=== PATIENT | male | born 1955 | race African-American/Black ===

== ENCOUNTER 2016-06-26 06:57 | Emergency (ER) | payer OTHER ==
[~2016-06-26] VITALS: Ht 182.9 cm; Wt 90.7 kg
[2016-06-26 07:05] VITALS: BP 167/93
== END 2016-06-26 12:21 | disposition home or self-care (01) ==
LOC: ER 06:57
DX: G89.29 Other chronic pain (principal); M54.5 Low back pain; J45.909 Unspecified asthma, uncomplicated; J44.9 Chronic obstructive pulmonary disease, unspecified; I10 Essential (primary) hypertension; Z88.6 Allergy status to analgesic agent

== ENCOUNTER 2018-03-07 07:34 | Emergency (ER) | payer OTHER ==
[~2018-03-07] VITALS: Ht 182.9 cm; Wt 88.9 kg
[2018-03-07 07:51] VITALS: BP 179/91
== END 2018-03-07 08:39 | disposition home or self-care (01) ==
LOC: ER 07:34
DX: I10 Essential (primary) hypertension (principal); J44.9 Chronic obstructive pulmonary disease, unspecified; Z76.0 Encounter for issue of repeat prescription

== ENCOUNTER 2018-07-08 08:08 | Emergency (ER) | payer OTHER ==
[~2018-07-08] VITALS: Ht 182.9 cm; Wt 77.1 kg
[2018-07-08 08:43] VITALS: BP 178/110
== END 2018-07-08 09:17 | disposition home or self-care (01) ==
LOC: ER 08:08
DX: I10 Essential (primary) hypertension (principal); J44.9 Chronic obstructive pulmonary disease, unspecified; Z76.0 Encounter for issue of repeat prescription
CPT/HCPCS: 93005

== ENCOUNTER 2018-07-31 09:54 | Emergency (ER) | payer OTHER ==
[~2018-07-31] VITALS: Ht 182.9 cm; Wt 90.7 kg
[2018-07-31 09:58] VITALS: BP 161/89
== END 2018-07-31 10:26 | disposition home or self-care (01) ==
LOC: ER 09:54
DX: I10 Essential (primary) hypertension (principal); J44.9 Chronic obstructive pulmonary disease, unspecified; Z76.0 Encounter for issue of repeat prescription

== ENCOUNTER 2018-09-27 17:57 | Emergency (ER) | payer MEDICAID ==
[~2018-09-27] VITALS: Ht 182.9 cm; Wt 90.7 kg
[2018-09-27] MEDS ORDERED: IPRATROPIUM BROM 0.5 MG/2.5ML INH SOL NEB ONE (19:45)
[2018-09-27] MEDS ORDERED: ALBUTEROL SULF 2.5 MG/0.5ML(0.5%) NEB SOLN NEB ONE (19:45)
== END 2018-09-27 20:54 | disposition home or self-care (01) ==
LOC: ER 18:02
DX: J20.9 Acute bronchitis, unspecified (principal); K40.90 Unilateral inguinal hernia, without obstruction or gangrene, not specified as recurrent; Z76.0 Encounter for issue of repeat prescription; J44.9 Chronic obstructive pulmonary disease, unspecified; I10 Essential (primary) hypertension
CPT/HCPCS: 94640; 99283; J7611; J7644

== ENCOUNTER 2023-12-14 11:37 | Emergency (ER) | payer MEDICARE, MEDICAID ==
[~2023-12-14] VITALS: Ht 182.9 cm; Wt 72.6 kg
[2023-12-14 13:16] VITALS: BP 126/90; PULSE 109; RESP 17; TEMP 98.9; O2SAT 97
[2023-12-14 13:16] LABS: Basophils # (auto) 0.1 10 ^3/uL (0-0.2); Basophils % (auto) 0.7 % (0.0-2.0); Eosinophils # (auto) 0.2 10 ^3/uL (0-0.8); Eosinophils % (auto) 1.8 % (0.0-7.0); Hematocrit 48.6 % (41.0-53.0); Hemoglobin 16.5 g/dL (13.5-17.5); Lymphocytes # (auto) 1.3 10 ^3/uL (0.4-5.4); Lymphocytes % (auto) 15.8 % (10.0-50.0); Mean Corpuscular Hemoglobin 30.5 pg (28.0-32.0); Mean Corpuscular Hgb Conc. 33.9 g/dL (32.0-36.0); Mean Corpuscular Volume 89.9 fL (80.0-100.0); Monocytes # (auto) 0.5 10 ^3/uL (0-1.3); Monocytes % (auto) 6.3 % (0.0-12.0); Neutrophils # (auto) 6.4 10 ^3/uL (1.6-8.6); Neutrophils % (auto) 75.4 % (37.0-80.0); Nucleated Red Blood Cells % 0.1 %; Red Cell Distribution Width 14.9 % (11.8-14.3); White Blood Cell 8.5 10^3/uL (4.4-10.8)
[2023-12-14 13:32] LABS: Chloride 107 mmol/L (98-107); Potassium 4.9 mmol/L (3.5-5.1); Sodium 141 mmol/L (136-145)
[2023-12-14] MEDS ORDERED: FURO1TAB31 PO (13:34)
[2023-12-14 13:35] LABS: Anion Gap 8 (5-15); Calcium 9.7 mg/dL (8.7-10.4); Carbon Dioxide 26 mmol/L (20-30)
[2023-12-14 13:40] LABS: BUN/Creatinine Ratio 12.3 (10.0-20.0); Blood Urea Nitrogen 26 mg/dL (9-23); Glucose 91 mg/dL (74-106)
== END 2023-12-14 13:44 | disposition home or self-care (01) ==
LOC: ER 11:37
DX: R06.02 Shortness of breath (principal); J44.9 Chronic obstructive pulmonary disease, unspecified; I10 Essential (primary) hypertension; Z76.0 Encounter for issue of repeat prescription
CPT/HCPCS: 36415; 80048; 83880; 85025; 85379

== ENCOUNTER 2024-03-04 03:52 | Inpatient (IN) | payer MEDICARE, OTHER ==
[2024-03-04] VITALS (8 sets, daily range): BP systolic 128–133; BP diastolic 85–88; PULSE 78–101; RESP 16–18; TEMP 97.4–97.8; O2SAT 94–100
[~2024-03-04] VITALS: Ht 182.9 cm; Wt 75.0 kg
[~2024-03-04 03:52] MED LIST: ATOR-507 PO; FLUT100I INH; FURO1TAB31 PO
[2024-03-04] MEDS: ALBUTEROL SULF 2.5 MG/0.5ML(0.5%) NEB SOLN NEB ONE ×2 (04:55→19:32)
[2024-03-04] MEDS: MORPHINE SULFATE INJ 2 MG/ml SYRG IV ONE (05:00)
[2024-03-04] MEDS: ONDANSETRON HCL 4 MG/2 ML VIAL IV ONE (06:01)
[2024-03-04] MEDS: NITROGLYCERIN 2% OINT 1GM PKG TD ONE (06:39)
[2024-03-04] MEDS: FUROSEMIDE 100 MG/10ML VIAL IV ONE (06:39)
[2024-03-04 07:58] LABS: Basophils # (auto) 0 10 ^3/uL (0-0.2); Basophils % (auto) 0.2 % (0.0-2.0); Eosinophils # (auto) 0 10 ^3/uL (0-0.8); Hematocrit 48.1 % (41.0-53.0); Hemoglobin 16.1 g/dL (13.5-17.5); Lymphocytes # (auto) 0.4 10 ^3/uL (0.4-5.4); Lymphocytes % (auto) 4.5 % (10.0-50.0); Mean Corpuscular Hemoglobin 30.7 pg (28.0-32.0); Mean Corpuscular Hgb Conc. 33.5 g/dL (32.0-36.0); Mean Corpuscular Volume 91.6 fL (80.0-100.0); Monocytes # (auto) 0.3 10 ^3/uL (0-1.3); Monocytes % (auto) 2.7 % (0.0-12.0); Neutrophils # (auto) 9.3 10 ^3/uL (1.6-8.6); Neutrophils % (auto) 92.6 % (37.0-80.0); Nucleated Red Blood Cells % 0.1 %; Platelet Count (auto) 221 10^3/uL (140-450); Red Blood Cells 5.26 10^6/uL (4.5-5.90); Red Cell Distribution Width 15.4 % (11.8-14.3)
[2024-03-04 08:15] LABS: Alanine Aminotransferase 28 U/L (7-40); Albumin 2.4 g/dL (3.2-4.8); Alkaline Phosphatase 62 U/L (46-116); Anion Gap 13 (5-15); Aspartate Aminotransferase 31 U/L (13-40); BUN/Creatinine Ratio 23.2 (10.0-20.0); Blood Urea Nitrogen 47 mg/dL (9-23); Calcium 6.7 mg/dL (8.7-10.4); Carbon Dioxide 16 mmol/L (20-31); Chloride 116 mmol/L (98-107); Glucose 97 mg/dL (74-106); Potassium 4.1 mmol/L (3.5-5.1); Sodium 145 mmol/L (136-145)
[2024-03-04 08:16] LABS: Bilirubin, Total 0.6 mg/dL (0.2-1.0); Total Protein 3.9 g/dL (5.7-8.2)
[2024-03-04] MEDS ORDERED: NITROGLYCERIN 0.4 MG SL TAB SL PRN (12:00)
[2024-03-04] MEDS: ASPirin 81 mg TAB PO ONE ×2 (12:00→12:42)
[2024-03-04] MEDS: levoFLOXacin 500MG 100 ML IV ONE (12:43)
[2024-03-04 14:49] LABS: Magnesium 1.6 mg/dL (1.6-2.6)
[2024-03-04] MEDS ORDERED: ALBU2TAB11 PO (17:24)
[2024-03-04] MEDS ORDERED: POTA-36 PO (17:26)
[2024-03-04] MEDS: FUROSEMIDE 40 MG/4 ML VIAL IV SCH (17:26)
[2024-03-04] MEDS ORDERED: IPRATROPIUM BROM 0.5 MG/2.5ML INH SOL NEB PRN (18:30)
[2024-03-04] MEDS ORDERED: ALBUTEROL SULF 2.5 MG/0.5ML(0.5%) NEB SOLN NEB PRN (18:30)
[2024-03-04 18:32] LABS: COVID19 ANTIGEN SOFIA FIA NEGATIVE (NEGATIVE); Rapid Influenza A Negative (Negative); Rapid Influenza B Negative (Negative)
[2024-03-04] MEDS ORDERED: IPRATROPIUM BROM 0.5 MG/2.5ML INH SOL ONE (18:45)
[2024-03-04] MEDS ORDERED: ALBUTEROL SULF 2.5 MG/0.5ML(0.5%) NEB SOLN ONE (18:45)
[2024-03-04] MEDS: IPRATROPIUM BROM 0.5 MG/2.5ML INH SOL NEB ONE (19:32)
[2024-03-04] MEDS: CLOPIDOGREL BISULFATE 75 MG TAB PO ONE (20:33)
[2024-03-04] MEDS: ATORVASTATIN 20 MG TAB PO SCH (21:08)
[2024-03-04] MEDS: ENOXAPARIN SOD 80 MG/0.8ML SYRINGE SC SCH (21:09)
[2024-03-04] MEDS: MORPHINE SULFATE INJ 2 MG/ml SYRG IV PRN (22:24)
[2024-03-04] MEDS: ONDANSETRON HCL 4 MG/2 ML VIAL IV PRN (22:34)
[2024-03-05] VITALS (10 sets, daily range): BP systolic 126–146; BP diastolic 86–93; PULSE 64–99; RESP 16–22; TEMP 97.4–97.6; O2SAT 91–97
[2024-03-05 06:09] LABS: Basophils # (auto) 0 10 ^3/uL (0-0.2); Basophils % (auto) 0.3 % (0.0-2.0); Eosinophils # (auto) 0 10 ^3/uL (0-0.8); Hematocrit 48.4 % (41.0-53.0); Hemoglobin 16.3 g/dL (13.5-17.5); Lymphocytes # (auto) 0.6 10 ^3/uL (0.4-5.4); Lymphocytes % (auto) 4.7 % (10.0-50.0); Mean Corpuscular Hemoglobin 30.7 pg (28.0-32.0); Mean Corpuscular Hgb Conc. 33.7 g/dL (32.0-36.0); Mean Corpuscular Volume 91.1 fL (80.0-100.0); Monocytes # (auto) 0.6 10 ^3/uL (0-1.3); Monocytes % (auto) 4.8 % (0.0-12.0); Neutrophils # (auto) 12.1 10 ^3/uL (1.6-8.6); Neutrophils % (auto) 90.2 % (37.0-80.0); Platelet Count (auto) 237 10^3/uL (140-450); Red Blood Cells 5.31 10^6/uL (4.5-5.90); Red Cell Distribution Width 15.4 % (11.8-14.3); White Blood Cell 13.4 10^3/uL (4.4-10.8)
[2024-03-05 06:31] LABS: Alanine Aminotransferase 37 U/L (7-40); Albumin 3.6 g/dL (3.2-4.8); Alkaline Phosphatase 84 U/L (46-116); Anion Gap 11 (5-15); Aspartate Aminotransferase 30 U/L (13-40); BUN/Creatinine Ratio 15.8 (10.0-20.0); Bilirubin, Total 0.7 mg/dL (0.2-1.0); Blood Urea Nitrogen 55 mg/dL (9-23); Calcium 9.7 mg/dL (8.7-10.4); Carbon Dioxide 25 mmol/L (20-31); Chloride 102 mmol/L (98-107); Glucose 110 mg/dL (74-106); Sodium 138 mmol/L (136-145); Total Protein 6.1 g/dL (5.7-8.2)
[2024-03-05 06:42] LABS: Potassium 5.7 mmol/L (3.5-5.1)
[2024-03-05] MEDS: CLOPIDOGREL BISULFATE 75 MG TAB PO SCH (09:35)
[2024-03-05] MEDS: levoFLOXacin 250MG 50 ML IV SCH (09:36)
[2024-03-05] MEDS: SODIUM ZIRCONIUM CYCL 10 GM PAK PO ONE (17:18)
[2024-03-06] VITALS (10 sets, daily range): BP systolic 100–135; BP diastolic 56–83; PULSE 63–100; RESP 14–21; TEMP 97.4–98.8; O2SAT 91–98
[2024-03-06 05:50] LABS: Alanine Aminotransferase 40 U/L (7-40); Albumin 3.3 g/dL (3.2-4.8); Alkaline Phosphatase 81 U/L (46-116); Anion Gap 8 (5-15); Aspartate Aminotransferase 34 U/L (13-40); Bilirubin, Total 0.6 mg/dL (0.2-1.0); Blood Urea Nitrogen 59 mg/dL (9-23); Calcium 9.5 mg/dL (8.7-10.4); Carbon Dioxide 28 mmol/L (20-31); Chloride 105 mmol/L (98-107); Glucose 73 mg/dL (74-106); Sodium 141 mmol/L (136-145); Total Protein 5.8 g/dL (5.7-8.2)
[2024-03-06 06:09] LABS: Potassium 5.6 mmol/L (3.5-5.1)
[2024-03-06] MEDS: SODIUM ZIRCONIUM CYCL 10 GM PAK PO ONE ×2 (16:21→17:02)
[2024-03-06 17:13] LABS: Sodium Urine 117 mmol/L (40-220)
[2024-03-06 17:20] LABS: Amphetamine Screen, Urine Neg (NEGATIVE); Barbiturate Scree,Urine Neg (NEGATIVE); Benzodiazephine Screen, Urine Neg (NEGATIVE); Cocaine Screen, Urine Neg (NEGATIVE); Opiate Scree,Urine Neg (NEGATIVE)
[2024-03-06 17:21] LABS: Cannabinoid Screen, Urine Neg (NEGATIVE); Creatinine, Urine 19.78 mg/dL (30.0-125.0); Phencyclidine Screen, Urine Neg (NEGATIVE)
[2024-03-06] MEDS: TAMSULOSIN HYDROCHLORIDE 0.4 MG CAP PO SCH (17:41)
[2024-03-07] VITALS (9 sets, daily range): BP systolic 117–128; BP diastolic 73–79; PULSE 65–91; RESP 17–22; TEMP 97.4–98.1; O2SAT 95–100
[2024-03-07 06:47] LABS: Alanine Aminotransferase 39 U/L (7-40); Alkaline Phosphatase 75 U/L (46-116); Anion Gap 7 (5-15); Aspartate Aminotransferase 38 U/L (13-40); BUN/Creatinine Ratio 21.9 (10.0-20.0); Blood Urea Nitrogen 58 mg/dL (9-23); Carbon Dioxide 31 mmol/L (20-31); Chloride 103 mmol/L (98-107); Glucose 97 mg/dL (74-106); Potassium 4.9 mmol/L (3.5-5.1); Sodium 141 mmol/L (136-145)
[2024-03-07 06:48] LABS: Albumin 3.2 g/dL (3.2-4.8); Bilirubin, Total 0.6 mg/dL (0.2-1.0); Phosphorus 3.9 mg/dL (2.4-5.1); Total Protein 5.5 g/dL (5.7-8.2)
[2024-03-07] MEDS: BUMETANIDE 1 MG TAB PO SCH (10:04)
[2024-03-07] MEDS ORDERED: ALBU108A5 INH (17:19)
[2024-03-07] MEDS ORDERED: LOSA-534 PO (17:21)
[2024-03-08] VITALS (11 sets, daily range): BP systolic 103–123; BP diastolic 55–84; PULSE 75–88; RESP 17–22; TEMP 97.6–98.1; O2SAT 96–100
[2024-03-08 08:23] LABS: Anion Gap 4 (5-15); Calcium 8.5 mg/dL (8.7-10.4); Carbon Dioxide 29 mmol/L (20-31); Chloride 105 mmol/L (98-107); Potassium 4.3 mmol/L (3.5-5.1); Sodium 138 mmol/L (136-145)
[2024-03-08 08:27] LABS: BUN/Creatinine Ratio 19.1 (10.0-20.0); Blood Urea Nitrogen 39 mg/dL (9-23); Glucose 99 mg/dL (74-106)
[2024-03-08] MEDS: TAMSULOSIN HYDROCHLORIDE 0.4 MG CAP PO ONE (09:18)
[2024-03-08] MEDS: METOPROLOL SUCCINATE XL 50 MG TAB PO SCH (09:19)
[2024-03-08] MEDS: TAMSULOSIN HYDROCHLORIDE 0.4 MG CAP PO SCH (18:00)
[2024-03-09] VITALS (8 sets, daily range): BP systolic 102–137; BP diastolic 64–86; PULSE 71–101; RESP 18–20; TEMP 97.6–98.3; O2SAT 95–100
[2024-03-09 06:15] LABS: Chloride 107 mmol/L (98-107); Sodium 140 mmol/L (136-145)
[2024-03-09 06:16] LABS: Anion Gap 5 (5-15); Carbon Dioxide 28 mmol/L (20-31)
[2024-03-09 06:21] LABS: BUN/Creatinine Ratio 20.3 (10.0-20.0); Blood Urea Nitrogen 39 mg/dL (9-23); Glucose 95 mg/dL (74-106)
[2024-03-10] MEDS ORDERED: FAMO20TA10 PO (07:32)
[2024-03-10] MEDS ORDERED: METO-6 PO (07:32)
[2024-03-10] MEDS ORDERED: BUM1T PO (07:32)
[2024-03-10] MEDS ORDERED: TAMS-35 PO (07:32)
[2024-03-10] MEDS ORDERED: CLOP75TA70 PO (07:32)
[2024-03-10 08:00] VITALS: PULSE 83; RESP 9; O2SAT 97
[2024-03-10] MEDS: SUCRALFATE 1 GM/10 ML ORAL SUSP GT ONE (09:18)
[2024-03-10 10:00] VITALS: O2SAT 97
[2024-03-10 11:27] VITALS: BP 135/83; PULSE 77; RESP 18; TEMP 98.4; O2SAT 97
[2024-03-10 12:06] LABS: Vitamin D 25-Hydroxy 18 ng/mL (.); Vitamin D-2 25-Hydroxy <1.0 ng/mL (.); Vitamin D-3 25-Hydroxy 18 ng/mL (.)
== END 2024-03-10 12:02 | disposition home health service (06) | DRG 140 ==
LOC: ER 03:52 → TELE 12:11 → TELE-CENTR 15:20
PROVIDERS: ADMIT Nurse Practitioner Family; ATTEND Student in an Organized Health Care Education/Training Program
DX: J44.1 Chronic obstructive pulmonary disease with (acute) exacerbation (principal); J96.01 Acute respiratory failure with hypoxia; I21.A1 Myocardial infarction type 2; I50.23 Acute on chronic systolic (congestive) heart failure; E46 Unspecified protein-calorie malnutrition; N17.9 Acute kidney failure, unspecified; I13.0 Hypertensive heart and chronic kidney disease with heart failure and stage 1 through stage 4 chronic kidney disease, or unspecified chronic kidney disease; I27.20 Pulmonary hypertension, unspecified; I42.0 Dilated cardiomyopathy; I49.3 Ventricular premature depolarization; N18.9 Chronic kidney disease, unspecified; E78.5 Hyperlipidemia, unspecified; E87.5 Hyperkalemia; Z79.02 Long term (current) use of antithrombotics/antiplatelets; Z79.899 Other long term (current) drug therapy; Z90.2 Acquired absence of lung [part of]; Z85.118 Personal history of other malignant neoplasm of bronchus and lung; Z91.199 Patient's noncompliance with other medical treatment and regimen due to unspecified reason; Z87.891 Personal history of nicotine dependence; Z91.119 Patient's noncompliance with dietary regimen due to unspecified reason; Z83.3 Family history of diabetes mellitus; Z68.22 Body mass index [BMI] 22.0-22.9, adult
CPT/HCPCS: 36415; 71045; 76604; 76775; 80048; 80053; 80061; 80307; 82306; 82570; 83036; 83735; 83880; 84100; 84300; 84443; 84484; 85025; 85379; 87426; 87804; 93005; 93306; 93970; 94640; 97110; 97116; 97163; 99291; G0378; J1956; J2405

== ENCOUNTER 2024-04-08 16:15 | Inpatient (IN) | payer MEDICARE, OTHER ==
[~2024-04-08] VITALS: Ht 182.9 cm; Wt 76.3 kg
[~2024-04-08 16:15] MED LIST changes: +ALBU108A5 INH; +BUM1T PO; +CLOP75TA70 PO; +FAMO20TA10 PO; -FURO1TAB31 PO; +METO-6 PO; +TAMS-35 PO
--- NOTE | 2024-04-08 16:23 | ED.PDOC ---
HPI Comments 68 y.o male with PMH of COPD, CHF, HTN, Cancer, presents to the ED via EMS for a chief complaint of chest pain associated with SOB nausea and vomiting that started 2-3 weeks ago. Patient was seen at this facility 2 weeks ago, admitted for pneumonia and received antibiotics throughout his admission but was not discharged with this medication. EMS reports trying to give patient pain medication but he refused and only wanted oxygen. SPO2 read between 80-90%, was placed on 2 liters increasing saturation to 99%. Patient at this time is a poor historian due to pain intensity, rating a 7/10 on the pain scale. Time Seen by : 16:12 Primary Care Provider: Dr. 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, Medications Allergies: Coded Allergies: NO KNOWN ALLERGIES (Unverified , 07/08/18) Home Meds Active Scripts Tamsulosin Hcl (Flomax) 0.4 Mg Cap, 1 CAP PO DAILY, #90 CAP 0 Refills Prov:ARAVIND HARPER MD 03/10/24 Bumetanide (Bumex Tablet) 1 Mg Tab, 2 MG PO DAILY for 60 Days, #120 TAB Prov:ARAVIND HARPER MD 03/10/24 Famotidine (PEPCID TABLET) 20 Mg Tb, 1 TAB PO BID, #60 TAB 3 Refills Prov:ARAVIND HARPER MD 03/10/24 Metoprolol Succinate (Toprol Xl) 50 Mg Tab, 25 MG PO DAILY for 60 Days, #30 TAB Prov:ARAVIND HARPER MD 03/10/24 Clopidogrel Bisulfate (CLOPIDOGREL) 75 Mg Tab, 75 MG PO DAILY for 60 Days, #60 TAB Prov:ARAVIND HARPER MD 03/10/24 Reported Medications Atorvastatin Calcium (Lipitor) 40 Mg Tab, 1 TAB PO DAILY for 90 Days, #90 03/07/24 Fluticasone Furoate-Vilanterol (BREO ELLIPTA) 1 Inh Inh, 1-2 PUFF INH DAILY for 30 Days, #60 03/07/24 Albuterol Sulfate (Albuterol Sulfate Hfa) 108 Mcg/Act Aer, 1 PUFF INH Q6HR PRN for WHEEZING for 50 Days, #18 03/07/24 Information Source: Patient, Emergency Med Personnel Mode of Arrival: EMS Severity: Moderate Timing: Weeks Duration: Since onset Location: Substernal Radiation: No Radiation Quality: Sharp Onset: At Rest Cardiac Risk Factors: HTN History of: None Modifying Factors: Nothing Associated Signs and Symptoms: SOB, N/V Past Medical History PAST MEDICAL HISTORY: Asthma, Cancer, CHF, COPD, HTN Surgical History: Denies all surgeries Family History Family History: Unobtainable Social History Smoker: Non-Smoker Alcohol: Occasionally Drugs: Denies Drug Use Lives In: Home Constitutional: denies: chills, diaphoresis, fatigue, fever, malaise, sweats, weakness, others EENTM: denies: blurred vision, double vision, ear bleeding, ear discharge, ear drainage, ear pain, ear ringing, eye pain, eye redness, hearing loss, mouth edward n, mouth swelling, nasal discharge, nose bleeding, nose congestion, nose pain, photophobia, tearing, throat pain, throat swelling, voice changes, others Respiratory: reports: SOB at rest, shortness of breath; denies: cough, hemoptysis, orthopnea, SOB with excertion, stridor, wheezing, others Cardiovascular: reports: chest pain; denies: dizzy spells, diaphoresis, Dyspnea on exertion, edema, irregular heart beat, left arm pain, lightheadedness, palpitations, PND, syncope, others Gastrointestinal: reports: nausea, vomiting; denies: abdomen distended, abdominal pain, blood streaked bowels, constipated, diarrhea, dysphagia, difficulty swallowing, hematemesis, melena, poor appetite, poor fluid intake, rectal bleeding, rectal pain, others Genitourinary: denies: burning, dysuria, flank pain, frequency, hematuria, incontinence, penile discharge, penile sore, pain, testicle pain, testicle swelling, urgency, others Neurological: denies: dizziness, fainting, headache, left sided numbness, left sided weakness, numbness, paresthesia, pre-existing deficit, right sided numbness, right sided weakness, seizure, speech problems, tingling, tremors, weakness, others Musculoskeletal: denies: back pain, gout, joint pain, joint swelling, muscle pain, muscle stiffness, neck pain, others Integumetry: denies: bruises, change in color, change in hair/nails, dryness, laceration, lesions, lumps, rash, wounds, others Allergic/Immunocompromised: denies: Difficulty Healing, Frequent Infections, Hives, Itching, others Hematologic/Lymphatic: denies: anemia, blood clots, easy bleeding, easy bruising, swollen glands, others Endocrine: denies: excessive hunger, excessive sweating, excessive thirst, excessive urination, flushing, intolerance to cold, intolerance to heat, unexplained weight gain, unexplained weight loss, others Psychiatric: denies: anxiety, bipolar disorder, depression, hopeless, panic disorder, schizophrenia, sleepless, suicidal, others All Other Systems: Reviewed and Negative Physical Exam General Appearance: Moderate Distress HEENT: Normal ENT Inspection, Pharynx Normal, TMs Normal Neck: Full Range of Motion, Non-Tender, Normal, Normal Inspection Respiratory: Chest Non-Tender, Lungs Clear, No Accessory Muscle Use, No Respiratory Distress, Normal Breath Sounds Cardiovascular: No Edema, No JVD, No Murmur, No Gallop, Normal Peripheral Pulses, Regular Rate/Rhythm Breast Exam: Deferred Gastrointestinal: No Organomegaly, Non Tender, No Pulsatile Mass, Normal Bowel Sounds, Soft Genitalia: Deferred Pelvic: Deferred Rectal: Deferred Extremities: No calf tenderness, Normal capillary refill, Normal inspection, Normal range of motion, Non-tender, No pedal edema Musculoskeletal : Apperance: Normal Neurologic: Alert, tube builder airplane II-XII nml as Tested, No Motor Deficits, Normal Affect, Normal Mood, No Sensory Deficits Cerebellar Function: Normal Reflexes: Normal Skin: Dry, Normal Color, Warm Lymphatic: No Adenopathy EKG EKG : Pulse Rate (adult): 98 Cardiac Rhythm: NSR Hypertrophy: LAE Was a procedure done? Was a procedure done?: No CP Differential Dx Differential Diagnosis: N/A Differential Diagnosis: Angina, Costochondritis, Myocardial Infarction, Pericarditis X-Ray, Labs, Meds, VS Vital Signs Date Time Temp Pulse Resp B/P (MAP) Pulse Ox O2 Delivery O2 Flow Rate FiO2 04/08/24 19:00 126/85 04/08/24 17:18 98 04/08/24 16:30 98 29 157/107 (124) 99 04/08/24 16:30 96 16 126/83 04/08/24 16:15 98 Lab Test 04/08/24 18:35 04/08/24 16:52 Range/Units Troponin I High Sensitivity Pending 134 *H </=54 ng/L White Blood Count 12.1 H 4.4-10.8 10^3/uL Red Blood Count 5.10 4.5-5.90 10^6/uL Hemoglobin 15.3 13.5-17.5 g/dL Hematocrit 46.4 41.0-53.0 % Mean Corpuscular Volume 90.9 80.0-100.0 fL Mean Corpuscular Hemoglobin 30.0 28.0-32.0 pg Mean Corpuscular Hemoglobin Concent 33.0 32.0-36.0 g/dL Red Cell Distribution Width 16.4 H 11.8-14.3 % Platelet Count 229 140-450 10^3/uL Mean Platelet Volume 8.0 6.9-10.8 fL Neutrophils (%) (Auto) 90.6 H 37.0-80.0 % Lymphocytes (%) (Auto) 4.9 L 10.0-50.0 % Monocytes (%) (Auto) 4.1 0.0-12.0 % Eosinophils (%) (Auto) 0.0 0.0-7.0 % Basophils (%) (Auto) 0.4 0.0-2.0 % Neutrophils # (Auto) 11.0 H 1.6-8.6 10 ^3/uL Lymphocytes # (Auto) 0.6 0.4-5.4 10 ^3/uL Monocytes # (Auto) 0.5 0-1.3 10 ^3/uL Eosinophils # (Auto) 0 0-0.8 10 ^3/uL Basophils # (Auto) 0 0-0.2 10 ^3/uL Nucleated Red Blood Cells 0.1 % Sodium Level 145 136-145 mmol/L Potassium Level 6.8 *H 3.5-5.1 mmol/L Chloride Level 107 98-107 mmol/L Carbon Dioxide Level 19 L 20-31 mmol/L Anion Gap 19 H 5-15 Blood Urea Nitrogen 75 H 9-23 mg/dL Creatinine 3.36 H 0.700-1.30 mg/dL Glomerular Filtration Rate Calc 19 >90 mL/min BUN/Creatinine Ratio 22.3 H 10.0-20.0 Serum Glucose 107 H 74-106 mg/dL Calcium Level 10.2 8.7-10.4 mg/dL B-Type Natriuretic Peptide > 5000.00 0-100 pg/mL Current Medications Medications (Trade) Dose Ordered Sig/Lisa Route Start Time Stop Time Status Last Admin Aspirin 162 mg ONCE ONCE PO 04/08/24 16:30 04/08/24 16:31 DC 04/08/24 18:56 Sodium Bicarbonate 50 ml ONCE ONCE IV 04/08/24 18:15 04/08/24 18:16 DC 04/08/24 19:08 Insulin Human Regular (InsuLIN R) 5 units ONCE ONCE IV 04/08/24 18:15 04/08/24 18:16 DC 04/08/24 19:07 Dextrose 50 ml ONCE ONCE IV 04/08/24 18:15 04/08/24 18:16 DC 04/08/24 19:08 Furosemide (Lasix Injection) 40 mg ONCE ONCE IV 04/08/24 18:30 04/08/24 18:31 DC 04/08/24 19:00 IV Hep-Lock was established The patient was given aspirin 162 mg by mouth The CBC shows an elevated white blood cell count of 12.1 The patient was troponin level is 134 The patient's potassium came back elevated at 6.8 The patient was given insulin 5 units IV push The patient's CO2 level is 19 and the anion gap is somewhat elevated. There is a concern that the patient was developing potential DKA The BNP is elevated at greater than 5000 The BUN is 75 and a creatinine of 3.36 At this time, the patient is being admitted. For the hyperkalemia, the patient was given sodium bicarbonate as well as insulin, dextrose and calcium chloride The patient was being admitted Images Reviewed?: Images reviewed and evaluated by me Time of 1ST Reevaluation: 16:17 Reevaluation 1ST: Unchanged Patient Education/Counseling: Diagnosis, Treatment, Prognosis Family Education/Counseling: No Family Present Departure 1 Departure Time of Disposition: 19:14 Impression: Primary Impression: Acute chest pain Additional Impressions: Acute renal failure Qualified Codes: N17.1 - Acute kidney failure with acute cortical necrosis Hyperkalemia Disposition: 09 ADMITTED INPATIENT Admit to: [facility] Condition: Fair Critical Care Note Critical Care Time?: Yes (45 min-critical care time only) Stability Stability form required: Yes Unstable for transfer: Telemetry monitoring (Telemetry monitoring required), ED Physician Assesment (Clinical assesment) Heart Score Heart Score: Heart Score Response (Comments) Value History Slightly Suspicious 0 EKG Normal 0 Age >65 2 Risk Factors 1 or 2 risk factors 1 Troponin Normal limit 0 Total 3 I personally scribed for BRIAN ANDRADE MD ([email or web address]) on 04/08/24 at 16:23. Electronically submitted by Tejal Dumont ([facility]). I personally scribed for BRIAN ANDRADE MD ([email or web address]) on 04/08/24 at 17:18. Electronically submitted by Tejal Dumont ([facility]). BRIAN ANDRADE MD Apr 08, 2024 16:23
[2024-04-08] MEDS: ONDANSETRON HCL 4 MG/2 ML VIAL IV ONE (16:30)
[2024-04-08] MEDS: MORPHINE SULFATE 4 MG/ML SYR/VIAL IV ONE (16:30)
--- NOTE | 2024-04-08 17:04 | DVH ---
CHEST RADIOGRAPH Indication:pain Technique: Single frontal view of the chest was obtained COMPARISON: XY CHEST XRAY 1 VIEW on DOS: 03/10/24, XY CHEST XRAY 1 VIEW on DOS: 03/07/24, XY CHEST PO RTABLE on DOS: 03/04/24 FINDINGS: Lines and Tubes: None Lungs: Left upper lobe airspace disease. Pleura: No effusion. No pneumothorax. Cardiomediastinal contours: Cardiomegaly Bones: Unremarkable IMPRESSION: Left upper lobe airspace disease. Cardiomegaly.
[2024-04-08 17:11] LABS: Basophils # (auto) 0 10 ^3/uL (0-0.2); Basophils % (auto) 0.4 % (0.0-2.0); Eosinophils # (auto) 0 10 ^3/uL (0-0.8); Hematocrit 46.4 % (41.0-53.0); Hemoglobin 15.3 g/dL (13.5-17.5); Lymphocytes # (auto) 0.6 10 ^3/uL (0.4-5.4); Lymphocytes % (auto) 4.9 % (10.0-50.0); Mean Corpuscular Volume 90.9 fL (80.0-100.0); Monocytes # (auto) 0.5 10 ^3/uL (0-1.3); Monocytes % (auto) 4.1 % (0.0-12.0); Neutrophils % (auto) 90.6 % (37.0-80.0); Nucleated Red Blood Cells % 0.1 %; Platelet Count (auto) 229 10^3/uL (140-450); Red Cell Distribution Width 16.4 % (11.8-14.3); White Blood Cell 12.1 10^3/uL (4.4-10.8)
[2024-04-08 17:19] LABS: Chloride 107 mmol/L (98-107); Sodium 145 mmol/L (136-145)
[2024-04-08 17:20] LABS: Anion Gap 19 (5-15); Calcium 10.2 mg/dL (8.7-10.4); Carbon Dioxide 19 mmol/L (20-31)
[2024-04-08 17:25] LABS: BUN/Creatinine Ratio 22.3 (10.0-20.0); Blood Urea Nitrogen 75 mg/dL (9-23); Glucose 107 mg/dL (74-106)
[2024-04-08 17:51] LABS: Potassium 6.8 mmol/L (3.5-5.1)
[2024-04-08 18:30] VITALS: PULSE 94; RESP 18; O2SAT 97
[2024-04-08] MEDS: ASPirin 81 mg TAB PO ONE (18:56)
[2024-04-08] MEDS: FUROSEMIDE 40 MG/4 ML VIAL IV ONE (19:00)
--- NOTE | 2024-04-08 19:02 | ECG ---
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
--- NOTE | 2024-04-08 19:02 | ECG ---
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
[2024-04-08] MEDS: InsuLIN REG 1unit/0.01ml Soln (100units/ml) IV ONE ×2 (19:07→23:23)
[2024-04-08] MEDS: SODIUM BICARB 8.4% 50Meq/50ml SYR Vial IV ONE (19:08)
[2024-04-08] MEDS: DEXTROSE (50%) 50ML SYRG IV ONE ×2 (19:08→23:22)
[2024-04-08 19:45] VITALS: PULSE 95; RESP 26; O2SAT 98
[2024-04-08] MEDS ORDERED: NITROGLYCERIN 0.4 MG SL TAB SL PRN (20:30)
[2024-04-08] MEDS: CALCIUM GLUC 1,000mg/50ml-NS 50 ML IV ONE (21:13)
[2024-04-08] MEDS: MORPHINE SULFATE INJ 2 MG/ml SYRG IV PRN (21:13)
[2024-04-08 21:19] LABS: Anion Gap 17 (5-15); Carbon Dioxide 21 mmol/L (20-31); Chloride 107 mmol/L (98-107); Sodium 145 mmol/L (136-145)
[2024-04-08 21:25] LABS: BUN/Creatinine Ratio 19.4 (10.0-20.0); Blood Urea Nitrogen 66 mg/dL (9-23); Glucose 102 mg/dL (74-106)
[2024-04-08 21:32] LABS: Potassium 5.9 mmol/L (3.5-5.1)
--- NOTE | 2024-04-08 21:57 | DVHHPRES ---
History of Present Illness Resident Creating Document: CONSUELO MARTÍNEZ RESIDENT History of Present Illness This is a 68 old male with past medical history of hypertension, hyperlipidemia, COPD, cancer, chronic systolic heart failure, CKD stage IV presented to the ED with a chief complaint of chest pain with shortness of breath, nausea and vomiting intermittently for last 1 week prior to this admission. According to the patient chest pain is localized to the left side of the chest, sharp in nature, 7/10 and associated with shortness of breath and nausea without any aggravating and relieving factors. The patient was admitted in the [facility] 1 month ago with a diagnosis of pneumonia. According to the EMS the patient was refusing pain medication and saturation was initially between 80-90% and later with 2 L oxygen the saturation is 99%. Patient denies dizziness, diaphoresis, abdominal pain or any change in bowel and bladder habit. Past Medical History Hypertension, hyperlipidemia, COPD, cancer, chronic systolic heart failure, CKD stage IV Past Surgical History: None Family History: None Smoke: No ALCOHOL: occassional Drugs: None Lives: with Family Review of Systems Constitutional: No: Fever, Chills, Sweats, Weakness, Malaise, Other Eyes: No: Pain, Vision change, Conjunctivae inflammation, Eyelid inflammation, Other, Redness ENT: No: Ear pain, Ear discharge, Nose pain, Nose discharge, Nose congestion, Mouth pain, Mouth swelling, Throat pain, Throat swelling, Other Respiratory: Shortness of breath, SOB with excertion; No: Cough, Dry, Wheezing, Hemoptysis, Pleuritic Pain, Sputum, Wheezing, Other Cardiovascular: Chest Pain; No: Palpitations, Orthopnea, Paroxysmal Noc. Dyspnea, Edema, Lt Headedness, Other Gastrointestinal: Nausea, Vomiting; No: Abdominal Pain, Diarrhea, Constipation, Melena, Hematochezia, Other Genitourinary: No Dysuria, No Frequency, No Incontinence, No Hematuria, No Retention, No Other Musculoskeletal: No: other, neck pain, shoulder pain, arm pain, back pain, hand pain, leg pain, foot pain Skin: No: Rash, Lesions, Jaundice, Bruising, Other Neurological: No: Weakness, Numbness, Incoordination, Change in speech, Confusion, Seizures, Other Allergies: Coded Allergies: NO KNOWN ALLERGIES (Unverified , 07/08/18) Medications Current Medications Medications Dose Ordered Sig/Lisa Route Start Time Stop Time Status Last Admin Dose Admin Sodium Chloride 10 ml Q8HR IV 04/08/24 22:00 Acetaminophen/ Hydrocodone Bitart 1 tab Q4HP PRN PO 04/08/24 20:30 Nitroglycerin 0.4 mg Q5MINP PRN SL 04/08/24 20:30 Morphine Sulfate 2 mg Q30M PRN IV 04/08/24 20:30 04/08/24 21:13 2 MG Zirconium Oxide 10 gm TID PO 04/08/24 22:00 04/10/24 14:01 UNV Clopidogrel Bisulfate 75 mg DAILY PO 04/09/24 10:00 UNV Famotidine 20 mg BID PO 04/08/24 22:00 UNV Metoprolol Succinate 25 mg DAILY PO 04/09/24 10:00 UNV Tamsulosin HCl 0.4 mg DAILY PO 04/09/24 10:00 UNV Patient Own Medication 1 tab DAILY PO 04/09/24 10:00 UNV Exam Vital Signs Vital Signs Date Time Temp Pulse Resp B/P (MAP) Pulse Ox O2 Delivery O2 Flow Rate FiO2 04/08/24 21:13 96 20 158/78 04/08/24 20:00 98 04/08/24 18:30 98.6 98.6 04/08/24 18:30 Nasal Cannula* 2 28 Exam Physical examination: General Appearance: Alert, Oriented X3, Cooperative, No acute distress HEENT: Atraumatic, PERRLA, EOMI, Mucous membrane moist/pink Respiratory: Mild bilateral crackles in both lung field Cardiovascular: Regular rate, Normal S1, Normal S2, No murmurs, no chest wall tenderness Abdominal: Normal bowel sounds, Soft, No tenderness, No hepatospenomegaly, No masses Extremities: Bilateral pedal edema+, No clubbing, No cyanosis, Normal pulses, No tenderness/swelling Skin: No rashes, No breakdown, No significant lesion Neuro: Normal gait, Normal speech, Strength at 5/5 X4 ext, Normal tone, Sensation intact, mild crackles in bilateral lung field. Psych/Mental Status: Mental status NL, Mood NL Labs/Xrays Labs Test 04/08/24 20:30 04/08/24 19:06 04/08/24 16:52 Range/Units Sodium Level 145 136-145 mmol/L Potassium Level 5.9 *H 3.5-5.1 mmol/L Chloride Level 107 98-107 mmol/L Carbon Dioxide Level 21 20-31 mmol/L Anion Gap 17 H 5-15 Blood Urea Nitrogen 66 H 9-23 mg/dL Creatinine 3.41 H 0.700-1.30 mg/dL Glomerular Filtration Rate Calc 19 >90 mL/min BUN/Creatinine Ratio 19.4 10.0-20.0 Serum Glucose 102 74-106 mg/dL Calcium Level 10.0 8.7-10.4 mg/dL Troponin I High Sensitivity 148 *H </=54 ng/L POC Glucose 103 70-106 mg/dl White Blood Count 12.1 H 4.4-10.8 10^3/uL Red Blood Count 5.10 4.5-5.90 10^6/uL Hemoglobin 15.3 13.5-17.5 g/dL Hematocrit 46.4 41.0-53.0 % Mean Corpuscular Volume 90.9 80.0-100.0 fL Mean Corpuscular Hemoglobin 30.0 28.0-32.0 pg Mean Corpuscular Hemoglobin Concent 33.0 32.0-36.0 g/dL Red Cell Distribution Width 16.4 H 11.8-14.3 % Platelet Count 229 140-450 10^3/uL Mean Platelet Volume 8.0 6.9-10.8 fL Neutrophils (%) (Auto) 90.6 H 37.0-80.0 % Lymphocytes (%) (Auto) 4.9 L 10.0-50.0 % Monocytes (%) (Auto) 4.1 0.0-12.0 % Eosinophils (%) (Auto) 0.0 0.0-7.0 % Basophils (%) (Auto) 0.4 0.0-2.0 % Neutrophils # (Auto) 11.0 H 1.6-8.6 10 ^3/uL Lymphocytes # (Auto) 0.6 0.4-5.4 10 ^3/uL Monocytes # (Auto) 0.5 0-1.3 10 ^3/uL Eosinophils # (Auto) 0 0-0.8 10 ^3/uL Basophils # (Auto) 0 0-0.2 10 ^3/uL Nucleated Red Blood Cells 0.1 % B-Type Natriuretic Peptide > 5000.00 0-100 pg/mL Assessment/Plan Assessment/Plan Assessment and plan: # Acute chest pain likely due to NSTEMI type 2 - Initial EKG revealed sinus rhythm with nonspecific T-wave abnormalities - Troponin trends are 134>143>148 - Echo on 03/17 revealed ejection fraction 10% with CVR pulmonary hypertension, RVSP 60 mm Hg # Acute respiratory failure likely due to acute exacerbation of chronic systolic heart failure - BNP> 5000 - Chest x-ray revealed cardiomegaly with left upper lobe airspace disease. - IV Lasix 40 mg b.i.d. # PORTIA on CKD likely secondary to hemodynamically mediated/VMN - Monitor BMP # Hyperkalemia with metabolic acidosis and respiratory compensation - Hyperkalemia protocol management - Check potassium q.4 hours # Chronic COPD - Duo neb treatment with albuterol and ipratropium q.4 p.r.n. # Type 2 diabetes mellitus - Mild sliding scale of insulin. Goal of care discussed with the patient for more than 20 minutes full code Plan of treatment discussed with Dr. Bailey Plan discussed with: Patient, Other My Orders Orders - CONSUELO MARTÍNEZ RESIDENT Procedure Category Date Status Time Admit ADMIT 04/08/24 Transmitted 20:23 Allergies LEE 04/08/24 In Process 20:23 Code Status CODE 04/08/24 Transmitted 20:23 Sodium Chloride Lock PHA 04/08/24 In Process (Saline Lock Ns) 22:00 Oxygen Per Hour RT 04/08/24 Transmitted 20:23 Hydrocodone-Acet PHA 04/08/24 In Process 5/325mg Tab ([place] 20:30 Complete Blood Count LAB 04/09/24 Verified 04:00 Comprehensive LAB 04/09/24 Verified Metabolic Panel 04:00 Echo 2d Mode Cardiac US 04/08/24 Logged DOP 20:23 Nitroglycerin PHA 04/08/24 In Process Sublingual (Ntrostat 20:30 Morphine Sulfate PHA 04/08/24 In Process Injection 20:30 Oxygen By Nasal RT 04/08/24 Transmitted Cannula 20:23 Stat Ekg For Chest LEE 04/08/24 In Process Pain 20:23 Notify Of Changes [facility] 04/08/24 In Process From Base 20:23 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 [facility] 04/08/24 In Process 24 Hours 20:23 Emergency Dysrhythmia [facility] 04/08/24 In Process Protocol 20:23 Rhythm Strips Once [facility] 04/08/24 In Process Every Shift 20:23 Insulin R (Human) PHA 04/08/24 Logged (Insulin R) 21:45 Dextrose 50% Syringe PHA 04/08/24 Logged 21:45 Albuterol Medneb PHA 04/08/24 Logged (Ventolin Medneb) 21:45 Sodium Bicarb PHA 04/08/24 Logged 50meq/50ml Syr 21:45 Furosemide Injection PHA 04/08/24 Logged (Lasix Injection) 21:45 Sodium Zirconium PHA 04/08/24 Logged Cyclosilicate 22:00 Clopidogrel Bisulfate PHA 04/09/24 Logged (Plavix) 10:00 Famotidine Tablet PHA 04/08/24 Logged (Pepcid Tablet) 22:00 Metoprolol Xl PHA 04/09/24 Logged Succinate (Toprol Xl) 10:00 Tamsulosin PHA 04/09/24 Logged Hydrochloride (Flomax) 10:00 (Nf) Atorvastatin PHA 04/09/24 Logged Calcium (Lipitor) 10:00 Hydralazine Injection PHA 04/08/24 Verified (Apresoline Inject 22:00 Date of Service: Apr 08, 2024 Billing Provider: NINA BAILEY MD Common Visit Codes: 54629-[id number] INP/OBS CARE (HIGH) Secondary Visit Codes: 94143-[id number] CARE PLAN 30 MINUTES CONSUELO MARTÍNEZ RESIDENT Apr 08, 2024 21:57 NINA BAILEY MD Apr 09, 2024 12:54
[2024-04-08] MEDS ORDERED: hydrALAZINE HCL 20 MG/ML VL IV PRN (22:00)
[2024-04-08] MEDS: ALBUTEROL SULF 2.5 MG/0.5ML(0.5%) NEB SOLN NEB ONE (22:02)
[2024-04-08] MEDS: SODIUM BICARB 8.4% 50Meq/50ml SYR INJ IV ONE (23:22)
[2024-04-08] MEDS: FUROSEMIDE 20 MG/2 ML VIAL IV ONE (23:24)
[2024-04-08] MEDS: SODIUM ZIRCONIUM CYCL 10 GM PAK PO SCH (23:25)
[2024-04-08] MEDS: SODIUM CHLOR 0.9% PF (SALINE LOCK) 10ML VIAL/SYR IV SCH (23:25)
[2024-04-08 23:42] LABS: Base Excess -4.1 mmol/L (-2.0-3.0)
[2024-04-09] MEDS ORDERED: ALBUTEROL SULF 2.5 MG/0.5ML(0.5%) NEB SOLN NEB ONE (01:00)
[2024-04-09] MEDS: ALBUTEROL SULF 2.5 MG/0.5ML(0.5%) NEB SOLN NEB ONE (01:18)
[2024-04-09 02:40] LABS: Urine Bacteria FEW /hpf (None Seen); Urine Blood 2+ /uL (Negative); Urine Clarity Turbid (Clear); Urine Color Yellow (Yellow); Urine Hyaline Cast MANY /lpf (0 - 2); Urine Mucus FEW (None Seen); Urine Protein, UAD 2+ (Negative); Urine Specific Gravity 1.013 (1.001-1.035); Urine Sperm PRESENT /hpf (None Seen); Urine Urobilinogen Normal (Negative); Urine WBC 5 /hpf (0 - 3); Urine pH 5.5 (5.0-9.0)
[2024-04-09 06:26] LABS: Basophils # (auto) 0 10 ^3/uL (0-0.2); Basophils % (auto) 0.2 % (0.0-2.0); Eosinophils # (auto) 0 10 ^3/uL (0-0.8); Hematocrit 47.6 % (41.0-53.0); Hemoglobin 15.7 g/dL (13.5-17.5); Lymphocytes # (auto) 0.5 10 ^3/uL (0.4-5.4); Lymphocytes % (auto) 4.1 % (10.0-50.0); Mean Corpuscular Volume 90.9 fL (80.0-100.0); Monocytes # (auto) 1.2 10 ^3/uL (0-1.3); Monocytes % (auto) 9.5 % (0.0-12.0); Neutrophils # (auto) 10.8 10 ^3/uL (1.6-8.6); Neutrophils % (auto) 86.2 % (37.0-80.0); Nucleated Red Blood Cells % 0.2 %; Platelet Count (auto) 180 10^3/uL (140-450); Red Blood Cells 5.24 10^6/uL (4.5-5.90); Red Cell Distribution Width 16.4 % (11.8-14.3); White Blood Cell 12.5 10^3/uL (4.4-10.8)
[2024-04-09 06:46] LABS: Alanine Aminotransferase 291 U/L (7-40); Albumin 3.8 g/dL (3.2-4.8); Alkaline Phosphatase 92 U/L (46-116); Anion Gap 15 (5-15); Aspartate Aminotransferase 254 U/L (13-40); BUN/Creatinine Ratio 18.6 (10.0-20.0); Blood Urea Nitrogen 60 mg/dL (9-23); Calcium 9.8 mg/dL (8.7-10.4); Carbon Dioxide 20 mmol/L (20-31); Chloride 109 mmol/L (98-107); Glucose 124 mg/dL (74-106); Sodium 144 mmol/L (136-145)
[2024-04-09 06:47] LABS: Bilirubin, Total 1.3 mg/dL (0.2-1.0); Total Protein 6.7 g/dL (5.7-8.2)
[2024-04-09 06:51] LABS: Potassium 5.7 mmol/L (3.5-5.1)
--- NOTE | 2024-04-09 07:09 | ECG ---
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
[2024-04-09 07:26] VITALS: PULSE 82; RESP 15; O2SAT 99
[2024-04-09] MEDS: SODIUM BICARB 8.4% 50Meq/50ml SYR INJ IV ONE (08:04)
[2024-04-09] MEDS: DEXTROSE (50%) 50ML SYRG IV ONE (08:05)
[2024-04-09] MEDS: InsuLIN REG 1unit/0.01ml Soln (100units/ml) IV ONE (08:15)
[2024-04-09 09:25] LABS: COVID19 ANTIGEN SOFIA FIA NEGATIVE (NEGATIVE)
[2024-04-09 09:26] LABS: Rapid Influenza A Negative (Negative); Rapid Influenza B Negative (Negative)
[2024-04-09] MEDS: ASPirin 81 mg TAB PO SCH (10:00)
[2024-04-09] MEDS: levoFLOXacin 750MG 150 ML IV SCH (10:09)
[2024-04-09] MEDS: FAMOTIDINE 20 MG TAB PO SCH (10:10)
[2024-04-09] MEDS: TAMSULOSIN HYDROCHLORIDE 0.4 MG CAP PO SCH (10:10)
[2024-04-09] MEDS: CLOPIDOGREL BISULFATE 75 MG TAB PO SCH (10:11)
[2024-04-09] MEDS: METOPROLOL SUCCINATE XL 50 MG TAB PO SCH (10:12)
--- NOTE | 2024-04-09 11:11 | DVH ---
Procedure: CT CHEST WITHOUT CONTRAST Reason for study/Clinical History: left upper lobe airspace disease Comparison Study: None available at time of dictation. Exam Date: 04/09/2024 09:46 AM TECHNIQUE: Multidetector CT of the chest was performed from the lung apices to the upper abdomen with out the use of intravenous contract. Axial, coronal and sagittal multiplanar reformats were performed . Radiation Dose Information: CT Dose: CTDI volume is 12.35 mGy. Dose-length product is 402.82 mGy*cm The dose indicators for CT are the volume Computed Tomography (CT) Dose Index (CTDIvol) and the Dose Length Product (DLP), and are measured in units of mGy and mGy-cm, respectively. These indicators are not patient dose, but values generated from the CT scanner acquisition factors. The report includes radiation exposure data for exposures received during this examination. FINDINGS: Lower neck: Normal thyroid. Lungs: Multifocal pneumonia throughout both lungs including a dense masslike component in the left up per lobe. Severe centrilobular emphysema. Heart/Vascular Structures: Normal heart size. No pericardial effusion. Lymph Nodes: No adenopathy Pleura: Small left pleural effusion which is partially loculated laterally. Musculoskeletal: No acute osseous abnormality. Soft tissues: Trace subcutaneous emphysema is seen in the right lower neck. Upper abdomen: Limited portions of the upper abdomen are unremarkable. IMPRESSION: 1. Multifocal pneumonia throughout both lungs including a dense masslike component in the left upper lobe. Recommend follow-up noncontrast chest CT in 4 weeks after treatment to evaluate for stability. 2. Small left pleural effusion which is partially loculated. 3. Severe centrilobular emphysema. 4. Trace subcutaneous emphysema in the right lower neck, of unclear etiology. Radiation optimization: All CT scans at this facility use at least one of these dose optimization can hniques: automated exposure control mA and/or kV adjustment per patient size (includes targeted exam s where dose is matched to clinical indication) or iterative reconstruction.
--- NOTE | 2024-04-09 12:28 | DVHINCON2 ---
Date of service: Apr 09, 2024 Referring Physician Hospitalist Reason for Consultation Acute kidney injury History of Present Illness 60-year-old male with past medical history of severe systolic congestive heart failure ejection fraction of 10%, hypertension, chronic kidney disease stage IIIB presents to the hospital complaining of shortness of breath and chest pain. Nephrology consulted due to elevated creatinine level. Of note at presentation patient was noted to have elevated potassium level. Past Medical History As above Allergies: Coded Allergies: NO KNOWN ALLERGIES (Unverified , 07/08/18) Home Meds Active Scripts Tamsulosin Hcl (Flomax) 0.4 Mg Cap, 1 CAP PO DAILY, #90 CAP 0 Refills Prov:ARAVIND HARPER MD 03/10/24 Bumetanide (Bumex Tablet) 1 Mg Tab, 2 MG PO DAILY for 60 Days, #120 TAB Prov:ARAVIND HARPER MD 03/10/24 Famotidine (PEPCID TABLET) 20 Mg Tb, 1 TAB PO BID, #60 TAB 3 Refills Prov:ARAVIND HARPER MD 03/10/24 Metoprolol Succinate (Toprol Xl) 50 Mg Tab, 25 MG PO DAILY for 60 Days, #30 TAB Prov:ARAVIND HARPER MD 03/10/24 Clopidogrel Bisulfate (CLOPIDOGREL) 75 Mg Tab, 75 MG PO DAILY for 60 Days, #60 TAB Prov:ARAVIND HARPER MD 03/10/24 Reported Medications Atorvastatin Calcium (Lipitor) 40 Mg Tab, 1 TAB PO DAILY for 90 Days, #90 03/07/24 Fluticasone Furoate-Vilanterol (BREO ELLIPTA) 1 Inh Inh, 1-2 PUFF INH DAILY for 30 Days, #60 03/07/24 Albuterol Sulfate (Albuterol Sulfate Hfa) 108 Mcg/Act Aer, 1 PUFF INH Q6HR PRN for WHEEZING for 50 Days, #18 03/07/24 Current Medications Current Medications Medications (Trade) Dose Ordered Sig/Lisa Route PRN Reason Start Time Stop Time Status Last Admin Sodium Chloride (Saline Lock Ns) 10 ml Q8HR IV 04/08/24 22:00 04/09/24 06:17 Acetaminophen/ Hydrocodone Bitart ([place] 5/325MG Tab) 1 tab Q4HP PRN PO MODERATE PAIN (4-6 PAIN SCALE) 11/15/24 20:30 Nitroglycerin (Ntrostat Sublingual) 0.4 mg Q5MINP PRN SL FOR CHEST PAIN 04/08/24 20:30 Morphine Sulfate 2 mg Q30M PRN IV FOR CHEST PAIN 04/08/24 20:30 04/08/24 21:13 Zirconium Oxide (Lokelma) 10 gm TID PO 04/08/24 22:00 04/10/24 14:01 04/08/24 23:25 Clopidogrel Bisulfate (Plavix) 75 mg DAILY PO 04/09/24 10:00 04/09/24 10:11 Famotidine (Pepcid Tablet) 10 mg DAILY PO 04/09/24 10:00 04/09/24 10:10 Metoprolol Succinate (Toprol Xl) 25 mg DAILY PO 04/09/24 10:00 04/09/24 10:12 Tamsulosin HCl (Flomax) 0.4 mg DAILY PO 04/09/24 10:00 04/09/24 10:10 Atorvastatin Calcium (Lipitor) 40 mg HS PO 04/09/24 22:00 Hydralazine HCl (Apresoline Injection) 10 mg Q6HP PRN IV SBP>150 04/08/24 22:00 Levofloxacin/ Dextrose 150 ml @ 100 mls/hr Q48H IV 04/09/24 10:00 04/09/24 10:09 Aspirin 81 mg DAILY PO 04/09/24 10:00 04/09/24 10:00 Furosemide (Lasix Injection) 40 mg BIDD IV 04/09/24 18:00 Family History: Diabetes mellitus G8 MOTHER Review of Systems Shortness of breath and anxiety H&P Exam Vital Signs/I&O Vital Sign Date Time Temp Pulse Resp B/P (MAP) Pulse Ox O2 Delivery O2 Flow Rate FiO2 04/09/24 11:30 87 18 131/73 (92) 99 04/09/24 07:26 98.4 98.4 04/09/24 07:26 Nasal Cannula* 2 28 Physical Exam Anxious male Breathing with nasal cannula mildly tachypneic Elevated JVD Engorged tympanic and cranial veins noted Abdomen is soft No pitting edema Labs/Diagnostic Data Labs/Diagnostic Data Laboratory Tests Test 04/09/24 08:54 04/09/24 08:45 04/09/24 08:16 04/09/24 05:20 Range/Units D-Dimer, Quantitative 4.91 H 0.0-0.49 mg/L FEU Influenza Type A Antigen Negative Negative Influenza Type B Antigen Negative Negative SARS-CoV-2 Antigen (Rapid) Negative NEGATIVE POC Glucose 153 H 70-106 mg/dl White Blood Count 12.5 H 4.4-10.8 10^3/uL Red Blood Count 5.24 4.5-5.90 10^6/uL Hemoglobin 15.7 13.5-17.5 g/dL Hematocrit 47.6 41.0-53.0 % Mean Corpuscular Volume 90.9 80.0-100.0 fL Mean Corpuscular Hemoglobin 30.0 28.0-32.0 pg Mean Corpuscular Hemoglobin Concent 33.0 32.0-36.0 g/dL Red Cell Distribution Width 16.4 H 11.8-14.3 % Platelet Count 180 140-450 10^3/uL Mean Platelet Volume 8.2 6.9-10.8 fL Neutrophils (%) (Auto) 86.2 H 37.0-80.0 % Lymphocytes (%) (Auto) 4.1 L 10.0-50.0 % Monocytes (%) (Auto) 9.5 0.0-12.0 % Eosinophils (%) (Auto) 0.0 0.0-7.0 % Basophils (%) (Auto) 0.2 0.0-2.0 % Neutrophils # (Auto) 10.8 H 1.6-8.6 10 ^3/uL Lymphocytes # (Auto) 0.5 0.4-5.4 10 ^3/uL Monocytes # (Auto) 1.2 0-1.3 10 ^3/uL Eosinophils # (Auto) 0 0-0.8 10 ^3/uL Basophils # (Auto) 0 0-0.2 10 ^3/uL Nucleated Red Blood Cells 0.2 % Sodium Level 144 136-145 mmol/L Potassium Level 5.7 *H 3.5-5.1 mmol/L Chloride Level 109 H 98-107 mmol/L Carbon Dioxide Level 20 20-31 mmol/L Anion Gap 15 5-15 Blood Urea Nitrogen 60 H 9-23 mg/dL Creatinine 3.22 H 0.700-1.30 mg/dL Glomerular Filtration Rate Calc 20 >90 mL/min BUN/Creatinine Ratio 18.6 10.0-20.0 Serum Glucose 124 H 74-106 mg/dL Calcium Level 9.8 8.7-10.4 mg/dL Total Bilirubin 1.3 H 0.2-1.0 mg/dL Aspartate Amino Transferase (AST) 254 H 13-40 U/L Alanine Aminotransferase (ALT) 291 H 7-40 U/L Alkaline Phosphatase 92 46-116 U/L Total Protein 6.7 5.7-8.2 g/dL Albumin 3.8 3.2-4.8 g/dL Test 04/09/24 01:45 04/09/24 00:14 04/08/24 23:20 04/08/24 22:50 Range/Units Urine Color Yellow Yellow Urine Clarity Turbid H Clear Urine pH 5.5 5.0-9.0 Urine Specific [place] 1.013 1.001-1.035 Urine Protein 2+ H Negative Urine Ketones Trace Negative Urine Blood 2+ H Negative /uL Urine Nitrite Negative Negative Urine Bilirubin Negative Negative Urine Urobilinogen Normal Negative mg/dL Urine Leukocyte Esterase Negative Negative /uL Urine RBC 2 0 - 3 /hpf Urine WBC 5 0 - 3 /hpf Urine Squamous Epithelial Cells Few <5 /hpf Urine Bacteria Few H None Seen /hpf Urine Hyaline Casts Many 0 - 2 /lpf Urine Mucus Few None Seen Urine Sperm Present None Seen /hpf Urine Glucose Normal Normal mg/dL Potassium Level 6.0 *H 3.5-5.1 mmol/L Blood Gas Specimen Type Arterial Blood Gas Sample Site Left radial Blood Gas Patient Temperature 37.0 Arterial Blood Date Drawn [id number] Arterial Blood pH 7.451 H 7.350-7.450 Arterial Blood Partial Pressure CO2 26.3 L 35.0-48.0 mmHg Arterial Blood Partial Pressure O2 85.2 83.0-108.0 mmHg Arterial Blood HCO3 17.9 L 21.0-28.0 mmol/L Arterial Blood Oxygen Saturation 97.8 94.0-98.0 % Arterial Blood Base Excess -4.1 L -2.0-3.0 mmol/L Arterial Blood Oxyhemoglobin 96.3 94.0-98.0 % Arterial Blood Carboxyhemoglobin 0.9 0.5-1.5 % Arterial Blood Methemoglobin 0.6 0.0-1.5 % Dequan Test Modified Blood Gas Total Hemoglobin 16.20 13.5-17.5 g/dL Blood Gas Liter Flow 2.00 Blood Gas Modality Nasal cannula FiO2 % 28.0 POC Glucose 117 H 70-106 mg/dl Test 04/08/24 20:30 04/08/24 19:06 04/08/24 18:35 04/08/24 16:52 Range/Units Sodium Level 145 145 136-145 mmol/L Potassium Level 5.9 *H 6.8 *H 3.5-5.1 mmol/L Chloride Level 107 107 98-107 mmol/L Carbon Dioxide Level 21 19 L 20-31 mmol/L Anion Gap 17 H 19 H 5-15 Blood Urea Nitrogen 66 H 75 H 9-23 mg/dL Creatinine 3.41 H 3.36 H 0.700-1.30 mg/dL Glomerular Filtration Rate Calc 19 19 >90 mL/min BUN/Creatinine Ratio 19.4 22.3 H 10.0-20.0 Serum Glucose 102 107 H 74-106 mg/dL Calcium Level 10.0 10.2 8.7-10.4 mg/dL Troponin I High Sensitivity 148 *H 143 *H 134 *H </=54 ng/L POC Glucose 103 70-106 mg/dl White Blood Count 12.1 H 4.4-10.8 10^3/uL Red Blood Count 5.10 4.5-5.90 10^6/uL Hemoglobin 15.3 13.5-17.5 g/dL Hematocrit 46.4 41.0-53.0 % Mean Corpuscular Volume 90.9 80.0-100.0 fL Mean Corpuscular Hemoglobin 30.0 28.0-32.0 pg Mean Corpuscular Hemoglobin Concent 33.0 32.0-36.0 g/dL Red Cell Distribution Width 16.4 H 11.8-14.3 % Platelet Count 229 140-450 10^3/uL Mean Platelet Volume 8.0 6.9-10.8 fL Neutrophils (%) (Auto) 90.6 H 37.0-80.0 % Lymphocytes (%) (Auto) 4.9 L 10.0-50.0 % Monocytes (%) (Auto) 4.1 0.0-12.0 % Eosinophils (%) (Auto) 0.0 0.0-7.0 % Basophils (%) (Auto) 0.4 0.0-2.0 % Neutrophils # (Auto) 11.0 H 1.6-8.6 10 ^3/uL Lymphocytes # (Auto) 0.6 0.4-5.4 10 ^3/uL Monocytes # (Auto) 0.5 0-1.3 10 ^3/uL Eosinophils # (Auto) 0 0-0.8 10 ^3/uL Basophils # (Auto) 0 0-0.2 10 ^3/uL Nucleated Red Blood Cells 0.1 % B-Type Natriuretic Peptide > 5000.00 0-100 pg/mL Assessment Acute kidney injury likely in the setting of cardiorenal syndrome Chronic kidney disease stage IIIB Decompensated systolic heart failure Bilateral pleural effusions Hyperkalemia Medical management for elevated potassium level given patient's still urinates Diuretic therapy q.12 hours Strict Is&Os Change diet to potassium restriction Lokelma p.o. 3 times a day Echocardiogram one month ago showed ejection fraction of 10% we will need cardiac evaluation Avoid hypotension No emergent indication for dialysis at this time however patient has guarded prognosis Plan discussed with: Patient JUHI LOPEZ MD Apr 09, 2024 12:28
--- NOTE | 2024-04-09 13:20 | DVH ---
Bilateral lower extremity venous duplex Clinical History: r/o dvt Comparison: US BILAT LOWER DVT on DOS: 03/09/24 Technique: Duplex Doppler evaluation of the deep venous systems of both lower extremities from the common femora l veins to the popliteal veins including color Doppler and spectral/pulsed waveform analysis was perf ormed. Findings: RIGHT SIDE: The common femoral vein demonstrates appropriate compressibility and waveform variability. There is compressibility/patency of the great saphenous vein at the proximal thigh. The femoral vein demonstrates appropriate compressibility and waveform variability. The deep femoral vein demonstrates appropriate compressibility and waveform variability. The popliteal vein demonstrates appropriate compressibility and waveform variability. There is normal compressibility at the tibioperoneal trunk. LEFT SIDE: The common femoral vein demonstrates appropriate compressibility and waveform variability. There is compressibility/patency of the great saphenous vein at the proximal thigh. The femoral vein demonstrates appropriate compressibility and waveform variability. The deep femoral vein demonstrates appropriate compressibility and waveform variability. The popliteal vein demonstrates appropriate compressibility and waveform variability. There is normal compressibility at the tibioperoneal trunk. Impression: 1. No right or left femoropopliteal venous thrombosis.
--- NOTE | 2024-04-09 16:06 | DVHPNRES ---
Progress Note Date Seen: Apr 09, 2024 Resident Creating Document: SHIMON WYNNE RESIDENT Has the PT tested + for MRSA If YES, has PT been informed?: No Medical Necessity Reason Pt with a Central, PICC or Fol: No Subjective Review of Systems This is a 68 old male with past medical history of hypertension, hyperlipidemia, COPD, cancer, chronic systolic heart failure, CKD stage IV presented to the ED with a chief complaint of chest pain with shortness of breath, nausea and vomiting intermittently for last 1 week prior to this admission. According to the patient, chest pain is localized to the left side of the chest, sharp in nature, 7/10 and associated with shortness of breath and nausea without any aggravating and relieving factors. The patient was admitted to our facility ([facility]) 1 month ago with a diagnosis of pneumonia. According to the EMS the patient was refusing pain medication and saturation was initially between 80-90% and later with 2 L oxygen the saturation is 99%. Patient denies dizziness, diaphoresis, abdominal pain or any change in bowel and bladder habit. Initial labs showed WBC of 12.5, hyperkalemia which has been slightly refractory to the treatment but is mild at 5.7. PORTIA on CKD stage 4 with a creatinine of 3.22 and BUN of 60. There was also transaminitis AST 254 and ALT 291, troponins were positive at 148 and urinalysis came back positive for UTI. The patient has an echocardiogram of 03/05/2024 showing an LVEF of 10% with normal valves and severe pulmonary hypertension. Initial chest x-ray showed cardiomegaly with likely left upper lobe airspace disease. CT of the chest is showing multifocal pneumonia throughout both lungs including a dense masslike component in the left upper lobe. There is also a small left pleural effusion which is partially loculated. There was also severe centrilobular emphysema and trace subcutaneous emphysema in the right lower neck. Cardiology was consulted for acute on chronic systolic heart failure with the EF of 10%. Patient was admitted for further assessment and management. Patient seen and examined at bedside. Patient is non cooperative not wanting to communicate appropriately with medical staff. The patient still reports shortness of breath and is on 2 L of oxygen through nasal cannula saturating 98%. The patient has bilateral lower extremity 1+ pitting edema. On auscultation there are mild bilateral lung base crackles. Patient was started on metoprolol succinate 25 mg q.d., clopidogrel 75 mg q.d., aspirin 81 mg q.d., furosemide 40 mg IV b.i.d. for pneumonia patient was started on IV levofloxacin. Patient has been receiving hyperkalemia protocol which has been difficult to control. EKG was reviewed and was showing no ST segment elevation or depression at this time. Cardiology was consulted. ROS Constitutional: Denies weight loss, fever and chills. HEENT: Denies changes in vision and hearing. Respiratory: Reports mild shortness of breath. Denies cough Cardiovascular: Denies chest discomfort or palpitations GI: Denies abdominal pain, nausea, vomiting and diarrhea. : Denies dysuria and urinary frequency. Musculoskeletal: Denies myalgias and joint pain Skin: Denies rash and pruritus. Neurological: Denies dizziness, headache, vision or hearing problems Objective vital signs Vital Sign Date Time Temp Pulse Resp B/P (MAP) Pulse Ox O2 Delivery O2 Flow Rate FiO2 04/09/24 12:00 78 04/09/24 11:30 18 131/73 (92) 99 04/09/24 07:26 98.4 98.4 04/09/24 07:26 Nasal Cannula* 2 28 medications Current Medications Medications Dose Ordered Sig/Lisa Route Start Time Stop Time Status Last Admin Dose Admin Sodium Chloride 10 ml Q8HR IV 04/08/24 22:00 04/09/24 14:50 10 ML Acetaminophen/ Hydrocodone Bitart 1 tab Q4HP PRN PO 04/08/24 20:30 Nitroglycerin 0.4 mg Q5MINP PRN SL 04/08/24 20:30 Morphine Sulfate 2 mg Q30M PRN IV 04/08/24 20:30 04/08/24 21:13 2 MG Zirconium Oxide 10 gm TID PO 04/08/24 22:00 04/10/24 14:01 04/09/24 14:50 10 GM Clopidogrel Bisulfate 75 mg DAILY PO 04/09/24 10:00 04/09/24 10:11 75 MG Famotidine 10 mg DAILY PO 04/09/24 10:00 04/09/24 10:10 10 MG Metoprolol Succinate 25 mg DAILY PO 04/09/24 10:00 04/09/24 10:12 25 MG Tamsulosin HCl 0.4 mg DAILY PO 04/09/24 10:00 04/09/24 10:10 0.4 MG Atorvastatin Calcium 40 mg HS PO 04/09/24 22:00 Hydralazine HCl 10 mg Q6HP PRN IV 04/08/24 22:00 Levofloxacin/ Dextrose 150 ml @ 100 mls/hr Q48H IV 04/09/24 10:00 04/09/24 10:09 100 MLS/HR Aspirin 81 mg DAILY PO 04/09/24 10:00 04/09/24 10:00 81 MG Furosemide 40 mg BIDD IV 04/09/24 18:00 Examination Physical Examination General: Patient alert and oriented in person, place and time but not cooperative with medical staff providing history. HEENT: Normocephalic, atraumatic, moist mucous membranes Respiratory/pulmonary: There are minimal crackles on bilateral lung bases. No wheezes at this time. Cardiovascular: Normal heart sounds S1 and S2 with no associated murmurs Abdomen: Abdomen nondistended, there is no pain to palpation in any of the abdominal quadrants, no palpable masses. Extremities: There is 1+ bilateral pitting edema on lower extremities. Peripheral Pulses: 3+ Radial (R). 3+ Radial (L). 3+ Dorsalis pedis (R). 3+ Dorsalis pedis(L) Skin: No rashes or pruritus, there is no sacral edema present at this time. Neurological: Intact cranial nerves with no focal neurologic deficits laboratory and microbiology Laboratory Tests 04/09/24 05:20 Test 04/09/24 05:20 Range/Units Serum Glucose 124 H 74-106 mg/dL Problem List/Assessment/Plan Problem List/Assessment/Plan Assessment/Plan Acute hypoxic respiratory failure likely due to Gram-positive/Gram-negative pneumonia and CHF exacerbation -currently saturating 97% on 2 L of oxygen through nasal cannula -initial chest x-ray showed cardiomegaly with likely left upper lobe airspace disease -CT scan of the chest showed multifocal pneumonia throughout both lungs including a dense masslike component in the left upper lobe. There is also a small left pleural effusion which is partially loculated. There was also severe centrilobular emphysema and trace subcutaneous emphysema in the right lower neck -initial troponins were positive at 148 -patient was started on IV levofloxacin -echocardiogram showed an LVEF of 10% with normal valves and severe pulmonary hypertension on 03/05/2024 -continue metoprolol succinate 25 mg q.d. -continue clopidogrel 75 mg q.d., continue aspirin 81 mg q.d., continue atorvastatin 40 mg q.d. Acute gram+/- Pneumonia -currently saturating 97% on 2 L of oxygen through nasal cannula -initial chest x-ray showed cardiomegaly with likely left upper lobe airspace disease -CT scan of the chest showed multifocal pneumonia throughout both lungs including a dense masslike component in the left upper lobe. There is also a small left pleural effusion which is partially loculated. There was also severe centrilobular emphysema and trace subcutaneous emphysema in the right lower neck -start IV levofloxacin -ordered sputum cultures Acute systolic heart failure (HFrEF 10%) -echocardiogram performed on 03/05/2024 showed an LVEF of 10% with normal cardiac valves and severe pulmonary hypertension -start furosemide 40 mg IV b.i.d. -continue metoprolol succinate 25 mg q.d. -continue clopidogrel 75 mg q.d., continue aspirin 81 mg q.d., continue atorvastatin 40 mg q.d. -monitor blood pressure closely, we will adjust heart failure medications according to blood pressure tolerability. NSTEMI type 2 likely due to above -troponins were positive initially at 148 -trend troponins possible lung mass, R/O lung CA -Chest CT showed a dense masslike component in the left upper lobe. Recommend follow-up noncontrast chest CT in 4 weeks after treatment to evaluate for stability. -F/U with pulmonology, cound be causing obstructing pneumonia? Ruled out PE -D-dimer elevated -Bilat lower ext venous doppler was negative for DVT -patient has PORTIA for which CT angio of the chest is not recommended, we could consider V/Q scan if suspicion remains high. UTI -urinalysis came back positive suggesting UTI -patient is currently on IV antibiotics PORTIA on CKD stage 4 likely due to cardiorenal syndrome (VMN) -creatinine is 3.22, BUN 60 -continue monitoring kidney function Primary hypertension -continue metoprolol succinate 25 mg q.d. -on furosemide 40 mg IV b.i.d. -monitor blood pressure closely Hyperkalemia -patient was placed on hyperkalemia protocol, insulin, dextrose, sodium bicarb, furosemide and Lokelma -monitor potassium levels closely Hyperlipidemia -continue atorvastatin 40 mg q.d. Goals of care discussed with the patient at bedside for >23min, FULL CODE Plan discussed with Dr. Ivy Plan discussed with: Patient My Orders My Orders Orders - SHIMON WYNNE Procedure Category Date Status Time Aspirin Tablet PHA 04/09/24 In Process 10:00 Furosemide Injection PHA 04/09/24 In Process (Lasix Injection) 18:[address] 04/09/24 Resulted 09:37 *Dr. Abdi Davis CONS 04/09/24 Transmitted -[place] 10:18 Bilat Lower Dvt US 04/09/24 Resulted 10:24 SHIMON WYNNE RESIDENT Apr 09, 2024 16:06
[2024-04-09 18:00] VITALS: RESP 18; O2SAT 96
[2024-04-09 18:55] VITALS: BP 120/66; PULSE 78; RESP 18; TEMP 98.6; O2SAT 96
[2024-04-09] MEDS: FUROSEMIDE 40 MG/4 ML VIAL IV SCH (18:58)
[2024-04-09 20:00] VITALS: PULSE 81
[2024-04-09 20:50] LABS: Chloride 105 mmol/L (98-107); Potassium 4.3 mmol/L (3.5-5.1); Sodium 142 mmol/L (136-145)
[2024-04-09 20:51] LABS: Anion Gap 9 (5-15); Calcium 8.8 mg/dL (8.7-10.4); Carbon Dioxide 28 mmol/L (20-31)
[2024-04-09 20:56] LABS: Glucose 98 mg/dL (74-106)
[2024-04-09 21:00] VITALS: BP 98/53; PULSE 76; RESP 18; TEMP 98.3; O2SAT 98
[2024-04-09 21:03] LABS: Blood Urea Nitrogen 72 mg/dL (9-23)
[2024-04-09 21:15] LABS: BUN/Creatinine Ratio 21.2 (10.0-20.0)
[2024-04-09] MEDS: ATORVASTATIN 20 MG TAB PO SCH (21:35)
[2024-04-10] VITALS (7 sets, daily range): BP systolic 97–124; BP diastolic 51–79; PULSE 60–85; RESP 17–18; TEMP 97.4–98.3; O2SAT 97–99
[2024-04-10 05:13] LABS: Basophils # (auto) 0 10 ^3/uL (0-0.2); Eosinophils # (auto) 0 10 ^3/uL (0-0.8); Eosinophils % (auto) 0.3 % (0.0-7.0); Hematocrit 39.9 % (41.0-53.0); Hemoglobin 13.3 g/dL (13.5-17.5); Lymphocytes # (auto) 0.7 10 ^3/uL (0.4-5.4); Mean Corpuscular Hemoglobin 29.6 pg (28.0-32.0); Mean Corpuscular Hgb Conc. 33.3 g/dL (32.0-36.0); Mean Corpuscular Volume 88.8 fL (80.0-100.0); Monocytes # (auto) 0.6 10 ^3/uL (0-1.3); Monocytes % (auto) 6.3 % (0.0-12.0); Neutrophils # (auto) 8.8 10 ^3/uL (1.6-8.6); Neutrophils % (auto) 86.4 % (37.0-80.0); Nucleated Red Blood Cells % 0.2 %; Platelet Count (auto) 170 10^3/uL (140-450); Red Blood Cells 4.49 10^6/uL (4.5-5.90); Red Cell Distribution Width 15.6 % (11.8-14.3); White Blood Cell 10.2 10^3/uL (4.4-10.8)
[2024-04-10 05:40] LABS: Alanine Aminotransferase 208 U/L (7-40); Alkaline Phosphatase 71 U/L (46-116); Anion Gap 10 (5-15); BUN/Creatinine Ratio 23.2 (10.0-20.0); Blood Urea Nitrogen 76 mg/dL (9-23); Calcium 8.6 mg/dL (8.7-10.4); Carbon Dioxide 26 mmol/L (20-31); Chloride 106 mmol/L (98-107); Glucose 100 mg/dL (74-106); Magnesium 1.9 mg/dL (1.6-2.6); Potassium 4.3 mmol/L (3.5-5.1); Sodium 142 mmol/L (136-145)
[2024-04-10 05:41] LABS: Albumin 2.8 g/dL (3.2-4.8); Aspartate Aminotransferase 139 U/L (13-40); Total Protein 5.1 g/dL (5.7-8.2)
[2024-04-10] MEDS: HYDROcodone-ACET 5/325MG TAB PO PRN (05:45)
[2024-04-10] MEDS: BUMETANIDE 2.5mg/10ml (0.25 mg/ml) INJ IV ONE ×2 (11:30→13:15)
--- NOTE | 2024-04-10 11:31 | DVHPNRES ---
Progress Note Date Seen: Apr 10, 2024 Resident Creating Document: MARCO A GROVE RESIDENT Has the PT tested + for MRSA If YES, has PT been informed?: No Medical Necessity Reason Pt with a Central, PICC or Fol: No Subjective Review of Systems This is a 68 old male with past medical history of hypertension, hyperlipidemia, COPD, cancer, chronic systolic heart failure, CKD stage IV presented to the ED with a chief complaint of chest pain with shortness of breath, nausea and vomiting intermittently for last 1 week prior to this admission. According to the patient, chest pain is localized to the left side of the chest, sharp in nature, 7/10 and associated with shortness of breath and nausea without any aggravating and relieving factors. The patient was admitted to our facility ([facility]) 1 month ago with a diagnosis of pneumonia. According to the EMS the patient was refusing pain medication and saturation was initially between 80-90% and later with 2 L oxygen the saturation is 99%. Patient denies dizziness, diaphoresis, abdominal pain or any change in bowel and bladder habit. Initial labs showed WBC of 12.5, hyperkalemia which has been slightly refractory to the treatment but is mild at 5.7. PORTIA on CKD stage 4 with a creatinine of 3.22 and BUN of 60. There was also transaminitis AST 254 and ALT 291, troponins were positive at 148 and urinalysis came back positive for UTI. The patient has an echocardiogram of 03/05/2024 showing an LVEF of 10% with normal valves and severe pulmonary hypertension. Initial chest x-ray showed cardiomegaly with likely left upper lobe airspace disease. CT of the chest is showing multifocal pneumonia throughout both lungs including a dense masslike component in the left upper lobe. There is also a small left pleural effusion which is partially loculated. There was also severe centrilobular emphysema and trace subcutaneous emphysema in the right lower neck. Cardiology was consulted for acute on chronic systolic heart failure with the EF of 10%. Patient was admitted for further assessment and management. Patient seen and examined at bedside. Patient is non cooperative not wanting to communicate appropriately with medical staff. Patient on NC O2 2 liter/minute. Reports shortness of breaths improving. On physical exam a bilateral lung crackles 2+, leg edema 1+. Today WBC 10.2, potassium 4.3, bilirubin 1, AST 139, ALT 208. Potassium 4.3, serum creatinine 3.27. Patient still has some leg edema, 1+., WBC trending down, hyperkalemia resolved, serum creatinine about the same. Serum bilirubin/AST/ALT/alkaline phosphatase trending down. No change of medication today. ROS Constitutional: Denies weight loss, fever and chills. HEENT: Denies changes in vision and hearing. Respiratory: Reports mild shortness of breath. Denies cough Cardiovascular: Denies chest discomfort or palpitations GI: Denies abdominal pain, nausea, vomiting and diarrhea. : Denies dysuria and urinary frequency. Musculoskeletal: Denies myalgias and joint pain Skin: Denies rash and pruritus. Neurological: Denies dizziness, headache, vision or hearing problems Objective vital signs Vital Sign Date Time Temp Pulse Resp B/P (MAP) Pulse Ox O2 Delivery O2 Flow Rate FiO2 04/10/24 10:03 72 97/60 04/10/24 09:20 97.5 18 97 97.5 04/10/24 07:45 Nasal Cannula* 2 28 Total Intake and Output 04/09/24 04/09/24 04/10/24 15:00 23:00 07:00 Intake Total 150 ml 1000 ml Balance 150 ml 1000 ml medications Current Medications Medications Dose Ordered Sig/Lisa Route Start Time Stop Time Status Last Admin Dose Admin Sodium Chloride 10 ml Q8HR IV 04/08/24 22:00 04/09/24 14:50 10 ML Acetaminophen/ Hydrocodone Bitart 1 tab Q4HP PRN PO 04/08/24 20:30 04/10/24 05:45 1 TAB Nitroglycerin 0.4 mg Q5MINP PRN SL 04/08/24 20:30 Morphine Sulfate 2 mg Q30M PRN IV 04/08/24 20:30 04/08/24 21:13 2 MG Zirconium Oxide 10 gm TID PO 04/08/24 22:00 04/10/24 14:01 04/09/24 14:50 10 GM Clopidogrel Bisulfate 75 mg DAILY PO 04/09/24 10:00 04/10/24 10:02 75 MG Famotidine 10 mg DAILY PO 04/09/24 10:00 04/10/24 10:02 10 MG Metoprolol Succinate 25 mg DAILY PO 04/09/24 10:00 04/10/24 10:03 25 MG Tamsulosin HCl 0.4 mg DAILY PO 04/09/24 10:00 04/10/24 10:01 0.4 MG Atorvastatin Calcium 40 mg HS PO 04/09/24 22:00 04/09/24 21:35 40 MG Hydralazine HCl 10 mg Q6HP PRN IV 04/08/24 22:00 Levofloxacin/ Dextrose 150 ml @ 100 mls/hr Q48H IV 04/09/24 10:00 04/09/24 10:09 100 MLS/HR Aspirin 81 mg DAILY PO 04/09/24 10:00 04/10/24 10:02 81 MG Furosemide 40 mg BIDD IV 04/09/24 18:00 04/09/24 18:58 40 MG Examination Physical Examination General: Patient alert and oriented in person, place and time but not cooperative with medical staff providing history. HEENT: Normocephalic, atraumatic, moist mucous membranes Respiratory/pulmonary: There are minimal crackles on bilateral lung bases. No wheezes at this time. Cardiovascular: Normal heart sounds S1 and S2 with no associated murmurs Abdomen: Abdomen nondistended, there is no pain to palpation in any of the abdominal quadrants, no palpable masses. Extremities: There is 1+ bilateral pitting edema on lower extremities. Peripheral Pulses: 3+ Radial (R). 3+ Radial (L). 3+ Dorsalis pedis (R). 3+ Dorsalis pedis(L) Skin: No rashes or pruritus, there is no sacral edema present at this time. Neurological: Intact cranial nerves with no focal neurologic deficits laboratory and microbiology Laboratory Tests 04/10/24 04:40 Test 04/10/24 04:40 Range/Units Serum Glucose 100 74-106 mg/dL Microbiology Date/Time Source Procedure Growth Status 04/09/24 01:45 Voided Urine Urine Culture - Preliminary Resulted Problem List/Assessment/Plan Problem List/Assessment/Plan Assessment/Plan Acute hypoxic respiratory failure likely due to Gram-positive/Gram-negative pneumonia and CHF exacerbation -currently saturating 97% on 2 L of oxygen through nasal cannula -initial chest x-ray showed cardiomegaly with likely left upper lobe airspace disease -CT scan of the chest showed multifocal pneumonia throughout both lungs including a dense masslike component in the left upper lobe. There is also a small left pleural effusion which is partially loculated. There was also severe centrilobular emphysema and trace subcutaneous emphysema in the right lower neck -initial troponins were positive at 148 -continue IV levofloxacin -echocardiogram showed an LVEF of 10% with normal valves and severe pulmonary hypertension on 03/05/2024 -continue metoprolol succinate 25 mg q.d. -continue clopidogrel 75 mg q.d., continue aspirin 81 mg q.d., continue atorvastatin 40 mg q.d. Acute gram+/- Pneumonia -currently saturating 97% on 2 L of oxygen through nasal cannula -initial chest x-ray showed cardiomegaly with likely left upper lobe airspace disease -CT scan of the chest showed multifocal pneumonia throughout both lungs including a dense masslike component in the left upper lobe. There is also a small left pleural effusion which is partially loculated. There was also severe centrilobular emphysema and trace subcutaneous emphysema in the right lower neck -start IV levofloxacin -ordered sputum cultures Acute systolic heart failure (HFrEF 10%) -echocardiogram performed on 03/05/2024 showed an LVEF of 10% with normal cardiac valves and severe pulmonary hypertension -start furosemide 40 mg IV b.i.d. -continue metoprolol succinate 25 mg q.d. -continue clopidogrel 75 mg q.d., continue aspirin 81 mg q.d., continue atorvastatin 40 mg q.d. -monitor blood pressure closely, we will adjust heart failure medications according to blood pressure tolerability. NSTEMI type 2 likely due to above -troponins were positive initially at 148 -trend troponins possible lung mass, R/O lung CA -Chest CT showed a dense masslike component in the left upper lobe. Recommend follow-up noncontrast chest CT in 4 weeks after treatment to evaluate for stability. -F/U with pulmonology, cound be causing obstructing pneumonia? Ruled out PE -D-dimer elevated -Bilat lower ext venous doppler was negative for DVT -patient has PORTIA for which CT angio of the chest is not recommended, we could consider V/Q scan if suspicion remains high. UTI -urinalysis came back positive suggesting UTI -patient is currently on IV antibiotics -pending uterine CS PORTIA on CKD stage 4 likely due to cardiorenal syndrome (VMN) -creatinine is 3.22, BUN 60 -continue monitoring kidney function Primary hypertension -continue metoprolol succinate 25 mg q.d. -on furosemide 40 mg IV b.i.d. -monitor blood pressure closely Hyperkalemia -patient was placed on hyperkalemia protocol, insulin, dextrose, sodium bicarb, furosemide and Lokelma -monitor potassium levels closely Hyperlipidemia -continue atorvastatin 40 mg q.d. Goals of care discussed with the patient at bedside for >23min, FULL CODE Plan discussed with Dr. Ivy Plan discussed with: Patient Plan discussed with: Patient, Other (RN) My Orders My Orders Orders - MARCO A GROVE Procedure Category Date Status Time Pt Request For Service PT 04/10/24 Logged 11:19 MARCO A GROVE Apr 10, 2024 11:31
--- NOTE | 2024-04-10 11:54 | DVHINCON2 ---
Date Seen: Apr 10, 2024 Referring Physician MD Cata Reason for Consultation Cardiomyopathy History of Present Illness 68-year-old male with PMH for HFrEF, dilated cardiomyopathy, pulmonary hypertension, lung cancer s/p lumpectomy, CKD, COPD presents to hospital with chest pain and shortness of breath as well as nausea and vomiting for the last 1 week. Patient's chest pain is left-sided, nonradiating, reproducible, increases with inspiration and deep cough, associated with shortness of breath cough and congestion. Patient states he was recently admitted to the hospital within the last month and was status and pneumonia, patient denies being on any antibiotics at home. Patient has a history of medication noncompliance. Upon evaluation in the ER patient noted to have mild leukocytosis, CXR done showing left upper lobe airspace disease. Hyperkalemia with potassium 6.8. Creatinine 3.36. BNP greater than 5000. Mildly elevated troponins trending 134, 143, 148. EKG reviewed and shows sinus tachycardia at 100 beats per minute, PVC, ILBBB. Inferior lateral ST and T-wave abnormality unchanged from previous EKG. Past Medical History HFrEF Dilated cardiomyopathy HTN Pulmonary hypertension COPD Lung cancer s/p lobectomy CKD Medication noncompliance Past Surgical History Lobe resection Family History: Diabetes mellitus G8 MOTHER Family History Denies pertinent family cardiac history Social History Patient has a 20 pack-year history, states he quit smoking approximately two years ago Patient denies any illicit drug use Patient denies any alcohol use Allergies: Coded Allergies: NO KNOWN ALLERGIES (Unverified , 07/08/18) Home Meds Active Scripts Tamsulosin Hcl (Flomax) 0.4 Mg Cap, 1 CAP PO DAILY, #90 CAP 0 Refills Prov:ARAVIND HARPER MD 03/10/24 Bumetanide (Bumex Tablet) 1 Mg Tab, 2 MG PO DAILY for 60 Days, #120 TAB Prov:ARAVIND HARPER MD 03/10/24 Famotidine (PEPCID TABLET) 20 Mg Tb, 1 TAB PO BID, #60 TAB 3 Refills Prov:ARAVIND HARPER MD 03/10/24 Metoprolol Succinate (Toprol Xl) 50 Mg Tab, 25 MG PO DAILY for 60 Days, #30 TAB Prov:ARAVIND HARPER MD 03/10/24 Clopidogrel Bisulfate (CLOPIDOGREL) 75 Mg Tab, 75 MG PO DAILY for 60 Days, #60 TAB Prov:ARAVIND HARPER MD 03/10/24 Reported Medications Atorvastatin Calcium (Lipitor) 40 Mg Tab, 1 TAB PO DAILY for 90 Days, #90 03/07/24 Fluticasone Furoate-Vilanterol (BREO ELLIPTA) 1 Inh Inh, 1-2 PUFF INH DAILY for 30 Days, #60 03/07/24 Albuterol Sulfate (Albuterol Sulfate Hfa) 108 Mcg/Act Aer, 1 PUFF INH Q6HR PRN for WHEEZING for 50 Days, #18 03/07/24 Current Medications Current Medications Medications (Trade) Dose Ordered Sig/Lisa Route PRN Reason Start Time Stop Time Status Last Admin Atorvastatin Calcium (Lipitor) 40 mg HS PO 04/09/24 22:00 04/09/24 21:35 Furosemide (Lasix Injection) 40 mg BIDD IV 04/09/24 18:00 04/09/24 18:58 Review of Systems Constitutional: No: Fever, Chills, Sweats, , Malaise, Other positive: Weakness Eyes: No: Pain, Vision change, Conjunctivae inflammation, Eyelid inflammation, Other, Redness ENT: No: Ear pain, Ear discharge, Nose pain, Nose discharge, Nose congestion, Mouth pain, Mouth swelling, Throat pain, Throat swelling, Other Respiratory: No: , Wheezing, Hemoptysis, Pleuritic Pain, , Wheezing, Other positive: Cough, Shortness of breath, SOB with exertion Sputum Cardiovascular: ; No: Palpitations, Orthopnea, Paroxysmal Noc. , Lt Headedness, Other positive: Chest Pain Dyspnea, Edema Gastrointestinal: No: Nausea, Vomiting, Abdominal Pain, Diarrhea, Constipation, Melena, Hematochezia, Other Genitourinary: No Dysuria, No Frequency, No Incontinence, No Hematuria, No Retention, No Other Musculoskeletal: neck pain; No: other, shoulder pain, arm pain, back pain, hand pain, leg pain, foot pain Skin: No: Rash, Lesions, Jaundice, Bruising, Other Neurological: Other (Dizziness, headache.); No: Weakness, Numbness, Incoordination, Change in speech, Confusion, Seizures Vital Signs Vital Signs Date Time Temp Pulse Resp B/P (MAP) Pulse Ox O2 Delivery O2 Flow Rate FiO2 04/10/24 10:03 72 97/60 04/10/24 09:20 97.5 18 97 97.5 04/10/24 07:45 Nasal Cannula* 2 28 Physical Exam General appearance: Patient is well-developed, well-nourished, in no acute distress. HEENT: Exam shows: Normocephalic, atraumatic, PERRLA, EOMI Neck: Supple, no bruits Chest: Equal chest excursion bilaterally. Breath sounds rhonchi/diminished. Heart: Rhythm: Regular rate; no murmur or gallop Abdomen: Exam shows: Soft, nontender, nondistended Musculoskeletal: No clubbing, no cyanosis, trace lower extremity edema Dermatology: Skin warm, moist. Neurological: Exam shows: Alert and oriented x4, normal speech Available prior records, labs, EKG, rhythm strips reviewed and interpreted Labs/Diagnostic Data Labs Test 04/10/24 04:40 04/09/24 08:54 04/09/24 08:45 04/09/24 08:16 Range/Units White Blood Count 10.2 4.4-10.8 10^3/uL Red Blood Count 4.49 L 4.5-5.90 10^6/uL Hemoglobin 13.3 #L 13.5-17.5 g/dL Hematocrit 39.9 #L 41.0-53.0 % Mean Corpuscular Volume 88.8 80.0-100.0 fL Mean Corpuscular Hemoglobin 29.6 28.0-32.0 pg Mean Corpuscular Hemoglobin Concent 33.3 32.0-36.0 g/dL Red Cell Distribution Width 15.6 H 11.8-14.3 % Platelet Count 170 140-450 10^3/uL Mean Platelet Volume 7.8 6.9-10.8 fL Neutrophils (%) (Auto) 86.4 H 37.0-80.0 % Lymphocytes (%) (Auto) 7.0 L 10.0-50.0 % Monocytes (%) (Auto) 6.3 0.0-12.0 % Eosinophils (%) (Auto) 0.3 0.0-7.0 % Basophils (%) (Auto) 0.0 0.0-2.0 % Neutrophils # (Auto) 8.8 H 1.6-8.6 10 ^3/uL Lymphocytes # (Auto) 0.7 0.4-5.4 10 ^3/uL Monocytes # (Auto) 0.6 0-1.3 10 ^3/uL Eosinophils # (Auto) 0 0-0.8 10 ^3/uL Basophils # (Auto) 0 0-0.2 10 ^3/uL Nucleated Red Blood Cells 0.2 % Sodium Level 142 136-145 mmol/L Potassium Level 4.3 3.5-5.1 mmol/L Chloride Level 106 98-107 mmol/L Carbon Dioxide Level 26 20-31 mmol/L Anion Gap 10 5-15 Blood Urea Nitrogen 76 H 9-23 mg/dL Creatinine 3.27 H 0.700-1.30 mg/dL Glomerular Filtration Rate Calc 20 >90 mL/min BUN/Creatinine Ratio 23.2 H 10.0-20.0 Serum Glucose 100 74-106 mg/dL Calcium Level 8.6 L 8.7-10.4 mg/dL Magnesium Level 1.9 1.6-2.6 mg/dL Total Bilirubin 1.0 0.2-1.0 mg/dL Aspartate Amino Transferase (AST) 139 H 13-40 U/L Alanine Aminotransferase (ALT) 208 H 7-40 U/L Alkaline Phosphatase 71 46-116 U/L Total Protein 5.1 L 5.7-8.2 g/dL Albumin 2.8 L 3.2-4.8 g/dL D-Dimer, Quantitative 4.91 H 0.0-0.49 mg/L FEU Influenza Type A Antigen Negative Negative Influenza Type B Antigen Negative Negative SARS-CoV-2 Antigen (Rapid) Negative NEGATIVE POC Glucose 153 H 70-106 mg/dl Test 04/09/24 01:45 04/08/24 23:20 04/08/24 20:30 04/08/24 16:52 Range/Units Urine Color Yellow Yellow Urine Clarity Turbid H Clear Urine pH 5.5 5.0-9.0 Urine Specific [place] 1.013 1.001-1.035 Urine Protein 2+ H Negative Urine Ketones Trace Negative Urine Blood 2+ H Negative /uL Urine Nitrite Negative Negative Urine Bilirubin Negative Negative Urine Urobilinogen Normal Negative mg/dL Urine Leukocyte Esterase Negative Negative /uL Urine RBC 2 0 - 3 /hpf Urine WBC 5 0 - 3 /hpf Urine Squamous Epithelial Cells Few <5 /hpf Urine Bacteria Few H None Seen /hpf Urine Hyaline Casts Many 0 - 2 /lpf Urine Mucus Few None Seen Urine Sperm Present None Seen /hpf Urine Glucose Normal Normal mg/dL Blood Gas Specimen Type Arterial Blood Gas Sample Site Left radial Blood Gas Patient Temperature 37.0 Arterial Blood Date Drawn Arterial Blood pH 7.451 H 7.350-7.450 Arterial Blood Partial Pressure CO2 26.3 L 35.0-48.0 mmHg Arterial Blood Partial Pressure O2 85.2 83.0-108.0 mmHg Arterial Blood HCO3 17.9 L 21.0-28.0 mmol/L Arterial Blood Oxygen Saturation 97.8 94.0-98.0 % Arterial Blood Base Excess -4.1 L -2.0-3.0 mmol/L Arterial Blood Oxyhemoglobin 96.3 94.0-98.0 % Arterial Blood Carboxyhemoglobin 0.9 0.5-1.5 % Arterial Blood Methemoglobin 0.6 0.0-1.5 % Dequan Test Modified Blood Gas Total Hemoglobin 16.20 13.5-17.5 g/dL Blood Gas Liter Flow 2.00 Blood Gas Modality Nasal cannula FiO2 % 28.0 Troponin I High Sensitivity 148 *H </=54 ng/L B-Type Natriuretic Peptide > 5000.00 0-100 pg/mL Microbiology Date/Time Source Procedure Growth Status 04/09/24 01:45 Voided Urine Urine Culture - Preliminary Resulted Assessment * Acute hypoxic respiratory failure, severe pulmonary hypertension -continue diuresing. Further management per primary team. * Left upper lobe pneumonia - management per primary team * Mildly elevated troponin - significant coronary calcifications on CT. Continue aspirin and statin and Plavix. Not candidate for continued ischemic workup due to noncompliance and worsening kidney function. Continue aggressive medical management and life factor modification. * Bilateral pleural effusions - continue diuresing * Acute on chronic HFrEF - Lasix changed to Bumex 1 mg IV twice daily. Monitor I&Os. Continue monitoring kidney function with diuresis. * Dilated cardiomyopathy - recent echo shows LVEF 10%, severe pulmonary hypertension with RVSP 60 mmHg on 03/05/2024. Continue GDMT as tolerated due to marginal BP. * Hyperkalemia - Cocktail given. Resolved. K 4.3 today. Continue monitoring * PORTIA and CKD - Monitor response to diuresis. Nephrology on board. Case Discussed with Dr Valentin. Patient continues to be noncompliant with medications, not taking Lasix at home. We will continue with medical management with DAPT and statin. Continue GDMT for cardiomyopathy as tolerted, unable to titrate due to marginal BP. Critical care, time spent: 45 minutes This medical document was created using an electronic medical record system with voice recognition software and computerized dictation system. Although this document has been carefully reviewed, there might still be some phonetic and typographical errors. Occasional wrong-word or ``sound-alike substitutions may have occurred due to the inherent limitations of voice recognition software. These areas are purely typographical due to imperfections of the software programs and do not reflect any compromise in the patient's medical care. Please read the chart carefully and recognize, using context, where these substitutions have occurred. Plan discussed with: Patient Date of Service: Apr 10, 2024 Billing Provider: BELINDA TURNER Cardiology Common Codes: 85464-[id number] INP/OBS CARE (High), [id number] CARE 30-74 MIN BELINDA TURNER Apr 10, 2024 11:54
--- NOTE | 2024-04-10 14:43 | DVHPN2 ---
Progress Note - Dictate Date Seen: Apr 10, 2024 Has the PT tested + for MRSA If YES, has PT been informed?: No Medical Necessity Reason Pt with a Central, PICC or Fol: No vital signs Vital Sign Date Time Temp Pulse Resp B/P (MAP) Pulse Ox O2 Delivery O2 Flow Rate FiO2 04/10/24 13:22 97.8 60 18 103/51 (68) 97 97.8 04/10/24 07:45 Nasal Cannula* 2 28 Total Intake and Output 04/09/24 04/09/24 04/10/24 14:59 22:59 06:59 Intake Total 150 ml 1000 ml Balance 150 ml 1000 ml medications Current Medications Medications Dose Ordered Sig/Lisa Route Start Time Stop Time Status Last Admin Dose Admin Acetaminophen/ Hydrocodone Bitart 1 tab Q4HP PRN PO 04/08/24 20:30 04/10/24 05:45 1 TAB Clopidogrel Bisulfate 75 mg DAILY PO 04/09/24 10:00 04/10/24 10:02 75 MG Famotidine 10 mg DAILY PO 04/09/24 10:00 04/10/24 10:02 10 MG Metoprolol Succinate 25 mg DAILY PO 04/09/24 10:00 04/10/24 10:03 25 MG Tamsulosin HCl 0.4 mg DAILY PO 04/09/24 10:00 04/10/24 10:01 0.4 MG Atorvastatin Calcium 40 mg HS PO 04/09/24 22:00 04/09/24 21:35 40 MG Hydralazine HCl 10 mg Q6HP PRN IV 04/08/24 22:00 Levofloxacin/ Dextrose 150 ml @ 100 mls/hr Q48H IV 04/09/24 10:00 04/09/24 10:09 100 MLS/HR Aspirin 81 mg DAILY PO 04/09/24 10:00 04/10/24 10:02 81 MG Bumetanide 1 mg BIDD IV 04/10/24 18:00 objective male Breathing with nasal cannula mildly tachypneic Elevated JVD Engorged tympanic and cranial veins noted Abdomen is soft No pitting edema laboratory and microbiology Laboratory Tests 04/10/24 04:40 Test 04/10/24 04:40 Range/Units Serum Glucose 100 74-106 mg/dL Assessment/Plan Acute kidney injury likely in the setting of cardiorenal syndrome Chronic kidney disease stage IIIB Decompensated systolic heart failure Bilateral pleural effusions possible pulm mass on CT Hyperkalemia severe COPD Diuretic therapy q.12 hours , goal negative balance Strict Is&Os diet to potassium restriction Lokelma daily Echocardiogram one month ago showed ejection fraction of 10% we will need cardiac evaluation Avoid hypotension No emergent indication for dialysis at this time however patient has guarded prognosis Plan discussed with: Patient JUHI LOPEZ MD Apr 10, 2024 14:42
[2024-04-10] MEDS: BUMETANIDE 1mg/4ml VIAL (0.25mg/ml) IV SCH (17:51)
[2024-04-11] VITALS (7 sets, daily range): BP systolic 95–138; BP diastolic 51–83; PULSE 71–89; RESP 18–20; TEMP 97.4–98.3; O2SAT 94–100
[2024-04-11 06:36] LABS: Basophils # (auto) 0 10 ^3/uL (0-0.2); Basophils % (auto) 0.1 % (0.0-2.0); Eosinophils # (auto) 0.1 10 ^3/uL (0-0.8); Eosinophils % (auto) 1.6 % (0.0-7.0); Hematocrit 38.1 % (41.0-53.0); Hemoglobin 12.8 g/dL (13.5-17.5); Lymphocytes # (auto) 0.8 10 ^3/uL (0.4-5.4); Lymphocytes % (auto) 12.1 % (10.0-50.0); Mean Corpuscular Hemoglobin 29.9 pg (28.0-32.0); Mean Corpuscular Hgb Conc. 33.6 g/dL (32.0-36.0); Mean Corpuscular Volume 88.9 fL (80.0-100.0); Monocytes # (auto) 0.7 10 ^3/uL (0-1.3); Monocytes % (auto) 9.5 % (0.0-12.0); Neutrophils # (auto) 5.3 10 ^3/uL (1.6-8.6); Neutrophils % (auto) 76.7 % (37.0-80.0); Nucleated Red Blood Cells % 0.1 %; Platelet Count (auto) 160 10^3/uL (140-450); Red Blood Cells 4.28 10^6/uL (4.5-5.90); Red Cell Distribution Width 15.4 % (11.8-14.3); White Blood Cell 6.9 10^3/uL (4.4-10.8)
[2024-04-11 06:49] LABS: Alanine Aminotransferase 172 U/L (7-40); Albumin 2.8 g/dL (3.2-4.8); Alkaline Phosphatase 71 U/L (46-116); Anion Gap 9 (5-15); Aspartate Aminotransferase 91 U/L (13-40); BUN/Creatinine Ratio 21.9 (10.0-20.0); Blood Urea Nitrogen 68 mg/dL (9-23); Calcium 8.4 mg/dL (8.7-10.4); Carbon Dioxide 27 mmol/L (20-31); Chloride 104 mmol/L (98-107); Glucose 97 mg/dL (74-106); Magnesium 1.6 mg/dL (1.6-2.6); Potassium 3.8 mmol/L (3.5-5.1); Sodium 140 mmol/L (136-145)
[2024-04-11] MEDS: BUMETANIDE 2.5mg/10ml (0.25 mg/ml) INJ IV ONE (08:15)
[2024-04-11 08:53] LABS: Hepatitis B Surface Antigen Negative (Negative)
[2024-04-11 09:14] LABS: Hepatitis A Ab IgM Negative; Hepatitis B Core IgM Negative
[2024-04-11 09:19] LABS: Hepatitis C Antibody Reactive (Negative)
--- NOTE | 2024-04-11 15:36 | DVHPN2 ---
Progress Note Date Seen: Apr 11, 2024 Has the PT tested + for MRSA If YES, has PT been informed?: No Medical Necessity Reason Pt with a Central, PICC or Fol: No Subjective Patient reports: No new complaints, Feels better Review of Systems: HEENT:Normal, CVS:Normal, RESPIRATORY:Normal, GI:Normal, :Normal, MSK:Normal, NEURO:Normal Objective vital signs Vital Sign Date Time Temp Pulse Resp B/P (MAP) Pulse Ox O2 Delivery O2 Flow Rate FiO2 04/11/24 12:56 97.4 73 19 95/55 (68) 94 97.4 04/11/24 07:45 Nasal Cannula* 2 28 Total Intake and Output 04/10/24 04/10/24 04/11/24 15:00 23:00 07:00 Intake Total 800 ml 600 ml Output Total 1650 ml Balance -850 ml 600 ml medications Current Medications Medications Dose Ordered Sig/Lisa Route Start Time Stop Time Status Last Admin Dose Admin Acetaminophen/ Hydrocodone Bitart 1 tab Q4HP PRN PO 04/08/24 20:30 04/11/24 04:40 1 TAB Clopidogrel Bisulfate 75 mg DAILY PO 04/09/24 10:00 04/11/24 09:27 75 MG Famotidine 10 mg DAILY PO 04/09/24 10:00 04/11/24 09:27 10 MG Metoprolol Succinate 25 mg DAILY PO 04/09/24 10:00 04/11/24 09:28 25 MG Tamsulosin HCl 0.4 mg DAILY PO 04/09/24 10:00 04/11/24 09:27 0.4 MG Atorvastatin Calcium 40 mg HS PO 04/09/24 22:00 04/10/24 22:07 40 MG Levofloxacin/ Dextrose 150 ml @ 100 mls/hr Q48H IV 04/09/24 10:00 04/11/24 09:26 100 MLS/HR Aspirin 81 mg DAILY PO 04/09/24 10:00 04/11/24 09:27 81 MG Bumetanide 1 mg BIDD IV 04/10/24 18:00 04/10/24 17:51 1 MG Examination: GENERAL:Normal, HEENT:Normal, NECK:Normal, LUNGS:Normal, CVS:Normal, ABDOMEN:Normal, MSK:Abnormal, SKIN:Normal, NEURO:Normal, :Normal laboratory and microbiology Laboratory Tests 04/11/24 05:40 Test 04/11/24 05:40 Range/Units Serum Glucose 97 74-106 mg/dL Microbiology Date/Time Source Procedure Growth Status 04/09/24 01:45 Voided Urine Urine Culture - Preliminary Resulted Problem List/Assessment/Plan Problem List/Assessment/Plan Acute kidney injury likely in the setting of cardiorenal syndrome Chronic kidney disease stage IIIB Decompensated systolic heart failure Bilateral pleural effusions possible pulm mass on CT Hyperkalemia severe COPD CHfREF acute on chronic recs Diuretic therapy q.12 hours , goal negative balance Strict Is&Os diet to potassium restriction Lokelma prn Plan discussed with: Patient LUIZ ALVARADO MD Apr 11, 2024 15:36
--- NOTE | 2024-04-11 16:20 | DVH ---
RENAL ULTRASOUND CLINICAL HISTORY: cardiorenal syndrome TECHNIQUE: Multiple ultrasound images of the kidneys and bladder were obtained. COMPARISON: US KIDNEY on DOS: 03/06/24 FINDINGS: The right kidney measures 10.3 cm in length. The left kidney measures 11.9 cm. There are small bilate ral renal cysts, largest in the right kidney measuring 1.8 cm. There is no sonographic evidence of a discrete renal lesion, nephrolithiasis or hydronephrosis. The prostate gland appears prominent in size measuring 4.5 x 4.7 x 4.1 cm. The bladder grossly appear s unremarkable with prevoid volume of 169 cc. IMPRESSION: 1. Multiple small bilateral renal cysts. 2. Prominent size prostate gland. HS:Y
--- NOTE | 2024-04-11 16:49 | DVHPNRES ---
Progress Note Date Seen: Apr 11, 2024 Resident Creating Document: NEEL TOLEDO RESIDENT Has the PT tested + for MRSA If YES, has PT been informed?: No Medical Necessity Reason Pt with a Central, PICC or Fol: No Subjective Review of Systems Malick Calvillo is a 68 old male with past medical history of hypertension, hyperlipidemia, COPD, cancer, chronic systolic heart failure, CKD stage IV presented to the ED with a chief complaint of chest pain with shortness of breath, nausea and vomiting intermittently for last 1 week prior to this admission. Patient seen and examined at the bedside. Patient is alert, oriented x3 but not cooperative, not willing to take Bumex as complaining it is making him to urinate a lot, not been able to sleep whole night, refusing other drugs. We convinced the patient regarding the patient condition and explained the risks of not taking Bumex, he agreed to take 1 time Bumex in the morning time. Consulted pulmonology for possible bronchoscopy to see is there any obstruction ( pulmonary mass) which causing pneumonia. Changes from previous H/P or p: No Changes Objective vital signs Vital Sign Date Time Temp Pulse Resp B/P (MAP) Pulse Ox O2 Delivery O2 Flow Rate FiO2 04/11/24 12:56 97.4 73 19 95/55 (68) 94 97.4 04/11/24 07:45 Nasal Cannula* 2 28 Total Intake and Output 04/10/24 04/10/24 04/11/24 15:00 23:00 07:00 Intake Total 800 ml 600 ml Output Total 1650 ml Balance -850 ml 600 ml medications Current Medications Medications Dose Ordered Sig/Lisa Route Start Time Stop Time Status Last Admin Dose Admin Acetaminophen/ Hydrocodone Bitart 1 tab Q4HP PRN PO 04/08/24 20:30 04/11/24 04:40 1 TAB Clopidogrel Bisulfate 75 mg DAILY PO 04/09/24 10:00 04/11/24 09:27 75 MG Famotidine 10 mg DAILY PO 04/09/24 10:00 04/11/24 09:27 10 MG Metoprolol Succinate 25 mg DAILY PO 04/09/24 10:00 04/11/24 09:28 25 MG Tamsulosin HCl 0.4 mg DAILY PO 04/09/24 10:00 04/11/24 09:27 0.4 MG Atorvastatin Calcium 40 mg HS PO 04/09/24 22:00 04/10/24 22:07 40 MG Levofloxacin/ Dextrose 150 ml @ 100 mls/hr Q48H IV 04/09/24 10:00 04/11/24 09:26 100 MLS/HR Aspirin 81 mg DAILY PO 04/09/24 10:00 04/11/24 09:27 81 MG Bumetanide 1 mg BIDD IV 04/10/24 18:00 04/10/24 17:51 1 MG Examination Pt is lying on bed General Appearance: Alert, Oriented X3, Not Cooperative, mild distress HEENT: Atraumatic, Mucous membranes moist/pink Respiratory: decreased breath sounds, minimal crackles Cardiovascular: Regular rate, Normal S1, Normal S2, No murmurs Abdominal: Active bowel sounds, Soft, no distention, no tenderness Extremities: 1+ edema, Normal pulses, No tenderness/swelling Skin: No Significant rash, except past surgical scars Neuro: Normal speech, sensorimotor deficits none Psych/Mental Status: Mental status NL, Mood NL Nurse was there as sharperone during examination laboratory and microbiology Laboratory Tests 04/11/24 05:40 Test 04/11/24 05:40 Range/Units Serum Glucose 97 74-106 mg/dL Microbiology Date/Time Source Procedure Growth Status 04/09/24 01:45 Voided Urine Urine Culture - Preliminary Resulted Labs and/or images reviewed: Labs reviewed by me, Image(s) reviewed by me Problem List/Assessment/Plan Problem List/Assessment/Plan # Acute hypoxic respiratory failure likely CHF exacerbation # bilateral pleural effusion -currently saturating 97% on 2 L of oxygen through nasal cannula -initial chest x-ray showed cardiomegaly with likely left upper lobe airspace disease -CT scan of the chest showed multifocal pneumonia throughout both lungs including a dense masslike component in the left upper lobe. There is also a small left pleural effusion which is partially loculated. There was also severe centrilobular emphysema and trace subcutaneous emphysema in the right lower neck -initial troponins were positive at 148 -continue IV levofloxacin -echocardiogram showed an LVEF of 10% with normal valves and severe pulmonary hypertension on 03/05/2024 -continue metoprolol succinate 25 mg q.d. -continue clopidogrel 75 mg q.d., continue aspirin 81 mg q.d., continue atorvastatin 40 mg q.d. # Acute gram+/- Pneumonia -currently2-3 L of oxygen through nasal cannula -initial chest x-ray showed cardiomegaly with likely left upper lobe airspace disease -CT scan of the chest showed multifocal pneumonia throughout both lungs including a dense masslike component in the left upper lobe. There is also a small left pleural effusion which is partially loculated. There was also severe centrilobular emphysema and trace subcutaneous emphysema in the right lower neck -start IV levofloxacin -ordered sputum cultures -consulted pulmonology for possible bronchoscopy. # Acute systolic decompensated heart failure (HFrEF 10%) -echocardiogram performed on 03/05/2024 showed an LVEF of 10% with normal cardiac valves and severe pulmonary hypertension -start furosemide 40 mg IV b.i.d. -continue metoprolol succinate 25 mg q.d. -continue clopidogrel 75 mg q.d., continue aspirin 81 mg q.d., continue atorvastatin 40 mg q.d. -monitor blood pressure closely, we will adjust heart failure medications according to blood pressure tolerability. -senior information security consultant evaluated the patient, advised to continue current management, added Bumex 1 mg IV b.i.d. # NSTEMI type 2 likely due to above -troponins were positive initially at 148 -trend troponins # lung mass status post resection followed by radiation in 2008 -Chest CT showed a dense masslike component in the left upper lobe. Recommend follow-up noncontrast chest CT in 4 weeks after treatment to evaluate for stability. -F/U with pulmonology, cound be causing obstructing pneumonia? --consulted pulmonology for possible bronchoscopy. # Ruled out PE -D-dimer elevated -Bilat lower ext venous doppler was negative for DVT -patient has PORTIA for which CT angio of the chest is not recommended, we could consider V/Q scan if suspicion remains high. # UTI ruled out -urinalysis weak criteria # PORTIA on CKD stage 4 likely due to cardiorenal syndrome (VMN) -continue monitoring kidney function -nephrology systems development consultant evaluated the patient advised strict I&O, potassium restriction diet and Lokelma p.r.n. # Primary hypertension -continue metoprolol succinate 25 mg q.d. -on furosemide 40 mg IV b.i.d. -monitor blood pressure closely # Hyperkalemia- resolving -patient was placed on hyperkalemia protocol, insulin, dextrose, sodium bicarb, furosemide and Lokelma -monitor potassium levels closely # Hyperlipidemia -continue atorvastatin 40 mg q.d. cardiac diet reconciled home meds no GI prophylaxis goals of care discussed with the patient for more than 37 minutes: Full code status Case management discussed with Dr. Quiñonez, patient and nurse Plan discussed with: Patient My Orders My Orders Orders - NEEL TOLEDO RESIDENT Procedure Category Date Status Time *Consult CONS 04/11/24 Transmitted / 11:36 Urinalysis LAB 04/11/24 Logged 11:38 Transfer Orders XFER 04/11/24 Transmitted 12:14 Discontinue Tele LEE 04/11/24 In Process 12:14 Kidney US 04/11/24 Resulted 15:05 Date of Service: Apr 11, 2024 Billing Provider: JALYN QUIÑONEZ MD Common Visit Codes: [id number] INP/OBS CARE(HIGH) Coding Comment Comment Attending Attestation I saw and evaluated the patient. I reviewed the residents note and agree with findings and plan as documented in the residents note except as documented below. Patient will benefit for palliative care due to multiple comorbidities including history of lung cancer, possible recurrence, end-stage heart failure and worsening CKD NEEL TOLEDO RESIDENT Apr 11, 2024 16:49 JALYN QUIÑONEZ MD Apr 11, 2024 19:03
--- NOTE | 2024-04-11 18:50 | DVHPN2 ---
Progress Note Date Seen: Apr 11, 2024 Has the PT tested + for MRSA If YES, has PT been informed?: No Medical Necessity Reason Pt with a Central, PICC or Fol: No Subjective Other Systems: creat stable K is better Objective vital signs Vital Sign Date Time Temp Pulse Resp B/P (MAP) Pulse Ox O2 Delivery O2 Flow Rate FiO2 04/11/24 18:00 138/77 04/11/24 17:00 98.1 85 20 95 98.1 04/11/24 07:45 Nasal Cannula* 2 28 Total Intake and Output 04/10/24 04/10/24 04/11/24 15:00 23:00 07:00 Intake Total 800 ml 600 ml Output Total 1650 ml Balance -850 ml 600 ml medications Current Medications Medications Dose Ordered Sig/Lisa Route Start Time Stop Time Status Last Admin Dose Admin Acetaminophen/ Hydrocodone Bitart 1 tab Q4HP PRN PO 04/08/24 20:30 04/11/24 04:40 1 TAB Clopidogrel Bisulfate 75 mg DAILY PO 04/09/24 10:00 04/11/24 09:27 75 MG Famotidine 10 mg DAILY PO 04/09/24 10:00 04/11/24 09:27 10 MG Metoprolol Succinate 25 mg DAILY PO 04/09/24 10:00 04/11/24 09:28 25 MG Tamsulosin HCl 0.4 mg DAILY PO 04/09/24 10:00 04/11/24 09:27 0.4 MG Atorvastatin Calcium 40 mg HS PO 04/09/24 22:00 04/10/24 22:07 40 MG Levofloxacin/ Dextrose 150 ml @ 100 mls/hr Q48H IV 04/09/24 10:00 04/11/24 09:26 100 MLS/HR Aspirin 81 mg DAILY PO 04/09/24 10:00 04/11/24 09:27 81 MG Bumetanide 1 mg BIDD IV 04/10/24 18:00 04/10/24 17:51 1 MG Examination: GENERAL:Abnormal, HEENT:Abnormal, LUNGS:Abnormal, CVS:Abnormal, ABDOMEN:Abnormal laboratory and microbiology Laboratory Tests 04/11/24 05:40 Test 04/11/24 05:40 Range/Units Serum Glucose 97 74-106 mg/dL Microbiology Date/Time Source Procedure Growth Status 04/09/24 01:45 Voided Urine Urine Culture - Preliminary Resulted Problem List/Assessment/Plan Problem List/Assessment/Plan end stage HF ckd /lauren htn non compliance cad cont plavix cont bumex cont BB hold entresto/abbie at this time 2/2 to renal failure fu renal rcs Plan discussed with: Patient Date of Service: Apr 11, 2024 Billing Provider: GORDON LIM MD Common Visit Codes: NOT BILLABLE GORDON LIM MD Apr 11, 2024 18:50
--- NOTE | 2024-04-11 20:36 | DVHINCON2 ---
Date of service: Apr 11, [address] Quiñonez Reason for Consultation COPD, Pneumonia History of Present Illness 60-year-old man history of COPD, cancer, chronic systolic heart failure, CKD stage 4, hyperlipidemia, hypertension who presented with a chief complaint of shortness of breath, nausea, vomiting. He had a CT chest performed that demonstrated consolidation of the left lower lobe. Has a prior history of malignancy. Pulmonary consultation is called for evaluation of pneumonia, COPD and evaluation for bronchoscopy. Review of systems: 14 point review of systems is negative unless otherwise noted above. Past medical history: Hypertension, hyperlipidemia, COPD, cancer, chronic systolic heart failure, CKD stage 4 Past surgical history: None mentioned in prior surgeries. Medications: Reviewed Allergies: No known drug allergies. Family history: No family history of premature CAD. No family history of lung disease Social history: Nonsmoker. Social alcohol use. no illicit drug use. Family History: Diabetes mellitus G8 MOTHER Allergies: Coded Allergies: NO KNOWN ALLERGIES (Unverified , 07/08/18) Home Meds Active Scripts Tamsulosin Hcl (Flomax) 0.4 Mg Cap, 1 CAP PO DAILY, #90 CAP 0 Refills Prov:ARAVIND HARPER MD 03/10/24 Bumetanide (Bumex Tablet) 1 Mg Tab, 2 MG PO DAILY for 60 Days, #120 TAB Prov:ARAVIND HARPER MD 03/10/24 Famotidine (PEPCID TABLET) 20 Mg Tb, 1 TAB PO BID, #60 TAB 3 Refills Prov:ARAVIND HARPER MD 03/10/24 Metoprolol Succinate (Toprol Xl) 50 Mg Tab, 25 MG PO DAILY for 60 Days, #30 TAB Prov:ARAVIND HARPER MD 03/10/24 Clopidogrel Bisulfate (CLOPIDOGREL) 75 Mg Tab, 75 MG PO DAILY for 60 Days, #60 TAB Prov:ARAVIND HARPER MD 03/10/24 Reported Medications Atorvastatin Calcium (Lipitor) 40 Mg Tab, 1 TAB PO DAILY for 90 Days, #90 03/07/24 Fluticasone Furoate-Vilanterol (BREO ELLIPTA) 1 Inh Inh, 1-2 PUFF INH DAILY for 30 Days, #60 03/07/24 Albuterol Sulfate (Albuterol Sulfate Hfa) 108 Mcg/Act Aer, 1 PUFF INH Q6HR PRN for WHEEZING for 50 Days, #18 03/07/24 Vital Signs Vital Signs Date Time Temp Pulse Resp B/P (MAP) Pulse Ox O2 Delivery O2 Flow Rate FiO2 04/11/24 18:00 138/77 04/11/24 17:00 98.1 85 20 95 98.1 04/11/24 07:45 Nasal Cannula* 2 28 Physical Exam Gen.: Patient lying in bed in no apparent distress. On supplemental oxygen. Head: Normocephalic, atraumatic Eyes: EOMI/PERRLA. Ears: Normal hearing. Normal anatomy. Neck/trachea: Trachea midline, supple. Nose: Normal external anatomy. Mouth: Moist mucous membranes. Chest: Decreased air entry bilaterally. No wheezing. Scattered rhonchi. Cardio vascular: Positive S1, positive S2. Regular rate and rhythm. Abdomen: Positive bowel sounds in all 4 quadrants. Soft, non-tender, non- distended. : Deferred. Rectal: Deferred Skin: Warm, dry. Extremities: 2+ radial pulses bilaterally. No lower extremity edema. Neuro: Awake, alert, oriented x3. No gross motor or sensory deficits. Cranial nerves II through XII intact. Gait not assessed. Labs/Diagnostic Data Labs Test 04/11/24 05:40 04/10/24 04:40 04/09/24 08:54 04/09/24 08:45 Range/Units White Blood Count 6.9 # 4.4-10.8 10^3/uL Red Blood Count 4.28 L 4.5-5.90 10^6/uL Hemoglobin 12.8 L 13.5-17.5 g/dL Hematocrit 38.1 L 41.0-53.0 % Mean Corpuscular Volume 88.9 80.0-100.0 fL Mean Corpuscular Hemoglobin 29.9 28.0-32.0 pg Mean Corpuscular Hemoglobin Concent 33.6 32.0-36.0 g/dL Red Cell Distribution Width 15.4 H 11.8-14.3 % Platelet Count 160 140-450 10^3/uL Mean Platelet Volume 8.1 6.9-10.8 fL Neutrophils (%) (Auto) 76.7 37.0-80.0 % Lymphocytes (%) (Auto) 12.1 10.0-50.0 % Monocytes (%) (Auto) 9.5 0.0-12.0 % Eosinophils (%) (Auto) 1.6 0.0-7.0 % Basophils (%) (Auto) 0.1 0.0-2.0 % Neutrophils # (Auto) 5.3 1.6-8.6 10 ^3/uL Lymphocytes # (Auto) 0.8 0.4-5.4 10 ^3/uL Monocytes # (Auto) 0.7 0-1.3 10 ^3/uL Eosinophils # (Auto) 0.1 0-0.8 10 ^3/uL Basophils # (Auto) 0 0-0.2 10 ^3/uL Nucleated Red Blood Cells 0.1 % Sodium Level 140 136-145 mmol/L Potassium Level 3.8 3.5-5.1 mmol/L Chloride Level 104 98-107 mmol/L Carbon Dioxide Level 27 20-31 mmol/L Anion Gap 9 5-15 Blood Urea Nitrogen 68 H 9-23 mg/dL Creatinine 3.11 H 0.700-1.30 mg/dL Glomerular Filtration Rate Calc 21 >90 mL/min BUN/Creatinine Ratio 21.9 H 10.0-20.0 Serum Glucose 97 74-106 mg/dL Calcium Level 8.4 L 8.7-10.4 mg/dL Magnesium Level 1.6 1.6-2.6 mg/dL Total Bilirubin 1.0 0.2-1.0 mg/dL Aspartate Amino Transferase (AST) 91 H 13-40 U/L Alanine Aminotransferase (ALT) 172 H 7-40 U/L Alkaline Phosphatase 71 46-116 U/L Total Protein 5.0 L 5.7-8.2 g/dL Albumin 2.8 L 3.2-4.8 g/dL Hepatitis A IgM Antibody Negative Hepatitis B Surface Antigen Negative Negative Hepatitis B Core IgM Antibody Negative Hepatitis C Antibody Reactive *A Negative D-Dimer, Quantitative 4.91 H 0.0-0.49 mg/L FEU Influenza Type A Antigen Negative Negative Influenza Type B Antigen Negative Negative SARS-CoV-2 Antigen (Rapid) Negative NEGATIVE Test 04/09/24 08:16 04/09/24 01:45 04/08/24 23:20 04/08/24 20:30 Range/Units POC Glucose 153 H 70-106 mg/dl Urine Color Yellow Yellow Urine Clarity Turbid H Clear Urine pH 5.5 5.0-9.0 Urine Specific [place] 1.013 1.001-1.035 Urine Protein 2+ H Negative Urine Ketones Trace Negative Urine Blood 2+ H Negative /uL Urine Nitrite Negative Negative Urine Bilirubin Negative Negative Urine Urobilinogen Normal Negative mg/dL Urine Leukocyte Esterase Negative Negative /uL Urine RBC 2 0 - 3 /hpf Urine WBC 5 0 - 3 /hpf Urine Squamous Epithelial Cells Few <5 /hpf Urine Bacteria Few H None Seen /hpf Urine Hyaline Casts Many 0 - 2 /lpf Urine Mucus Few None Seen Urine Sperm Present None Seen /hpf Urine Glucose Normal Normal mg/dL Blood Gas Specimen Type Arterial Blood Gas Sample Site Left radial Blood Gas Patient Temperature 37.0 Arterial Blood Date Drawn [id number] Arterial Blood pH 7.451 H 7.350-7.450 Arterial Blood Partial Pressure CO2 26.3 L 35.0-48.0 mmHg Arterial Blood Partial Pressure O2 85.2 83.0-108.0 mmHg Arterial Blood HCO3 17.9 L 21.0-28.0 mmol/L Arterial Blood Oxygen Saturation 97.8 94.0-98.0 % Arterial Blood Base Excess -4.1 L -2.0-3.0 mmol/L Arterial Blood Oxyhemoglobin 96.3 94.0-98.0 % Arterial Blood Carboxyhemoglobin 0.9 0.5-1.5 % Arterial Blood Methemoglobin 0.6 0.0-1.5 % Dequan Test Modified Blood Gas Total Hemoglobin 16.20 13.5-17.5 g/dL Blood Gas Liter Flow 2.00 Blood Gas Modality Nasal cannula FiO2 % 28.0 Troponin I High Sensitivity 148 *H </=54 ng/L Test 04/08/24 16:52 Range/Units B-Type Natriuretic Peptide > 5000.00 0-100 pg/mL Microbiology Date/Time Source Procedure Growth Status 04/09/24 01:45 Voided Urine Urine Culture - Preliminary Resulted Assessment Impression: Acute chest pain likely due to non ST-elevation OK Acute hypoxic respiratory failure secondary to acute exacerbation of CHF Chronic COPD Acute on chronic kidney injury Hyperkalemia Multifocal pneumonia Pleural effusion Atelectasis Emphysema, centrilobular, severe Trace subcutaneous emphysema in the right lower neck Severe pulmonary hypertension Plan: CT chest notable for multifocal pneumonia bilaterally. It was dense like ma sslike component of left upper lobe. Small left pleural effusion, partially loculated. Severe centrilobular emphysema. Trace subcutaneous emphysema in the right lower neck. Ultrasound venous Doppler bilateral lower extremities: No evidence of bilateral lower extremity DVT. Echo report reviewed from March 05, 2024. Major LV systolic dysfunction. Dilated cardiomyopathy. Left ventricular ejection fraction 10%. Large pleural effusion. Right ventricular systolic pressure 60 mmHg, severe pulmonary hy pertension Supplemental oxygen line 2 liters/minute via nasal cannula keep O2 saturation above 92%. Continue antibiotics Follow up cultures. Diuresis euvolemia. On Bumex twice daily. Monitor ins and outs Monitor electrolytes Supplement as necessary. Cardiology recommendations appreciated. Explained the risks and benefits of undergoing bronchoscopy with bronchoalveolar lavage, possible brushings and possible biopsy. With full knowledge of the risks and benefits, patient declined procedure. He wishes to continue with antibiotic course and repeat a CT chest. If persistently taste he may consider doing a bronchoscopy for evaluation. GI prophylaxis-Pepcid DVT prophylaxis-SCDs recommended. Prognosis: Poor given multiple comorbidities. Rest of plan per hospitalist and other consultants. Thank you Dr. Quiñonez for allowing me to participate in this patient's care. Further recommendations will depend on patient's clinical course. Please do not hesitate to contact me if you have any questions or concerns. This medical document was created using an electronic medical record system with [employer] dictation system. Although this document has been carefully reviewed, there may still be some phonetic and typographical errors. These are as are purely typographical due to imperfections of the software programs, and do not reflect any compromise in the patient's medical care. Plan discussed with: Patient, Other (RN, ) PONCHO THOMPSON MD Apr 11, 2024 20:36
[2024-04-12 01:00] VITALS: BP 118/63; PULSE 79; RESP 17; TEMP 98.5; O2SAT 96
[2024-04-12 05:00] VITALS: BP 121/80; PULSE 78; RESP 18; TEMP 98.3; O2SAT 99
[2024-04-12 06:43] LABS: Basophils # (auto) 0 10 ^3/uL (0-0.2); Basophils % (auto) 0.2 % (0.0-2.0); Eosinophils # (auto) 0.1 10 ^3/uL (0-0.8); Eosinophils % (auto) 2.1 % (0.0-7.0); Hematocrit 37.3 % (41.0-53.0); Hemoglobin 12.6 g/dL (13.5-17.5); Lymphocytes # (auto) 0.9 10 ^3/uL (0.4-5.4); Lymphocytes % (auto) 15.2 % (10.0-50.0); Mean Corpuscular Hemoglobin 30.2 pg (28.0-32.0); Mean Corpuscular Hgb Conc. 33.8 g/dL (32.0-36.0); Mean Corpuscular Volume 89.4 fL (80.0-100.0); Monocytes # (auto) 0.7 10 ^3/uL (0-1.3); Monocytes % (auto) 11.6 % (0.0-12.0); Neutrophils # (auto) 4.2 10 ^3/uL (1.6-8.6); Neutrophils % (auto) 70.9 % (37.0-80.0); Nucleated Red Blood Cells % 0.1 %; Platelet Count (auto) 151 10^3/uL (140-450); Red Blood Cells 4.17 10^6/uL (4.5-5.90); Red Cell Distribution Width 15.6 % (11.8-14.3); White Blood Cell 5.9 10^3/uL (4.4-10.8)
[2024-04-12 07:07] LABS: Alanine Aminotransferase 159 U/L (7-40); Alkaline Phosphatase 68 U/L (46-116); Anion Gap 10 (5-15); BUN/Creatinine Ratio 26.3 (10.0-20.0); Blood Urea Nitrogen 77 mg/dL (9-23); Calcium 8.2 mg/dL (8.7-10.4); Carbon Dioxide 28 mmol/L (20-31); Chloride 104 mmol/L (98-107); Glucose 81 mg/dL (74-106); Potassium 3.7 mmol/L (3.5-5.1); Sodium 142 mmol/L (136-145)
[2024-04-12 07:08] LABS: Albumin 2.8 g/dL (3.2-4.8); Aspartate Aminotransferase 85 U/L (13-40); Bilirubin, Total 0.8 mg/dL (0.2-1.0); Total Protein 4.7 g/dL (5.7-8.2)
[2024-04-12 08:06] LABS: Complement C3 66 mg/dL (82-167)
[2024-04-12 09:07] VITALS: BP 110/72; PULSE 67; RESP 17; TEMP 97.6; O2SAT 96
[2024-04-12 09:11] VITALS: BP 110/72; PULSE 67; RESP 17; TEMP 97.6; O2SAT 96
[2024-04-12 13:07] LABS: Anti-Nuclear Antibody Direct Negative (Negative)
[2024-04-12] MEDS: hydrALAZINE HCL 10 MG TAB PO SCH (14:00)
[2024-04-12] MEDS: BUMETANIDE 1mg/4ml VIAL (0.25mg/ml) IV ONE (14:06)
[2024-04-12] MEDS ORDERED: ISO20T PO (14:21)
[2024-04-12] MEDS ORDERED: HYDR-2792 PO (14:21)
[2024-04-12] MEDS ORDERED: LEVO500T91 PO (14:21)
--- NOTE | 2024-04-12 16:33 | DVHPN2 ---
Progress Note Date Seen: Apr 12, 2024 Has the PT tested + for MRSA If YES, has PT been informed?: No Medical Necessity Reason Pt with a Central, PICC or Fol: No Subjective Patient reports: No new complaints Review of Systems: HEENT:Normal, CVS:Normal, RESPIRATORY:Normal, GI:Normal, :Normal, MSK:Normal, NEURO:Normal Objective vital signs Vital Sign Date Time Temp Pulse Resp B/P (MAP) Pulse Ox O2 Delivery O2 Flow Rate FiO2 04/12/24 14:06 114/71 04/12/24 11:11 70 04/12/24 09:11 97.6 17 96 97.6 04/12/24 08:23 Room Air* 0 21 Total Intake and Output 04/11/24 04/11/24 04/12/24 15:00 23:00 07:00 Intake Total 150 ml 650 ml 896 ml Output Total 900 ml 1300 ml Balance 150 ml -250 ml -404 ml Examination: GENERAL:Normal, HEENT:Normal, NECK:Normal, LUNGS:Normal, CVS:Normal, ABDOMEN:Normal, MSK:Abnormal, SKIN:Normal, NEURO:Normal, :Normal laboratory and microbiology Laboratory Tests 04/12/24 05:34 Test 04/12/24 05:34 Range/Units Serum Glucose 81 74-106 mg/dL Microbiology Date/Time Source Procedure Growth Status 04/09/24 01:45 Voided Urine Urine Culture - Final Complete Problem List/Assessment/Plan Problem List/Assessment/Plan Acute kidney injury likely in the setting of cardiorenal syndrome Chronic kidney disease stage IIIB Decompensated systolic heart failure Bilateral pleural effusions possible pulm mass on CT Hyperkalemia severe COPD CHfREF acute on chronic recs Diuretic therapy Strict Is&Os better renal function Lokelma prn Plan discussed with: Patient, Other LUIZ ALVARADO MD Apr 12, 2024 16:33
--- NOTE | 2024-04-12 16:54 | DVHDSRES ---
Discharge Summary Date of Admission Resident Creating Document: NEEL TOLEDO RESIDENT Apr 08, 2024 at 20:23 Date of Discharge: Apr 12, 2024 Admitting Diagnosis Shortness of breaths Labs/Diagnostic Data: Laboratory Results Test 04/12/24 05:34 04/11/24 05:40 04/10/24 04:40 04/09/24 08:54 White Blood Count 5.9 10^3/uL (4.4-10.8) Red Blood Count 4.17 10^6/uL (4.5-5.90) Hemoglobin 12.6 g/dL (13.5-17.5) Hematocrit 37.3 % (41.0-53.0) Mean Corpuscular Volume 89.4 fL (80.0-100.0) Mean Corpuscular Hemoglobin 30.2 pg (28.0-32.0) Mean Corpuscular Hemoglobin Concent 33.8 g/dL (32.0-36.0) Red Cell Distribution Width 15.6 % (11.8-14.3) Platelet Count 151 10^3/uL (140-450) Mean Platelet Volume 7.8 fL (6.9-10.8) Neutrophils (%) (Auto) 70.9 % (37.0-80.0) Lymphocytes (%) (Auto) 15.2 % (10.0-50.0) Monocytes (%) (Auto) 11.6 % (0.0-12.0) Eosinophils (%) (Auto) 2.1 % (0.0-7.0) Basophils (%) (Auto) 0.2 % (0.0-2.0) Neutrophils # (Auto) 4.2 10 ^3/uL (1.6-8.6) Lymphocytes # (Auto) 0.9 10 ^3/uL (0.4-5.4) Monocytes # (Auto) 0.7 10 ^3/uL (0-1.3) Eosinophils # (Auto) 0.1 10 ^3/uL (0-0.8) Basophils # (Auto) 0 10 ^3/uL (0-0.2) Nucleated Red Blood Cells 0.1 % Sodium Level 142 mmol/L (136-145) Potassium Level 3.7 mmol/L (3.5-5.1) Chloride Level 104 mmol/L (98-107) Carbon Dioxide Level 28 mmol/L (20-31) Anion Gap 10 (5-15) Blood Urea Nitrogen 77 mg/dL (9-23) Creatinine 2.93 mg/dL (0.700-1.30) Glomerular Filtration Rate Calc 23 mL/min (>90) BUN/Creatinine Ratio 26.3 (10.0-20.0) Serum Glucose 81 mg/dL (74-106) Calcium Level 8.2 mg/dL (8.7-10.4) Total Bilirubin 0.8 mg/dL (0.2-1.0) Aspartate Amino Transferase (AST) 85 U/L (13-40) Alanine Aminotransferase (ALT) 159 U/L (7-40) Alkaline Phosphatase 68 U/L (46-116) Total Protein 4.7 g/dL (5.7-8.2) Albumin 2.8 g/dL (3.2-4.8) Magnesium Level 1.6 mg/dL (1.6-2.6) Anti-Nuclear Antibody Screen Negative (Negative) Complement C3 66 mg/dL (82-167) Complement C4 12 mg/dL (12-38) Hepatitis A IgM Antibody Negative Hepatitis B Surface Antigen Negative (Negative) Hepatitis B Core IgM Antibody Negative Hepatitis C Antibody Reactive (Negative) D-Dimer, Quantitative 4.91 mg/L FEU (0.0-0.49) Test 04/09/24 08:45 04/09/24 08:16 04/09/24 01:45 04/08/24 23:20 Influenza Type A Antigen Negative (Negative) Influenza Type B Antigen Negative (Negative) SARS-CoV-2 Antigen (Rapid) Negative (NEGATIVE) POC Glucose 153 mg/dl (70-106) Urine Color Yellow (Yellow) Urine Clarity Turbid (Clear) Urine pH 5.5 (5.0-9.0) Urine Specific [place] 1.013 (1.001-1.035) Urine Protein 2+ (Negative) Urine Ketones Trace (Negative) Urine Blood 2+ /uL (Negative) Urine Nitrite Negative (Negative) Urine Bilirubin Negative (Negative) Urine Urobilinogen Normal mg/dL (Negative) Urine Leukocyte Esterase Negative /uL (Negative) Urine RBC 2 /hpf (0 - 3) Urine WBC 5 /hpf (0 - 3) Urine Squamous Epithelial Cells Few /hpf (<5) Urine Bacteria Few /hpf (None Seen) Urine Hyaline Casts Many /lpf (0 - 2) Urine Mucus Few (None Seen) Urine Sperm Present /hpf (None Seen) Urine Glucose Normal mg/dL (Normal) Blood Gas Specimen Type Arterial Blood Gas Sample Site Left radial Blood Gas Patient Temperature 37.0 Arterial Blood Date Drawn Arterial Blood pH 7.451 (7.350-7.450) Arterial Blood Partial Pressure CO2 26.3 mmHg (35.0-48.0) Arterial Blood Partial Pressure O2 85.2 mmHg (83.0-108.0) Arterial Blood HCO3 17.9 mmol/L (21.0-28.0) Arterial Blood Oxygen Saturation 97.8 % (94.0-98.0) Arterial Blood Base Excess -4.1 mmol/L (-2.0-3.0) Arterial Blood Oxyhemoglobin 96.3 % (94.0-98.0) Arterial Blood Carboxyhemoglobin 0.9 % (0.5-1.5) Arterial Blood Methemoglobin 0.6 % (0.0-1.5) Dequan Test Modified Blood Gas Total Hemoglobin 16.20 g/dL (13.5-17.5) Blood Gas Liter Flow 2.00 Blood Gas Modality Nasal cannula FiO2 % 28.0 Test 04/08/24 20:30 04/08/24 16:52 Troponin I High Sensitivity 148 ng/L (</=54) B-Type Natriuretic Peptide > 5000.00 pg/mL (0-100) Other Laboratory Tests 04/12/24 05:34 Brief Hx & Hospital Course: XIN ADAMS is a 68 old male with past medical history of hypertension, hyperlipidemia, COPD, cancer, chronic systolic heart failure, CKD stage IV presented to the ED with a chief complaint of chest pain with shortness of breath, nausea and vomiting intermittently for last 1 week prior to this admission. According to the patient, chest pain is localized to the left side of the chest, sharp in nature, 7/10 and associated with shortness of breath and nausea without any aggravating and relieving factors. The patient was admitted to our facility ([facility]) 1 month ago with a diagnosis of pneumonia. According to the EMS the patient was refusing pain medication and saturation was initially between 80-90% and later with 2 L oxygen the saturation is 99%. Patient denies dizziness, diaphoresis, abdominal pain or any change in bowel and bladder habit. Patient required hospital admission for further evaluation and management of acute hypoxic respiratory failure . CXR showed findings suggestive of pneumonia, CT scan of chest showed multifocal pneumonia throughout both lungs including a dense masslike component in the left upper lobe. There is also a small left pleural effusion which is partially loculated. There was also severe centrilobular emphysema and trace subcutaneous emphysema in the right lower neck, started on IV levofloxacin, consulted pulmonology for possible bronchoscopy but patient refused despite as explaining risks and benefits. ECho showed an LVEF of 10% with normal cardiac valves and severe pulmonary hypertension , cycle consultant evaluated the patient and advised GDM T as patient tolerated. Initially started on Lasix 40 mg IV b.i.d. but later changed to Bumex 1 mg b.i.d.. But patient refused to take Bumex due to unregulated peeing, convinced with the patient to take at least 1 dose in morning and 1 dose at 3:00 pm. patient had NSTEMI type 2 likely due to above. Nephrology otm consultant evaluated the patient due to PORTIA on CKD 4 due to cardiorenal syndrome, advised strict I and o, potassium restriction diet and lokelma slowly weaned off from oxygen and now he is able to saturate at room air, in condition to be discharged home with optimal medical treatment. Patient was highly noncompliant about his medications, diet, patient was advised about salt restricted diet less than 2.5 g per day, fluid restriction( 2 L) but patient is refused to follow , patient is reluctant, has poor insight about his condition. Patient was advised about strict medication compliance, healthy lifestyle habits and importance of diet as we suggested and to follow up with PCP and cardiology. Pt is lying on bed General Appearance: Alert, Oriented X3, Not Cooperative, mild distress HEENT: Atraumatic, Mucous membranes moist/pink Respiratory: decreased breath sounds, minimal crackles Cardiovascular: Regular rate, Normal S1, Normal S2, No murmurs Abdominal: Active bowel sounds, Soft, no distention, no tenderness Extremities: 1+ edema, Normal pulses, No tenderness/swelling Skin: No Significant rash, except past surgical scars Neuro: Normal speech, sensorimotor deficits none Psych/Mental Status: Mental status NL, Mood NL Nurse was there as sharperone during examination Operations or Procedures RENAL ULTRASOUND IMPRESSION: 1. Multiple small bilateral renal cysts. 2. Prominent size prostate gland. Bilateral lower extremity venous duplex Impression: 1. No right or left femoropopliteal venous thrombosis. CT CHEST WITHOUT CONTRAST IMPRESSION: 1. Multifocal pneumonia throughout both lungs including a dense masslike component in the left upper lobe. Recommend follow-up noncontrast chest CT in 4 weeks after treatment to evaluate for stability. 2. Small left pleural effusion which is partially loculated. 3. Severe centrilobular emphysema. 4. Trace subcutaneous emphysema in the right lower neck, of unclear etiology. CHEST RADIOGRAPH Left upper lobe airspace disease. Condition at Discharge: Stable Final Diagnosis/Problems List # Acute hypoxic respiratory failure likely CHF exacerbation # bilateral pleural effusion # Acute gram+/- Pneumonia # Acute systolic decompensated heart failure (HFrEF 10%) # NSTEMI type 2 likely due to above # UTI ruled in culture growing E coli # PORTIA on CKD stage 4 likely due to cardiorenal syndrome (VMN) # lung mass status post resection followed by radiation in 2008 # Ruled out PE # Primary hypertension # Hyperkalemia- resolved # Hyperlipidemia Discharge Disposition: Home Discharge Instruct/Medications Diet: Cardiac 2g Na,low cholest, See Comment Diet comment: salt restricted diet Activity: No Restrictions, As Tolerated Follow Up/Referral: PCP, Cardiology, Pulmonology Medications: per EMR Discharge Statement: "Patient was advised to return to the ER or call 911 if any headaches, dizziness, shortness of breath, chest pain, abdominal pain, bleeding, fevers, or worsening of medical condition. Patient was counseled about treatment plan, medications, possible side effects, patientverbalized understanding. All questions were answered to the best of my ability. This discharge took greater then 30 minutes in planning, reviewing documentation, counseling the patient, and discussing with other team members." ASSESSMENT ASSESSMENT Assessment Acute on chronic hypoxic resp failure secondary to CHF exacerbation Date of Service: Apr 12, 2024 Billing Provider: JALYN ALBARADO MD Common Visit Codes: 47408-YIX/OBS DISCH DAY >30min Coding Comment Comment Attending Attestation I saw and evaluated the patient. I reviewed the residents note and agree with findings and plan as documented in the residents note except as documented below. Patient in end-stage heart failure, history of lung cancer with possible recurrence, recurrent aspiration pneumonia, poor compliance. Patient has poor insight about his condition. Patient will benefit palliative care as outpatient possible intervention with [facility] NEEL TOLEDO RESIDENT Apr 12, 2024 16:54 JALYN ALBARADO MD Apr 12, 2024 18:21
--- NOTE | 2024-04-12 20:55 | DVHPN2 ---
Progress Note - Dictate Date Seen: Apr 12, 2024 Has the PT tested + for MRSA If YES, has PT been informed?: No Medical Necessity Reason Pt with a Central, PICC or Fol: No Subjective Patient seen and examined at bedside. Breathing comfortably on room air. Overnight events reviewed vital signs Vital Sign Date Time Temp Pulse Resp B/P (MAP) Pulse Ox O2 Delivery O2 Flow Rate FiO2 04/12/24 14:06 114/71 04/12/24 11:11 70 04/12/24 09:11 97.6 17 96 97.6 04/12/24 08:23 Room Air* 0 21 Total Intake and Output 04/11/24 04/11/24 04/12/24 15:00 23:00 07:00 Intake Total 150 ml 650 ml 896 ml Output Total 900 ml 1300 ml Balance 150 ml -250 ml -404 ml objective Gen.: Patient lying in bed in no apparent distress. Breathing on room air. Head: Normocephalic, atraumatic. Eyes: EOMI/PERRLA. Ears: Normal hearing. Normal anatomy. Neck/trachea: Trachea midline, supple. Nose: Normal external anatomy. Mouth: Moist mucous membranes. Chest: Decreased air entry bilaterally. No wheezing or rhonchi. Cardiovascular: Positive S1, positive S2. Regular rate and rhythm. Abdomen: Positive bowel sounds in all 4 quadrants. Soft, non-tender, non- distended. : Deferred. Rectal: Deferred. Skin: Warm, dry. Intact. Extremities: 2+ radial pulses bilaterally. No lower extremity edema. Neuro: Awake, alert, oriented x3. No gross motor or sensory deficits. Cranial nerves II through XII intact. Gait not assessed. laboratory and microbiology Laboratory Tests 04/12/24 05:34 Test 04/12/24 05:34 Range/Units Serum Glucose 81 74-106 mg/dL Assessment/Plan Impression: Acute chest pain likely due to non ST-elevation [facility] Acute hypoxic respiratory failure secondary to acute exacerbation of CHF Chronic COPD Acute on chronic kidney injury Hyperkalemia Multifocal pneumonia Pleural effusion Atelectasis Emphysema, centrilobular, severe Trace subcutaneous emphysema in the right lower neck Severe pulmonary hypertension Events: Breathing on room air No respiratory distress. Complete antibiotics Incentive spirometry Diurese w/ Bumex as tolerated Monitor renal function Patient is stable for discharge from the pulmonary standpoint. Recommend outpatient PFTs and CT chest after completion of abx. Labs and imaging reviewed. Rest of plan as noted below. Plan: CT chest notable for multifocal pneumonia bilaterally. It was dense like masslike component of left upper lobe. Small left pleural effusion, partially loculated. Severe centrilobular emphysema. Trace subcutaneous emphysema in the right lower neck. Ultrasound venous Doppler bilateral lower extremities: No evidence of bilateral lower extremity DVT. Echo report reviewed from March 05, 2024. Major LV systolic dysfunction. Dilated cardiomyopathy. Left ventricular ejection fraction 10%. Large pleural effusion. Right ventricular systolic pressure 60 mmHg, severe pulmonary hypertension Supplemental oxygen PRN keep O2 saturation above 92%. Continue antibiotics Follow up cultures. Diurese to euvolemia. On Bumex twice daily. Monitor ins and outs Monitor electrolytes Supplement as necessary. Cardiology recommendations appreciated. Explained the risks and benefits of undergoing bronchoscopy with bronchoalveolar lavage, possible brushings and possible biopsy. With full knowledge of the risks and benefits, patient declined procedure. He wishes to continue with antibiotic course and repeat a CT chest. If persistent he may consider doing a bronchoscopy for evaluation. GI prophylaxis-Pepcid DVT prophylaxis-SCDs recommended. Prognosis: Poor given multiple comorbidities. Rest of plan per hospitalist and other consultants. Thank you Dr. Quiñonez for allowing me to participate in this patient's care. Further recommendations will depend on patient's clinical course. Please do not hesitate to contact me if you have any questions or concerns. This medical document was created using an electronic medical record system with [employer] dictation system. Although this document has been carefully reviewed, there may still be some phonetic and typographical errors. These areas are purely typographical due to imperfections of the software programs, and do not reflect any compromise in the patient's medical care. Plan discussed with: Patient, Other (THERESA Hyatt) PONCHO THOMPSON MD Apr 12, 2024 20:55
[2024-04-13] MEDS ORDERED: ISOSORBIDE MONONITRATE 20 MG TAB PO SCH (10:00)
== END 2024-04-12 16:13 | disposition home or self-care (01) | DRG 133 ==
LOC: EDUNIT# 16:15 → EDBD 16:15 → ER 16:15 → TELE 20:23 → TELE-WESTW 04-09 18:02 → WEST WING 04-11 12:38
PROVIDERS: ADMIT Student in an Organized Health Care Education/Training Program; ATTEND Emergency Medicine
DX: J96.21 Acute and chronic respiratory failure with hypoxia (principal); N17.0 Acute kidney failure with tubular necrosis; I21.A1 Myocardial infarction type 2; I50.23 Acute on chronic systolic (congestive) heart failure; J15.69 Pneumonia due to other Gram-negative bacteria; I27.20 Pulmonary hypertension, unspecified; I42.0 Dilated cardiomyopathy; I13.0 Hypertensive heart and chronic kidney disease with heart failure and stage 1 through stage 4 chronic kidney disease, or unspecified chronic kidney disease; J15.9 Unspecified bacterial pneumonia; N18.4 Chronic kidney disease, stage 4 (severe); J44.0 Chronic obstructive pulmonary disease with (acute) lower respiratory infection; E87.5 Hyperkalemia; I25.10 Atherosclerotic heart disease of native coronary artery without angina pectoris; Z20.822 Contact with and (suspected) exposure to COVID-19; J43.2 Centrilobular emphysema; E11.22 Type 2 diabetes mellitus with diabetic chronic kidney disease; E78.5 Hyperlipidemia, unspecified; Z79.899 Other long term (current) drug therapy; Z83.3 Family history of diabetes mellitus; Z85.118 Personal history of other malignant neoplasm of bronchus and lung; Z87.891 Personal history of nicotine dependence; Z91.148 Patient's other noncompliance with medication regimen for other reason; Z79.82 Long term (current) use of aspirin
CPT/HCPCS: 36415; 36600; 71045; 71250; 76775; 80048; 80053; 80074; 81001; 82805; 82962; 83735; 83880; 84132; 84484; 85025; 85379; 86038; 86160; 87086; 87426; 87804; 93005; 93970; 94640; 96365; 96375; 97163; 99291; G0378; J1815; J1956

== ENCOUNTER 2024-08-03 21:07 | Inpatient (IN) | payer MEDICARE, MEDICAID ==
[~2024-08-03] VITALS: Ht 182.9 cm; Wt 81.2 kg
[~2024-08-03 21:07] MED LIST changes: +HYDR-2792 PO; +ISO20T PO; +LEVO500T91 PO
--- NOTE | 2024-08-03 21:28 | ED.PDOC ---
SOB-HPI HPI Comments A 69 year old male presents to the ED with a chief complaint of shortness of breath onset yesterday (08/03/24). Patient is a poor historian, states he has been experiencing shortness of breath, chest pain, RT leg swelling since yesterday, is not complaint with his medication. Review from previous note, patient was seen in this ED in March 2024, was admitted for acute hypoxic respiratory failure, NSTEMI. PMHx COPD, CHF, lung cancer, HTN, HLD, asthma, CKD stage IV. Patient reports he has not been compliant with his treatment regimen. No other symptoms or modifying factors present at this time. Time Seen by MD: 21:17 Primary Care Provider: UNKNOWN Reviewed notes: Medications, Allergies Information Source: Patient Mode of Arrival: Ambulatory Severity: Moderate Timing: Days Duration: Since onset Context: At Rest PE Risk Factors: None History of: Asthma, COPD, CHF Prehospital treatment: None Modifying Factors: Nothing Associated Signs and Symptoms: Cough, Nasal Congestion, Chest Pain, Leg Swelling Radiation: No Radiation If cough with SOB: Non-Productive Vital Signs Vital Signs Date Time Temp Pulse Resp B/P (MAP) Pulse Ox O2 Delivery O2 Flow Rate FiO2 08/03/24 22:28 115 08/03/24 21:26 97.4 24 148/103 (118) 97 Physical Exam General: Awake, alert and oriented. No acute distress. Skin: Skin in warm, dry and intact. Appropriate color for ethnicity. HEENT: The head is normocephalic and atraumatic. Conjunctivae are clear without exudates or hemorrhage. Sclera is non-icteric. EOM are intact. No signs of nystagmus. Eyelids are normal in appearance without swelling or lesions. Oral mucosa is pink and moist Neck: The neck is supple with normal range of motion. No JVD. Cardiac: Heart rate and rhythm are normal. No murmurs, gallops, or rubs are auscultated. Respiratory: Patient appears winded, speaking in short sentences, diminished breath sounds bilaterally Abdominal: Abdomen is soft, non-tender without distention. Bowel sounds are present and normoactive in all four quadrants. Extremities: Right lower extremity edema > LLE Neurological: The patient is awake, alert and oriented to person, place, and time with normal speech. Speech is clear. There is no facial asymmetry. Psychiatric: Appropriate mood and affect. Good judgement and insight. No visual or auditory hallucinations. Review of Systems: REVIEW OF SYSTEMS: No fever, no chills, or fatigue HEENT: No sore throat, no earache, no congestion, no neck pain. Cardiac: Cause chest pain. No palpitations. Lungs: Cause o shortness of breath, no cough. GI: No nausea, no vomiting, no diarrhea, no constipation, no abdominal pain : No dysuria, frequency, or urgency. No hematuria. Musculoskeletal: No joint pain , no joint swelling, positive lower extremity edema. Skin: No rash, no itching. Neuro: No headache, positive dizziness, positive generalized weakness Past Medical History PAST MEDICAL HISTORY: Asthma, Cancer, CHF, CKF, COPD, High Lipids, HTN Surgical History: Denies all surgeries Family History Family History: Unobtainable Social History Smoker: Non-Smoker Alcohol: Occasionally Drugs: Denies Drug Use Lives In: Home Was a procedure done? Was a procedure done?: No Differential Dx Differential Diagnosis: Other Comments Differential diagnoses considered includebut arenot limited to acute Bronchitis, Asthma, COPD, Pneumothorax, PE, CHF, Pulmonary HTN, Anemia, CO Poisoning, Methemoglobinemia, Hyperventilation, Metabolic Acidosis, Pulmonary Edema, Pneumonia, ACS, Pericardial Tamponade, Anxiety, other X-Ray, Labs, Meds, VS Vital Signs Date Time Temp Pulse Resp B/P (MAP) Pulse Ox O2 Delivery O2 Flow Rate FiO2 08/03/24 22:28 115 08/03/24 21:26 97.4 124 24 148/103 (118) 97 08/03/24 21:20 119 Lab Test 08/03/24 23:37 08/03/24 22:10 Range/Units Lactic Acid Level Pending 4.1 *H 0.4-2.0 mmol/L Troponin I High Sensitivity 1971 *H 1857 *H </=54 ng/L White Blood Count 7.2 4.4-10.8 10^3/uL Red Blood Count 5.08 4.5-5.90 10^6/uL Hemoglobin 14.4 13.5-17.5 g/dL Hematocrit 45.7 41.0-53.0 % Mean Corpuscular Volume 89.9 80.0-100.0 fL Mean Corpuscular Hemoglobin 28.3 28.0-32.0 pg Mean Corpuscular Hemoglobin Concent 31.4 L 32.0-36.0 g/dL Red Cell Distribution Width 18.9 H 11.8-14.3 % Platelet Count 182 140-450 10^3/uL Mean Platelet Volume 7.9 6.9-10.8 fL Neutrophils (%) (Auto) 74.7 37.0-80.0 % Lymphocytes (%) (Auto) 14.7 10.0-50.0 % Monocytes (%) (Auto) 9.5 0.0-12.0 % Eosinophils (%) (Auto) 0.5 0.0-7.0 % Basophils (%) (Auto) 0.6 0.0-2.0 % Neutrophils # (Auto) 5.4 1.6-8.6 10 ^3/uL Lymphocytes # (Auto) 1.1 0.4-5.4 10 ^3/uL Monocytes # (Auto) 0.7 0-1.3 10 ^3/uL Eosinophils # (Auto) 0 0-0.8 10 ^3/uL Basophils # (Auto) 0 0-0.2 10 ^3/uL Nucleated Red Blood Cells 0.2 % Prothrombin Time Pending Prothrombin Time INR Pending Activated Partial Thromboplast Time Pending Sodium Level 140 136-145 mmol/L Potassium Level 5.5 H 3.5-5.1 mmol/L Chloride Level 107 98-107 mmol/L Carbon Dioxide Level 22 20-31 mmol/L Anion Gap 11 5-15 Blood Urea Nitrogen 50 H 9-23 mg/dL Creatinine 2.24 H 0.700-1.30 mg/dL Glomerular Filtration Rate Calc 31 >90 mL/min BUN/Creatinine Ratio 22.3 H 10.0-20.0 Serum Glucose 100 74-106 mg/dL Calcium Level 10.1 8.7-10.4 mg/dL Total Bilirubin 1.8 H 0.2-1.0 mg/dL Aspartate Amino Transferase (AST) 32 13-40 U/L Alanine Aminotransferase (ALT) 26 7-40 U/L Alkaline Phosphatase 73 46-116 U/L B-Type Natriuretic Peptide 4261.23 0-100 pg/mL Total Protein 7.2 5.7-8.2 g/dL Albumin 4.3 3.2-4.8 g/dL [facility] [id number] [facility] [id number] Ph: [phone] DIAGNOSTIC IMAGING Diagnostic Imaging Report : [id number] Signed PATIENT: XIN ADAMS JACCT: [id number] UNIT: [id number] : 1955 LOC: ER ROOM / BED: / AGE / SEX: 69 / M ADM STATUS: REG ER SERVICE 20 ORDERING PHYSICIAN: AMARJIT DURHAM MD PROCEDURE(s): CXR1 - CHEST XRAY 1 VIEW REASON: Shortness of breath ORDER NUMBER(s): [id number], ACCESSION NUMBER(s): [id number] CHEST RADIOGRAPH Indication: Shortness of breath Technique: Single frontal view of the chest was obtained Comparison: XY CHEST PORTABLE on DOS: 04/08/24, XY CHEST XRAY 1 VIEW on DOS: 03/10/24, XY CHEST XRAY 1 VIEW on DOS: 03/07/24 Findings/ IMPRESSION: Left mid lung zone opacification concerning for developing pneumonia. Small left-sided pleural effusion. ATED BY: CHAR DEWITT DO DICTATED DATE/TIME: 08/03/242216 SIGNED BY: CHAR DEWITT DO SIGNED DATE/TIME: 08/03/242216 CC: [place] [address] Ph: [phone] DIAGNOSTIC IMAGING Diagnostic Imaging Report : [id number] Signed PATIENT: XIN ADAMS ACCT: [id number] UNIT: [id number] : 1955 LOC: ER ROOM / BED: / AGE / SEX: 69 / M ADM STATUS: REG ER SERVICE 20 ORDERING PHYSICIAN: AMARJIT DURHAM MD PROCEDURE(s): RLDVT - RT Lower DVT REASON: Right lower extremity edema ORDER NUMBER(s): [id number], ACCESSION NUMBER(s): [id number] Right lower extremity venous duplex Clinical History: Right lower extremity edema Comparison: US BILAT LOWER DVT on DOS: 04/09/24, US BILAT LOWER DVT on DOS: 03/09/24 Technique: Duplex Doppler evaluation of the deep venous system of the right lower extremity from the common femoral vein to the popliteal vein including color Doppler and spectral/pulsed waveform analysis was performed. Findings: The common femoral vein demonstrates appropriate compressibility and waveform variability. There is compressibility/patency of the great saphenous vein at the proximal thigh. The femoral vein demonstrates appropriate compressibility and waveform variability. The deep femoral vein demonstrates appropriate compressibility and waveform variability. The popliteal vein demonstrates appropriate compressibility and waveform variability. There is normal compressibility at the tibioperoneal trunk. Impression: No evidence of right femoropopliteal venous thrombosis. ATED BY: MATT IRWIN MD DICTATED DATE/TIME: 08/03/242155 SIGNED BY: MATT IRWIN MD SIGNED DATE/TIME: 08/03/242155 CC: Time of 1ST Reevaluation: 21:47 Reevaluation 1ST: Unchanged Patient Education/Counseling: Diagnosis, Treatment, Prognosis Family Education/Counseling: No Family Present Departure 1 Departure Time of Disposition: 22:42 Impression: Primary Impression: Pneumonia Additional Impressions: Pleural effusion Hyperkalemia CHF exacerbation NSTEMI (non-ST elevated myocardial infarction) Disposition: ADMITTED INPATIENT Condition: Stable Comments 69-year-old male with a history of congestive heart failure who presents to the emergency department with a cough and shortness of breath. He reports some intermittent chest pain.. Chest x-ray shows findings suggestive of left mid lung pneumonia. BNP and troponin are significantly elevated. There is also significant lactic acidemia. Gentle IV hydration, heparin bolus administered. Patient admitted for further treatment, evaluation and monitoring. Extensive evaluation was performed in attempt to identify or rule out: (See differential diagnosis section) The following tests were ordered, and results were reviewed by me and discussed with the patient: (See diagnostic results section) The following test were independently interpreted by me: EKG I reviewed and agreed with the following test results read by other providers: Chest x-ray I reviewed the following notes from the pt's past medical encounters: Hospitalization at this facility March of 2024 Additional information was gathered from interviewing the following independent historians: N/A Discussion of management or test interpretation with external physician/other qualified health child day care teacher: N/A Addressed an acute or chronic illness that poses a threat to life or bodily function: NSTEMI, CHF exacerbation, pneumonia Decision regarding hospitalization or escalation of hospital level of care: Risk and benefits of admission for further treatment of patient's condition was considered. Due to patient's current clinical condition, high risk of decline and poor outcome if discharged and need for further inpatient management and monitoring, patient will be admitted to the hospital. Drug therapy requiring intensive monitoring for toxicity: IV bumetanide Parenteral controlled substances: N/A Decision regarding elective major surgery with identified patient or procedure risk factors: N/A Decision regarding emergency major surgery: N/A Decision not to resuscitate or to de-escalate care because of poor prognosis: N/A Diagnosis or treatment significantly limited by social determinants of health: N/A Critical Care Note Critical Care Time?: No Stability Stability form required: No Heart Score Heart Score: Heart Score Response (Comments) Value History Moderate Suspicious 1 EKG Normal 0 Age >65 2 Risk Factors >3 or Hx ASHD 2 Troponin >3 x's Normal limit 2 Total 7 I personally scribed for AMARJIT DURHAM MD ([email or web address]) on 08/03/24 at 21:28. Electronically submitted by Janice Reis ([email or web address]). I personally scribed for AMARJIT DURHAM MD ([email or web address]) on 08/03/24 at 22:39. Electronically submitted by Janice Reis ([email or web address]). AMARJIT DURHAM MD Aug 03, 2024 21:28
[2024-08-03] MEDS: BUMETANIDE 1mg/4ml VIAL (0.25mg/ml) IV ONE (21:30)
--- NOTE | 2024-08-03 21:59 | DVH ---
Right lower extremity venous duplex Clinical History: Right lower extremity edema Comparison: US BILAT LOWER DVT on DOS: 04/09/24, US BILAT LOWER DVT on DOS: 03/09/24 Technique: Duplex Doppler evaluation of the deep venous system of the right lower extremity from the common femo ral vein to the popliteal vein including color Doppler and spectral/pulsed waveform analysis was perf ormed. Findings: The common femoral vein demonstrates appropriate compressibility and waveform variability. There is compressibility/patency of the great saphenous vein at the proximal thigh. The femoral vein demonstrates appropriate compressibility and waveform variability. The deep femoral vein demonstrates appropriate compressibility and waveform variability. The popliteal vein demonstrates appropriate compressibility and waveform variability. There is normal compressibility at the tibioperoneal trunk. Impression: No evidence of right femoropopliteal venous thrombosis.
--- NOTE | 2024-08-03 22:20 | DVH ---
CHEST RADIOGRAPH Indication: Shortness of breath Technique: Single frontal view of the chest was obtained Comparison: XY CHEST PORTABLE on DOS: 04/08/24, XY CHEST XRAY 1 VIEW on DOS: 03/10/24, XY CHEST XRAY 1 VIEW on DOS: 03/07/24 Findings/ IMPRESSION: Left mid lung zone opacification concerning for developing pneumonia. Small left-sided pleural effusi on.
[2024-08-03 22:58] LABS: Basophils # (auto) 0 10 ^3/uL (0-0.2); Basophils % (auto) 0.6 % (0.0-2.0); Eosinophils # (auto) 0 10 ^3/uL (0-0.8); Eosinophils % (auto) 0.5 % (0.0-7.0); Hematocrit 45.7 % (41.0-53.0); Hemoglobin 14.4 g/dL (13.5-17.5); Lymphocytes # (auto) 1.1 10 ^3/uL (0.4-5.4); Lymphocytes % (auto) 14.7 % (10.0-50.0); Mean Corpuscular Hemoglobin 28.3 pg (28.0-32.0); Mean Corpuscular Hgb Conc. 31.4 g/dL (32.0-36.0); Mean Corpuscular Volume 89.9 fL (80.0-100.0); Monocytes # (auto) 0.7 10 ^3/uL (0-1.3); Monocytes % (auto) 9.5 % (0.0-12.0); Neutrophils # (auto) 5.4 10 ^3/uL (1.6-8.6); Neutrophils % (auto) 74.7 % (37.0-80.0); Nucleated Red Blood Cells % 0.2 %; Platelet Count (auto) 182 10^3/uL (140-450); Red Blood Cells 5.08 10^6/uL (4.5-5.90); Red Cell Distribution Width 18.9 % (11.8-14.3); White Blood Cell 7.2 10^3/uL (4.4-10.8)
[2024-08-03 23:11] LABS: Alanine Aminotransferase 26 U/L (7-40); Albumin 4.3 g/dL (3.2-4.8); Alkaline Phosphatase 73 U/L (46-116); Anion Gap 11 (5-15); Aspartate Aminotransferase 32 U/L (13-40); BUN/Creatinine Ratio 22.3 (10.0-20.0); Bilirubin, Total 1.8 mg/dL (0.2-1.0); Blood Urea Nitrogen 50 mg/dL (9-23); Calcium 10.1 mg/dL (8.7-10.4); Carbon Dioxide 22 mmol/L (20-31); Chloride 107 mmol/L (98-107); Glucose 100 mg/dL (74-106); Potassium 5.5 mmol/L (3.5-5.1); Sodium 140 mmol/L (136-145); Total Protein 7.2 g/dL (5.7-8.2)
[2024-08-03 23:13] LABS: Lactic Acid w/Reflex 4.1 mmol/L (0.4-2.0)
[2024-08-03] MEDS: SODIUM CHLORIDE 0.9% 500 ML IV ONE (23:30)
[2024-08-03] MEDS ORDERED: HEPARIN SODIUM (PORCINE) 5000 UNITS/ML 1ML VIAL IV ONE (23:30)
[2024-08-03 23:58] VITALS: PULSE 120; RESP 18; O2SAT 97
[2024-08-04] VITALS (13 sets, daily range): BP systolic 107–144; BP diastolic 76–98; PULSE 83–115; RESP 15–18; TEMP 97.4–99.6; O2SAT 97–100
[2024-08-04] MEDS ORDERED: NITROGLYCERIN 0.4 MG SL TAB SL PRN
[2024-08-04] MEDS ORDERED: MORPHINE SULFATE INJ 2 MG/ml SYRG IV PRN
[2024-08-04] MEDS ORDERED: ALBUTEROL SULF 2.5 MG/0.5ML(0.5%) NEB SOLN NEB PRN (00:30)
[2024-08-04] MEDS ORDERED: ONDANSETRON HCL 4 MG/2 ML VIAL IV PRN (00:30)
--- NOTE | 2024-08-04 00:49 | DVHHP2 ---
History of Present Illness Reason for Visit: Shortness for breath History of Present Illness 69-year-old male presents for evaluation of shortness for breath. Patient with a history of congestive heart failure and COPD reports worsening shortness for breath for the past one day. Reports lower extremity swelling and a nonprodu ctive cough. Denies any other acute complaints at the moment. Past Medical History CHF, COPD has been hypertension, BPH, cancer Past Surgical History Denies Family History Noncontributory Smoke: No ALCOHOL: none Drugs: None Lives: with Family Review of Systems Review of Systems Review of systems are currently negative otherwise addressed in HPI. Allergies: Coded Allergies: NO KNOWN ALLERGIES (Unverified , 07/08/18) Medications Current Medications Medications Dose Ordered Sig/Lisa Route Start Time Stop Time Status Last Admin Dose Admin Nitroglycerin 0.4 mg Q5MINP PRN SL 08/04/24 00:00 Morphine Sulfate 2 mg Q30M PRN IV 08/04/24 00:00 Albuterol 2.5 mg Q6HPRN PRN NEB 08/04/24 00:30 UNV Atorvastatin Calcium 40 mg HS PO 08/04/24 22:00 UNV Furosemide 20 mg BIDD IV 08/04/24 06:00 UNV Clopidogrel Bisulfate 75 mg DAILY PO 08/04/24 10:00 UNV Isosorbide Mononitrate 10 mg DAILY PO 08/04/24 10:00 UNV Metoprolol Succinate 25 mg DAILY PO 08/04/24 10:00 UNV Tamsulosin HCl 0.4 mg QPM PO 08/04/24 18:00 UNV Ceftriaxone Sodium 50 ml @ 100 mls/hr DAILY@09 IV 08/04/24 09:00 UNV Azithromycin 250 ml @ 125 mls/hr DAILY IV 08/04/24 10:00 UNV Heparin Sodium/ Dextrose 250 ml @ 9.432 mls/ hr Q24H IV 08/04/24 00:30 UNV Ondansetron HCl 4 mg Q4HP PRN IV 08/04/24 00:30 UNV Acetaminophen 650 mg Q6HP PRN PO 08/04/24 00:30 UNV Exam Vital Signs Vital Signs Date Time Temp Pulse Resp B/P (MAP) Pulse Ox O2 Delivery O2 Flow Rate FiO2 08/04/24 00:24 113 08/03/24 23:58 18 97 Room Air* 0 21 08/03/24 23:58 99.6 144/83 (103) 99.6 Exam Gen: 69-year-old male in mild distress Skin: Warm, dry, normal color and texture, no rash. HEENT: Normocephalic atraumatic, mucous membranes moist and pink. Neck: Cervical and supraclavicular nodes normal without enlargement, trachea is midline, thyroid gland is normal without masses. Pulmonary: Clear to auscultation and percussion bilaterally. Cardiac: Regular rate and rhythm. No murmur Abdomen: Soft, nontender, nondistended, bowel sounds present all 4 quadrants, no guarding, no rigidity, no organomegaly. Extremities: No cyanosis, clubbing, plus one bilateral pedal edema. Neuro: Cranial nerves II through XII grossly intact, normal affect and speech, no focal motor deficits. Labs/Xrays ORDERING PHYSICIAN: TIFFANIE HOLMAN DNP PROCEDURE(s): ECIDC - ECHO 2D MODE CARDIAC DOP REASON: eval for cardiac function and ef ORDER NUMBER(s): [id number], ACCESSION NUMBER(s): [id number] APPROVED REPORT EXAM: Two-dimensional and M-mode echocardiogram with Doppler and color Doppler. Blood Pressure: 146/93 mmHg INDICATION Eval for cardiac function and EF RISK FACTORS Height: 6', Weight: 174 DIMENSIONS LVDd 6.5 (3.8-5.7cm) LA (2D) 5.3 (1.9-4.0cm) Aortic Root 3.3 (2.0- 3.7cm) LVDs 6.3 (2.5-4.0cm) LA (MM) (1.9-4.0cm) Aortic Cusp Exc 1.8 (1.5- 2.0cm) EF (%) 8.0 (55-70%) Rt. Atrium 5.8 (1.9-4.0cm) Asc. Aorta cm IVSd 1.2 (0.7-1.1cm) RV (D) (1.8-2.4cm) PWd 1.3 (0.7-1.1cm) Mitral Valve Mitral Mitral Stenosis E wave 0.90m/s MV Mean GR. mmHg E/A ratio 0.0 2D MVA cm2 Aortic Valve Aortic Valve Aortic Stenosis V1 0.40m/s AO Mean GR. 2mmHg V2 0.90m/s AO Peak GR. 4mmHg LVOT Diameter 2.5 (1.8-2.4cm) Doppler LAURIE 2.18cm2 AI P 1/2 Time 257.50ms Pulmonic Valve V2 0.40m/s Tricuspid Valve TR Velocity 3.60m/s RVSP 60mmHg Conclusion MAJOR LV SYSTOLIC DYSFUNCTION DILATED CARDIOMYOPATHY LV EJECTION FRACTION IS 10% LARGE PLEURAL EFFUSION NORMAL VALVES SEVERE PULMONARY HYPERTENSION RVSP IS 60 MM OF HG AND IS VERY HIGH SIGNED BY: JAYME PEDRAZA MD SIGNED DATE/TIME: 03/05/24 230 ORDERING PHYSICIAN: AMARJIT DURHAM MD PROCEDURE(s): CXR1 - CHEST XRAY 1 VIEW REASON: Shortness of breath ORDER NUMBER(s): [id number], ACCESSION NUMBER(s): [id number] CHEST RADIOGRAPH Indication: Shortness of breath Technique: Single frontal view of the chest was obtained Comparison: XY CHEST PORTABLE on DOS: 04/08/24, XY CHEST XRAY 1 VIEW on DOS: 03/10/24, XY CHEST XRAY 1 VIEW on DOS: 03/07/24 Findings/ IMPRESSION: Left mid lung zone opacification concerning for developing pneumonia. Small left-sided pleural effusion. RING PHYSICIAN: AMARJIT DURHAM MD PROCEDURE(s): RLDVT - RT Lower DVT REASON: Right lower extremity edema ORDER NUMBER(s): [id number], ACCESSION NUMBER(s): [id number] Right lower extremity venous duplex Clinical History: Right lower extremity edema Comparison: US BILAT LOWER DVT on DOS: 04/09/24, US BILAT LOWER DVT on DOS: 03/09/24 Technique: Duplex Doppler evaluation of the deep venous system of the right lower extremity from the common femoral vein to the popliteal vein including color Doppler and spectral/pulsed waveform analysis was performed. Findings: The common femoral vein demonstrates appropriate compressibility and waveform variability. There is compressibility/patency of the great saphenous vein at the proximal thigh. The femoral vein demonstrates appropriate compressibility and waveform variability. The deep femoral vein demonstrates appropriate compressibility and waveform variability. The popliteal vein demonstrates appropriate compressibility and waveform variability. There is normal compressibility at the tibioperoneal trunk. Impression: No evidence of right femoropopliteal venous thrombosis. Labs Test 08/03/24 23:37 08/03/24 22:10 Range/Units Troponin I High Sensitivity 1971 *H </=54 ng/L White Blood Count 7.2 4.4-10.8 10^3/uL Red Blood Count 5.08 4.5-5.90 10^6/uL Hemoglobin 14.4 13.5-17.5 g/dL Hematocrit 45.7 41.0-53.0 % Mean Corpuscular Volume 89.9 80.0-100.0 fL Mean Corpuscular Hemoglobin 28.3 28.0-32.0 pg Mean Corpuscular Hemoglobin Concent 31.4 L 32.0-36.0 g/dL Red Cell Distribution Width 18.9 H 11.8-14.3 % Platelet Count 182 140-450 10^3/uL Mean Platelet Volume 7.9 6.9-10.8 fL Neutrophils (%) (Auto) 74.7 37.0-80.0 % Lymphocytes (%) (Auto) 14.7 10.0-50.0 % Monocytes (%) (Auto) 9.5 0.0-12.0 % Eosinophils (%) (Auto) 0.5 0.0-7.0 % Basophils (%) (Auto) 0.6 0.0-2.0 % Neutrophils # (Auto) 5.4 1.6-8.6 10 ^3/uL Lymphocytes # (Auto) 1.1 0.4-5.4 10 ^3/uL Monocytes # (Auto) 0.7 0-1.3 10 ^3/uL Eosinophils # (Auto) 0 0-0.8 10 ^3/uL Basophils # (Auto) 0 0-0.2 10 ^3/uL Nucleated Red Blood Cells 0.2 % Sodium Level 140 136-145 mmol/L Potassium Level 5.5 H 3.5-5.1 mmol/L Chloride Level 107 98-107 mmol/L Carbon Dioxide Level 22 20-31 mmol/L Anion Gap 11 5-15 Blood Urea Nitrogen 50 H 9-23 mg/dL Creatinine 2.24 H 0.700-1.30 mg/dL Glomerular Filtration Rate Calc 31 >90 mL/min BUN/Creatinine Ratio 22.3 H 10.0-20.0 Serum Glucose 100 74-106 mg/dL Calcium Level 10.1 8.7-10.4 mg/dL Total Bilirubin 1.8 H 0.2-1.0 mg/dL Aspartate Amino Transferase (AST) 32 13-40 U/L Alanine Aminotransferase (ALT) 26 7-40 U/L Alkaline Phosphatase 73 46-116 U/L B-Type Natriuretic Peptide 4261.23 0-100 pg/mL Total Protein 7.2 5.7-8.2 g/dL Albumin 4.3 3.2-4.8 g/dL Assessment/Plan Assessment/Plan Assessment Community-acquired pneumonia Acute on chronic congestive heart failure NSTEMI Chronic kidney disease Hyperkalemia Noncompliant Plan Admit the patient to telemetry to the hospitalist IV Lasix Cardiology consultation Heparin drip Resume home medications Continue treatment per orders. Plan discussed with: Patient My Orders Orders - MICHAEL LENNON Procedure Category Date Status Time Admit ADMIT 08/03/24 Transmitted 23:52 Nitroglycerin [facility] 08/04/24 In Process Sublingual (Ntrostat 00:00 Morphine Sulfate PHA 08/04/24 In Process Injection 00:00 Stat Ekg For Chest [facility] 08/03/24 In Process Pain 23:52 Notify Of Changes [facility] 08/03/24 In Process From Base 23:52 Church Official For [facility] 08/03/24 In Process 24 Hours 23:52 Emergency Dysrhythmia [facility] 08/03/24 In Process Protocol 23:52 Rhythm Strips Once [facility] 08/03/24 In Process Every Shift 23:52 Oxygen By Nasal RT 08/03/24 Transmitted Cannula 23:52 Albuterol Medneb PHA 08/04/24 Logged (Ventolin Medneb) 00:30 Atorvastatin (Lipitor) PHA 08/04/24 Logged 22:00 Furosemide Injection PHA 08/04/24 Logged (Lasix Injection) 06:00 Clopidogrel Bisulfate PHA 08/04/24 Logged (Plavix) 10:00 Isosorbide PHA 08/04/24 Logged Mononitrate Tablet 10:00 Metoprolol Xl PHA 08/04/24 Logged Succinate (Toprol Xl) 10:00 Tamsulosin PHA 08/04/24 Logged Hydrochloride (Flomax) 18:00 Ceftriaxone 1gm/50ml PHA 08/04/24 Logged D5w (Rocephin) 09:00 Azithromycin 500mg/ PHA 08/04/24 Logged 250ml (Zithromax 50 10:00 Sodium Zirconium PHA 08/04/24 Logged Cyclosilicate 00:30 Platelet Monitoring [facility] 08/04/24 In Process 00:28 Heparin Per [facility] 08/04/24 In Process Standardized Proce 00:28 Discontinue All Im LEE 08/04/24 In Process Injections 00:28 PTPTT LAB 08/04/24 In Process 00:28 Heparin Drip/D5w [facility] 08/04/24 Logged 100units/Ml 00:30 Renal DIET 08/04/24 Transmitted Standard(2gna,3gk,Lopho) Breakfast Ondansetron Hcl [facility] 08/04/24 Logged (Zofran) 00:30 Complete Blood Count LAB 08/05/24 Verified 04:00 Cardiac DIET 08/04/24 Transmitted Diet-2gna,Lofat,Lochol Breakfast Condition: Fair [facility] 08/04/24 In Process 00:28 Acetaminophen Tablet [facility] 08/04/24 Logged (Tylenol Tablet) 00:30 Bedrest With Bathroom [facility] 08/04/24 In Process Privileg 00:28 Basic Metabolic Panel LAB 08/05/24 Verified 04:00 Date of Service: Aug 03, 2024 Billing Provider: MICHAEL LENNON Common Visit Codes: [id number] INP/OBS CARE (HIGH) MICHAEL LENNON Aug 04, 2024 00:49
[2024-08-04 01:00] LABS: INR 1.22 (0.9-1.15); Partial Thromboplastin Time 28.7 SEC (24.5-34.5); Prothrombin Time 12.7 sec (9.3-11.8)
[2024-08-04] MEDS: cefTRIAXone 1GM/50ML D5W 50 ML IV ONE (01:08)
[2024-08-04 02:00] LABS: COVID19 ANTIGEN SOFIA FIA NEGATIVE (NEGATIVE); Rapid Influenza A Negative (Negative); Rapid Influenza B Negative (Negative)
[2024-08-04] MEDS: AZITHROMYCIN 500MG/ 250ML 250 ML IV ONE (02:01)
[2024-08-04] MEDS ORDERED: BENZ200C64 PO (03:55)
[2024-08-04] MEDS ORDERED: BUME1TAB3 PO (03:55)
[2024-08-04] MEDS ORDERED: HYDR-4072 PO (03:55)
[2024-08-04] MEDS ORDERED: TAMS0.4C39 PO (03:55)
[2024-08-04] MEDS: HEPARIN SODIUM (PORCINE) 5000 UNITS/ML 1ML VIAL IV ONE (04:05)
[2024-08-04] MEDS: HEPARIN DRIP/D5W 100UNITS/ML 250 ML IV SCH (04:33)
[2024-08-04] MEDS: SODIUM ZIRCONIUM CYCL 10 GM PAK PO ONE (04:38)
[2024-08-04] MEDS: ACETAMINOPHEN 325 MG TAB PO PRN (05:10)
[2024-08-04] MEDS: FUROSEMIDE 20 MG/2 ML VIAL IV SCH ×2 (06:35→16:19)
[2024-08-04] MEDS: METOPROLOL SUCCINATE XL 50 MG TAB PO SCH (09:34)
[2024-08-04] MEDS: CLOPIDOGREL BISULFATE 75 MG TAB PO SCH (09:35)
[2024-08-04] MEDS: ISOSORBIDE MONONITRATE ER 60 MG TAB PO SCH (09:35)
[2024-08-04] MEDS: cefTRIAXone 1GM/50ML D5W 50 ML IV SCH (09:36)
--- NOTE | 2024-08-04 09:38 | ECG ---
[facility] Test Date: 2024-08-03 Test Time: 22:28:44 Pat Name: XIN ADAMS Department: ER Room: 0285T A Gender: M Educational Technology Coordinator: ER : 1955 Requested By: AMARJIT DURHAM Order Number: [id number] Reading MD: Ld Baca Measurements Intervals [place] Rate: 115 P: 94 NC: 162 QRS: 124 QRSD: 94 T: -36 QT: 314 QTc: 435 Interpretive Statements Sinus tachycardia Right axis deviation Probable anteroseptal infarct, old Repol abnrm suggests ischemia, lateral leads Electronically Signed On 08-06-2024 19:05:01 PDT by Ld Baca Please click the below link to view image of tracing.
--- NOTE | 2024-08-04 09:42 | ECG ---
[facility] Test Date: 2024-08-03 Test Time: 21:20:46 Pat Name: XIN ADAMS Department: ER Room: [facility]5T A Gender: M Medical Coding Manager: JESSICA : 1955 Requested By: AMARJIT DURHAM Order Number: [id number] Reading MD: Ld Baca Measurements Intervals [place] Rate: 119 P: 97 SD: 157 QRS: 127 QRSD: 97 T: -49 QT: 320 QTc: 451 Interpretive Statements Sinus tachycardia Right axis deviation Probable anteroseptal infarct, old Abnormal T, consider ischemia, diffuse leads Electronically Signed On 08-06-2024 19:04:48 PDT by Ld Baca Please click the below link to view image of tracing.
[2024-08-04] MEDS: AZITHROMYCIN 500MG/ 250ML 250 ML IV SCH (10:00)
[2024-08-04 11:23] LABS: INR 1.46 (0.9-1.15); Partial Thromboplastin Time 58.3 SEC (24.5-34.5); Prothrombin Time 14.9 sec (9.3-11.8)
--- NOTE | 2024-08-04 11:53 | DVHPN2 ---
Reviewed: Care Plan, H&P, Labs, Medications, Previous Orders, Radiology Changes from previous H/P or p: No Changes Objective Vitals Vital Signs Date Time Temp Pulse Resp B/P (MAP) Pulse Ox O2 Delivery O2 Flow Rate FiO2 08/04/24 09:35 130/98 08/04/24 09:34 112 08/04/24 09:00 97.6 15 100 97.6 08/04/24 03:31 Nasal Cannula* 2 28 Medications Current Medications Medications Dose Ordered Sig/Lisa Route Start Time Stop Time Status Last Admin Dose Admin Nitroglycerin 0.4 mg Q5MINP PRN SL 08/04/24 00:00 Morphine Sulfate 2 mg Q30M PRN IV 08/04/24 00:00 Albuterol 2.5 mg Q6HPRN PRN NEB 08/04/24 00:30 Atorvastatin Calcium 40 mg HS PO 08/04/24 22:00 Furosemide 20 mg BIDD IV 08/04/24 06:00 08/04/24 06:35 20 MG Clopidogrel Bisulfate 75 mg DAILY PO 08/04/24 10:00 08/04/24 09:35 75 MG Isosorbide Mononitrate 10 mg DAILY PO 08/04/24 10:00 08/04/24 09:35 10 MG Metoprolol Succinate 25 mg DAILY PO 08/04/24 10:00 08/04/24 09:34 25 MG Tamsulosin HCl 0.4 mg QPM PO 08/04/24 18:00 Ceftriaxone Sodium 50 ml @ 100 mls/hr DAILY@09 IV 08/04/24 09:00 08/04/24 09:36 100 MLS/HR Azithromycin 250 ml @ 125 mls/hr DAILY IV 08/04/24 10:00 Heparin Sodium/ Dextrose 250 ml @ 9.5 mls/hr Q24H IV 08/04/24 00:30 08/04/24 04:33 9.5 MLS/HR Ondansetron HCl 4 mg Q4HP PRN IV 08/04/24 00:30 Acetaminophen 650 mg Q6HP PRN PO 08/04/24 00:30 08/04/24 05:10 650 MG Laboratory Results Laboratory Tests 08/03/24 22:10 Chemistry Test 08/03/24 22:10 Albumin 4.3 g/dL (3.2-4.8) Calcium Level 10.1 mg/dL (8.7-10.4) Total Protein 7.2 g/dL (5.7-8.2) Coagulation Test 08/03/24 22:10 08/04/24 10:43 Prothrombin Time 12.7 sec (9.3-11.8) H 14.9 sec (9.3-11.8) H Prothrombin Time INR 1.22 (0.9-1.15) H 1.46 (0.9-1.15) H Activated Partial Thromboplast Time 28.7 SEC (24.5-34.5) 58.3 SEC (24.5-34.5) H Cardiac Markers Test 08/03/24 22:10 B-Type Natriuretic Peptide 4261.23 pg/mL (0-100) LFT Test 08/03/24 22:10 Alanine Aminotransferase (ALT) 26 U/L (7-40) Alkaline Phosphatase 73 U/L (46-116) Aspartate Amino Transferase (AST) 32 U/L (13-40) Total Bilirubin 1.8 mg/dL (0.2-1.0) H Labs and/or images reviewed: Labs reviewed by me, Image(s) reviewed by me Assessment/Plan Assessment/Plan Acute on chronic hypoxic respiratory failure: Oxygen by nasal cannula Non ST-elevation [place] with a troponin of 2084: Consult for spindle setter Acute CHF exacerbation BNP 4 261: Lasix ejection fraction 10 % February 2024 Acute COPD exacerbation History of lung cancer status post partial left lung resection 2008 Community-acquired left-sided pneumonia: Rocephin azithromycin BPH History of Polysubstance abuse including cocaine alcohol and smoking Acute hyperkalemia potassium 5.5 Acute kidney injury BUN creatinine 50 /2.23 nephrology consult Noncompliance Sharri test Flu test negative Time spent 70 minutes Advanced care planning time 20 minutes Patient is full code and ROD Mclaughlin [phone] Plan discussed with: Patient My Orders Orders - LUPE SAENZ MD Procedure Category Date Status Time * Cardiology Consult CONS 08/04/24 Transmitted 11:39 Echo 2d Mode Cardiac US 08/04/24 Logged DOP 11:41 Furosemide Injection PHA 08/04/24 Verified (Lasix Injection) 11:45 Date of Service: Aug 04, 2024 Billing Provider: LUPE SAENZ MD Common Visit Codes: [id number] CARE 30-74 MIN LUPE SAENZ MD Aug 04, 2024 11:53
[2024-08-04 13:11] LABS: Magnesium 2.1 mg/dL (1.6-2.6)
--- NOTE | 2024-08-04 13:24 | DVHINCON2 ---
DELMA MAURO [facility] 08/04/24 1324: Date Seen: Aug 04, 2024 Referring Physician MD Catarino Reason for Consultation NSTEMI History of Present Illness This is a 69-year-old male patient who presents to the emergency room with chief complaint of generalized weakness, shortness of breath, cough, and bilateral lower extremity edema for three days prior to emergency room arrival. Cardiology has been consulted at this time for elevated troponin level and CHF exacerbation. Initial twelve lead electrocardiogram reveals sinus tachycardia with ST segment changes seen to inferolateral leads (as seen on previous EKG on 04/08/2024). Initial troponin level of 1857ng/L with peak level at 2085ng/L. The patient denies any chest pain. Initial BNP level of 4261.23pg/mL. Significant past medical history includes congestive heart failure, dilated cardiomyopathy, pulmonary hypertension, COPD, lung cancer status post lobectomy, and tobacco use. The patient states he does not follow up with a credit control clerk in the outpatient setting. He denies any previous ischemic workup. The patient also mentions that he stopped taking his heart failure medications due to side effects. Past Medical History Past medical history reviewed. No other significant than mentioned above. Past Surgical History Lobe resection Family History: Diabetes mellitus G8 MOTHER Family History Family history reviewed. Social History The patient has a 20 pack-year history, states he quit smoking two years ago Denies any illicit drug use Denies any alcohol use Allergies: Coded Allergies: NO KNOWN ALLERGIES (Unverified , 07/08/18) Home Meds Active Scripts Isosorbide Mononitrate (ISMO TABLET) 20 Mg Tb, 10 MG PO DAILY for 30 Days, #15 TAB Prov:THIAGO LIZ RESIDENT 04/12/24 Hydralazine Hcl (Hydralazine Hcl) 10 Mg Tab, 10 MG PO Q8HR for 30 Days, #90 TAB Prov:THIAGO LIZ RESIDENT 04/12/24 Famotidine (PEPCID TABLET) 20 Mg Tb, 1 TAB PO BID, #60 TAB 3 Refills Prov:ARAVIND HARPER MD 03/10/24 Metoprolol Succinate (Toprol Xl) 50 Mg Tab, 25 MG PO DAILY for 60 Days, #30 TAB Prov:ARAVIND HARPER MD 03/10/24 Clopidogrel Bisulfate (CLOPIDOGREL) 75 Mg Tab, 75 MG PO DAILY for 60 Days, #60 TAB Prov:ARAVIND HARPER MD 03/10/24 Reported Medications Bumetanide (Bumetanide) 1 Mg Tab, 2 TAB PO DAILY 08/04/24 Tamsulosin Hcl (Tamsulosin Hcl) 0.4 Mg Cap, 1 CAP PO DAILY 08/04/24 Hydrocodone-Acetaminophen (Hydrocodone/Acetaminophen 10-325 mg) 1 Tab Tab, 1 TAB PO DAILY PRN for PAIN SCALE 7 THRU 10 08/04/24 Benzonatate (Benzonatate) 200 Mg Cap, 1 CAP PO TID 08/04/24 Atorvastatin Calcium (Lipitor) 40 Mg Tab, 1 TAB PO DAILY for 90 Days, #90 03/07/24 Fluticasone Furoate-Vilanterol (BREO ELLIPTA) 1 Inh Inh, 1-2 PUFF INH DAILY for 30 Days, #60 03/07/24 Albuterol Sulfate (Albuterol Sulfate Hfa) 108 Mcg/Act Aer, 1 PUFF INH Q6HR PRN for WHEEZING for 50 Days, #18 03/07/24 Home Meds Home medications reviewed. Current Medications Current Medications Medications (Trade) Dose Ordered Sig/Lisa Route PRN Reason Start Time Stop Time Status Last Admin Nitroglycerin (Ntrostat Sublingual) 0.4 mg Q5MINP PRN SL FOR CHEST PAIN 08/04/24 00:00 Morphine Sulfate 2 mg Q30M PRN IV FOR CHEST PAIN 08/04/24 00:00 Albuterol (Ventolin Medneb) 2.5 mg Q6HPRN PRN NEB SHORTNESS OF BREATH 08/04/24 00:30 Atorvastatin Calcium (Lipitor) 40 mg HS PO 08/04/24 22:00 Furosemide (Lasix Injection) 20 mg BIDD IV 08/04/24 06:00 08/04/24 11:43 DC 08/04/24 06:35 Clopidogrel Bisulfate (Plavix) 75 mg DAILY PO 08/04/24 10:00 08/04/24 09:35 Isosorbide Mononitrate (Imdur Er Tablet) 10 mg DAILY PO 08/04/24 10:00 08/04/24 09:35 Metoprolol Succinate (Toprol Xl) 25 mg DAILY PO 08/04/24 10:00 08/04/24 09:34 Tamsulosin HCl (Flomax) 0.4 mg QPM PO 08/04/24 18:00 Ceftriaxone Sodium 50 ml @ 100 mls/hr DAILY@09 IV 08/04/24 09:00 08/04/24 09:36 Azithromycin 250 ml @ 125 mls/hr DAILY IV 08/04/24 10:00 08/04/24 10:00 Heparin Sodium/ Dextrose 250 ml @ 9.5 mls/hr Q24H IV 08/04/24 00:30 08/04/24 04:33 Ondansetron HCl (Zofran) 4 mg Q4HP PRN IV NAUSEA / VOMITING 08/04/24 00:30 Acetaminophen (Tylenol Tablet) 650 mg Q6HP PRN PO PAIN SCALE 1-3 OR TEMP>100.4 08/04/24 00:30 08/04/24 05:10 Furosemide (Lasix Injection) 40 mg BIDD IV 08/04/24 11:45 Review of Systems Constitutional: Generalized weakness Ears, Nose, & Throat: No symptom reported Eyes: No symptom reported Neurological: No symptoms reported Pulmonary/Respiratory: Shortness of breath Cardiovascular: Bilateral lower extremity edema Gastrointestinal: No symptom reported Genitourinary: No symptom reported Musculoskeletal: No symptom reported Skin: No symptom reported Psychiatric: No symptom reported Endocrine: No symptom reported Hematologic/Lymphatic: No symptom reported Vital Signs Vital Signs Date Time Temp Pulse Resp B/P (MAP) Pulse Ox O2 Delivery O2 Flow Rate FiO2 08/04/24 13:00 98.4 98 16 107/76 (86) 99 98.4 08/04/24 03:31 Nasal Cannula* 2 28 Physical Exam General Appearance: Cooperative. Well-developed. Well-nourished. No acute distress. Pulmonary/Respiratory: Expiratory wheezes to bilateral upper lobes on auscultation Cardiovascular/Chest: Regular rate and rhythm. Peripheral Pulses: 2+ Radial (R). 2+ Radial (L). Abdominal Exam: Normal bowel sounds. Ankle Exam: 1+ pitting edema Lower extremities: 1+ pitting edema to bilateral lower extremities Neuro/Mental Status: A/OX4, coherent. Thoughts/Psych: Normal thought pattern. Appropriate mood and affect. Good judgment and insight. Appearance: No acute distress. Skin Exam: Normal inspection. Normal color. Warm and dry. Labs/Diagnostic Data Labs Test 08/04/24 13:00 08/04/24 10:43 08/04/24 01:36 08/04/24 01:00 Range/Units Prothrombin Time 14.9 H 9.3-11.8 sec Prothrombin Time INR 1.46 H 0.9-1.15 Activated Partial Thromboplast Time 58.3 H 24.5-34.5 SEC Magnesium Level 2.1 1.6-2.6 mg/dL Triglycerides Level 115 < 150 mg/dL Cholesterol Level 147 < 200 mg/dL LDL Cholesterol 64 < 100 mg/dL HDL Cholesterol 59 40-59 mg/dL Thyroid Stimulating Hormone (TSH) 3.72 0.55-4.78 uIU/mL Influenza Type A Antigen Negative Negative Influenza Type B Antigen Negative Negative SARS-CoV-2 Antigen (Rapid) Negative NEGATIVE Test 08/03/24 23:37 08/03/24 22:10 Range/Units Lactic Acid Level 3.5 *H 0.4-2.0 mmol/L White Blood Count 7.2 4.4-10.8 10^3/uL Red Blood Count 5.08 4.5-5.90 10^6/uL Hemoglobin 14.4 13.5-17.5 g/dL Hematocrit 45.7 41.0-53.0 % Mean Corpuscular Volume 89.9 80.0-100.0 fL Mean Corpuscular Hemoglobin 28.3 28.0-32.0 pg Mean Corpuscular Hemoglobin Concent 31.4 L 32.0-36.0 g/dL Red Cell Distribution Width 18.9 H 11.8-14.3 % Platelet Count 182 140-450 10^3/uL Mean Platelet Volume 7.9 6.9-10.8 fL Neutrophils (%) (Auto) 74.7 37.0-80.0 % Lymphocytes (%) (Auto) 14.7 10.0-50.0 % Monocytes (%) (Auto) 9.5 0.0-12.0 % Eosinophils (%) (Auto) 0.5 0.0-7.0 % Basophils (%) (Auto) 0.6 0.0-2.0 % Neutrophils # (Auto) 5.4 1.6-8.6 10 ^3/uL Lymphocytes # (Auto) 1.1 0.4-5.4 10 ^3/uL Monocytes # (Auto) 0.7 0-1.3 10 ^3/uL Eosinophils # (Auto) 0 0-0.8 10 ^3/uL Basophils # (Auto) 0 0-0.2 10 ^3/uL Nucleated Red Blood Cells 0.2 % Sodium Level 140 136-145 mmol/L Potassium Level 5.5 H 3.5-5.1 mmol/L Chloride Level 107 98-107 mmol/L Carbon Dioxide Level 22 20-31 mmol/L Anion Gap 11 5-15 Blood Urea Nitrogen 50 H 9-23 mg/dL Creatinine 2.24 H 0.700-1.30 mg/dL Glomerular Filtration Rate Calc 31 >90 mL/min BUN/Creatinine Ratio 22.3 H 10.0-20.0 Serum Glucose 100 74-106 mg/dL Calcium Level 10.1 8.7-10.4 mg/dL Total Bilirubin 1.8 H 0.2-1.0 mg/dL Aspartate Amino Transferase (AST) 32 13-40 U/L Alanine Aminotransferase (ALT) 26 7-40 U/L Alkaline Phosphatase 73 46-116 U/L B-Type Natriuretic Peptide 4261.23 0-100 pg/mL Total Protein 7.2 5.7-8.2 g/dL Albumin 4.3 3.2-4.8 g/dL Assessment NSTEMI, type 1 versus 2 Acute on chronic decompensated HFrEF, NYHA class III Hypertension Pulmonary hypertension COPD PORTIA versus CKD History of lung cancer status post lobectomy History of tobacco use Medical noncompliance Plan/Recommendation We will continue with the following plan/recommendations (Dr. Tavarez): * Echocardiogram to evaluate cardiac function/wall motion * Previous echocardiogram from 03/05/2024 reveals EF 10%, RVSP 60mmHg * Initiate guideline directed medical therapy for CHF as renal function permits * Strict intake and output, daily weights, maintain fluid restriction * Aggressive diuresis as tolerated * Continue heparin drip per pharmacy protocol * Close Cardiac surveillance * Risk factor modifications, counseled * Adherence to medication regimen Patient seen and examined at bedside with . Elevated troponin level likely multifactorial including pneumonia, CHF exacerbation, and poor renal function. NSTEMI type 1 can not be completely ruled out at this time. We will proceed with obtaining a new transthoracic echocardiogram to evaluate for any wall motion abnormalities. In the meantime, continue with heparin drip per pharmacy protocol and GDMT as tolerated. Thank you for allowing us to care for this patient. Please call with any questions or concerns. Critical care time spent: 44 minutes This medical document was created using an electronic medical record system with voice recognition software and computerized dictation system. Although this document has been carefully reviewed, there might still be some phonetic and typographical errors. Occasional wrong-word or ``sound-alike substitutions may have occurred due to the inherent limitations of voice recognition software. These areas are purely typographical due to imperfections of the software programs and do not reflect any compromise in the patient's medical care. Please read the chart carefully and recognize, using context, where these substitutions have occurred. Plan discussed with: Patient NYHA Physical activity limitations: Class3(Marked) ordinary (activity causes symtoms) Date of Service: Aug 04, 2024 Billing Provider: DELMA MAURO Cardiology Common Codes: [id number] INP/OBS CARE (High) Cardiology Consultation Codes: [id number] CONSULT <45MIN FAVIOLA TAVAREZIT Walter ECKERT 08/04/247: Date Seen: Aug 04, 2024 Family History: Diabetes mellitus G8 MOTHER Allergies: Coded Allergies: NO KNOWN ALLERGIES (Unverified , 07/08/18) Home Meds Active Scripts Isosorbide Mononitrate (ISMO TABLET) 20 Mg Tb, 10 MG PO DAILY for 30 Days, #15 TAB Prov:THIAGO LIZ RESIDENT 04/12/24 Hydralazine Hcl (Hydralazine Hcl) 10 Mg Tab, 10 MG PO Q8HR for 30 Days, #90 TAB Prov:THIAGO LIZ RESIDENT 04/12/24 Famotidine (PEPCID TABLET) 20 Mg Tb, 1 TAB PO BID, #60 TAB 3 Refills Prov:ARAVIND HARPER MD 03/10/24 Metoprolol Succinate (Toprol Xl) 50 Mg Tab, 25 MG PO DAILY for 60 Days, #30 TAB Prov:ARAVIND HARPER MD 03/10/24 Clopidogrel Bisulfate (CLOPIDOGREL) 75 Mg Tab, 75 MG PO DAILY for 60 Days, #60 TAB Prov:ARAVIND HARPER MD 03/10/24 Reported Medications Bumetanide (Bumetanide) 1 Mg Tab, 2 TAB PO DAILY 08/04/24 Tamsulosin Hcl (Tamsulosin Hcl) 0.4 Mg Cap, 1 CAP PO DAILY 08/04/24 Hydrocodone-Acetaminophen (Hydrocodone/Acetaminophen 10-325 mg) 1 Tab Tab, 1 TAB PO DAILY PRN for PAIN SCALE 7 THRU 10 08/04/24 Benzonatate (Benzonatate) 200 Mg Cap, 1 CAP PO TID 08/04/24 Atorvastatin Calcium (Lipitor) 40 Mg Tab, 1 TAB PO DAILY for 90 Days, #90 03/07/24 Fluticasone Furoate-Vilanterol (BREO ELLIPTA) 1 Inh Inh, 1-2 PUFF INH DAILY for 30 Days, #60 03/07/24 Albuterol Sulfate (Albuterol Sulfate Hfa) 108 Mcg/Act Aer, 1 PUFF INH Q6HR PRN for WHEEZING for 50 Days, #18 03/07/24 Plan/Recommendation The patient was seen and examined with Delma Mauro NP. I agree with her Assessment and Plan which was formulated with me. Plan discussed with: Patient Date of Service: Aug 04, 2024 Billing Provider: PILLO TAVAREZ DO Cardiology Common Codes: [id number] INP/OBS CARE (High) DELMA MAURO Aug 04, 2024 13:24 PILLO TAVAREZ DO Aug 04, 2024 21:57
[2024-08-04] MEDS ORDERED: KETOROLAC TROMETH 30 MG/ML 1ML VIAL IV PRN (17:30)
[2024-08-04] MEDS: HYDROcodone-ACET 10/325MG TAB PO PRN (17:41)
[2024-08-04] MEDS: TAMSULOSIN HYDROCHLORIDE 0.4 MG CAP PO SCH (17:51)
[2024-08-04] MEDS: ATORVASTATIN 20 MG TAB PO SCH (21:16)
[2024-08-04 22:26] LABS: INR 1.62 (0.9-1.15); Partial Thromboplastin Time 58.3 SEC (24.5-34.5); Prothrombin Time 16.4 sec (9.3-11.8)
[2024-08-05] VITALS (12 sets, daily range): BP systolic 105–144; BP diastolic 41–88; PULSE 63–93; RESP 16–20; TEMP 97.9–98.7; O2SAT 96–100
[2024-08-05 06:55] LABS: Chloride 104 mmol/L (98-107); Sodium 138 mmol/L (136-145)
[2024-08-05 06:56] LABS: Anion Gap 10 (5-15); Calcium 10.2 mg/dL (8.7-10.4); Carbon Dioxide 24 mmol/L (20-31)
[2024-08-05 06:58] LABS: INR 1.68 (0.9-1.15); Partial Thromboplastin Time 58.6 SEC (24.5-34.5); Prothrombin Time 16.9 sec (9.3-11.8)
[2024-08-05 06:59] LABS: Basophils # (auto) 0 10 ^3/uL (0-0.2); Basophils % (auto) 0.6 % (0.0-2.0); Eosinophils # (auto) 0 10 ^3/uL (0-0.8); Eosinophils % (auto) 0.3 % (0.0-7.0); Hematocrit 46.6 % (41.0-53.0); Hemoglobin 14.9 g/dL (13.5-17.5); Lymphocytes # (auto) 1.2 10 ^3/uL (0.4-5.4); Lymphocytes % (auto) 14.7 % (10.0-50.0); Mean Corpuscular Hemoglobin 28.3 pg (28.0-32.0); Mean Corpuscular Hgb Conc. 31.9 g/dL (32.0-36.0); Mean Corpuscular Volume 88.6 fL (80.0-100.0); Monocytes # (auto) 0.9 10 ^3/uL (0-1.3); Monocytes % (auto) 10.6 % (0.0-12.0); Neutrophils # (auto) 6.2 10 ^3/uL (1.6-8.6); Neutrophils % (auto) 73.8 % (37.0-80.0); Nucleated Red Blood Cells % 0.1 %; Platelet Count (auto) 179 10^3/uL (140-450); Red Blood Cells 5.26 10^6/uL (4.5-5.90); Red Cell Distribution Width 18.3 % (11.8-14.3); White Blood Cell 8.3 10^3/uL (4.4-10.8)
[2024-08-05 07:01] LABS: BUN/Creatinine Ratio 20.5 (10.0-20.0); Blood Urea Nitrogen 65 mg/dL (9-23); Glucose 99 mg/dL (74-106)
[2024-08-05 07:05] LABS: Potassium 5.8 mmol/L (3.5-5.1)
[2024-08-05] MEDS: SODIUM BICARB 8.4% 50Meq/50ml SYR INJ IV ONE (07:45)
[2024-08-05] MEDS: InsuLIN REG 1unit/0.01ml Soln (100units/ml) IV ONE (07:45)
[2024-08-05] MEDS: DEXTROSE (50%) 50ML SYRG IV ONE (08:29)
[2024-08-05] MEDS: ALBUTEROL SULF 2.5 MG/0.5ML(0.5%) NEB SOLN NEB ONE (08:30)
[2024-08-05] MEDS: CALCIUM GLUC 1,000mg/50ml-NS 50 ML IV ONE (08:36)
--- NOTE | 2024-08-05 11:15 | DVHPN2 ---
Reviewed: Care Plan, H&P, Labs, Medications, Previous Orders, Radiology Changes from previous H/P or p: No Changes Objective Vitals Vital Signs Date Time Temp Pulse Resp B/P (MAP) Pulse Ox O2 Delivery O2 Flow Rate FiO2 08/05/24 09:00 87 18 121/88 (99) 99 08/05/24 08:30 Nasal Cannula* 2 28 08/05/24 05:00 98.7 98.7 Intake/Output Intake and Output 08/05/24 07:00 Intake Total 820 ml Balance 820 ml Intake Oral 270 ml IV Total 550 ml # Voids 1 Medications Current Medications Medications Dose Ordered Sig/Lisa Route Start Time Stop Time Status Last Admin Dose Admin Nitroglycerin 0.4 mg Q5MINP PRN SL 08/04/24 00:00 Morphine Sulfate 2 mg Q30M PRN IV 08/04/24 00:00 Albuterol 2.5 mg Q6HPRN PRN NEB 08/04/24 00:30 Atorvastatin Calcium 40 mg HS PO 08/04/24 22:00 08/04/24 21:16 40 MG Clopidogrel Bisulfate 75 mg DAILY PO 08/04/24 10:00 08/04/24 09:35 75 MG Isosorbide Mononitrate 10 mg DAILY PO 08/04/24 10:00 08/04/24 09:35 10 MG Metoprolol Succinate 25 mg DAILY PO 08/04/24 10:00 08/04/24 09:34 25 MG Tamsulosin HCl 0.4 mg QPM PO 08/04/24 18:00 08/04/24 17:51 0.4 MG Ceftriaxone Sodium 50 ml @ 100 mls/hr DAILY@09 IV 08/04/24 09:00 08/05/24 09:00 100 MLS/HR Azithromycin 250 ml @ 125 mls/hr DAILY IV 08/04/24 10:00 08/04/24 10:00 125 MLS/HR Heparin Sodium/ Dextrose 250 ml @ 9.5 mls/hr Q24H IV 08/04/24 00:30 08/05/24 03:50 9.5 MLS/HR Ondansetron HCl 4 mg Q4HP PRN IV 08/04/24 00:30 Acetaminophen 650 mg Q6HP PRN PO 08/04/24 00:30 08/04/24 16:32 650 MG Furosemide 40 mg BIDD IV 08/04/24 11:45 08/04/24 18:00 40 MG Acetaminophen/ Hydrocodone Bitart 1 tab Q6HP PRN PO 08/04/24 17:45 08/04/24 17:41 1 TAB Laboratory Results Laboratory Tests 08/05/24 06:28 Chemistry Test 08/05/24 06:28 Calcium Level 10.2 mg/dL (8.7-10.4) Coagulation Test 08/04/24 21:22 08/05/24 06:28 Prothrombin Time 16.4 sec (9.3-11.8) H 16.9 sec (9.3-11.8) H Prothrombin Time INR 1.62 (0.9-1.15) H 1.68 (0.9-1.15) H Activated Partial Thromboplast Time 58.3 SEC (24.5-34.5) H 58.6 SEC (24.5-34.5) H Microbiology Microbiology Date/Time Source Procedure Growth Status 08/03/24 22:10 Blood Blood Culture - Preliminary NO GROWTH AFTER 24 HOURS OF INCUBATION. Resulted Labs and/or images reviewed: Labs reviewed by me, Image(s) reviewed by me Assessment/Plan Assessment/Plan Acute on chronic hypoxic respiratory failure: Oxygen by nasal cannula Non ST-elevation [place] with a troponin of 2084: Consult for suspender cutter Acute CHF exacerbation BNP 4261: Lasix, ejection fraction 10 % February 2024 Acute COPD exacerbation History of lung cancer status post partial left lung resection 2008 Community-acquired left-sided pneumonia: Rocephin azithromycin BPH Pulmonary hypertension History of Polysubstance abuse including cocaine alcohol and smoking Acute hyperkalemia potassium 5.5 Acute kidney injury BUN creatinine 50 /2.23 nephrology consult Noncompliance Sharri test Flu test negative Time spent 70 minutes Advanced care planning time 20 minutes Patient is full code Sister and POA Ambar Mclaughlin [phone] Spoke to Letter Of Credit Document Examiner Monica Guevara [phone] on the phone Medication Noncompliance Plan discussed with: Patient My Orders Orders - LUPE SAENZ MD Procedure Category Date Status Time * Cardiology Consult CONS 08/04/24 Transmitted 11:39 Furosemide Injection PHA 08/04/24 In Process (Lasix Injection) 11:45 Code Status CODE 08/04/24 Transmitted 11:54 Hydrocodone-Acet PHA 08/04/24 In Process 10/325mg Tab (Addy 17:45 Echo 2d Mode Cardiac US 08/05/24 Taken DOP 11:41 Date of Service: Aug 05, 2024 Billing Provider: LUPE SAENZ MD Common Visit Codes: [id number] INP/OBS CARE(HIGH) LUPE SAENZ MD Aug 05, 2024 11:15
--- NOTE | 2024-08-05 13:15 | ECG ---
[facility] Test Date: 2024-08-04 Test Time: 00:24:04 Pat Name: XIN ADAMS Department: ER Room: 0285T A Gender: M Clinical Trials Data Coordinator: ER : 1955 Requested By: AMARJIT DURHAM Order Number: [id number] Reading MD: Ld Baca Measurements Intervals [place] Rate: 113 P: 103 DC: 161 QRS: 121 QRSD: 97 T: -41 QT: 333 QTc: 457 Interpretive Statements Sinus tachycardia Right axis deviation Probable anteroseptal infarct, old Repol abnrm suggests ischemia, lateral leads Electronically Signed On 08-06-2024 19:05:25 PDT by Ld Baca Please click the below link to view image of tracing.
--- NOTE | 2024-08-05 19:43 | DVHPN2 ---
Consult Progress Note Subjective Other Systems: Denies any cardiac symptoms at time of assessment Objective vital signs Vital Sign Date Time Temp Pulse Resp B/P (MAP) Pulse Ox O2 Delivery O2 Flow Rate FiO2 08/05/24 18:02 107/69 08/05/24 16:10 98.1 86 17 100 98.1 08/05/24 09:30 Nasal Cannula 2.0 08/05/24 09:30 28 Total Intake and Output 08/04/24 08/04/24 08/05/24 15:00 23:00 07:00 Intake Total 300 ml 270 ml 250 ml Balance 300 ml 270 ml 250 ml medications Current Medications Medications Dose Ordered Sig/Lisa Route Start Time Stop Time Status Last Admin Dose Admin Nitroglycerin 0.4 mg Q5MINP PRN SL 08/04/24 00:00 Morphine Sulfate 2 mg Q30M PRN IV 08/04/24 00:00 Albuterol 2.5 mg Q6HPRN PRN NEB 08/04/24 00:30 Atorvastatin Calcium 40 mg HS PO 08/04/24 22:00 08/04/24 21:16 40 MG Clopidogrel Bisulfate 75 mg DAILY PO 08/04/24 10:00 08/05/24 11:38 75 MG Isosorbide Mononitrate 10 mg DAILY PO 08/04/24 10:00 08/04/24 09:35 10 MG Metoprolol Succinate 25 mg DAILY PO 08/04/24 10:00 08/04/24 09:34 25 MG Tamsulosin HCl 0.4 mg QPM PO 08/04/24 18:00 08/05/24 18:02 0.4 MG Ceftriaxone Sodium 50 ml @ 100 mls/hr DAILY@09 IV 08/04/24 09:00 08/05/24 09:00 100 MLS/HR Azithromycin 250 ml @ 125 mls/hr DAILY IV 08/04/24 10:00 08/05/24 11:37 125 MLS/HR Heparin Sodium/ Dextrose 250 ml @ 9.5 mls/hr Q24H IV 08/04/24 00:30 08/05/24 03:50 9.5 MLS/HR Ondansetron HCl 4 mg Q4HP PRN IV 08/04/24 00:30 Acetaminophen 650 mg Q6HP PRN PO 08/04/24 00:30 08/04/24 16:32 650 MG Furosemide 40 mg BIDD IV 08/04/24 11:45 08/05/24 18:02 40 MG Acetaminophen/ Hydrocodone Bitart 1 tab Q6HP PRN PO 08/04/24 17:45 08/04/24 17:41 1 TAB Examination: GENERAL:Normal, LUNGS:Normal, CVS:Normal, NEURO:Normal laboratory and microbiology Laboratory Tests 08/05/24 18:36 08/05/24 06:28 Test 08/05/24 06:28 Range/Units Serum Glucose 99 74-106 mg/dL Problem List/Assessment/Plan Problem List/Assessment/Plan NSTEMI, type 1 versus 2 Acute on chronic decompensated HFrEF, NYHA class III Hypertension Pulmonary hypertension COPD PORTIA versus CKD History of lung cancer status post lobectomy History of tobacco use Medical noncompliance Plan/Recommendation We will continue with the following plan/recommendations (Dr. Lewis): * Echocardiogram to evaluate cardiac function/wall motion * Previous echocardiogram from 03/05/2024 reveals EF 10%, RVSP 60mmHg * Initiate guideline directed medical therapy for CHF as renal function permits * Strict intake and output, daily weights, maintain fluid restriction * Aggressive diuresis as tolerated * Continue heparin drip per pharmacy protocol * Close Cardiac surveillance * Risk factor modifications, counseled * Adherence to medication regimen Patient seen and examined at bedside with . Elevated troponin level likely multifactorial including pneumonia, CHF exacerbation, and poor renal function. NSTEMI type 1 can not be completely ruled out at this time. We will proceed with obtaining a new transthoracic echocardiogram to evaluate for any wall motion abnormalities. In the meantime, continue with heparin drip per pharmacy protocol and GDMT as tolerated. Thank you for allowing us to care for this patient. Please call with any questions or concerns. This medical document was created using an electronic medical record system with voice recognition software and computerized dictation system. Although this document has been carefully reviewed, there might still be some phonetic and typographical errors. Occasional wrong-word or ``sound-alike substitutions may have occurred due to the inherent limitations of voice recognition software. These areas are purely typographical due to imperfections of the software programs and do not reflect any compromise in the patient's medical care. Please read the chart carefully and recognize, using context, where these substitutions have occurred. Plan discussed with: Patient Date of Service: Aug 05, 2024 Billing Provider: DELMA DOMINIQUE Common Visit Codes: [id number] INP/OBS CARE(HIGH) DELMA DOMINIQUE Aug 05, 2024 19:43
--- NOTE | 2024-08-05 22:31 | DVHPN2 ---
Consult Progress Note Subjective Other Systems: Patient was seen and evaluated in follow up. Patient denies any cardiac symptoms. Patient's campground caretaker Monica at bedside. K 5.8, BUN 65, STOCK TAKER 3.17. Elevated troponin level likely multifactorial including pneumonia, CHF exacerbation, and poor renal function. We will proceed with obtaining a new transthoracic echocardiogram to evaluate for any wall motion abnormalities. In the meantime, continue with heparin drip per pharmacy protocol and GDMT as tolerated. Telemetry reviewed. Objective vital signs Vital Sign Date Time Temp Pulse Resp B/P (MAP) Pulse Ox O2 Delivery O2 Flow Rate FiO2 08/05/24 18:02 107/69 08/05/24 16:10 98.1 86 17 100 98.1 08/05/24 09:30 Nasal Cannula 2.0 08/05/24 09:30 28 Total Intake and Output 08/04/24 08/04/24 08/05/24 15:00 23:00 07:00 Intake Total 300 ml 270 ml 250 ml Balance 300 ml 270 ml 250 ml medications Current Medications Medications Dose Ordered Sig/Lisa Route Start Time Stop Time Status Last Admin Dose Admin Nitroglycerin 0.4 mg Q5MINP PRN SL 08/04/24 00:00 Morphine Sulfate 2 mg Q30M PRN IV 08/04/24 00:00 Albuterol 2.5 mg Q6HPRN PRN NEB 08/04/24 00:30 Atorvastatin Calcium 40 mg HS PO 08/04/24 22:00 08/04/24 21:16 40 MG Clopidogrel Bisulfate 75 mg DAILY PO 08/04/24 10:00 08/05/24 11:38 75 MG Isosorbide Mononitrate 10 mg DAILY PO 08/04/24 10:00 08/04/24 09:35 10 MG Metoprolol Succinate 25 mg DAILY PO 08/04/24 10:00 08/04/24 09:34 25 MG Tamsulosin HCl 0.4 mg QPM PO 08/04/24 18:00 08/05/24 18:02 0.4 MG Ceftriaxone Sodium 50 ml @ 100 mls/hr DAILY@09 IV 08/04/24 09:00 08/05/24 09:00 100 MLS/HR Azithromycin 250 ml @ 125 mls/hr DAILY IV 08/04/24 10:00 08/05/24 11:37 125 MLS/HR Heparin Sodium/ Dextrose 250 ml @ 9.5 mls/hr Q24H IV 08/04/24 00:30 08/05/24 03:50 9.5 MLS/HR Ondansetron HCl 4 mg Q4HP PRN IV 08/04/24 00:30 Acetaminophen 650 mg Q6HP PRN PO 08/04/24 00:30 08/04/24 16:32 650 MG Furosemide 40 mg BIDD IV 08/04/24 11:45 08/05/24 18:02 40 MG Acetaminophen/ Hydrocodone Bitart 1 tab Q6HP PRN PO 08/04/24 17:45 08/04/24 17:41 1 TAB Examination: GENERAL:Normal, HEENT:Normal, NECK:Normal, LUNGS:Normal, CVS:Normal, ABDOMEN:Normal, NEURO:Normal laboratory and microbiology Laboratory Tests 08/05/24 18:36 08/05/24 06:28 Test 08/05/24 06:28 Range/Units Serum Glucose 99 74-106 mg/dL Problem List/Assessment/Plan Problem List/Assessment/Plan NSTEMI, type 1 versus 2. Acute on chronic decompensated HFrEF, NYHA class III. Hypertension. Pulmonary hypertension. COPD. PORTIA versus CKD. History of lung cancer status post lobectomy. History of tobacco use. Medical noncompliance. Plan/Recommendation Continued all current supportive medical care. Patient has been seen by Mily Mauro NP on my behalf, her and I discussed the plan with the patient. Echocardiogram to evaluate cardiac function/wall motion. Previous echocardiogram from 03/05/2024 reveals EF 10%, RVSP 60mmHg. Initiate guideline directed medical therapy for CHF as renal function permits. Strict intake and output, daily weights, maintain fluid restriction. Aggressive diuresis as tolerated. Continue heparin drip per pharmacy protocol. Close Cardiac surveillance. Risk factor modifications, counseled. Adherence to medication regimen. Additional plan as per the hospital course. Plan discussed with: Patient Date of Service: Aug 05, 2024 Billing Provider: JAYME PEDRAZA MD Cardiology Common Codes: [id number] HOSP CARE(High JAYME PEDRAZA MD Aug 05, 2024 22:10
[2024-08-06] VITALS (9 sets, daily range): BP systolic 110–128; BP diastolic 60–78; PULSE 85–92; RESP 15–20; TEMP 97.2–98.1; O2SAT 96–100
--- NOTE | 2024-08-06 10:35 | DVHPN2 ---
Reviewed: Care Plan, H&P, Labs, Medications, Previous Orders, Radiology Changes from previous H/P or p: No Changes Objective Vitals Vital Signs Date Time Temp Pulse Resp B/P (MAP) Pulse Ox O2 Delivery O2 Flow Rate FiO2 08/06/24 08:20 97.4 85 16 114/77 (89) 98 97.4 08/06/24 07:39 Nasal Cannula* 2 28 Intake/Output Intake and Output 08/06/24 07:00 Intake Total 1380 ml Output Total 925 ml Balance 455 ml Intake Oral 830 ml IV Total 550 ml Output Urine Total 925 ml # Bowel Movements 1 Medications Current Medications Medications Dose Ordered Sig/Lisa Route Start Time Stop Time Status Last Admin Dose Admin Nitroglycerin 0.4 mg Q5MINP PRN SL 08/04/24 00:00 Morphine Sulfate 2 mg Q30M PRN IV 08/04/24 00:00 Albuterol 2.5 mg Q6HPRN PRN NEB 08/04/24 00:30 Atorvastatin Calcium 40 mg HS PO 08/04/24 22:00 08/04/24 21:16 40 MG Clopidogrel Bisulfate 75 mg DAILY PO 08/04/24 10:00 08/05/24 11:38 75 MG Isosorbide Mononitrate 10 mg DAILY PO 08/04/24 10:00 08/04/24 09:35 10 MG Metoprolol Succinate 25 mg DAILY PO 08/04/24 10:00 08/04/24 09:34 25 MG Tamsulosin HCl 0.4 mg QPM PO 08/04/24 18:00 08/05/24 18:02 0.4 MG Ceftriaxone Sodium 50 ml @ 100 mls/hr DAILY@09 IV 08/04/24 09:00 08/05/24 09:00 100 MLS/HR Azithromycin 250 ml @ 125 mls/hr DAILY IV 08/04/24 10:00 08/05/24 11:37 125 MLS/HR Heparin Sodium/ Dextrose 250 ml @ 9.5 mls/hr Q24H IV 08/04/24 00:30 08/06/24 04:34 9.5 MLS/HR Ondansetron HCl 4 mg Q4HP PRN IV 08/04/24 00:30 Acetaminophen 650 mg Q6HP PRN PO 08/04/24 00:30 08/04/24 16:32 650 MG Furosemide 40 mg BIDD IV 08/04/24 11:45 08/06/24 05:03 40 MG Acetaminophen/ Hydrocodone Bitart 1 tab Q6HP PRN PO 08/04/24 17:45 08/06/24 01:56 1 TAB Laboratory Results Laboratory Tests 08/05/24 06:28 08/05/24 18:36 Microbiology Microbiology Date/Time Source Procedure Growth Status 08/03/24 22:10 Blood Blood Culture - Preliminary NO GROWTH AFTER 48 HOURS OF INCUBATION. Resulted Labs and/or images reviewed: Labs reviewed by me, Image(s) reviewed by me Assessment/Plan Assessment/Plan Acute on chronic hypoxic respiratory failure: Oxygen by nasal cannula Non ST-elevation [place] with a troponin of 2084: Consult for crystal lapper Acute CHF exacerbation BNP 4261: Lasix, ejection fraction 10 % February 2024 Acute COPD exacerbation History of lung cancer status post partial left lung resection 2008 Community-acquired left-sided pneumonia: Rocephin azithromycin BPH Pulmonary hypertension History of Polysubstance abuse including cocaine alcohol and smoking Acute hyperkalemia potassium 5.5 Acute kidney injury BUN creatinine 50 /2.[address] Abdi Davis Noncompliance Sharri test negative Flu test negative Time spent 50 minutes Advanced care planning time 20 minutes Patient is full code Sister and ROD Mclaughlin [phone] Spoke to Press Assistant Monica Guevara [phone] on the phone Medication Noncompliance Patient is thinking of leaving AMA Plan discussed with: Patient My Orders Orders - LUPE SAENZ MD Procedure Category Date Status Time * Compensation Analyst CONS 08/05/24 Transmitted Consult *Dr. Abdi Davis CONS 08/05/24 Transmitted -[place] 13:11 Complete Blood Count LAB 08/06/24 Verified 10:23 Comprehensive LAB 08/06/24 Verified Metabolic Panel 10:23 Date of Service: Aug 06, 2024 Billing Provider: LUPE SAENZ MD Common Visit Codes: [id number] INP/OBS CARE(HIGH) LUPE SAENZ MD Aug 06, 2024 10:34
[2024-08-06 11:32] LABS: Basophils # (auto) 0 10 ^3/uL (0-0.2); Basophils % (auto) 0.6 % (0.0-2.0); Eosinophils # (auto) 0.2 10 ^3/uL (0-0.8); Eosinophils % (auto) 2.4 % (0.0-7.0); Hematocrit 41.6 % (41.0-53.0); Hemoglobin 13.5 g/dL (13.5-17.5); Lymphocytes # (auto) 1.3 10 ^3/uL (0.4-5.4); Lymphocytes % (auto) 15.4 % (10.0-50.0); Mean Corpuscular Hemoglobin 28.9 pg (28.0-32.0); Mean Corpuscular Hgb Conc. 32.6 g/dL (32.0-36.0); Mean Corpuscular Volume 88.9 fL (80.0-100.0); Monocytes # (auto) 0.8 10 ^3/uL (0-1.3); Monocytes % (auto) 9.7 % (0.0-12.0); Neutrophils % (auto) 71.9 % (37.0-80.0); Nucleated Red Blood Cells % 0.2 %; Platelet Count (auto) 172 10^3/uL (140-450); Red Blood Cells 4.68 10^6/uL (4.5-5.90); Red Cell Distribution Width 18.2 % (11.8-14.3); White Blood Cell 8.4 10^3/uL (4.4-10.8)
[2024-08-06 11:40] LABS: Albumin 3.7 g/dL (3.2-4.8); Alkaline Phosphatase 65 U/L (46-116); Anion Gap 11 (5-15); Aspartate Aminotransferase 36 U/L (13-40); BUN/Creatinine Ratio 20.5 (10.0-20.0); Bilirubin, Total 0.8 mg/dL (0.2-1.0); Calcium 9.4 mg/dL (8.7-10.4); Carbon Dioxide 25 mmol/L (20-31); Chloride 102 mmol/L (98-107); Potassium 4.4 mmol/L (3.5-5.1); Sodium 138 mmol/L (136-145); Total Protein 6.4 g/dL (5.7-8.2)
[2024-08-06 11:42] LABS: Alanine Aminotransferase 42 U/L (7-40); Blood Urea Nitrogen 63 mg/dL (9-23); Glucose 111 mg/dL (74-106)
[2024-08-06 11:48] LABS: INR 1.51 (0.9-1.15); Partial Thromboplastin Time 48.8 SEC (24.5-34.5); Prothrombin Time 15.4 sec (9.3-11.8)
[2024-08-06] MEDS: HEPARIN DRIP/D5W 100UNITS/ML 250 ML IV SCH (12:15)
--- NOTE | 2024-08-06 18:54 | DVHSR ---
APPROVED REPORT EXAM: LIMITED Two-dimensional and M-mode echocardiogram. Blood Pressure: 144/75 mmHg INDICATION Heart Failure Limited for EF RISK FACTORS Height: 6', Weight: 179 DIMENSIONS LVDd6.8 (3.8-5.7cm)LA (2D) (1.9-4.0cm)Aortic Root (2.0-3.7cm) LVDs6.4 (2.5-4.0cm)LA (MM) (1.9-4.0cm)Aortic Cusp Exc (1.5-2.0cm) EF (%) 12.0 (55-70%)Rt. Atrium (1.9-4.0cm)Asc. Aorta cm IVSd0.9 (0.7-1.1cm)RV (D) (1.8-2.4cm) PWd0.9 (0.7-1.1cm) Mitral Valve MitralMitral Stenosis E/A ratio0.02D MVAcm2 Conclusion END STAGE DILATED CARDIOMYOPATHY LV E F IS 12% NORMAL VALVES LARGE PLEURAL EFFUSION
[2024-08-06 19:46] LABS: INR 1.35 (0.9-1.15); Partial Thromboplastin Time 51.5 SEC (24.5-34.5); Prothrombin Time 13.9 sec (9.3-11.8)
--- NOTE | 2024-08-06 22:26 | DVHPN2 ---
Progress Note - Dictate Date Seen: Aug 06, 2024 Medical Necessity Reason Pt with a Central, PICC or Fol: No Subjective Patient was seen and evaluated in follow up. The patient was combative this morning and wanted to leave AMA. Patient has since calmed down however is refusing medications. Patient remains on heparin drip. BUN 63, RETURNED GOODS SORTER 3.08, AST 42. Echocardiogram shows end stage dilated cardiomyopathy, large pleural effusion, EF only 12%. Telemetry reviewed. vital signs Vital Sign Date Time Temp Pulse Resp B/P (MAP) Pulse Ox O2 Delivery O2 Flow Rate FiO2 08/06/24 20:04 98 Nasal Cannula 2.0 08/06/24 20:04 28 08/06/24 12:40 97.5 87 15 128/78 (95) 97.5 Total Intake and Output 08/05/24 08/05/24 08/06/24 15:00 23:00 07:00 Intake Total 300 ml 230 ml 850 ml Output Total 175 ml 750 ml Balance 300 ml 55 ml 100 ml medications Current Medications Medications Dose Ordered Sig/Lisa Route Start Time Stop Time Status Last Admin Dose Admin Nitroglycerin 0.4 mg Q5MINP PRN SL 08/04/24 00:00 Morphine Sulfate 2 mg Q30M PRN IV 08/04/24 00:00 Albuterol 2.5 mg Q6HPRN PRN NEB 08/04/24 00:30 Atorvastatin Calcium 40 mg HS PO 08/04/24 22:00 08/04/24 21:16 40 MG Clopidogrel Bisulfate 75 mg DAILY PO 08/04/24 10:00 08/05/24 11:38 75 MG Isosorbide Mononitrate 10 mg DAILY PO 08/04/24 10:00 08/04/24 09:35 10 MG Metoprolol Succinate 25 mg DAILY PO 08/04/24 10:00 08/04/24 09:34 25 MG Tamsulosin HCl 0.4 mg QPM PO 08/04/24 18:00 08/06/24 18:11 0.4 MG Ceftriaxone Sodium 50 ml @ 100 mls/hr DAILY@09 IV 08/04/24 09:00 08/05/24 09:00 100 MLS/HR Azithromycin 250 ml @ 125 mls/hr DAILY IV 08/04/24 10:00 08/05/24 11:37 125 MLS/HR Ondansetron HCl 4 mg Q4HP PRN IV 08/04/24 00:30 Acetaminophen 650 mg Q6HP PRN PO 08/04/24 00:30 08/04/24 16:32 650 MG Furosemide 40 mg BIDD IV 08/04/24 11:45 08/06/24 05:03 40 MG Acetaminophen/ Hydrocodone Bitart 1 tab Q6HP PRN PO 08/04/24 17:45 08/06/24 01:56 1 TAB Heparin Sodium/ Dextrose 250 ml @ 11.5 mls/hr [id number] IV 08/06/24 12:15 08/06/24 12:15 11.5 MLS/HR objective GENERAL: Awake, alert, oriented. LUNGS: Clear. CARDIOVASCULAR: Heart sounds are good. ABDOMEN: Soft. laboratory and microbiology Laboratory Tests 08/06/24 10:46 Test 08/06/24 10:46 Range/Units Serum Glucose 111 H 74-106 mg/dL Problem List NSTEMI, type 1 versus 2. Acute on chronic decompensated HFrEF, NYHA class III. Hypertension. Pulmonary hypertension. COPD. PORTIA versus CKD. History of lung cancer status post lobectomy. History of tobacco use. Medical noncompliance. End stage dilated cardiomyopathy. Assessment/Plan Continued all current supportive medical care. Morphine and [place] for pain management. Lipitor, Metoprolol, Plavix. IV antibiotics as ordered. Heparin drip per pharmacy. Diuretics with Lasix. Additional plan as per the hospital course. Dietary Evaluation Review Comments: 1) Encouraged optimal PO intake 2) Follow-up with nephrology and cardiology 3) Continue plan of care Expected Outcomes/Goals: 1) appetite and labs to improve 2) f/u in 5 days Plan discussed with: Patient JAYME PEDRAZA MD Aug 06, 2024 20:52
[2024-08-07] VITALS (8 sets, daily range): BP systolic 127–131; BP diastolic 77–85; PULSE 88–91; RESP 14–20; TEMP 97.5–98.1; O2SAT 96–100
[2024-08-07 01:52] LABS: INR 1.35 (0.9-1.15); Prothrombin Time 13.9 sec (9.3-11.8)
[2024-08-07 07:53] LABS: Basophils # (auto) 0 10 ^3/uL (0-0.2); Basophils % (auto) 0.7 % (0.0-2.0); Eosinophils # (auto) 0.1 10 ^3/uL (0-0.8); Eosinophils % (auto) 2.4 % (0.0-7.0); Hematocrit 38.8 % (41.0-53.0); Hemoglobin 12.6 g/dL (13.5-17.5); Lymphocytes # (auto) 0.8 10 ^3/uL (0.4-5.4); Lymphocytes % (auto) 14.2 % (10.0-50.0); Mean Corpuscular Hemoglobin 28.5 pg (28.0-32.0); Mean Corpuscular Hgb Conc. 32.5 g/dL (32.0-36.0); Mean Corpuscular Volume 87.7 fL (80.0-100.0); Monocytes # (auto) 0.5 10 ^3/uL (0-1.3); Monocytes % (auto) 9.5 % (0.0-12.0); Neutrophils # (auto) 4.1 10 ^3/uL (1.6-8.6); Neutrophils % (auto) 73.2 % (37.0-80.0); Nucleated Red Blood Cells % 0.1 %; Platelet Count (auto) 161 10^3/uL (140-450); Red Blood Cells 4.42 10^6/uL (4.5-5.90); Red Cell Distribution Width 17.7 % (11.8-14.3); White Blood Cell 5.6 10^3/uL (4.4-10.8)
[2024-08-07 08:21] LABS: INR 1.29 (0.9-1.15); Prothrombin Time 13.3 sec (9.3-11.8)
[2024-08-07] MEDS: HEPARIN DRIP/D5W 100UNITS/ML 250 ML IV SCH (09:13)
--- NOTE | 2024-08-07 11:14 | DVHPN2 ---
Reviewed: Care Plan, H&P, Labs, Medications, Previous Orders, Radiology Changes from previous H/P or p: No Changes Objective Vitals Vital Signs Date Time Temp Pulse Resp B/P (MAP) Pulse Ox O2 Delivery O2 Flow Rate FiO2 08/07/24 10:00 100 Nasal Cannula* 2 28 08/07/24 09:06 91 131/85 08/07/24 09:00 98.1 18 98.1 Intake/Output Intake and Output 08/07/24 07:00 Intake Total 1528 ml Output Total 2425 ml Balance -897 ml Intake Oral 1390 ml IV Total 138 ml Output Urine Total 2425 ml Medications Current Medications Medications Dose Ordered Sig/Lisa Route Start Time Stop Time Status Last Admin Dose Admin Nitroglycerin 0.4 mg Q5MINP PRN SL 08/04/24 00:00 Morphine Sulfate 2 mg Q30M PRN IV 08/04/24 00:00 Albuterol 2.5 mg Q6HPRN PRN NEB 08/04/24 00:30 Atorvastatin Calcium 40 mg HS PO 08/04/24 22:00 08/07/24 01:00 40 MG Clopidogrel Bisulfate 75 mg DAILY PO 08/04/24 10:00 08/07/24 09:07 75 MG Isosorbide Mononitrate 10 mg DAILY PO 08/04/24 10:00 08/07/24 09:06 10 MG Metoprolol Succinate 25 mg DAILY PO 08/04/24 10:00 08/07/24 09:06 25 MG Tamsulosin HCl 0.4 mg QPM PO 08/04/24 18:00 08/06/24 18:11 0.4 MG Ceftriaxone Sodium 50 ml @ 100 mls/hr DAILY@09 IV 08/04/24 09:00 08/05/24 09:00 100 MLS/HR Azithromycin 250 ml @ 125 mls/hr DAILY IV 08/04/24 10:00 08/05/24 11:37 125 MLS/HR Ondansetron HCl 4 mg Q4HP PRN IV 08/04/24 00:30 Acetaminophen 650 mg Q6HP PRN PO 08/04/24 00:30 08/04/24 16:32 650 MG Furosemide 40 mg BIDD IV 08/04/24 11:45 08/06/24 05:03 40 MG Acetaminophen/ Hydrocodone Bitart 1 tab Q6HP PRN PO 08/04/24 17:45 08/07/24 01:01 1 TAB Heparin Sodium/ Dextrose 250 ml @ 9.5 mls/hr Q24H IV 08/07/24 08:45 08/07/24 09:13 9.5 MLS/HR Laboratory Results Laboratory Tests 08/06/24 10:46 08/07/24 06:50 Coagulation Test 08/06/24 18:12 08/07/24 01:14 08/07/24 06:50 Prothrombin Time 13.9 sec (9.3-11.8) H 13.9 sec (9.3-11.8) H 13.3 sec (9.3-11.8) H Prothrombin Time INR 1.35 (0.9-1.15) H 1.35 (0.9-1.15) H 1.29 (0.9-1.15) H Activated Partial Thromboplast Time 51.5 SEC (24.5-34.5) H 58.0 SEC (24.5-34.5) H 78.0 SEC (24.5-34.5) *H Microbiology Microbiology Date/Time Source Procedure Growth Status 08/03/24 22:10 Blood Blood Culture - Preliminary NO GROWTH AFTER 72 HOURS OF INCUBATION. Resulted Labs and/or images reviewed: Labs reviewed by me, Image(s) reviewed by me Assessment/Plan Assessment/Plan Acute on chronic hypoxic respiratory failure: Oxygen by nasal cannula Non ST-elevation [place] with a troponin of 2084: Consult for box press operator Dr Joshua perkins, on heparin drip Acute CHF exacerbation BNP 4261: Lasix, ejection fraction 10 % February 2024 Acute COPD exacerbation History of lung cancer status post partial left lung resection 2008 Community-acquired left-sided pneumonia: Rocephin azithromycin BPH Pulmonary hypertension History of Polysubstance abuse including cocaine alcohol and smoking Acute hyperkalemia potassium 5.5 Acute kidney injury BUN creatinine 50 /2.[address] [facility]ton [employer] Noncompliance Sharri test negative Flu test negative Time spent 40 minutes Advanced care planning time 20 minutes Patient is full code Sister and ROD Mclaughlin [phone] Spoke to Flat Cutter Monica Guevara [phone] on the phone Medication Noncompliance Plan discussed with: Patient Date of Service: Aug 07, 2024 Billing Provider: LUPE SAENZ MD Common Visit Codes: [id number] INP/OBS CARE(HIGH) LUPE SAENZ MD Aug 07, 2024 11:14
--- NOTE | 2024-08-07 11:53 | DVHINCON2 ---
Date of service: Aug 07, [address] Toribio Reason for Consultation Acute kidney injury History of Present Illness Mr. Calvillo is a 69-year-old male with end-stage cardiomyopathy presented for further evaluation and management of worsening dyspnea. He has been diagnosis with possible acute TX and currently he is on heparin drip. Current consultation requested due to serum creatinine elevation to the three range. He was seen in his room, visibly dyspneic but cooperative with the exam. Past Medical History HfrEF / EF 12% COPD Hypertension BPH Allergies: Coded Allergies: NO KNOWN ALLERGIES (Unverified , 07/08/18) Home Meds Active Scripts Isosorbide Mononitrate (ISMO TABLET) 20 Mg Tb, 10 MG PO DAILY for 30 Days, #15 TAB Prov:THIAGO LIZ RESIDENT 04/12/24 Hydralazine Hcl (Hydralazine Hcl) 10 Mg Tab, 10 MG PO Q8HR for 30 Days, #90 TAB Prov:THIAGO LIZ RESIDENT 04/12/24 Famotidine (PEPCID TABLET) 20 Mg Tb, 1 TAB PO BID, #60 TAB 3 Refills Prov:ARAVIND HARPER MD 03/10/24 Metoprolol Succinate (Toprol Xl) 50 Mg Tab, 25 MG PO DAILY for 60 Days, #30 TAB Prov:ARAVIND HARPER MD 03/10/24 Clopidogrel Bisulfate (CLOPIDOGREL) 75 Mg Tab, 75 MG PO DAILY for 60 Days, #60 TAB Prov:ARAVIND HARPER MD 03/10/24 Reported Medications Bumetanide (Bumetanide) 1 Mg Tab, 2 TAB PO DAILY 08/04/24 Tamsulosin Hcl (Tamsulosin Hcl) 0.4 Mg Cap, 1 CAP PO DAILY 08/04/24 Hydrocodone-Acetaminophen (Hydrocodone/Acetaminophen 10-325 mg) 1 Tab Tab, 1 TAB PO DAILY PRN for PAIN SCALE 7 THRU 10 08/04/24 Benzonatate (Benzonatate) 200 Mg Cap, 1 CAP PO TID 08/04/24 Atorvastatin Calcium (Lipitor) 40 Mg Tab, 1 TAB PO DAILY for 90 Days, #90 03/07/24 Fluticasone Furoate-Vilanterol (BREO ELLIPTA) 1 Inh Inh, 1-2 PUFF INH DAILY for 30 Days, #60 03/07/24 Albuterol Sulfate (Albuterol Sulfate Hfa) 108 Mcg/Act Aer, 1 PUFF INH Q6HR PRN for WHEEZING for 50 Days, #18 03/07/24 Current Medications Current Medications Medications (Trade) Dose Ordered Sig/Lisa Route PRN Reason Start Time Stop Time Status Last Admin Heparin Sodium/ Dextrose 250 ml @ 11.5 mls/hr [id number] IV 08/06/24 12:15 08/07/24 08:35 DC 08/06/24 12:15 Heparin Sodium/ Dextrose 250 ml @ 9.5 mls/hr Q24H IV 08/07/24 08:45 08/07/24 09:13 Family History: Diabetes mellitus G8 MOTHER Review of Systems Denies gross hematuria, dysuria, tea or Coca-Cola colored urine Denies excessive use of recent NSAIDs, foamy urine, recent IV contrast studies Denies fever, chills, nausea, vomiting, diarrhea Denies unintentional weight loss, night sweats Denies focal weakness, numbness H&P Exam Vital Signs/I&O Vital Sign Date Time Temp Pulse Resp B/P (MAP) Pulse Ox O2 Delivery O2 Flow Rate FiO2 08/07/24 11:46 100 Nasal Cannula* 3 32 08/07/24 09:06 91 131/85 08/07/24 09:00 98.1 18 98.1 Intake and Output 08/06/24 08/07/24 18:59 06:59 Intake Total 790 ml 738 ml Output Total 1800 ml 625 ml Balance -1010 ml 113 ml Intake Oral 790 ml 600 ml IV Total 138 ml Output Urine Total 1800 ml 625 ml Physical Exam Gen: nad, appears older than stated age heent: nc/at, mmm lungs: Bilateral rales cvs: no rub abd: soft, bowel sounds audible ext:+ edema skin: no rash neuro: alert and oriented Labs/Diagnostic Data Labs/Diagnostic Data Laboratory Tests Test 08/07/24 06:50 08/07/24 01:14 08/06/24 18:12 08/06/24 10:46 Range/Units White Blood Count 5.6 # 8.4 4.4-10.8 10^3/uL Red Blood Count 4.42 L 4.68 4.5-5.90 10^6/uL Hemoglobin 12.6 L 13.5 13.5-17.5 g/dL Hematocrit 38.8 L 41.6 # 41.0-53.0 % Mean Corpuscular Volume 87.7 88.9 80.0-100.0 fL Mean Corpuscular Hemoglobin 28.5 28.9 28.0-32.0 pg Mean Corpuscular Hemoglobin Concent 32.5 32.6 32.0-36.0 g/dL Red Cell Distribution Width 17.7 H 18.2 H 11.8-14.3 % Platelet Count 161 172 140-450 10^3/uL Mean Platelet Volume 8.0 7.9 6.9-10.8 fL Neutrophils (%) (Auto) 73.2 71.9 37.0-80.0 % Lymphocytes (%) (Auto) 14.2 15.4 10.0-50.0 % Monocytes (%) (Auto) 9.5 9.7 0.0-12.0 % Eosinophils (%) (Auto) 2.4 2.4 0.0-7.0 % Basophils (%) (Auto) 0.7 0.6 0.0-2.0 % Neutrophils # (Auto) 4.1 6.0 1.6-8.6 10 ^3/uL Lymphocytes # (Auto) 0.8 1.3 0.4-5.4 10 ^3/uL Monocytes # (Auto) 0.5 0.8 0-1.3 10 ^3/uL Eosinophils # (Auto) 0.1 0.2 0-0.8 10 ^3/uL Basophils # (Auto) 0 0 0-0.2 10 ^3/uL Nucleated Red Blood Cells 0.1 0.2 % Prothrombin Time 13.3 H 13.9 H 13.9 H 15.4 H 9.3-11.8 sec Prothrombin Time INR 1.29 H 1.35 H 1.35 H 1.51 H 0.9-1.15 Activated Partial Thromboplast Time 78.0 *H 58.0 H 51.5 H 48.8 H 24.5-34.5 SEC Sodium Level 138 136-145 mmol/L Potassium Level 4.4 3.5-5.1 mmol/L Chloride Level 102 98-107 mmol/L Carbon Dioxide Level 25 20-31 mmol/L Anion Gap 11 5-15 Blood Urea Nitrogen 63 H 9-23 mg/dL Creatinine 3.08 H 0.700-1.30 mg/dL Glomerular Filtration Rate Calc 21 >90 mL/min BUN/Creatinine Ratio 20.5 H 10.0-20.0 Serum Glucose 111 H 74-106 mg/dL Calcium Level 9.4 8.7-10.4 mg/dL Total Bilirubin 0.8 0.2-1.0 mg/dL Aspartate Amino Transferase (AST) 36 13-40 U/L Alanine Aminotransferase (ALT) 42 H 7-40 U/L Alkaline Phosphatase 65 46-116 U/L Total Protein 6.4 5.7-8.2 g/dL Albumin 3.7 3.2-4.8 g/dL Test 08/05/24 18:36 08/05/24 14:24 08/05/24 10:23 08/05/24 06:28 Range/Units Potassium Level 4.7 5.2 H 5.8 *H 3.5-5.1 mmol/L POC Glucose 166 H 70-106 mg/dl White Blood Count 8.3 4.4-10.8 10^3/uL Red Blood Count 5.26 4.5-5.90 10^6/uL Hemoglobin 14.9 13.5-17.5 g/dL Hematocrit 46.6 41.0-53.0 % Mean Corpuscular Volume 88.6 80.0-100.0 fL Mean Corpuscular Hemoglobin 28.3 28.0-32.0 pg Mean Corpuscular Hemoglobin Concent 31.9 L 32.0-36.0 g/dL Red Cell Distribution Width 18.3 H 11.8-14.3 % Platelet Count 179 140-450 10^3/uL Mean Platelet Volume 7.7 6.9-10.8 fL Neutrophils (%) (Auto) 73.8 37.0-80.0 % Lymphocytes (%) (Auto) 14.7 10.0-50.0 % Monocytes (%) (Auto) 10.6 0.0-12.0 % Eosinophils (%) (Auto) 0.3 0.0-7.0 % Basophils (%) (Auto) 0.6 0.0-2.0 % Neutrophils # (Auto) 6.2 1.6-8.6 10 ^3/uL Lymphocytes # (Auto) 1.2 0.4-5.4 10 ^3/uL Monocytes # (Auto) 0.9 0-1.3 10 ^3/uL Eosinophils # (Auto) 0 0-0.8 10 ^3/uL Basophils # (Auto) 0 0-0.2 10 ^3/uL Nucleated Red Blood Cells 0.1 % Prothrombin Time 16.9 H 9.3-11.8 sec Prothrombin Time INR 1.68 H 0.9-1.15 Activated Partial Thromboplast Time 58.6 H 24.5-34.5 SEC Sodium Level 138 136-145 mmol/L Chloride Level 104 98-107 mmol/L Carbon Dioxide Level 24 20-31 mmol/L Anion Gap 10 5-15 Blood Urea Nitrogen 65 #H 9-23 mg/dL Creatinine 3.17 H 0.700-1.30 mg/dL Glomerular Filtration Rate Calc 20 >90 mL/min BUN/Creatinine Ratio 20.5 H 10.0-20.0 Serum Glucose 99 74-106 mg/dL Calcium Level 10.2 8.7-10.4 mg/dL Test 08/04/24 21:22 08/04/24 13:00 08/04/24 10:43 08/04/24 01:36 Range/Units Prothrombin Time 16.4 H 14.9 H 9.3-11.8 sec Prothrombin Time INR 1.62 H 1.46 H 0.9-1.15 Activated Partial Thromboplast Time 58.3 H 58.3 H 24.5-34.5 SEC Troponin I High Sensitivity 1377 *H 2085 *H </=54 ng/L Magnesium Level 2.1 1.6-2.6 mg/dL Triglycerides Level 115 < 150 mg/dL Cholesterol Level 147 < 200 mg/dL LDL Cholesterol 64 < 100 mg/dL HDL Cholesterol 59 40-59 mg/dL Thyroid Stimulating Hormone (TSH) 3.72 0.55-4.78 uIU/mL Test 08/04/24 01:00 08/03/24 23:37 08/03/24 22:10 Range/Units Influenza Type A Antigen Negative Negative Influenza Type B Antigen Negative Negative SARS-CoV-2 Antigen (Rapid) Negative NEGATIVE Lactic Acid Level 3.5 *H 4.1 *H 0.4-2.0 mmol/L Troponin I High Sensitivity 1971 *H 1857 *H </=54 ng/L White Blood Count 7.2 4.4-10.8 10^3/uL Red Blood Count 5.08 4.5-5.90 10^6/uL Hemoglobin 14.4 13.5-17.5 g/dL Hematocrit 45.7 41.0-53.0 % Mean Corpuscular Volume 89.9 80.0-100.0 fL Mean Corpuscular Hemoglobin 28.3 28.0-32.0 pg Mean Corpuscular Hemoglobin Concent 31.4 L 32.0-36.0 g/dL Red Cell Distribution Width 18.9 H 11.8-14.3 % Platelet Count 182 140-450 10^3/uL Mean Platelet Volume 7.9 6.9-10.8 fL Neutrophils (%) (Auto) 74.7 37.0-80.0 % Lymphocytes (%) (Auto) 14.7 10.0-50.0 % Monocytes (%) (Auto) 9.5 0.0-12.0 % Eosinophils (%) (Auto) 0.5 0.0-7.0 % Basophils (%) (Auto) 0.6 0.0-2.0 % Neutrophils # (Auto) 5.4 1.6-8.6 10 ^3/uL Lymphocytes # (Auto) 1.1 0.4-5.4 10 ^3/uL Monocytes # (Auto) 0.7 0-1.3 10 ^3/uL Eosinophils # (Auto) 0 0-0.8 10 ^3/uL Basophils # (Auto) 0 0-0.2 10 ^3/uL Nucleated Red Blood Cells 0.2 % Prothrombin Time 12.7 H 9.3-11.8 sec Prothrombin Time INR 1.22 H 0.9-1.15 Activated Partial Thromboplast Time 28.7 24.5-34.5 SEC Sodium Level 140 136-145 mmol/L Potassium Level 5.5 H 3.5-5.1 mmol/L Chloride Level 107 98-107 mmol/L Carbon Dioxide Level 22 20-31 mmol/L Anion Gap 11 5-15 Blood Urea Nitrogen 50 H 9-23 mg/dL Creatinine 2.24 H 0.700-1.30 mg/dL Glomerular Filtration Rate Calc 31 >90 mL/min BUN/Creatinine Ratio 22.3 H 10.0-20.0 Serum Glucose 100 74-106 mg/dL Calcium Level 10.1 8.7-10.4 mg/dL Total Bilirubin 1.8 H 0.2-1.0 mg/dL Aspartate Amino Transferase (AST) 32 13-40 U/L Alanine Aminotransferase (ALT) 26 7-40 U/L Alkaline Phosphatase 73 46-116 U/L B-Type Natriuretic Peptide 4261.23 0-100 pg/mL Total Protein 7.2 5.7-8.2 g/dL Albumin 4.3 3.2-4.8 g/dL Assessment IMP: 1) Hemodynamically mediated PORTIA/VMN - cardiorenal syndrome 2) CKD IIIb? 3) NSTEMI 4) COPD 5) end-stage cardiomyopathy REC: - loop diuretic as needed to achieve desired ECF volume - general recommendations avoid NSAIDs, IV contrast studies, K[place]/ ARB during time course of PORTIA - we will check urine studies, serial chemistry panels - we will continue to follow closely with you. Thank you for the consultation. Plan discussed with: Patient JOAN GUAJARDO MD Aug 07, 2024 11:53
[2024-08-07 16:01] LABS: INR 1.25 (0.9-1.15); Partial Thromboplastin Time 56.1 SEC (24.5-34.5)
--- NOTE | 2024-08-07 19:18 | DVHPN2 ---
Progress Note - Dictate Date Seen: Aug 07, 2024 Medical Necessity Reason Pt with a Central, PICC or Fol: No Subjective Patient was seen and evaluated in follow up. Patient is noncompliant with medications. Patient remains on heparin drip. Patient refusing second IV for antibiotics. Patient appears agitated. Blood cultures show no growth. PT 13, INR 1.29, APTT 56.1. Telemetry reviewed. vital signs Vital Sign Date Time Temp Pulse Resp B/P (MAP) Pulse Ox O2 Delivery O2 Flow Rate FiO2 08/07/24 17:00 97.5 90 20 127/77 (94) 96 97.5 08/07/24 11:46 Nasal Cannula* 3 32 Total Intake and Output 08/06/24 08/06/24 08/07/24 15:00 23:00 07:00 Intake Total 790 ml 738 ml Output Total 1800 ml 625 ml Balance -1010 ml 113 ml medications Current Medications Medications Dose Ordered Sig/Lisa Route Start Time Stop Time Status Last Admin Dose Admin Nitroglycerin 0.4 mg Q5MINP PRN SL 08/04/24 00:00 Morphine Sulfate 2 mg Q30M PRN IV 08/04/24 00:00 Albuterol 2.5 mg Q6HPRN PRN NEB 08/04/24 00:30 Atorvastatin Calcium 40 mg HS PO 08/04/24 22:00 08/07/24 01:00 40 MG Clopidogrel Bisulfate 75 mg DAILY PO 08/04/24 10:00 08/07/24 09:07 75 MG Isosorbide Mononitrate 10 mg DAILY PO 08/04/24 10:00 08/07/24 09:06 10 MG Metoprolol Succinate 25 mg DAILY PO 08/04/24 10:00 08/07/24 09:06 25 MG Tamsulosin HCl 0.4 mg QPM PO 08/04/24 18:00 08/06/24 18:11 0.4 MG Ceftriaxone Sodium 50 ml @ 100 mls/hr DAILY@09 IV 08/04/24 09:00 08/05/24 09:00 100 MLS/HR Azithromycin 250 ml @ 125 mls/hr DAILY IV 08/04/24 10:00 08/05/24 11:37 125 MLS/HR Ondansetron HCl 4 mg Q4HP PRN IV 08/04/24 00:30 Acetaminophen 650 mg Q6HP PRN PO 08/04/24 00:30 08/04/24 16:32 650 MG Furosemide 40 mg BIDD IV 08/04/24 11:45 08/06/24 05:03 40 MG Acetaminophen/ Hydrocodone Bitart 1 tab Q6HP PRN PO 08/04/24 17:45 08/07/24 01:01 1 TAB Heparin Sodium/ Dextrose 250 ml @ 9.5 mls/hr Q24H IV 08/07/24 08:45 08/07/24 09:13 9.5 MLS/HR objective GENERAL: Awake, alert, oriented. LUNGS: Clear. CARDIOVASCULAR: Heart sounds are good. ABDOMEN: Soft. laboratory and microbiology Laboratory Tests 08/07/24 06:50 08/06/24 10:46 Test 08/06/24 10:46 Range/Units Serum Glucose 111 H 74-106 mg/dL Problem List NSTEMI, type 1 versus 2. Acute on chronic decompensated HFrEF, NYHA class III. Hypertension. Pulmonary hypertension. COPD. PORTIA versus CKD. History of lung cancer status post lobectomy. History of tobacco use. Medical noncompliance. End stage dilated cardiomyopathy. Assessment/Plan Continued all current supportive medical care. Morphine and [place] for pain management. Lipitor, Metoprolol, Plavix. IV antibiotics as ordered. Heparin drip per pharmacy. Diuretics with Lasix. Additional plan as per the hospital course. Dietary Evaluation Review Comments: 1) Encouraged optimal PO intake 2) Follow-up with nephrology and cardiology 3) Continue plan of care Expected Outcomes/Goals: 1) appetite and labs to improve 2) f/u in 5 days Plan discussed with: Patient JAYME PEDRAZA MD Aug 07, 2024 18:53
--- NOTE | 2024-08-08 07:51 | DVHDS2 ---
Discharge Summary Date of Admission Aug 03, 2024 at 23:52 Date of Discharge: Aug 07, 2024 Admitting Diagnosis Shortness of breaths Wounds: None Labs/Diagnostic Data: Laboratory Results Test 08/07/24 15:31 08/07/24 06:50 08/06/24 10:46 08/05/24 10:23 Prothrombin Time 13.0 sec (9.3-11.8) Prothrombin Time INR 1.25 (0.9-1.15) Activated Partial Thromboplast Time 56.1 SEC (24.5-34.5) White Blood Count 5.6 10^3/uL (4.4-10.8) Red Blood Count 4.42 10^6/uL (4.5-5.90) Hemoglobin 12.6 g/dL (13.5-17.5) Hematocrit 38.8 % (41.0-53.0) Mean Corpuscular Volume 87.7 fL (80.0-100.0) Mean Corpuscular Hemoglobin 28.5 pg (28.0-32.0) Mean Corpuscular Hemoglobin Concent 32.5 g/dL (32.0-36.0) Red Cell Distribution Width 17.7 % (11.8-14.3) Platelet Count 161 10^3/uL (140-450) Mean Platelet Volume 8.0 fL (6.9-10.8) Neutrophils (%) (Auto) 73.2 % (37.0-80.0) Lymphocytes (%) (Auto) 14.2 % (10.0-50.0) Monocytes (%) (Auto) 9.5 % (0.0-12.0) Eosinophils (%) (Auto) 2.4 % (0.0-7.0) Basophils (%) (Auto) 0.7 % (0.0-2.0) Neutrophils # (Auto) 4.1 10 ^3/uL (1.6-8.6) Lymphocytes # (Auto) 0.8 10 ^3/uL (0.4-5.4) Monocytes # (Auto) 0.5 10 ^3/uL (0-1.3) Eosinophils # (Auto) 0.1 10 ^3/uL (0-0.8) Basophils # (Auto) 0 10 ^3/uL (0-0.2) Nucleated Red Blood Cells 0.1 % Sodium Level 138 mmol/L (136-145) Potassium Level 4.4 mmol/L (3.5-5.1) Chloride Level 102 mmol/L (98-107) Carbon Dioxide Level 25 mmol/L (20-31) Anion Gap 11 (5-15) Blood Urea Nitrogen 63 mg/dL (9-23) Creatinine 3.08 mg/dL (0.700-1.30) Glomerular Filtration Rate Calc 21 mL/min (>90) BUN/Creatinine Ratio 20.5 (10.0-20.0) Serum Glucose 111 mg/dL (74-106) Calcium Level 9.4 mg/dL (8.7-10.4) Total Bilirubin 0.8 mg/dL (0.2-1.0) Aspartate Amino Transferase (AST) 36 U/L (13-40) Alanine Aminotransferase (ALT) 42 U/L (7-40) Alkaline Phosphatase 65 U/L (46-116) Total Protein 6.4 g/dL (5.7-8.2) Albumin 3.7 g/dL (3.2-4.8) POC Glucose 166 mg/dl (70-106) Test 08/04/24 13:00 08/04/24 01:36 08/04/24 01:00 08/03/24 23:37 Troponin I High Sensitivity 1377 ng/L (</=54) Magnesium Level 2.1 mg/dL (1.6-2.6) Triglycerides Level 115 mg/dL (< 150) Cholesterol Level 147 mg/dL (< 200) LDL Cholesterol 64 mg/dL (< 100) HDL Cholesterol 59 mg/dL (40-59) Thyroid Stimulating Hormone (TSH) 3.72 uIU/mL (0.55-4.78) Influenza Type A Antigen Negative (Negative) Influenza Type B Antigen Negative (Negative) SARS-CoV-2 Antigen (Rapid) Negative (NEGATIVE) Lactic Acid Level 3.5 mmol/L (0.4-2.0) Test 08/03/24 22:10 B-Type Natriuretic Peptide 4261.23 pg/mL (0-100) Other Laboratory Tests 08/07/24 06:50 08/06/24 10:46 Brief Hx & Hospital Course: 69-year-old male with multiple medical problems including CHF COPD lung cancer status post partial left lung resection BPH permanent hypertension polysubstance abuse including cocaine alcohol and smoking acute kidney injury noncompliant came in complaining of shortness of breaths. Found to have non ST-elevation [place] with a troponin to [address] Lewis Echo 10 percent ejection fraction February 2024 treated with Lasix also on heparin drip for elevated troponin community-acquired pneumonia treated with Rocephin azithromycin potassium was high 5.5 patient had acute kidney injury with a BUN creatinine 50 and 2.23 Nephrology consult was appreciated. Sharri test negative flu test negative Patient has been noncompliant throughout his stay threatening to leave AMA everyday. He was hostile to the nursing staff. Patient was educated. The patient has made marginal improvement. While awaiting further stabilization he left AMA on 08/07/2024. General condition satisfactory at the time of leaving AMA per nurse's notes. Patient was explained about the consequences and complications of leaving AMA including possible and he verbalized understanding. During his stay in the hospital I spoke with the his caregiver Monica. Consults/Reason for consult Cardiology Dr. Walter Lewis Operations or Procedures Echocardiogram Condition at Discharge: Fair Final Diagnosis/Problems List Acute on chronic hypoxic respiratory failure: Oxygen by nasal cannula Non ST-elevation UT with a troponin of 2084: Consult for mobile therapist Dr Lewis appreciated, on heparin drip Acute CHF exacerbation BNP 4261: Lasix, ejection fraction 10 % February 2024 Acute COPD exacerbation History of lung cancer status post partial left lung resection 2008 Community-acquired left-sided pneumonia: Rocephin azithromycin BPH Pulmonary hypertension History of Polysubstance abuse including cocaine alcohol and smoking Acute hyperkalemia potassium 5.5 Acute kidney injury BUN creatinine 50 /2.[address] [facility] [employer] Noncompliance Sharri test negative Flu test negative Time spent 40 minutes Advanced care planning time 20 minutes Patient is full code Sister and RDO Mclaughlin [phone] Spoke to Surface Plate Inspector Monica Guevara [phone] on the phone Medication Noncompliance Discharge Disposition: AMA Discharge Instruct/Medications Diet comment: Not applicable Patient left AMA Activity comment: Not applicable Patient left AMA Follow Up/Referral: Not applicable Patient left AMA Medications: Not applicable Patient left AMA 40 (Time taken for discharge summary 40 minutes) Discharge Statement: "Patient was advised to return to the ER or call 911 if any headaches, dizziness, shortness of breath, chest pain, abdominal pain, bleeding, fevers, or worsening of medical condition. Patient was counseled about treatment plan, medications, possible side effects, patientverbalized understanding. All questions were answered to the best of my ability. This discharge took greater then 30 minutes in planning, reviewing documentation, counseling the patient, and discussing with other team members." ASSESSMENT ASSESSMENT Hospital Course Marginally improved Assessment Date of Service: Aug 08, 2024 Billing Provider: LUPE SAENZ MD Common Visit Codes: 89540-GLF/OBS DISCH DAY >30min LUPE SAENZ MD Aug 08, 2024 07:51
== END 2024-08-07 19:05 | disposition left against medical advice (07) | DRG 280 ==
LOC: ER 21:07 → OVERFLOW 23:52 → TELE-WESTW 23:57
PROVIDERS: ADMIT Family Medicine; ATTEND Family Medicine
DX: I21.4 Non-ST elevation (NSTEMI) myocardial infarction (principal); I50.43 Acute on chronic combined systolic (congestive) and diastolic (congestive) heart failure; J96.21 Acute and chronic respiratory failure with hypoxia; J15.69 Pneumonia due to other Gram-negative bacteria; J15.9 Unspecified bacterial pneumonia; N17.0 Acute kidney failure with tubular necrosis; J44.1 Chronic obstructive pulmonary disease with (acute) exacerbation; I42.0 Dilated cardiomyopathy; N18.4 Chronic kidney disease, stage 4 (severe); I13.0 Hypertensive heart and chronic kidney disease with heart failure and stage 1 through stage 4 chronic kidney disease, or unspecified chronic kidney disease; J44.0 Chronic obstructive pulmonary disease with (acute) lower respiratory infection; F14.10 Cocaine abuse, uncomplicated; N40.0 Benign prostatic hyperplasia without lower urinary tract symptoms; F10.10 Alcohol abuse, uncomplicated; Y90.9 Presence of alcohol in blood, level not specified; Z53.29 Procedure and treatment not carried out because of patient's decision for other reasons; Z20.822 Contact with and (suspected) exposure to COVID-19; I27.20 Pulmonary hypertension, unspecified; E87.5 Hyperkalemia; Z85.118 Personal history of other malignant neoplasm of bronchus and lung; Z91.199 Patient's noncompliance with other medical treatment and regimen due to unspecified reason; Z79.1 Long term (current) use of non-steroidal anti-inflammatories (NSAID); Z79.899 Other long term (current) drug therapy; Z83.3 Family history of diabetes mellitus; Z87.891 Personal history of nicotine dependence; Z79.891 Long term (current) use of opiate analgesic; Z79.84 Long term (current) use of oral hypoglycemic drugs; Z79.2 Long term (current) use of antibiotics; Z91.148 Patient's other noncompliance with medication regimen for other reason
CPT/HCPCS: 36415; 71045; 80048; 80053; 80061; 82962; 83605; 83735; 83880; 84132; 84443; 84484; 85025; 85610; 85730; 87040; 87426; 87804; 93005; 93306; 93971; 94640; G0378; J1815

== ENCOUNTER 2024-09-18 17:01 | Inpatient (IN) | payer MEDICARE, MEDICAID ==
[~2024-09-18] VITALS: Ht 175.3 cm; Wt 73.4 kg
[2024-09-18] VITALS (7 sets, daily range): BP systolic 147; BP diastolic 82; PULSE 105–111; RESP 16–20; TEMP 98; O2SAT 93–100
[~2024-09-18 17:01] MED LIST changes: +BENZ200C64 PO; -BUM1T PO; +BUME1TAB3 PO; +HYDR-4072 PO; -LEVO500T91 PO; -TAMS-35 PO; +TAMS0.4C39 PO
--- NOTE | 2024-09-18 17:20 | ED.PDOC ---
HPI Comments 69 y.o male with PMHx of an [place], COPD, CHF, DM, HTN, asthma, CKF, and lung cancer, presents to the ED for a chief complaint of chest pain associated with SOB, nausea, vomiting, abdominal and bilateral arm pain that started 3-4 days ago. Patient describes chest pain as a sharp sensation, is constant, localized at the center and is non radiating. Patient rates pain a 10/10 on the pain scale and has no alleviating factors. Patient denies any leg swelling/pain, fever, chills, diarrhea, or recent illness. Chief Complaint: Chest Pain Time Seen by MD: 17:09 Primary Care Provider: UNKNOWN Reviewed Notes: Nurses Notes, Medications, Allergies Allergies: Coded Allergies: NO KNOWN ALLERGIES (Unverified , 07/08/18) Home Meds Active Scripts Isosorbide Mononitrate (ISMO TABLET) 20 Mg Tb, 10 MG PO DAILY for 30 Days, #15 TAB Prov:THIAGO LIZ RESIDENT 04/12/24 Hydralazine Hcl (Hydralazine Hcl) 10 Mg Tab, 10 MG PO Q8HR for 30 Days, #90 TAB Prov:THIAGO LIZ RESIDENT 04/12/24 Famotidine (PEPCID TABLET) 20 Mg Tb, 1 TAB PO BID, #60 TAB 3 Refills Prov:ARAVIND HARPER MD 03/10/24 Metoprolol Succinate (Toprol Xl) 50 Mg Tab, 25 MG PO DAILY for 60 Days, #30 TAB Prov:ARAVIND HARPER MD 03/10/24 Clopidogrel Bisulfate (CLOPIDOGREL) 75 Mg Tab, 75 MG PO DAILY for 60 Days, #60 TAB Prov:ARAVIND HARPER MD 03/10/24 Reported Medications Bumetanide (Bumetanide) 1 Mg Tab, 2 TAB PO DAILY 08/04/24 Tamsulosin Hcl (Tamsulosin Hcl) 0.4 Mg Cap, 1 CAP PO DAILY 08/04/24 Hydrocodone-Acetaminophen (Hydrocodone/Acetaminophen 10-325 mg) 1 Tab Tab, 1 TAB PO DAILY PRN for PAIN SCALE 7 THRU 10 08/04/24 Benzonatate (Benzonatate) 200 Mg Cap, 1 CAP PO TID 08/04/24 Atorvastatin Calcium (Lipitor) 40 Mg Tab, 1 TAB PO DAILY for 90 Days, #90 03/07/24 Fluticasone Furoate-Vilanterol (BREO ELLIPTA) 1 Inh Inh, 1-2 PUFF INH DAILY for 30 Days, #60 03/07/24 Albuterol Sulfate (Albuterol Sulfate Hfa) 108 Mcg/Act Aer, 1 PUFF INH Q6HR PRN for WHEEZING for 50 Days, #18 03/07/24 Information Source: Patient Mode of Arrival: Wheelchair Severity: Moderate Timing: Days (3-4) Duration: Since onset Location: Substernal Radiation: Abdomen, Arm (R), Arm (L) Quality: Sharp Onset: At Rest Cardiac Risk Factors: HTN, Diabetes PE Risk Factors: None History of: WA Modifying Factors: Nothing Associated Signs and Symptoms: SOB, Abdominal Pain, N/V Past Medical History PAST MEDICAL HISTORY: Asthma, Cancer, CHF, CKF, COPD, High Lipids, HTN, [place] Surgical History: Hernia Repair Surgical History (Other): Lung tumor removal Family History Family History: Family hx of DM Social History Smoker: Non-Smoker Alcohol: Occasionally Drugs: Denies Drug Use Lives In: Home Constitutional: denies: chills, diaphoresis, fatigue, fever, malaise, sweats, weakness, others EENTM: denies: blurred vision, double vision, ear bleeding, ear discharge, ear drainage, ear pain, ear ringing, eye pain, eye redness, hearing loss, mouth pain, mouth swelling, nasal discharge, nose bleeding, nose congestion, nose pain, photophobia, tearing, throat pain, throat swelling, voice changes, others Respiratory: reports: SOB at rest, shortness of breath; denies: cough, hemoptysis, orthopnea, SOB with excertion, stridor, wheezing, others Cardiovascular: reports: chest pain; denies: dizzy spells, diaphoresis, Dyspnea on exertion, edema, irregular heart beat, left arm pain, lightheadedness, palpitations, PND, syncope, others Gastrointestinal: reports: abdominal pain, nausea, vomiting; denies: abdomen distended, blood streaked bowels, constipated, diarrhea, dysphagia, difficulty swallowing, hematemesis, melena, poor appetite, poor fluid intake, rectal bleeding, rectal pain, others Genitourinary: denies: burning, dysuria, flank pain, frequency, hematuria, incontinence, penile discharge, penile sore, pain, testicle pain, testicle swelling, urgency, others Neurological: denies: dizziness, fainting, headache, left sided numbness, left sided weakness, numbness, paresthesia, pre-existing deficit, right sided numbness, right sided weakness, seizure, speech problems, tingling, tremors, weakness, others Musculoskeletal: reports: others (bilateral arm pain ); denies: back pain, gout, joint pain, joint swelling, muscle pain, muscle stiffness, neck pain Integumetry: denies: bruises, change in color, change in hair/nails, dryness, laceration, lesions, lumps, rash, wounds, others Allergic/Immunocompromised: denies: Difficulty Healing, Frequent Infections, Hives, Itching, others Hematologic/Lymphatic: denies: anemia, blood clots, easy bleeding, easy bruising, swollen glands, others Endocrine: denies: excessive hunger, excessive sweating, excessive thirst, excessive urination, flushing, intolerance to cold, intolerance to heat, unexp lained weight gain, unexplained weight loss, others Psychiatric: denies: anxiety, bipolar disorder, depression, hopeless, panic disorder, schizophrenia, sleepless, suicidal, others All Other Systems: Reviewed and Negative Physical Exam General Appearance: Moderate Distress HEENT: Pale Conjuntivae (L), Pale Conjuntivae (R), Pharynx Normal, TMs Normal Neck: Full Range of Motion, Non-Tender, Normal, Normal Inspection Respiratory: Chest Non-Tender, Lungs Clear, No Accessory Muscle Use, No Respir atory Distress, Normal Breath Sounds Cardiovascular: No Edema, No JVD, No Murmur, No Gallop, Normal Peripheral Pulses, Regular Rate/Rhythm Breast Exam: Deferred Gastrointestinal: No Organomegaly, Non Tender, No Pulsatile Mass, Normal Bowel Sounds, Soft Genitalia: Deferred Pelvic: Deferred Rectal: Deferred Extremities: No calf tenderness, Normal capillary refill, No pedal edema Musculoskeletal : Apperance: Normal Neurologic: sales service assistant II-XII nml as Tested, Motor Weakness, Normal Affect, Normal Mood, No Sensory Deficits, Other (Mild lethargy) Cerebellar Function: Unable to Test Reflexes: Normal Skin: Dry, Pallor, Warm Lymphatic: No Adenopathy EKG EKG : Pulse Rate (adult): 105 Cardiac Rhythm: ST Was a procedure done? Was a procedure done?: No CP Differential Dx Differential Diagnosis: N/A Differential Diagnosis: Angina, Chest Wall Pain, Cholelithiasis, Costochondritis, Esophageal reflux/spasm, Gastritis, Myocardial Infarction, Pericarditis, Pneumonia, Pneumothorax, Pulmonary Embolus X-Ray, Labs, Meds, VS Vital Signs Date Time Temp Pulse Resp B/P (MAP) Pulse Ox O2 Delivery O2 Flow Rate FiO2 09/18/24 19:33 20 95 Room Air* 0 21 09/18/24 18:25 108 09/18/24 18:24 105 16 97 Room Air* 0 21 09/18/24 18:17 110 25 138/88 (105) 93 09/18/24 18:12 103 09/18/24 17:20 105 09/18/24 17:15 98.0 109 28 122/89 (100) 97 98.0 09/18/24 17:13 105 Lab Test 09/18/24 18:56 09/18/24 18:33 09/18/24 17:33 Range/Units POC Glucose 95 70-106 mg/dl Sodium Level 140 140 136-145 mmol/L Potassium Level 6.9 *H 7.0 *H 3.5-5.1 mmol/L Chloride Level 104 104 98-107 mmol/L Carbon Dioxide Level 17 L 21 20-31 mmol/L Anion Gap 19 H 15 5-15 Blood Urea Nitrogen 86 *H 95 *H 9-23 mg/dL Creatinine 3.76 H 3.87 H 0.700-1.30 mg/dL Glomerular Filtration Rate Calc 17 16 >90 mL/min BUN/Creatinine Ratio 22.9 H 24.5 H 10.0-20.0 Serum Glucose 119 H 117 H 74-106 mg/dL Calcium Level 11.1 H 11.0 H 8.7-10.4 mg/dL Total Bilirubin 2.9 H 0.2-1.0 mg/dL Aspartate Amino Transferase (AST) 70 H 13-40 U/L Alanine Aminotransferase (ALT) 47 H 7-40 U/L Alkaline Phosphatase 83 46-116 U/L Troponin I High Sensitivity 155 *H 157 *H </=54 ng/L Total Protein 7.6 5.7-8.2 g/dL Albumin 4.5 3.2-4.8 g/dL White Blood Count 10.7 4.4-10.8 10^3/uL Red Blood Count 6.16 H 4.5-5.90 10^6/uL Hemoglobin 17.7 H 13.5-17.5 g/dL Hematocrit 53.4 H 41.0-53.0 % Mean Corpuscular Volume 86.7 80.0-100.0 fL Mean Corpuscular Hemoglobin 28.7 28.0-32.0 pg Mean Corpuscular Hemoglobin Concent 33.1 32.0-36.0 g/dL Red Cell Distribution Width 19.2 H 11.8-14.3 % Platelet Count 166 140-450 10^3/uL Mean Platelet Volume 8.0 6.9-10.8 fL Neutrophils (%) (Auto) 88.4 H 37.0-80.0 % Lymphocytes (%) (Auto) 5.5 L 10.0-50.0 % Monocytes (%) (Auto) 5.8 0.0-12.0 % Eosinophils (%) (Auto) 0.0 0.0-7.0 % Basophils (%) (Auto) 0.3 0.0-2.0 % Neutrophils # (Auto) 9.5 H 1.6-8.6 10 ^3/uL Lymphocytes # (Auto) 0.6 0.4-5.4 10 ^3/uL Monocytes # (Auto) 0.6 0-1.3 10 ^3/uL Eosinophils # (Auto) 0 0-0.8 10 ^3/uL Basophils # (Auto) 0 0-0.2 10 ^3/uL Nucleated Red Blood Cells 0.3 % D-Dimer, Quantitative 4.06 H 0.0-0.49 mg/L FEU B-Type Natriuretic Peptide > 5000.00 0-100 pg/mL Current Medications Medications (Trade) Dose Ordered Sig/Lisa Route Start Time Stop Time Status Last Admin Aspirin 162 mg ONCE ONCE PO 09/18/24 17:30 09/18/24 17:31 DC 09/18/24 18:21 Calcium Gluconate/ Sodium Chloride 50 ml @ 100 mls/hr ONCE ONCE IV 09/18/24 18:45 09/18/24 19:14 DC 09/18/24 19:06 Insulin Human Regular (InsuLIN R) 5 units ONCE ONCE IV 09/18/24 18:45 09/18/24 18:46 DC 09/18/24 19:00 Dextrose 50 ml ONCE ONCE IV 09/18/24 18:45 09/18/24 18:46 DC 09/18/24 18:57 Albuterol (Ventolin Medneb) 20 mg ONCE ONCE NEB 09/18/24 19:15 09/18/24 19:23 DC 09/18/24 19:33 IV Hep-Lock was established The patient was given aspirin 160 mg by mouth The patient was potassium came back at 7.0 The patient then was given calcium, dextrose, insulin and sodium bicarbonate to address the elevated potassium The BNP is greater than 5000 The D-dimer was added and it was 4.06 The patient's CBC is within normal limits. The rest of the chemistry panel shows an elevated BUN of 95 and a creatinine of 3.87 The troponin level has been running around 155 and 157 At this time, the patient was being admitted to the hospitalist We did speak with Dr. Lewis and did send him the EKG to rule out STEMI He did review the EKG as well as is aware of the patient's troponin levels At this time the patient is a non STEMI and the patient was being admitted Images Reviewed?: Images reviewed and evaluated by me Time of 1ST Reevaluation: 17:20 Reevaluation 1ST: Unchanged Patient Education/Counseling: Diagnosis, Treatment, Prognosis Family Education/Counseling: Diagnosis, Treatment, Prognosis Departure 1 Departure Time of Disposition: 20:15 Impression: Primary Impression: Hyperkalemia Additional Impressions: Acute chest pain Acute on chronic diastolic heart failure Disposition: ADMITTED INPATIENT Admit to: [facility] Condition: Fair Critical Care Note Critical Care Time?: Yes (45 min-critical care time only) Stability Stability form required: Yes Unstable for transfer: Telemetry monitoring (Telemetry monitoring required), ED Physician Assesment (Clinical assesment) Heart Score Heart Score: Heart Score Response (Comments) Value History Highly Suspicious 2 EKG Repolarization Disturb 1 Age >65 2 Risk Factors >3 or Hx ASHD 2 Troponin >3 x's Normal limit 2 Total 9 I personally scribed for BRIAN ANDRADE MD ([email or web address]) on 09/18/24 at 17:20. Electronically submitted by Tejal Dumont ([facility]). BRIAN ANDRADE MD Sep 18, 2024 17:20
--- NOTE | 2024-09-18 17:30 | ECG ---
[facility] Test Date: 2024-09-18 Test Time: 17:13:48 Pat Name: XIN ADAMS Department: ED Room: Gender: M Dry Goods Inspector: Paula : 1955 Requested By: BRIAN ANDRADE Order Number: [id number] Reading MD: Ld Baca Measurements Intervals [place] Rate: 105 P: 97 TN: 190 QRS: 189 QRSD: 107 T: 0 QT: 351 QTc: 465 Interpretive Statements Sinus tachycardia Probable anterolateral infarct, age indeterm Baseline wander in lead(s) V1,V2,V3,V4,V5,V6 Electronically Signed On 09-18-2024 20:40:02 PDT by Ld Baca Please click the below link to view image of tracing.
[2024-09-18 17:46] LABS: Basophils # (auto) 0 10 ^3/uL (0-0.2); Eosinophils # (auto) 0 10 ^3/uL (0-0.8); Lymphocytes # (auto) 0.6 10 ^3/uL (0.4-5.4); Monocytes # (auto) 0.6 10 ^3/uL (0-1.3); Nucleated Red Blood Cells % 0.3 %
[2024-09-18 17:48] LABS: Basophils % (auto) 0.3 % (0.0-2.0); Hematocrit 53.4 % (41.0-53.0); Hemoglobin 17.7 g/dL (13.5-17.5); Lymphocytes % (auto) 5.5 % (10.0-50.0); Mean Corpuscular Hemoglobin 28.7 pg (28.0-32.0); Mean Corpuscular Hgb Conc. 33.1 g/dL (32.0-36.0); Mean Corpuscular Volume 86.7 fL (80.0-100.0); Monocytes % (auto) 5.8 % (0.0-12.0); Neutrophils # (auto) 9.5 10 ^3/uL (1.6-8.6); Neutrophils % (auto) 88.4 % (37.0-80.0); Platelet Count (auto) 166 10^3/uL (140-450); Red Blood Cells 6.16 10^6/uL (4.5-5.90); Red Cell Distribution Width 19.2 % (11.8-14.3); White Blood Cell 10.7 10^3/uL (4.4-10.8)
--- NOTE | 2024-09-18 18:14 | ECG ---
[facility] Test Date: 2024-09-18 Test Time: 18:12:46 Pat Name: XIN ADAMS Department: ED Room: Gender: M Restaurant Greeter: raya : 1955 Requested By: BRIAN ANDRADE Order Number: [id number] Reading MD: Ld Baca Measurements Intervals [place] Rate: 103 P: 83 GA: 193 QRS: 208 QRSD: 119 T: 64 QT: 369 QTc: 483 Interpretive Statements Sinus tachycardia Nonspecific intraventricular conduction delay Probable anteroseptal infarct, old Electronically Signed On 09-18-2024 20:40:07 PDT by Ld Baca Please click the below link to view image of tracing.
[2024-09-18 18:18] LABS: Chloride 104 mmol/L (98-107); Sodium 140 mmol/L (136-145)
[2024-09-18 18:19] LABS: Anion Gap 15 (5-15); Carbon Dioxide 21 mmol/L (20-31)
[2024-09-18] MEDS: ASPirin 81 mg TAB PO ONE (18:21)
[2024-09-18 18:24] LABS: BUN/Creatinine Ratio 24.5 (10.0-20.0)
[2024-09-18 18:28] LABS: Glucose 117 mg/dL (74-106)
[2024-09-18 18:30] LABS: Blood Urea Nitrogen 95 mg/dL (9-23)
[2024-09-18] MEDS: DEXTROSE (50%) 50ML SYRG IV ONE (18:57)
[2024-09-18] MEDS: InsuLIN REG 1unit/0.01ml Soln (100units/ml) IV ONE (19:00)
[2024-09-18] MEDS: CALCIUM GLUC 1,000mg/50ml-NS 50 ML IV ONE (19:06)
--- NOTE | 2024-09-18 19:13 | DVH ---
CHEST RADIOGRAPH Indication: pain Technique: Single frontal view of the chest was obtained Comparison: XY CHEST XRAY 1 VIEW on DOS: 08/03/24, XY CHEST PORTABLE on DOS: 04/08/24, XY CHEST XRAY 1 VIEW on DOS: 03/10/24 FINDINGS: Lines and Tubes: None Lungs: Bilateral perihilar airspace disease extending into the right lower lobe and in the left upper and lower lobe. Pleura: No effusion. No pneumothorax. Cardiomediastinal contours: Cardiomegaly Bones: No acute osseous abnormality. IMPRESSION: 1. Findings may be consistent with congestive failure or infection. HS:Y
[2024-09-18] MEDS: ALBUTEROL SULF 2.5 MG/0.5ML(0.5%) NEB SOLN NEB ONE (19:33)
[2024-09-18 19:49] LABS: Albumin 4.5 g/dL (3.2-4.8); Alkaline Phosphatase 83 U/L (46-116); Anion Gap 19 (5-15); BUN/Creatinine Ratio 22.9 (10.0-20.0); Chloride 104 mmol/L (98-107); Sodium 140 mmol/L (136-145); Total Protein 7.6 g/dL (5.7-8.2)
[2024-09-18 19:50] LABS: Alanine Aminotransferase 47 U/L (7-40); Aspartate Aminotransferase 70 U/L (13-40); Bilirubin, Total 2.9 mg/dL (0.2-1.0); Calcium 11.1 mg/dL (8.7-10.4); Carbon Dioxide 17 mmol/L (20-31); Glucose 119 mg/dL (74-106)
[2024-09-18 19:51] LABS: Blood Urea Nitrogen 86 mg/dL (9-23); Potassium 6.9 mmol/L (3.5-5.1)
--- NOTE | 2024-09-18 20:54 | DVHHPRES ---
History of Present Illness Resident Creating Document: RAUL SLAUGHTER RESIDENT History of Present Illness Mr. Calvillo is a 69-year-old male with past medical history of heart failure with a reduced ejection fraction-LVEF 12% 07/2024, end-stage dilated cardiomyopathy, pulmonary hypertension-RVSP 60 mmHg, history of hepatitis-C who presented to the ER with a chief complaint of left-sided chest pain along with shortness of breaths for the past 2 days. Patient is A&O x3 but is unable to give history given the pain. Patient's sister Ambar was called, reported that the patient has a had some stomach pain for the past 2 days but does not know the details. Patient lives with a female friend Monica, [phone] go directly went to [facility]. Per sister, patient quit smoking alcohol long time back. Does not do any illicit drugs. He has been compliant with medications. On arrival to the ER, patient was afebrile, tachycardic, normotensive, H&H 17/53. BNP was greater than 5000. Patient had anion gap metabolic acidosis. Anion gap was 19. Creatinine was 3.7, baseline is 3.08. Troponin were downtrending, 157, 155. D-dimer was 4. past medical history of heart failure with a reduced ejection fraction-LVEF 12% 07/2024, end-stage dilated cardiomyopathy, pulmonary hypertension-RVSP 60 mmHg, history of hepatitis-C Social history: Per sister, patient quit smoking alcohol long time back Patient seen and examined in the ER, EKG shows sinus tachycardia with peaked T-waves. Hyperkalemia protocol initiated. Lactic acid was 2.4, secondary to hypoperfusion. Cardiology consulted. Smoke: Quit ALCOHOL: occassional Drugs: None Lives: Friends Review of Systems Constitutional: Yes: Weakness Respiratory: Cough Cardiovascular: Chest Pain, Paroxysmal Noc. Dyspnea, Edema Gastrointestinal: Abdominal Pain Allergies: Coded Allergies: NO KNOWN ALLERGIES (Unverified , 07/08/18) Medications Current Medications Medications Dose Ordered Sig/Lisa Route Start Time Stop Time Status Last Admin Dose Admin Furosemide 40 mg BID IV 09/18/24 19:30 Exam Vital Signs Vital Signs Date Time Temp Pulse Resp B/P (MAP) Pulse Ox O2 Delivery O2 Flow Rate FiO2 09/18/24 19:33 20 95 Room Air* 0 21 09/18/24 18:25 108 09/18/24 18:17 138/88 (105) 09/18/24 17:15 98.0 98.0 Exam Patient lying in bed, in no acute distress General: Afebrile, palor, mucosae are moist Cardiovascular: Tachycardic but Regular S1 and S2. No murmurs, gallops or rubs. JVD raised, positive hepatojugular reflux. 3 +pitting pedal edema bilaterally Respiratory: Normal B/L air entry on room air. Bilateral basilar crackles on auscultation Abdomen: Soft, tender, nondistended, normoactive bowel sounds, no rebound t enderness, no organomegaly, no masses Genitourinary: Deferred MSK/skin: Mobilizes 4 limbs. Skin is dry and warm Neurological: No motor, no sensitive deficits, normal speech. Pupils are isocoric and reactive. Psych/Mental Status: A/Ox3 Labs/Xrays Labs Test 09/18/24 20:43 09/18/24 18:56 09/18/24 18:33 09/18/24 17:33 Range/Units POC Glucose 95 70-106 mg/dl Sodium Level 140 136-145 mmol/L Potassium Level 6.9 *H 3.5-5.1 mmol/L Chloride Level 104 98-107 mmol/L Carbon Dioxide Level 17 L 20-31 mmol/L Anion Gap 19 H 5-15 Blood Urea Nitrogen 86 *H 9-23 mg/dL Creatinine 3.76 H 0.700-1.30 mg/dL Glomerular Filtration Rate Calc 17 >90 mL/min BUN/Creatinine Ratio 22.9 H 10.0-20.0 Serum Glucose 119 H 74-106 mg/dL Calcium Level 11.1 H 8.7-10.4 mg/dL Total Bilirubin 2.9 H 0.2-1.0 mg/dL Aspartate Amino Transferase (AST) 70 H 13-40 U/L Alanine Aminotransferase (ALT) 47 H 7-40 U/L Alkaline Phosphatase 83 46-116 U/L Total Protein 7.6 5.7-8.2 g/dL Albumin 4.5 3.2-4.8 g/dL White Blood Count 10.7 4.4-10.8 10^3/uL Red Blood Count 6.16 H 4.5-5.90 10^6/uL Hemoglobin 17.7 H 13.5-17.5 g/dL Hematocrit 53.4 H 41.0-53.0 % Mean Corpuscular Volume 86.7 80.0-100.0 fL Mean Corpuscular Hemoglobin 28.7 28.0-32.0 pg Mean Corpuscular Hemoglobin Concent 33.1 32.0-36.0 g/dL Red Cell Distribution Width 19.2 H 11.8-14.3 % Platelet Count 166 140-450 10^3/uL Mean Platelet Volume 8.0 6.9-10.8 fL Neutrophils (%) (Auto) 88.4 H 37.0-80.0 % Lymphocytes (%) (Auto) 5.5 L 10.0-50.0 % Monocytes (%) (Auto) 5.8 0.0-12.0 % Eosinophils (%) (Auto) 0.0 0.0-7.0 % Basophils (%) (Auto) 0.3 0.0-2.0 % Neutrophils # (Auto) 9.5 H 1.6-8.6 10 ^3/uL Lymphocytes # (Auto) 0.6 0.4-5.4 10 ^3/uL Monocytes # (Auto) 0.6 0-1.3 10 ^3/uL Eosinophils # (Auto) 0 0-0.8 10 ^3/uL Basophils # (Auto) 0 0-0.2 10 ^3/uL Nucleated Red Blood Cells 0.3 % D-Dimer, Quantitative 4.06 H 0.0-0.49 mg/L FEU B-Type Natriuretic Peptide > 5000.00 0-100 pg/mL Assessment/Plan Assessment/Plan Acute hypoxic respiratory faiure due to CHF exacerbation Chest pain, rule out ACS NSTEMI-type 1 versus type 2 Acute on chronic Heart failure with reduced ejection fraction exacerbation-NYHA class 3-last LVEF 12% 07/2024 Pulmonary edema End-stage dilated cardiomyopathy Hyperkalemic emergency Pulmonary hypertension-RVSP 60 mmHg Elevated D-dimer? Secondary hypercoagulable state Rule out pulmonary embolism Troponin 157, 155 downtrending EKG shows peaked T-waves but otherwise NSR DC Lasix 40 mg IV b.i.d. Started Bumex 2.5mg bid and dobutamine drip Cardiology consulted for end-stage dilated cardiomyopathy and EF 12% Hyperkalemia protocol initiated Lower extremity Doppler and NM V/Q scan ordered Strict I&Os, fluid restriction Sepsis due to ?Cholecystitis GBUS showed Gallbladder wall thickening and pericholecystic fluid. Surgeon consulted, IV ceftriaxone and IV metronidizole Anion gap metabolic acidosis Lactic acidosis PORTIA likely vasomotor mediated superimposed on CKD Mild Hypercalcemia Transaminitis History of hepatitis-C Liver ultrasound pending Alpha-fetoprotein level pending Lovenox 40 mg sc daily Plan discussed with patient in ER, sister over the phone in which all questions have been answered Goals of care discussed with the patient for more than 20 minutes, full code status Case discussed with Dr. Bailey Plan discussed with: Patient My Orders Orders - RAUL SLAUGHTER Procedure Category Date Status Time Admit ADMIT 09/18/24 Verified 20:53 Date of Service: Sep 18, 2024 Billing Provider: NINA BAILEY MD Common Visit Codes: [id number] INP/OBS CARE (HIGH) RAUL SLAUGHTER Sep 18, 2024 20:54
[2024-09-18] MEDS: FUROSEMIDE 40 MG/4 ML VIAL IV SCH (20:59)
[2024-09-18] MEDS: SODIUM BICARB 8.4% 50Meq/50ml SYR Vial IV ONE (21:00)
[2024-09-18] MEDS ORDERED: ACETAMINOPHEN 500 MG TAB or CAP PO PRN (21:15)
[2024-09-18 21:39] LABS: INR 1.93 (0.9-1.15); Partial Thromboplastin Time 33.6 SEC (24.5-34.5); Prothrombin Time 19.2 sec (9.3-11.8)
[2024-09-18 22:25] LABS: Lactic Acid w/Reflex 2.4 mmol/L (0.4-2.0)
[2024-09-18] MEDS: IPRATROPIUM BROM 0.5 MG/2.5ML INH SOL NEB SCH (23:16)
[2024-09-18] MEDS: ATORVASTATIN 20 MG TAB PO SCH (23:28)
[2024-09-18] MEDS: ASPirin-EC 81 mg tab PO ONE (23:28)
[2024-09-19] VITALS (15 sets, daily range): BP systolic 117–148; BP diastolic 62–78; PULSE 85–99; RESP 13–21; TEMP 97.4–97.6; O2SAT 94–100
--- NOTE | 2024-09-19 00:28 | DVH ---
INDICATION: transamnitis TECHNIQUE: Multiple real-time sonographic images were obtained of the right upper quadrant. COMPARISON: None FINDINGS: The liver demonstrates normal homogeneous echotexture without focal mass lesions. The liver measures 13.9 cm. Normal hepatopetal portal flow is appreciated. There is no evidence of pleural eff usion or abdominal ascites. There is no intrahepatic or extrahepatic ductal dilatation. The common duct measures 0.4 cm. The gallbladder is without evidence of stone or sludge. The gallbladder wall is thickened, measuring 0.7 cm. There is pericholecystic edema. Negative sonographic Coello's sign. The right kidney measures 9.1 cm. The right kidney is normal in contour, size, and shape. The echogen icity is normal. There is no hydronephrosis. 1.6 cm simple appearing cyst within the midpole. The pancreas is not well visualized due to overlying bowel gas. IMPRESSION: 1. Gallbladder wall thickening and pericholecystic fluid.
[2024-09-19 00:53] LABS: COVID19 ANTIGEN SOFIA FIA NEGATIVE (NEGATIVE); Rapid Influenza A Negative (Negative); Rapid Influenza B Negative (Negative)
[2024-09-19] MEDS: ATORVASTATIN 20 MG TAB PO ONE (00:53)
[2024-09-19] MEDS: ALBUTEROL SULF 2.5 MG/0.5ML(0.5%) NEB SOLN NEB ONE ×2 (04:13→08:37)
[2024-09-19] MEDS: InsuLIN REG 1unit/0.01ml Soln (100units/ml) IV ONE ×2 (04:28→07:45)
[2024-09-19] MEDS: DEXTROSE (50%) 50ML SYRG IV ONE ×2 (04:30→07:45)
[2024-09-19] MEDS: FUROSEMIDE 40 MG/4 ML VIAL IV ONE ×2 (04:30→05:03)
[2024-09-19] MEDS: SODIUM ZIRCONIUM CYCL 10 GM PAK PO ONE ×2 (04:30→07:45)
[2024-09-19] MEDS: SODIUM BICARB 8.4% 50Meq/50ml SYR INJ IV ONE ×2 (04:31→07:45)
[2024-09-19] MEDS: CALCIUM GLUC 1,000mg/50ml-NS 50 ML IV ONE (04:31)
[2024-09-19 05:03] LABS: Urine Bacteria FEW /hpf (None Seen); Urine Blood 2+ /uL (Negative); Urine Clarity Turbid (Clear); Urine Color Yellow (Yellow); Urine Hyaline Cast MANY /lpf (0 - 2); Urine Mucus FEW (None Seen); Urine Protein, UAD 2+ (Negative); Urine Specific Gravity 1.014 (1.001-1.035); Urine Squamous Epithelial Cell FEW /hpf (<5); Urine Urobilinogen Normal (Negative); Urine WBC 22 /HPF (0-3); Urine pH 5.5 (5.0-9.0)
[2024-09-19 05:04] LABS: Sodium Urine 43 mmol/L (40-220)
[2024-09-19 05:08] LABS: Protein, Urine 221.2 mg/dL (1-14)
[2024-09-19 05:10] LABS: Opiate Scree,Urine Neg (NEGATIVE)
[2024-09-19 05:11] LABS: Creatinine, Urine 105.63 mg/dL (30.0-125.0); Urine Protein/Creatinine Ratio 2.09
[2024-09-19 05:13] LABS: Amphetamine Screen, Urine Neg (NEGATIVE); Barbiturate Scree,Urine Neg (NEGATIVE); Benzodiazephine Screen, Urine Neg (NEGATIVE); Cannabinoid Screen, Urine Neg (NEGATIVE); Cocaine Screen, Urine Neg (NEGATIVE); Phencyclidine Screen, Urine Neg (NEGATIVE)
[2024-09-19] MEDS: DOBUTamine 1000MCG/ML 250 ML IV SCH (05:33)
[2024-09-19] MEDS: hydrALAZINE HCL 10 MG TAB PO SCH (06:00)
[2024-09-19] MEDS: metroNIDAZOLE 500MG/100ML 100 ML IV ONE (08:00)
[2024-09-19] MEDS: cefTRIAXone 1GM/50ML D5W 50 ML IV SCH (09:00)
[2024-09-19] MEDS: BUMETANIDE 2.5mg/10ml (0.25 mg/ml) INJ IV SCH (09:00)
--- NOTE | 2024-09-19 09:17 | DVHINCON2 ---
Date Seen: Sep 19, 2024 Referring Physician MD Marianela Reason for Consultation Chest pain, EF 12% History of Present Illness This is a 69-year-old man who presented to the emergency room with a chief complaint of shortness of breath for two days. The patient is a very poor historian. Complains of shortness of breath associated with nausea, vomiting, diffuse abdominal pain, right shoulder pain and right upper extremity pain. Upon inquiring about chest pain symptoms, the patient denied any further discomfort. He was unable to describe the chest pain preceding to admission. He has a significant medical history for HFrEF. Denies following up in the outpatient setting with a primary fruit coordinator neither taking any heart failure medications secondary to side effects stating "it dries me up and makes me feel old." Denies undergoing ischemic workup in the past. He is currently on a dobutamine drip. Per primary RN, patient is requesting to leave AMA. Significant past medical history includes end-stage/dilated cardiomyopathy with HFrEF including a LVEF of 12%, severe pulmonary hypertension, pre-diabetes, history of hepatitis-C, COPD, history of lung cancer status post lobectomy, history of tobacco use, and occasional alcohol use. Past Medical History Past medical history reviewed. No other significant than mentioned above. Past Surgical History Pulmonary lobectomy Hernia repair Family History: Diabetes mellitus G8 MOTHER Family History Unable to obtain family history, poor historian. Social History Denies the use of illicit drugs or tobacco use. Admits to occasional alcohol use. Quit tobacco use, unknown time frame. Allergies: Coded Allergies: NO KNOWN ALLERGIES (Unverified , 07/08/18) Home Meds Active Scripts Isosorbide Mononitrate (ISMO TABLET) 20 Mg Tb, 10 MG PO DAILY for 30 Days, #15 TAB Prov:THIAGO LIZ RESIDENT 04/12/24 Hydralazine Hcl (Hydralazine Hcl) 10 Mg Tab, 10 MG PO Q8HR for 30 Days, #90 TAB Prov:THIAGO LIZ RESIDENT 04/12/24 Famotidine (PEPCID TABLET) 20 Mg Tb, 1 TAB PO BID, #60 TAB 3 Refills Prov:ARAVIND HARPER MD 03/10/24 Metoprolol Succinate (Toprol Xl) 50 Mg Tab, 25 MG PO DAILY for 60 Days, #30 TAB Prov:ARAVIND HARPER MD 03/10/24 Clopidogrel Bisulfate (CLOPIDOGREL) 75 Mg Tab, 75 MG PO DAILY for 60 Days, #60 TAB Prov:ARAVIND HARPER MD 03/10/24 Reported Medications Bumetanide (Bumetanide) 1 Mg Tab, 2 TAB PO DAILY 08/04/24 Tamsulosin Hcl (Tamsulosin Hcl) 0.4 Mg Cap, 1 CAP PO DAILY 08/04/24 Hydrocodone-Acetaminophen (Hydrocodone/Acetaminophen 10-325 mg) 1 Tab Tab, 1 TAB PO DAILY PRN for PAIN SCALE 7 THRU 10 08/04/24 Benzonatate (Benzonatate) 200 Mg Cap, 1 CAP PO TID 08/04/24 Atorvastatin Calcium (Lipitor) 40 Mg Tab, 1 TAB PO DAILY for 90 Days, #90 03/07/24 Fluticasone Furoate-Vilanterol (BREO ELLIPTA) 1 Inh Inh, 1-2 PUFF INH DAILY for 30 Days, #60 03/07/24 Albuterol Sulfate (Albuterol Sulfate Hfa) 108 Mcg/Act Aer, 1 PUFF INH Q6HR PRN for WHEEZING for 50 Days, #18 03/07/24 Home Meds Unable to recall home medications. Current Medications Current Medications Medications (Trade) Dose Ordered Sig/Lisa Route PRN Reason Start Time Stop Time Status Last Admin Furosemide (Lasix Injection) 40 mg BID IV 09/18/24 19:30 09/19/24 08:09 DC 09/19/24 00:32 Atorvastatin Calcium (Lipitor) 40 mg HS PO 09/18/24 22:00 09/19/24 00:43 DC 09/18/24 23:28 Ipratropium [place] (Atrovent Medneb) 0.5 mg Q6HR NEB 09/19/24 00:00 09/19/24 06:48 Acetaminophen (Tylenol Tablet Or Capsule) 500 mg Q4HPRN PRN PO MILD PAIN (1-3 PAIN SCALE) 09/18/24 21:15 Acetaminophen/ Hydrocodone Bitart ([place] 5/325MG Tab) 1 tab Q4HPRN PRN PO MODERATE PAIN (4-6 PAIN SCALE) 09/18/24 21:15 Morphine Sulfate 1 mg Q4HPRN PRN IV SEVERE PAIN (7-10 PAIN SCALE) 09/18/24 21:15 Hold Enoxaparin Sodium (Lovenox) 30 mg DAILY SC 09/19/24 10:00 Bumetanide (Bumex Tablet) 2 mg DAILY PO 09/19/24 10:00 09/19/24 00:44 DC Clopidogrel Bisulfate (Plavix) 75 mg DAILY PO 09/19/24 10:00 Famotidine (Pepcid Tablet) 10 mg DAILY PO 09/19/24 10:00 Hydralazine HCl (Apresoline Tablet) 10 mg Q8HR PO 09/19/24 06:00 Isosorbide Mononitrate (Ismo Tablet) 10 mg DAILY PO 09/19/24 10:00 Metoprolol Succinate (Toprol Xl) 25 mg DAILY PO 09/19/24 10:00 Tamsulosin HCl (Flomax) 0.4 mg DAILY PO 09/19/24 10:00 Atorvastatin Calcium (Lipitor) 40 mg HS PO 09/19/24 22:00 Bumetanide (Bumex Tablet) 2 mg DAILY PO 09/19/24 10:00 09/19/24 08:09 DC Dobutamine HCl/ Dextrose 250 ml @ 10.5 mls/hr [id number] IV 09/19/24 02:45 09/19/24 05:33 Ceftriaxone Sodium 50 ml @ 100 mls/hr DAILY@09 IV 09/19/24 09:00 Metronidazole 100 ml @ 100 mls/hr Q8HR IV 09/19/24 14:00 Bumetanide (Bumex Injection) 2.5 mg BIDD IV 09/19/24 09:00 UNV Review of Systems Constitutional: No symptom reported Ears, Nose, & Throat: No symptom reported Eyes: No symptom reported Neurological: No symptoms reported Pulmonary/Respiratory: SOB Cardiovascular: Chest pain Gastrointestinal: Abdominal pain, nausea, vomiting Genitourinary: No symptom reported Musculoskeletal: No symptom reported Skin: No symptom reported Psychiatric: No symptom reported Endocrine: No symptom reported Hemotologic/Lymphatic: No symptom reported Vital Signs Vital Signs Date Time Temp Pulse Resp B/P (MAP) Pulse Ox O2 Delivery O2 Flow Rate FiO2 09/19/24 08:08 90 09/19/24 06:54 21 100 09/19/24 06:48 Nasal Cannula* 5 40 09/19/24 06:03 111/56 (74) 09/18/24 21:20 98.0 98.0 Physical Exam General Appearance: Belligerent. Moderate acute respiratory distress Head Exam: Normal inspection Neck Exam: Normal inspection. Non-tender. Normal alignment Pulmonary/Respiratory: Chest non-tender. Crackles to bilateral breath sounds Cardiovascular/Chest: Regular rate and rhythm. S1, S2. Sinus rhythm with a LVH and nonspecific T-wave inversion. +JVD. Peripheral Pulses: 2+ Radial (R). 2+ Radial (L). 2+ Pedal (R). 2+ Pedal (L) Abdominal Exam: Normal bowel sounds. Soft. Tender Ankle Exam: Positive ankle edema, 2+ Lower extremities: Positive lower extremity edema, 2+ Neuro/Mental Status: A&O x3. Coherent but very poor historian Thoughts/Psych: Normal thought pattern. Belligerent Appearance: Moderate acute respiratory distress Skin Exam: Normal inspection. Normal color. Warm. Dry Labs/Diagnostic Data Labs Test 09/19/24 04:35 09/19/24 04:18 09/19/24 01:45 09/18/24 23:30 Range/Units Urine Color Yellow Yellow Urine Clarity Turbid H Clear Urine pH 5.5 5.0-9.0 Urine Specific [place] 1.014 1.001-1.035 Urine Protein 2+ H Negative Urine Ketones Trace Negative Urine Blood 2+ H Negative /uL Urine Nitrite Negative Negative Urine Bilirubin Negative Negative Urine Urobilinogen Normal Negative mg/dL Urine Leukocyte Esterase 1+ Negative /uL Urine RBC 20 0 - 3 /hpf Urine Microscopic WBC 22 H 0-3 /HPF Urine Squamous Epithelial Cells Few <5 /hpf Urine Bacteria Few H None Seen /hpf Urine Hyaline Casts Many 0 - 2 /lpf Urine Mucus Few None Seen Urine Creatinine 105.63 30.0-125.0 mg/dL Urine Protein/Creatinine Ratio 2.09 Urine Sodium 43 40-220 mmol/L Urine Glucose Normal Normal mg/dL Urine Total Protein 221.2 H 1-14 mg/dL Urine Opiates Screen Neg NEGATIVE Urine Fentanyl Screen Neg NEGATIVE Urine Barbiturates Screen Neg NEGATIVE Urine Phencyclidine Screen Neg NEGATIVE Urine Amphetamines Screen Neg NEGATIVE Urine Benzodiazepines Screen Neg NEGATIVE Urine Cocaine Screen Neg NEGATIVE Urine Cannabinoids Screen Neg NEGATIVE POC Glucose 138 H 70-106 mg/dl Potassium Level 6.0 *H 3.5-5.1 mmol/L Lactic Acid Level 3.0 *H 0.4-2.0 mmol/L Ammonia < 10 L 11-32 umol/L Influenza Type A Antigen Negative Negative Influenza Type B Antigen Negative Negative SARS-CoV-2 Antigen (Rapid) Negative NEGATIVE Test 09/18/24 20:43 09/18/24 18:33 09/18/24 17:33 Range/Units Troponin I High Sensitivity 145 *H </=54 ng/L Sodium Level 140 136-145 mmol/L Chloride Level 104 98-107 mmol/L Carbon Dioxide Level 17 L 20-31 mmol/L Anion Gap 19 H 5-15 Blood Urea Nitrogen 86 *H 9-23 mg/dL Creatinine 3.76 H 0.700-1.30 mg/dL Glomerular Filtration Rate Calc 17 >90 mL/min BUN/Creatinine Ratio 22.9 H 10.0-20.0 Serum Glucose 119 H 74-106 mg/dL Calcium Level 11.1 H 8.7-10.4 mg/dL Total Bilirubin 2.9 H 0.2-1.0 mg/dL Aspartate Amino Transferase (AST) 70 H 13-40 U/L Alanine Aminotransferase (ALT) 47 H 7-40 U/L Alkaline Phosphatase 83 46-116 U/L Total Protein 7.6 5.7-8.2 g/dL Albumin 4.5 3.2-4.8 g/dL White Blood Count 10.7 4.4-10.8 10^3/uL Red Blood Count 6.16 H 4.5-5.90 10^6/uL Hemoglobin 17.7 H 13.5-17.5 g/dL Hematocrit 53.4 H 41.0-53.0 % Mean Corpuscular Volume 86.7 80.0-100.0 fL Mean Corpuscular Hemoglobin 28.7 28.0-32.0 pg Mean Corpuscular Hemoglobin Concent 33.1 32.0-36.0 g/dL Red Cell Distribution Width 19.2 H 11.8-14.3 % Platelet Count 166 140-450 10^3/uL Mean Platelet Volume 8.0 6.9-10.8 fL Neutrophils (%) (Auto) 88.4 H 37.0-80.0 % Lymphocytes (%) (Auto) 5.5 L 10.0-50.0 % Monocytes (%) (Auto) 5.8 0.0-12.0 % Eosinophils (%) (Auto) 0.0 0.0-7.0 % Basophils (%) (Auto) 0.3 0.0-2.0 % Neutrophils # (Auto) 9.5 H 1.6-8.6 10 ^3/uL Lymphocytes # (Auto) 0.6 0.4-5.4 10 ^3/uL Monocytes # (Auto) 0.6 0-1.3 10 ^3/uL Eosinophils # (Auto) 0 0-0.8 10 ^3/uL Basophils # (Auto) 0 0-0.2 10 ^3/uL Nucleated Red Blood Cells 0.3 % Prothrombin Time 19.2 H 9.3-11.8 sec Prothrombin Time INR 1.93 H 0.9-1.15 Activated Partial Thromboplast Time 33.6 24.5-34.5 SEC D-Dimer, Quantitative 4.06 H 0.0-0.49 mg/L FEU Hemoglobin A1c 5.7 <5.7 % A1C Magnesium Level 2.4 1.6-2.6 mg/dL B-Type Natriuretic Peptide > 5000.00 0-100 pg/mL Thyroid Stimulating Hormone (TSH) 2.74 0.55-4.78 uIU/mL Assessment Non ST-elevation myocardial infarction Acute on chronic decompensated HFrEF, NYHA class IV End-stage/dilated cardiomyopathy, ?ischemic Pulmonary hypertension, severe PORTIA on CKD with associated hyperkalemia Acute cholecystitis History of lung cancer status post lobectomy History of tobacco use Medical noncompliance Plan/Recommendation We will continue with the following plan/recommendations (Dr. Arguelles): * Transthoracic echocardiogram revealed LVEF 12% * Preload and afterload reduction. Continue dobutamine drip, diuretic, and BB * Initiate rest of guideline directed medical therapy for CHF as renal function permits * Strict intake and output, daily weights, maintain fluid restriction * Repeat potassium level * DVT/VTE prophylaxis * Close Cardiac surveillance * Risk factor modifications, counseled * Adherence to medication regimen and outpatient cardiology follow-ups The patient presents with downtrending troponin levels and no further chest pain complains. Given poor renal function, we will continue medical management at this time. He can benefit from an eventual coronary angiogram with cardiac catheterization as outpatient. In the meantime, maximize medical therapy. Refused lower extremity DVT US. States he would like to leave AMA. Thank you for allowing us to care for this patient. Please call with any questions or concerns. Critical care time spent: 44 minutes. This medical document was created using an electronic medical record system with voice recognition software and computerized dictation system. Although this document has been carefully reviewed, there might still be some phonetic and typographical errors. Occasional wrong-word or ``sound-alike substitutions may have occurred due to the inherent limitations of voice recognition software. These areas are purely typographical due to imperfections of the software programs and do not reflect any compromise in the patient's medical care. Please read the chart carefully and recognize, using context, where these substitutions have occurred. Plan discussed with: Patient, Other NYHA Physical activity limitations: Class4(Severe)discomfort (w any activit,symptoms at rest) Date of Service: Sep 19, 2024 Billing Provider: CARLOZ RUANO Cardiology Common Codes: [id number] INP/OBS CARE (High) CARLOZ RUANO Sep 19, 2024 09:17
[2024-09-19] MEDS ORDERED: BUMETANIDE 1 MG TAB PO SCH ×2 (10:00)
[2024-09-19] MEDS: ENOXAPARIN SOD 30 MG/0.3 ML SYRINGE SC SCH (10:00)
[2024-09-19] MEDS: CLOPIDOGREL BISULFATE 75 MG TAB PO SCH (10:00)
[2024-09-19] MEDS ORDERED: METOPROLOL SUCCINATE XL 50 MG TAB PO SCH (10:00)
[2024-09-19] MEDS: CARVEDILOL 3.125 MG TAB PO SCH (10:00)
[2024-09-19] MEDS: FAMOTIDINE 20 MG TAB PO SCH (10:00)
[2024-09-19] MEDS: TAMSULOSIN HYDROCHLORIDE 0.4 MG CAP PO SCH (10:00)
[2024-09-19] MEDS ORDERED: ISOSORBIDE MONONITRATE 20 MG TAB PO SCH (10:00)
[2024-09-19 10:51] LABS: Potassium 5.1 mmol/L (3.5-5.1); Sodium 140 mmol/L (136-145)
[2024-09-19 10:52] LABS: Anion Gap 11 (5-15); Calcium 9.7 mg/dL (8.7-10.4); Carbon Dioxide 22 mmol/L (20-31)
[2024-09-19 10:57] LABS: BUN/Creatinine Ratio 23.5 (10.0-20.0); Chloride 107 mmol/L (98-107); Glucose 121 mg/dL (74-106)
[2024-09-19 11:01] LABS: Phosphorus 5.7 mg/dL (2.4-5.1)
[2024-09-19 11:02] LABS: Blood Urea Nitrogen 89 mg/dL (9-23)
--- NOTE | 2024-09-19 12:18 | DVHPN2 ---
Progress Note Date Seen: Sep 19, 2024 Medical Necessity Reason Pt with a Central, PICC or Fol: No Subjective Patient reports: No new complaints Review of Systems: HEENT:Normal, CVS:Normal, RESPIRATORY:Normal, GI:Normal, :Normal, MSK:Normal, NEURO:Normal Objective vital signs Vital Sign Date Time Temp Pulse Resp B/P (MAP) Pulse Ox O2 Delivery O2 Flow Rate FiO2 09/19/24 11:49 97 16 100 09/19/24 11:43 Nasal Cannula* 4 36 09/19/24 11:00 109/64 (79) 09/18/24 21:20 98.0 98.0 Total Intake and Output 09/18/24 09/18/24 09/19/24 15:00 23:00 07:00 Intake Total 50 ml Balance 50 ml medications Current Medications Medications Dose Ordered Sig/Lisa Route Start Time Stop Time Status Last Admin Dose Admin Ipratropium [place] 0.5 mg Q6HR NEB 09/19/24 00:00 09/19/24 11:43 0.5 MG Acetaminophen 500 mg Q4HPRN PRN PO 09/18/24 21:15 Acetaminophen/ Hydrocodone Bitart 1 tab Q4HPRN PRN PO 09/18/24 21:15 Morphine Sulfate 1 mg Q4HPRN PRN IV 09/18/24 21:15 Hold Enoxaparin Sodium 30 mg DAILY SC 09/19/24 10:00 Clopidogrel Bisulfate 75 mg DAILY PO 09/19/24 10:00 Famotidine 10 mg DAILY PO 09/19/24 10:00 Hydralazine HCl 10 mg Q8HR PO 09/19/24 06:00 Tamsulosin HCl 0.4 mg DAILY PO 09/19/24 10:00 Atorvastatin Calcium 40 mg HS PO 09/19/24 22:00 Dobutamine HCl/ Dextrose 250 ml @ 10.5 mls/hr [id number] IV 09/19/24 02:45 09/19/24 05:33 10.5 MLS/HR Ceftriaxone Sodium 50 ml @ 100 mls/hr DAILY@09 IV 09/19/24 09:00 Metronidazole 100 ml @ 100 mls/hr Q8HR IV 09/19/24 14:00 Bumetanide 2.5 mg BIDD IV 09/19/24 09:00 Carvedilol 3.125 mg Q12HR PO 09/19/24 10:00 Examination: GENERAL:Normal, HEENT:Normal, NECK:Normal, LUNGS:Normal, LUNGS:Abnormal (on oxygen), CVS:Normal, ABDOMEN:Normal, MSK:Normal, MSK:Abnormal (edema++), SKIN:Normal, NEURO:Normal, :Normal laboratory and microbiology Laboratory Tests 09/19/24 10:14 09/18/24 17:33 Test 09/19/24 10:14 Range/Units Serum Glucose 121 H 74-106 mg/dL Problem List/Assessment/Plan Problem List/Assessment/Plan #1 acute resp failure: cont oxygen #2 acute on chronic systolic heart failure: bumez, dobutamine #3 acute on chronic renal failure ?vasomotor nephropathy #4 pulm htn #5 h/o lung cancer s/p surgery #6 copd #7 h/o drug abuse #8 h/o hep c #9 non compliance- refusing meds #10 hyperkalemia: improved advance care planning: full code- time spent 19 mins Plan discussed with: Patient Date of Service: Sep 19, 2024 Billing Provider: MICHAEL GORDILLO MD Common Visit Codes: [id number] INP/OBS CARE(HIGH) Secondary Visit Codes: [id number] CARE PLAN 30 MINUTES MICHAEL GORDILLO MD Sep 19, 2024 12:18
[2024-09-19] MEDS ORDERED: metroNIDAZOLE 500MG/100ML 100 ML IV SCH (14:00)
--- NOTE | 2024-09-19 17:11 | DVHCONRES ---
Date Seen: Sep 19, 2024 Resident Creating Document: ALLI SILVA RESIDENT Referring Physician Reason for Consultation PORTIA on CKD History of Present Illness This is a 69-year-old male with a past medical history of pulmonary hypertension, heart failure with reduced ejection fraction (12%) and chronic hepatitis C infection.The patient presented to the emergency department with complaints of shortness of breath for the past two days, associated with left- sided chest pain and abdominal discomfort.On evaluation at bedside, the patient was alert but somewhat challenging to interview due to an uncooperative attitude and limited ability to provide a complete history. Consultation was requested for evaluation of acute kidney injury . Urine studies were obtained. Laboratory findings showed persistent elevation of BUN and creatinine, with worsening renal function (GFR approximately 16 mL/min). Phospho brianna and lactic acid were elevated. Imaging revealed signs consistent with congestive heart failure, including gallbladder wall thickening and the presence of pericardial cystic fluid; surgical consultation was requested for further evaluation.Het is currently being managed with intravenous diuretics (Bumex 2.5 mg IV BID for volume overload secondary to heart failure exacerbation. There is a concern for cardiorenal syndrome (ischemic renal injury secondary to low cardiac output). Past Medical History pulmonary hypertension, heart failure with reduced ejection fraction (12%) and chronic hepatitis C infection. Family History: Diabetes mellitus G8 MOTHER Allergies: Coded Allergies: NO KNOWN ALLERGIES (Unverified , 07/08/18) Home Meds Active Scripts Isosorbide Mononitrate (ISMO TABLET) 20 Mg Tb, 10 MG PO DAILY for 30 Days, #15 TAB Prov:THIAGO LIZ RESIDENT 04/12/24 Hydralazine Hcl (Hydralazine Hcl) 10 Mg Tab, 10 MG PO Q8HR for 30 Days, #90 TAB Prov:THIAGO LIZ RESIDENT 04/12/24 Famotidine (PEPCID TABLET) 20 Mg Tb, 1 TAB PO BID, #60 TAB 3 Refills Prov:ARAVIND HARPER MD 03/10/24 Metoprolol Succinate (Toprol Xl) 50 Mg Tab, 25 MG PO DAILY for 60 Days, #30 TAB Prov:ARAVIND HARPER MD 03/10/24 Clopidogrel Bisulfate (CLOPIDOGREL) 75 Mg Tab, 75 MG PO DAILY for 60 Days, #60 TAB Prov:ARAVIND HARPER MD 03/10/24 Reported Medications Bumetanide (Bumetanide) 1 Mg Tab, 2 TAB PO DAILY 08/04/24 Tamsulosin Hcl (Tamsulosin Hcl) 0.4 Mg Cap, 1 CAP PO DAILY 08/04/24 Hydrocodone-Acetaminophen (Hydrocodone/Acetaminophen 10-325 mg) 1 Tab Tab, 1 TAB PO DAILY PRN for PAIN SCALE 7 THRU 10 08/04/24 Benzonatate (Benzonatate) 200 Mg Cap, 1 CAP PO TID 08/04/24 Atorvastatin Calcium (Lipitor) 40 Mg Tab, 1 TAB PO DAILY for 90 Days, #90 03/07/24 Fluticasone Furoate-Vilanterol (BREO ELLIPTA) 1 Inh Inh, 1-2 PUFF INH DAILY for 30 Days, #60 03/07/24 Albuterol Sulfate (Albuterol Sulfate Hfa) 108 Mcg/Act Aer, 1 PUFF INH Q6HR PRN for WHEEZING for 50 Days, #18 03/07/24 Current Medications Current Medications Medications (Trade) Dose Ordered Sig/Lisa Route PRN Reason Start Time Stop Time Status Last Admin Furosemide (Lasix Injection) 40 mg BID IV 09/18/24 19:30 09/19/24 08:09 DC 09/19/24 00:32 Atorvastatin Calcium (Lipitor) 40 mg HS PO 09/18/24 22:00 09/19/24 00:43 DC 09/18/24 23:28 Ipratropium [place] (Atrovent Medneb) 0.5 mg Q6HR NEB 09/19/24 00:00 09/19/24 11:43 Acetaminophen (Tylenol Tablet Or Capsule) 500 mg Q4HPRN PRN PO MILD PAIN (1-3 PAIN SCALE) 09/18/24 21:15 Acetaminophen/ Hydrocodone Bitart ([place] 5/325MG Tab) 1 tab Q4HPRN PRN PO MODERATE PAIN (4-6 PAIN SCALE) 09/18/24 21:15 Morphine Sulfate 1 mg Q4HPRN PRN IV SEVERE PAIN (7-10 PAIN SCALE) 09/18/24 21:15 Enoxaparin Sodium (Lovenox) 30 mg DAILY SC 09/19/24 10:00 Bumetanide (Bumex Tablet) 2 mg DAILY PO 09/19/24 10:00 09/19/24 00:44 DC Clopidogrel Bisulfate (Plavix) 75 mg DAILY PO 09/19/24 10:00 Famotidine (Pepcid Tablet) 10 mg DAILY PO 09/19/24 10:00 Hydralazine HCl (Apresoline Tablet) 10 mg Q8HR PO 09/19/24 06:00 09/19/24 12:16 DC Isosorbide Mononitrate (Ismo Tablet) 10 mg DAILY PO 09/19/24 10:00 09/19/24 09:17 DC Metoprolol Succinate (Toprol Xl) 25 mg DAILY PO 09/19/24 10:00 09/19/24 09:17 DC Tamsulosin HCl (Flomax) 0.4 mg DAILY PO 09/19/24 10:00 Atorvastatin Calcium (Lipitor) 40 mg HS PO 09/19/24 22:00 Bumetanide (Bumex Tablet) 2 mg DAILY PO 09/19/24 10:00 09/19/24 08:09 DC Dobutamine HCl/ Dextrose 250 ml @ 10.5 mls/hr [id number] IV 09/19/24 02:45 09/19/24 05:33 Ceftriaxone Sodium 50 ml @ 100 mls/hr DAILY@09 IV 09/19/24 09:00 09/19/24 12:13 DC Metronidazole 100 ml @ 100 mls/hr Q8HR IV 09/19/24 14:00 09/19/24 12:13 DC Bumetanide (Bumex Injection) 2.5 mg BIDD IV 09/19/24 09:00 Carvedilol (Coreg Tablet) 3.125 mg Q12HR PO 09/19/24 10:00 Review of Systems General: Positive for generalized weakness. Respiratory: Positive for shortness of breath. Cardiovascular: no chest pain; denies palpitations. Genitourinary: Positive for hematuria; suprapubic tenderness not reported. Neurologic: No focal deficits reported. Musculoskeletal: No new joint or muscle pain. Skin: No rashes or ulcers noted. Vital Signs Vital Signs Date Time Temp Pulse Resp B/P (MAP) Pulse Ox O2 Delivery O2 Flow Rate FiO2 09/19/24 12:25 85 16 94 Room Air* 0 21 09/19/24 11:00 109/64 (79) 09/18/24 21:20 98.0 98.0 Physical Exam General: Alert, oriented but uncooperative. No acute distress. HEENT: Normocephalic, atraumatic. Cardiovascular: Regular rhythm, distant heart sounds. Pulmonary: Bibasilar crackles consistent with pulmonary congestion. Abdomen: Soft, non-distended, mild tenderness without rebound or guarding. Extremities: 3 plus pitting edema bilateral lower extremities. Neurologic: No focal neurological deficits observed. Labs/Diagnostic Data Labs Test 09/19/24 10:14 09/19/24 04:35 09/19/24 04:18 09/19/24 01:45 Range/Units Sodium Level 140 136-145 mmol/L Potassium Level 5.1 3.5-5.1 mmol/L Chloride Level 107 98-107 mmol/L Carbon Dioxide Level 22 20-31 mmol/L Anion Gap 11 5-15 Blood Urea Nitrogen 89 *H 9-23 mg/dL Creatinine 3.79 H 0.700-1.30 mg/dL Glomerular Filtration Rate Calc 16 >90 mL/min BUN/Creatinine Ratio 23.5 H 10.0-20.0 Serum Glucose 121 H 74-106 mg/dL Lactic Acid Level 1.6 0.4-2.0 mmol/L Calcium Level 9.7 8.7-10.4 mg/dL Phosphorus Level 5.7 H 2.4-5.1 mg/dL Urine Color Yellow Yellow Urine Clarity Turbid H Clear Urine pH 5.5 5.0-9.0 Urine Specific [place] 1.014 1.001-1.035 Urine Protein 2+ H Negative Urine Ketones Trace Negative Urine Blood 2+ H Negative /uL Urine Nitrite Negative Negative Urine Bilirubin Negative Negative Urine Urobilinogen Normal Negative mg/dL Urine Leukocyte Esterase 1+ Negative /uL Urine RBC 20 0 - 3 /hpf Urine Microscopic WBC 22 H 0-3 /HPF Urine Squamous Epithelial Cells Few <5 /hpf Urine Bacteria Few H None Seen /hpf Urine Hyaline Casts Many 0 - 2 /lpf Urine Mucus Few None Seen Urine Osmolality 380 mOsm/kg Urine Creatinine 105.63 30.0-125.0 mg/dL Urine Protein/Creatinine Ratio 2.09 Urine Sodium 43 40-220 mmol/L Urine Glucose Normal Normal mg/dL Urine Total Protein 221.2 H 1-14 mg/dL Urine Opiates Screen Neg NEGATIVE Urine Fentanyl Screen Neg NEGATIVE Urine Barbiturates Screen Neg NEGATIVE Urine Phencyclidine Screen Neg NEGATIVE Urine Amphetamines Screen Neg NEGATIVE Urine Benzodiazepines Screen Neg NEGATIVE Urine Cocaine Screen Neg NEGATIVE Urine Cannabinoids Screen Neg NEGATIVE POC Glucose 138 H 70-106 mg/dl Ammonia < 10 L 11-32 umol/L Parathyroid Hormone (Intact) 127.6 H 18.4-80.1 pg/mL Test 09/18/24 23:30 09/18/24 20:43 09/18/24 18:33 09/18/24 17:33 Range/Units Influenza Type A Antigen Negative Negative Influenza Type B Antigen Negative Negative SARS-CoV-2 Antigen (Rapid) Negative NEGATIVE Troponin I High Sensitivity 145 *H </=54 ng/L Vitamin B12 Level 2392 H 211-911 pg/mL Vitamin D 25-Hydroxy 67.6 30.0-100 ng/mL Total Bilirubin 2.9 H 0.2-1.0 mg/dL Aspartate Amino Transferase (AST) 70 H 13-40 U/L Alanine Aminotransferase (ALT) 47 H 7-40 U/L Alkaline Phosphatase 83 46-116 U/L Total Protein 7.6 5.7-8.2 g/dL Albumin 4.5 3.2-4.8 g/dL White Blood Count 10.7 4.4-10.8 10^3/uL Red Blood Count 6.16 H 4.5-5.90 10^6/uL Hemoglobin 17.7 H 13.5-17.5 g/dL Hematocrit 53.4 H 41.0-53.0 % Mean Corpuscular Volume 86.7 80.0-100.0 fL Mean Corpuscular Hemoglobin 28.7 28.0-32.0 pg Mean Corpuscular Hemoglobin Concent 33.1 32.0-36.0 g/dL Red Cell Distribution Width 19.2 H 11.8-14.3 % Platelet Count 166 140-450 10^3/uL Mean Platelet Volume 8.0 6.9-10.8 fL Neutrophils (%) (Auto) 88.4 H 37.0-80.0 % Lymphocytes (%) (Auto) 5.5 L 10.0-50.0 % Monocytes (%) (Auto) 5.8 0.0-12.0 % Eosinophils (%) (Auto) 0.0 0.0-7.0 % Basophils (%) (Auto) 0.3 0.0-2.0 % Neutrophils # (Auto) 9.5 H 1.6-8.6 10 ^3/uL Lymphocytes # (Auto) 0.6 0.4-5.4 10 ^3/uL Monocytes # (Auto) 0.6 0-1.3 10 ^3/uL Eosinophils # (Auto) 0 0-0.8 10 ^3/uL Basophils # (Auto) 0 0-0.2 10 ^3/uL Nucleated Red Blood Cells 0.3 % Prothrombin Time 19.2 H 9.3-11.8 sec Prothrombin Time INR 1.93 H 0.9-1.15 Activated Partial Thromboplast Time 33.6 24.5-34.5 SEC D-Dimer, Quantitative 4.06 H 0.0-0.49 mg/L FEU Hemoglobin A1c 5.7 <5.7 % A1C Magnesium Level 2.4 1.6-2.6 mg/dL B-Type Natriuretic Peptide > 5000.00 0-100 pg/mL Thyroid Stimulating Hormone (TSH) 2.74 0.55-4.78 uIU/mL Assessment Acute kidney injury likely due to secondary to cardiorenal syndrome in the setting of heart failure exacerbation Acute respiratory failure due to systolic CHF exacerbation Hyperkalemia Pulmonary hypertension History of drug abuse History of hepatitis c infection Non compliant to medications NSTEMI type 2 Hyperphosphatemia Plan Continue with Bumex 2.5 mg IV BID and dobutamine Monitor renal function (daily BMP, urine output, GFR trend, electrolytes) Renal diet Monitor potassium levels closely Cardiology on board. phosphate binder ( Sevelamer 800 mg TID with meals). Recheck phosphorus levels daily. Daily weights. Strict intake and output monitoring. Counseling given regarding risks of leaving AMA, emphasizing high risk given current clinical status. case discussed with code status full Addendum Patient seen and examined, plan discussed with resident. Agree with above, we will follow closely Patient has a rude attitude Continue diuretics Plan discussed with: Patient ALLI SILVA Sep 19, 2024 17:11 LUIZ ALVARADO MD Sep 19, 2024 19:32
[2024-09-19] MEDS: SEVELAMER 800 MG TAB PO SCH (18:00)
[2024-09-19] MEDS: ATORVASTATIN 20 MG TAB PO SCH (21:29)
[2024-09-20] VITALS (16 sets, daily range): BP systolic 120–148; BP diastolic 82–91; PULSE 80–111; RESP 14–19; TEMP 96.4–97.3; O2SAT 96–100
[2024-09-20] MEDS: HYDROcodone-ACET 5/325MG TAB PO PRN (05:35)
[2024-09-20 06:49] LABS: Calcium 9.6 mg/dL (8.7-10.4); Chloride 106 mmol/L (98-107); Sodium 137 mmol/L (136-145)
[2024-09-20 06:50] LABS: Anion Gap 11 (5-15)
[2024-09-20 06:55] LABS: Glucose 75 mg/dL (74-106)
[2024-09-20 06:59] LABS: Carbon Dioxide 20 mmol/L (20-31); Potassium 5.5 mmol/L (3.5-5.1)
[2024-09-20 07:02] LABS: Blood Urea Nitrogen 80 mg/dL (9-23)
[2024-09-20 07:06] LABS: Basophils # (auto) 0 10 ^3/uL (0-0.2); Basophils % (auto) 0.1 % (0.0-2.0); Eosinophils # (auto) 0.1 10 ^3/uL (0-0.8); Eosinophils % (auto) 0.7 % (0.0-7.0); Hematocrit 45.5 % (41.0-53.0); Hemoglobin 14.8 g/dL (13.5-17.5); Lymphocytes # (auto) 0.5 10 ^3/uL (0.4-5.4); Lymphocytes % (auto) 5.4 % (10.0-50.0); Mean Corpuscular Hemoglobin 28.2 pg (28.0-32.0); Mean Corpuscular Hgb Conc. 32.6 g/dL (32.0-36.0); Mean Corpuscular Volume 86.6 fL (80.0-100.0); Monocytes # (auto) 0.7 10 ^3/uL (0-1.3); Monocytes % (auto) 7.8 % (0.0-12.0); Neutrophils # (auto) 7.2 10 ^3/uL (1.6-8.6); Nucleated Red Blood Cells % 0.2 %; Platelet Count (auto) 103 10^3/uL (140-450); Red Blood Cells 5.25 10^6/uL (4.5-5.90); Red Cell Distribution Width 19.4 % (11.8-14.3); White Blood Cell 8.4 10^3/uL (4.4-10.8)
--- NOTE | 2024-09-20 08:49 | DVHPN2 ---
Consult Progress Note Date Seen: Sep 20, 2024 Subjective Patient reports: Feels better Review of Systems: CVS:Normal, RESPIRATORY:Normal, NEURO:Normal Objective vital signs Vital Sign Date Time Temp Pulse Resp B/P (MAP) Pulse Ox O2 Delivery O2 Flow Rate FiO2 09/20/24 06:30 85 16 100 09/20/24 06:25 Nasal Cannula 1.0 09/20/24 06:25 24 09/20/24 06:00 148/91 09/20/24 05:38 97.3 97.3 Total Intake and Output 09/19/24 09/19/24 09/20/24 15:00 23:00 07:00 Intake Total 73.5 ml 1062.5 ml 192.0 ml Output Total 400 ml 400 ml Balance 73.5 ml 662.5 ml -208.0 ml medications Current Medications Medications Dose Ordered Sig/Lisa Route Start Time Stop Time Status Last Admin Dose Admin Ipratropium [place] 0.5 mg Q6HR NEB 09/19/24 00:00 09/20/24 06:25 0.5 MG Acetaminophen 500 mg Q4HPRN PRN PO 09/18/24 21:15 Acetaminophen/ Hydrocodone Bitart 1 tab Q4HPRN PRN PO 09/18/24 21:15 09/20/24 05:35 1 TAB Morphine Sulfate 1 mg Q4HPRN PRN IV 09/18/24 21:15 Enoxaparin Sodium 30 mg DAILY SC 09/19/24 10:00 Clopidogrel Bisulfate 75 mg DAILY PO 09/19/24 10:00 Famotidine 10 mg DAILY PO 09/19/24 10:00 Tamsulosin HCl 0.4 mg DAILY PO 09/19/24 10:00 Atorvastatin Calcium 40 mg HS PO 09/19/24 22:00 09/19/24 21:29 40 MG Dobutamine HCl/ Dextrose 250 ml @ 10.5 mls/hr [id number] IV 09/19/24 02:45 09/20/24 02:28 10.5 MLS/HR Bumetanide 2.5 mg BIDD IV 09/19/24 09:00 Carvedilol 3.125 mg Q12HR PO 09/19/24 10:00 09/19/24 21:28 3.125 MG Sevelamer HCl 800 mg TIDWM PO 09/19/24 18:00 09/20/24 08:29 800 MG Examination: LUNGS:Normal, CVS:Abnormal (BLE edema 1+ improving), NEURO:Normal laboratory and microbiology Laboratory Tests 09/20/24 05:07 Test 09/20/24 05:07 Range/Units Serum Glucose 75 74-106 mg/dL Problem List/Assessment/Plan Problem List/Assessment/Plan Non ST-elevation myocardial infarction Acute on chronic decompensated HFrEF, NYHA class IV End-stage/dilated cardiomyopathy, ?ischemic Pulmonary hypertension, severe PORTIA on CKD with associated hyperkalemia Acute cholecystitis History of lung cancer status post lobectomy History of tobacco use Medical noncompliance Plan/Recommendation (Dr. Arguelles) * Transthoracic echocardiogram revealed LVEF 12% * Preload and afterload reduction. Continue dobutamine drip, diuretic, and BB * Initiate rest of guideline directed medical therapy for CHF as renal function permits * Strict intake and output, daily weights, maintain fluid restriction * DVT/VTE prophylaxis * Close Cardiac surveillance * Follow Nephrology recommendations * Risk factor modifications, counseled * Adherence to medication regimen and outpatient cardiology follow-ups The patient presents with downtrending troponin levels and no further chest pain complains. Given poor renal function, we will continue medical management at this time. He can benefit from an eventual coronary angiogram with cardiac catheterization as outpatient. In the meantime, maximize medical therapy. The patient can benefit from another day of dobutamine therapy. Thank you for allowing us to care for this patient. Please call with any questions or concerns. This medical document was created using an electronic medical record system with voice recognition software and computerized dictation system. Although this document has been carefully reviewed, there might still be some phonetic and typographical errors. Occasional wrong-word or ``sound-alike substitutions may have occurred due to the inherent limitations of voice recognition software. These areas are purely typographical due to imperfections of the software programs and do not reflect any compromise in the patient's medical care. Please read the chart carefully and recognize, using context, where these substitutions have occurred. Plan discussed with: Patient, Other Date of Service: Sep 20, 2024 Billing Provider: CARLOZ RUANO Cardiology Common Codes: [id number] [facility]OS[facility]ARE([facility] CARLOZ RUANO Sep 20, 2024 08:49
[2024-09-20] MEDS: SODIUM ZIRCONIUM CYCL 10 GM PAK PO ONE (10:10)
--- NOTE | 2024-09-20 11:28 | DVHPN2 ---
Progress Note Date Seen: Sep 20, 2024 Medical Necessity Reason Pt with a Central, PICC or Fol: No Subjective Patient reports: No new complaints Review of Systems: HEENT:Normal, CVS:Normal, RESPIRATORY:Normal, GI:Normal, :Normal, MSK:Normal, NEURO:Normal Objective vital signs Vital Sign Date Time Temp Pulse Resp B/P (MAP) Pulse Ox O2 Delivery O2 Flow Rate FiO2 09/20/24 11:15 80 14 100 09/20/24 11:10 Nasal Cannula* 1 24 09/20/24 10:11 148/91 09/20/24 09:32 97.2 97.2 Total Intake and Output 09/19/24 09/19/24 09/20/24 15:00 23:00 07:00 Intake Total 73.5 ml 1062.5 ml 192.0 ml Output Total 400 ml 400 ml Balance 73.5 ml 662.5 ml -208.0 ml medications Current Medications Medications Dose Ordered Sig/Lisa Route Start Time Stop Time Status Last Admin Dose Admin Ipratropium [place] 0.5 mg Q6HR NEB 09/19/24 00:00 09/20/24 11:10 0.5 MG Acetaminophen 500 mg Q4HPRN PRN PO 09/18/24 21:15 Acetaminophen/ Hydrocodone Bitart 1 tab Q4HPRN PRN PO 09/18/24 21:15 09/20/24 05:35 1 TAB Morphine Sulfate 1 mg Q4HPRN PRN IV 09/18/24 21:15 Enoxaparin Sodium 30 mg DAILY SC 09/19/24 10:00 Clopidogrel Bisulfate 75 mg DAILY PO 09/19/24 10:00 Famotidine 10 mg DAILY PO 09/19/24 10:00 09/20/24 10:16 10 MG Tamsulosin HCl 0.4 mg DAILY PO 09/19/24 10:00 09/20/24 10:17 0.4 MG Atorvastatin Calcium 40 mg HS PO 09/19/24 22:00 09/19/24 21:29 40 MG Dobutamine HCl/ Dextrose 250 ml @ 10.5 mls/hr [id number] IV 09/19/24 02:45 09/20/24 02:28 10.5 MLS/HR Bumetanide 2.5 mg BIDD IV 09/19/24 09:00 Carvedilol 3.125 mg Q12HR PO 09/19/24 10:00 09/20/24 10:11 3.125 MG Sevelamer HCl 800 mg TIDWM PO 09/19/24 18:00 09/20/24 08:29 800 MG Examination: GENERAL:Normal, HEENT:Normal, NECK:Normal, LUNGS:Normal, LUNGS:Abnormal (on oxygen), CVS:Normal, ABDOMEN:Normal, MSK:Normal, MSK:Abnormal (edema++), SKIN:Normal, NEURO:Normal, :Normal laboratory and microbiology Laboratory Tests 09/20/24 05:07 Test 09/20/24 05:07 Range/Units Serum Glucose 75 74-106 mg/dL Microbiology Date/Time Source Procedure Growth Status 09/19/24 01:45 Blood Blood Culture - Preliminary NO GROWTH AFTER 24 HOURS OF INCUBATION. Resulted Problem List/Assessment/Plan Problem List/Assessment/Plan #1 acute resp failure: cont oxygen #2 acute on chronic systolic heart failure: bumex, dobutamine #3 acute on chronic renal failure ?vasomotor nephropathy #4 pulm htn #5 h/o lung cancer s/p surgery #6 copd #7 h/o drug abuse #8 h/o hep c #9 non compliance- refusing meds #10 hyperkalemia advance care planning: full code- time spent 19 mins Plan discussed with: Patient My Orders My Orders Orders - MICHAEL GORDILLO MD Procedure Category Date Status Time Bumetanide Injection PHA 09/20/24 Transmitted (Bumex Injection) 11:30 Date of Service: Sep 20, 2024 Billing Provider: MICHAEL GORDILLO MD Common Visit Codes: [id number] INP/OBS CARE(HIGH) MICHAEL GORDILLO MD Sep 20, 2024 11:28
[2024-09-20] MEDS: BUMETANIDE 2.5mg/10ml (0.25 mg/ml) INJ IV ONE (11:54)
--- NOTE | 2024-09-20 16:52 | DVHPN2 ---
Progress Note Date Seen: Sep 20, 2024 Resident Creating Document: ALLI SILVA RESIDENT Medical Necessity Reason Pt with a Central, PICC or Fol: No Subjective Review of Systems Patient is seen examined at bedside, patient seems to be very deteriorated ,he is noncompliant and he was refusing medication, after discussion now he has agreed to get medications and continue with the plan. Patient should start on low potassium diet. Patient reports: No new complaints Changes from previous H/P or p: No Changes Objective vital signs Vital Sign Date Time Temp Pulse Resp B/P (MAP) Pulse Ox O2 Delivery O2 Flow Rate FiO2 09/20/24 12:53 98 18 127/88 (101) 96 09/20/24 11:10 Nasal Cannula* 1 24 09/20/24 09:32 97.2 97.2 Total Intake and Output 09/19/24 09/19/24 09/20/24 14:59 22:59 06:59 Intake Total 84.0 ml 1062.5 ml 192.0 ml Output Total 400 ml 400 ml Balance 84.0 ml 662.5 ml -208.0 ml medications Current Medications Medications Dose Ordered Sig/Lisa Route Start Time Stop Time Status Last Admin Dose Admin Ipratropium [place] 0.5 mg Q6HR NEB 09/19/24 00:00 09/20/24 11:10 0.5 MG Acetaminophen 500 mg Q4HPRN PRN PO 09/18/24 21:15 Acetaminophen/ Hydrocodone Bitart 1 tab Q4HPRN PRN PO 09/18/24 21:15 09/20/24 05:35 1 TAB Morphine Sulfate 1 mg Q4HPRN PRN IV 09/18/24 21:15 Enoxaparin Sodium 30 mg DAILY SC 09/19/24 10:00 Clopidogrel Bisulfate 75 mg DAILY PO 09/19/24 10:00 Famotidine 10 mg DAILY PO 09/19/24 10:00 Tamsulosin HCl 0.4 mg DAILY PO 09/19/24 10:00 Atorvastatin Calcium 40 mg HS PO 09/19/24 22:00 09/19/24 21:29 40 MG Dobutamine HCl/ Dextrose 250 ml @ 10.5 mls/hr [id number] IV 09/19/24 02:45 09/20/24 02:28 10.5 MLS/HR Bumetanide 2.5 mg BIDD IV 09/19/24 09:00 Carvedilol 3.125 mg Q12HR PO 09/19/24 10:00 09/20/24 10:11 3.125 MG Sevelamer HCl 800 mg TIDWM PO 09/19/24 18:00 09/20/24 11:54 800 MG Examination: GENERAL:Abnormal, HEENT:Normal, NECK:Normal, LUNGS:Normal, CVS:Normal, ABDOMEN:Normal, MSK:Abnormal, SKIN:Normal, NEURO:Abnormal, :Normal laboratory and microbiology Laboratory Tests 09/20/24 05:07 Test 09/20/24 05:07 Range/Units Serum Glucose 75 74-106 mg/dL Microbiology Date/Time Source Procedure Growth Status 09/19/24 14:30 Nose MRSA Screen - Final Complete 09/19/24 01:45 Blood Blood Culture - Preliminary NO GROWTH AFTER 24 HOURS OF INCUBATION. Resulted Problem List/Assessment/Plan Problem List/Assessment/Plan Assessment: Acute kidney injury likely due to secondary to cardiorenal syndrome in the setting of heart failure exacerbation Acute respiratory failure due to systolic CHF exacerbation Hyperkalemia Pulmonary hypertension History of drug abuse History of hepatitis c infection Non compliant to medications NSTEMI type 2 Hyperphosphatemia Plan Continue with Bumex 2.5 mg IV BID Monitor renal function (daily BMP, urine output, GFR trend, electrolytes) Renal diet , low-potassium diet Monitor potassium levels closely Cardiology on board. phosphate binder ( Sevelamer 800 mg TID with meals). Recheck phosphorus levels daily. Daily weights. Strict intake and output monitoring. Counseling given regarding risks of leaving AMA, emphasizing high risk given current clinical status. case discussed with code status full Addendum Patient seen and examined, plan discussed with resident. Agree with above, we will follow closely Plan discussed with: Patient My Orders My Orders Orders - ALLI SILVA Procedure Category Date Status Time Sevelamer ([place]ag[place]) PHA 09/19/24 In Process 18:00 ALLI SILVA RESIDENT Sep 20, 2024 16:52 LUIZ ALVARADO MD Sep 20, 2024 19:17
--- NOTE | 2024-09-20 17:06 | DVHINCON2 ---
Consultation - Surgical Date Seen: Sep 20, 2024 Referring Physician Referring Physician er Reason for Consultation abd pain History of Present Illness History of Present Illness 69-year-old male with past medical history of heart failure with a reduced ejection fraction-LVEF 12% 07/2024, end-stage dilated cardiomyopathy, pulmonary hypertension-RVSP 60 mmHg, history of hepatitis-C who presented to the ER with a chief complaint of left-sided chest pain along with shortness of breaths for the past 2 days. Patient is A&O x3 but is unable to give history given the pain. Patient's sister Ambar was called, reported that the patient has a had some stomach pain for the past 2 days but does not know the details. Does not do any illicit drugs. He has been compliant with medications. On arrival to the ER, patient was afebrile, tachycardic, normotensive, H&H 17. BNP was greater than 5000. Patient had anion gap metabolic acidosis. Anion gap was 19. Creatinine was 3.7, baseline is 3.08. Troponin were downtrending, 157, 155. D-dimer was 4. past medical history of heart failure with a reduced ejection fraction-LVEF 12% 07/2024, end-stage dilated cardiomyopathy, pulmonary hypertension-RVSP 60 mmHg, history of hepatitis-C Social history: Per sister, patient quit smoking alcohol long time back Past Medical/Surgical History Past Medical/Surgical History heart failure with a reduced ejection fraction-LVEF 12% 07/2024, end-stage dilated cardiomyopathy, pulmonary hypertension-RVSP 60 mmHg, history of hepatitis-C Family and Social History Family and Social History negative Allergies and medications Allergies: Coded Allergies: NO KNOWN ALLERGIES (Unverified , 07/08/18) Home Meds Active Scripts Isosorbide Mononitrate (ISMO TABLET) 20 Mg Tb, 10 MG PO DAILY for 30 Days, #15 TAB Prov:THIAGO LIZ RESIDENT 04/12/24 Hydralazine Hcl (Hydralazine Hcl) 10 Mg Tab, 10 MG PO Q8HR for 30 Days, #90 TAB Prov:THIAGO LIZ RESIDENT 04/12/24 Famotidine (PEPCID TABLET) 20 Mg Tb, 1 TAB PO BID, #60 TAB 3 Refills Prov:ARAVIND HARPER MD 03/10/24 Metoprolol Succinate (Toprol Xl) 50 Mg Tab, 25 MG PO DAILY for 60 Days, #30 TAB Prov:ARAVIND HARPER MD 03/10/24 Clopidogrel Bisulfate (CLOPIDOGREL) 75 Mg Tab, 75 MG PO DAILY for 60 Days, #60 TAB Prov:ARAVIND HARPER MD 03/10/24 Reported Medications Bumetanide (Bumetanide) 1 Mg Tab, 2 TAB PO DAILY 08/04/24 Tamsulosin Hcl (Tamsulosin Hcl) 0.4 Mg Cap, 1 CAP PO DAILY 08/04/24 Hydrocodone-Acetaminophen (Hydrocodone/Acetaminophen 10-325 mg) 1 Tab Tab, 1 TAB PO DAILY PRN for PAIN SCALE 7 THRU 10 08/04/24 Benzonatate (Benzonatate) 200 Mg Cap, 1 CAP PO TID 08/04/24 Atorvastatin Calcium (Lipitor) 40 Mg Tab, 1 TAB PO DAILY for 90 Days, #90 03/07/24 Fluticasone Furoate-Vilanterol (BREO ELLIPTA) 1 Inh Inh, 1-2 PUFF INH DAILY for 30 Days, #60 03/07/24 Albuterol Sulfate (Albuterol Sulfate Hfa) 108 Mcg/Act Aer, 1 PUFF INH Q6HR PRN for WHEEZING for 50 Days, #18 03/07/24 Review of systems Review of Systems: HEENT:Normal, CVS:Normal, RESPIRATORY:Normal, GI:Abnormal (abd pain), :Normal, NEURO:Normal Examination Vital signs Vital Signs Date Time Temp Pulse Resp B/P (MAP) Pulse Ox O2 Delivery O2 Flow Rate FiO2 09/20/24 12:53 98 18 127/88 (101) 96 09/20/24 11:10 Nasal Cannula* 1 24 09/20/24 09:32 97.2 97.2 Medications Current Medications Medications (Trade) Dose Ordered Sig/Lisa Route PRN Reason Start Time Stop Time Status Last Admin Atorvastatin Calcium (Lipitor) 40 mg HS PO 09/19/24 22:00 09/19/24 21:29 Sevelamer HCl (Renagel) 800 mg TIDWM PO 09/19/24 18:00 09/20/24 11:54 Laboratory Labs Test 09/20/24 05:07 09/19/24 10:14 09/19/24 04:35 09/19/24 04:18 Range/Units White Blood Count 8.4 4.4-10.8 10^3/uL Red Blood Count 5.25 4.5-5.90 10^6/uL Hemoglobin 14.8 # 13.5-17.5 g/dL Hematocrit 45.5 # 41.0-53.0 % Mean Corpuscular Volume 86.6 80.0-100.0 fL Mean Corpuscular Hemoglobin 28.2 28.0-32.0 pg Mean Corpuscular Hemoglobin Concent 32.6 32.0-36.0 g/dL Red Cell Distribution Width 19.4 H 11.8-14.3 % Platelet Count 103 L 140-450 10^3/uL Mean Platelet Volume 7.8 6.9-10.8 fL Neutrophils (%) (Auto) 86.0 H 37.0-80.0 % Lymphocytes (%) (Auto) 5.4 L 10.0-50.0 % Monocytes (%) (Auto) 7.8 0.0-12.0 % Eosinophils (%) (Auto) 0.7 0.0-7.0 % Basophils (%) (Auto) 0.1 0.0-2.0 % Neutrophils # (Auto) 7.2 1.6-8.6 10 ^3/uL Lymphocytes # (Auto) 0.5 0.4-5.4 10 ^3/uL Monocytes # (Auto) 0.7 0-1.3 10 ^3/uL Eosinophils # (Auto) 0.1 0-0.8 10 ^3/uL Basophils # (Auto) 0 0-0.2 10 ^3/uL Nucleated Red Blood Cells 0.2 % Sodium Level 137 136-145 mmol/L Potassium Level 5.5 H 3.5-5.1 mmol/L Chloride Level 106 98-107 mmol/L Carbon Dioxide Level 20 20-31 mmol/L Anion Gap 11 5-15 Blood Urea Nitrogen 80 *H 9-23 mg/dL Creatinine 3.64 H 0.700-1.30 mg/dL Glomerular Filtration Rate Calc 17 >90 mL/min BUN/Creatinine Ratio 22.0 H 10.0-20.0 Serum Glucose 75 74-106 mg/dL Calcium Level 9.6 8.7-10.4 mg/dL Lactic Acid Level 1.6 0.4-2.0 mmol/L Phosphorus Level 5.7 H 2.4-5.1 mg/dL Urine Color Yellow Yellow Urine Clarity Turbid H Clear Urine pH 5.5 5.0-9.0 Urine Specific [place] 1.014 1.001-1.035 Urine Protein 2+ H Negative Urine Ketones Trace Negative Urine Blood 2+ H Negative /uL Urine Nitrite Negative Negative Urine Bilirubin Negative Negative Urine Urobilinogen Normal Negative mg/dL Urine Leukocyte Esterase 1+ Negative /uL Urine RBC 20 0 - 3 /hpf Urine Microscopic WBC 22 H 0-3 /HPF Urine Squamous Epithelial Cells Few <5 /hpf Urine Bacteria Few H None Seen /hpf Urine Hyaline Casts Many 0 - 2 /lpf Urine Mucus Few None Seen Urine Osmolality 380 mOsm/kg Urine Creatinine 105.63 30.0-125.0 mg/dL Urine Protein/Creatinine Ratio 2.09 Urine Sodium 43 40-220 mmol/L Urine Glucose Normal Normal mg/dL Urine Total Protein 221.2 H 1-14 mg/dL Urine Opiates Screen Neg NEGATIVE Urine Fentanyl Screen Neg NEGATIVE Urine Barbiturates Screen Neg NEGATIVE Urine Phencyclidine Screen Neg NEGATIVE Urine Amphetamines Screen Neg NEGATIVE Urine Benzodiazepines Screen Neg NEGATIVE Urine Cocaine Screen Neg NEGATIVE Urine Cannabinoids Screen Neg NEGATIVE POC Glucose 138 H 70-106 mg/dl Test 09/19/24 01:45 09/18/24 23:30 09/18/24 20:43 09/18/24 18:33 Range/Units Ammonia < 10 L 11-32 umol/L Tumor Marker Alpha Fetoprotein 4.4 0.0-8.4 ng/mL Parathyroid Hormone (Intact) 127.6 H 18.4-80.1 pg/mL Influenza Type A Antigen Negative Negative Influenza Type B Antigen Negative Negative SARS-CoV-2 Antigen (Rapid) Negative NEGATIVE Troponin I High Sensitivity 145 *H </=54 ng/L Vitamin B12 Level 2392 H 211-911 pg/mL Vitamin D 25-Hydroxy 67.6 30.0-100 ng/mL Total Bilirubin 2.9 H 0.2-1.0 mg/dL Aspartate Amino Transferase (AST) 70 H 13-40 U/L Alanine Aminotransferase (ALT) 47 H 7-40 U/L Alkaline Phosphatase 83 46-116 U/L Total Protein 7.6 5.7-8.2 g/dL Albumin 4.5 3.2-4.8 g/dL Test 09/18/24 17:33 Range/Units Prothrombin Time 19.2 H 9.3-11.8 sec Prothrombin Time INR 1.93 H 0.9-1.15 Activated Partial Thromboplast Time 33.6 24.5-34.5 SEC D-Dimer, Quantitative 4.06 H 0.0-0.49 mg/L FEU Hemoglobin A1c 5.7 <5.7 % A1C Magnesium Level 2.4 1.6-2.6 mg/dL B-Type Natriuretic Peptide > 5000.00 0-100 pg/mL Thyroid Stimulating Hormone (TSH) 2.74 0.55-4.78 uIU/mL Microbiology Date/Time Source Procedure Growth Status 09/19/24 14:30 Nose MRSA Screen - Final Complete 09/19/24 01:45 Blood Blood Culture - Preliminary NO GROWTH AFTER 24 HOURS OF INCUBATION. Resulted Examination: GENERAL:Normal, HEENT:Normal, NECK:Normal, LUNGS:Normal, CVS:Normal, ABDOMEN:Abnormal (epigastric tenderness), MSK:Normal, SKIN:Normal, NEURO:Normal, :Normal Problem List/Assessment/Plan Problems: (1) Abdominal pain Assessment and Plan Patient with abdominal pain and possible cholecystitis. With elevated transaminases. We will need a MRCP If positive for cholecystitis or stones in cbd or cystic duct will need IR cholecystostomy tube. Recommend GI evaluation Plan discussed with Plan discussed with: Other (nurse) Visit Coding Surgery Date of Service if different f: Sep 20, 2024 Billing Provider: CELINE DELGADO Jr., MD Surgery Visit Codes: 57310 - INP CONSULT <80 MIN CELINE DELGADO Jr., MD Sep 20, 2024 17:06
--- NOTE | 2024-09-20 21:17 | DVH ---
PROCEDURE: MRI MRCP MRI Indication: elevated lft COMPARISON: 09/18/2024 TECHNIQUE: Multiplanar multisequence images of the abdomen are obtained. FINDINGS: This examination is markedly degraded by motion. Gallbladder distention. Gallbladder sludge. The common bile duct is overall not well characterize but visually does not appear to be dilated. Peripancreatic/ pancreatic interstitial edema. Moderate left and tiny right pleural effusions. Massive cardiomegaly. Moderate volume of ascites fluid. Bilateral renal cysts. Possible ill-defined left renal mass, incompletely characterized. No hydroneph rosis seen. No abnormal diffusion restriction seen in this region of the left renal hilum. IMPRESSION: Very limited examination due to motion artifact. 1. Gallbladder sludge. 2. Peripancreatic/ pancreatic interstitial edema. Correlate for pancreatitis. 3. Moderate volume ascites fluid. 4. Possible left renal hilar mass versus motion artifact. Recommend CT abdomen pelvis with contrast t o further evaluate. 5. Cardiomegaly. 6. No definitive evidence for choledocholithiasis. The common bile duct appears visually nondilated. Moderate left and small right pleural effusions.
[2024-09-21] VITALS (12 sets, daily range): BP systolic 115–147; BP diastolic 65–97; PULSE 88–105; RESP 15–18; TEMP 97–97.3; O2SAT 97–100
[2024-09-21 07:44] LABS: Anion Gap 12 (5-15); Carbon Dioxide 22 mmol/L (20-31); Chloride 103 mmol/L (98-107); Sodium 137 mmol/L (136-145)
[2024-09-21 07:45] LABS: Calcium 9.8 mg/dL (8.7-10.4)
[2024-09-21 07:50] LABS: BUN/Creatinine Ratio 23.3 (10.0-20.0)
[2024-09-21 08:00] LABS: Potassium 5.4 mmol/L (3.5-5.1)
[2024-09-21 08:04] LABS: Blood Urea Nitrogen 88 mg/dL (9-23); Glucose 47 mg/dL (74-106)
[2024-09-21] MEDS: SODIUM ZIRCONIUM CYCL 10 GM PAK PO ONE (08:19)
--- NOTE | 2024-09-21 11:45 | DVHPN2 ---
Progress Note Date Seen: Sep 21, 2024 Medical Necessity Reason Pt with a Central, PICC or Fol: No Subjective Patient reports: No new complaints Review of Systems: HEENT:Normal, CVS:Normal, RESPIRATORY:Normal, GI:Normal, :Normal, MSK:Normal, NEURO:Normal Objective vital signs Vital Sign Date Time Temp Pulse Resp B/P (MAP) Pulse Ox O2 Delivery O2 Flow Rate FiO2 09/21/24 11:31 97 Nasal Cannula 3.0 09/21/24 11:31 32 09/21/24 09:53 103 147/97 09/21/24 09:30 18 09/21/24 05:00 97.3 97.3 Total Intake and Output 09/20/24 09/20/24 09/21/24 15:00 23:00 07:00 Intake Total 615.5 ml 392.5 ml Output Total 400 ml 300 ml Balance 215.5 ml 92.5 ml medications Current Medications Medications Dose Ordered Sig/Lisa Route Start Time Stop Time Status Last Admin Dose Admin Ipratropium [place] 0.5 mg Q6HR NEB 09/19/24 00:00 09/20/24 23:30 0.5 MG Acetaminophen 500 mg Q4HPRN PRN PO 09/18/24 21:15 Acetaminophen/ Hydrocodone Bitart 1 tab Q4HPRN PRN PO 09/18/24 21:15 09/21/24 06:31 1 TAB Morphine Sulfate 1 mg Q4HPRN PRN IV 09/18/24 21:15 Enoxaparin Sodium 30 mg DAILY SC 09/19/24 10:00 Clopidogrel Bisulfate 75 mg DAILY PO 09/19/24 10:00 Famotidine 10 mg DAILY PO 09/19/24 10:00 09/21/24 09:53 10 MG Tamsulosin HCl 0.4 mg DAILY PO 09/19/24 10:00 09/21/24 09:52 0.4 MG Atorvastatin Calcium 40 mg HS PO 09/19/24 22:00 09/19/24 21:29 40 MG Bumetanide 2.5 mg BIDD IV 09/19/24 09:00 09/21/24 07:38 2.5 MG Carvedilol 3.125 mg Q12HR PO 09/19/24 10:00 09/21/24 09:53 3.125 MG Sevelamer HCl 800 mg TIDWM PO 09/19/24 18:00 09/21/24 09:51 800 MG Examination: GENERAL:Normal, HEENT:Normal, NECK:Normal, LUNGS:Normal, LUNGS:Abnormal (on oxygen), CVS:Normal, ABDOMEN:Normal, MSK:Normal, MSK:Abnormal (edema++), SKIN:Normal, NEURO:Normal, :Normal laboratory and microbiology Laboratory Tests 09/21/24 06:55 09/20/24 05:07 Test 09/21/24 06:55 Range/Units Serum Glucose 47 *L 74-106 mg/dL Microbiology Date/Time Source Procedure Growth Status 09/19/24 14:30 Nose MRSA Screen - Final Complete 09/19/24 01:45 Blood Blood Culture - Preliminary NO GROWTH AFTER 48 HOURS OF INCUBATION. Resulted Problem List/Assessment/Plan Problem List/Assessment/Plan #1 acute resp failure: cont oxygen #2 acute on chronic systolic heart failure: bumex, dobutamine #3 acute on chronic renal failure ?vasomotor nephropathy #4 pulm htn #5 h/o lung cancer s/p surgery #6 copd #7 h/o drug abuse #8 h/o hep c #9 non compliance- refusing meds #10 hyperkalemia: treat #11 ? left renal mass: ct abdomen advance care planning: full code- time spent 19 mins Plan discussed with: Patient Date of Service: Sep 21, 2024 Billing Provider: MICHAEL GORDILLO MD Common Visit Codes: [id number] INP/OBS CARE(HIGH) MICHAEL GORDILLO MD Sep 21, 2024 11:45
--- NOTE | 2024-09-21 14:51 | DVHPN2 ---
Consult Progress Note Subjective Other Systems: Patient in normal sinus rhythm with PVCs on gambling monitor. Episodes of nonsustained V-tach on monitor (4 beats) Patient denies any cardiac symptoms Objective vital signs Vital Sign Date Time Temp Pulse Resp B/P (MAP) Pulse Ox O2 Delivery O2 Flow Rate FiO2 09/21/24 11:31 97 Nasal Cannula 3.0 09/21/24 11:31 32 09/21/24 11:00 92 133/86 09/21/24 09:30 18 09/21/24 05:00 97.3 97.3 Total Intake and Output 09/20/24 09/20/24 09/21/24 15:00 23:00 07:00 Intake Total 615.5 ml 392.5 ml Output Total 400 ml 300 ml Balance 215.5 ml 92.5 ml medications Current Medications Medications Dose Ordered Sig/Lisa Route Start Time Stop Time Status Last Admin Dose Admin Ipratropium [place] 0.5 mg Q6HR NEB 09/19/24 00:00 09/20/24 23:30 0.5 MG Acetaminophen 500 mg Q4HPRN PRN PO 09/18/24 21:15 Acetaminophen/ Hydrocodone Bitart 1 tab Q4HPRN PRN PO 09/18/24 21:15 09/21/24 06:31 1 TAB Morphine Sulfate 1 mg Q4HPRN PRN IV 09/18/24 21:15 Enoxaparin Sodium 30 mg DAILY SC 09/19/24 10:00 Clopidogrel Bisulfate 75 mg DAILY PO 09/19/24 10:00 Famotidine 10 mg DAILY PO 09/19/24 10:00 09/21/24 09:53 10 MG Tamsulosin HCl 0.4 mg DAILY PO 09/19/24 10:00 09/21/24 09:52 0.4 MG Atorvastatin Calcium 40 mg HS PO 09/19/24 22:00 09/19/24 21:29 40 MG Bumetanide 2.5 mg BIDD IV 09/19/24 09:00 09/21/24 07:38 2.5 MG Carvedilol 3.125 mg Q12HR PO 09/19/24 10:00 09/21/24 09:53 3.125 MG Sevelamer HCl 800 mg TIDWM PO 09/19/24 18:00 09/21/24 09:51 800 MG Examination: GENERAL:Abnormal (Generalized weakness), LUNGS:Normal, CVS:Abnormal (Bilateral lower extremity 2+ pitting edema), NEURO:Normal laboratory and microbiology Laboratory Tests 09/21/24 06:55 09/20/24 05:07 Test 09/21/24 06:55 Range/Units Serum Glucose 47 *L 74-106 mg/dL Problem List/Assessment/Plan Problem List/Assessment/Plan Non ST-elevation myocardial infarction Acute on chronic decompensated HFrEF, NYHA class IV End-stage/dilated cardiomyopathy, ?ischemic Pulmonary hypertension, severe PORTIA on CKD with associated hyperkalemia Acute cholecystitis History of lung cancer status post lobectomy History of tobacco use Medical noncompliance Plan/Recommendation (Dr. Baca) * Transthoracic echocardiogram revealed LVEF 12% * Preload and afterload reduction * Initiate Guideline directed medical therapy for CHF as renal function permits * Unable to initiate full GDMT (ACEi/ARB/ARNI, MRA, SGLT2i) given poor renal function * Strict intake and output, daily weights, maintain fluid restriction * DVT/VTE prophylaxis * Close Cardiac surveillance * Follow Nephrology recommendations * Risk factor modifications, counseled * Adherence to medication regimen and outpatient cardiology follow-ups Given poor renal function, we will continue medical management at this time. He can benefit from an eventual coronary angiogram with cardiac catheterization as outpatient. In the meantime, maximize medical therapy. BNP rechecked today with significant improvement (now 236pg/mL). Dobutamine drip stopped. Thank you for allowing us to care for this patient. Please call with any questions or concerns. This medical document was created using an electronic medical record system with voice recognition software and computerized dictation system. Although this document has been carefully reviewed, there might still be some phonetic and typographical errors. Occasional wrong-word or ``sound-alike substitutions may have occurred due to the inherent limitations of voice recognition software. These areas are purely typographical due to imperfections of the software programs and do not reflect any compromise in the patient's medical care. Please read the chart carefully and recognize, using context, where these substitutions have occurred. Plan discussed with: Patient, Other Date of Service: Sep 21, 2024 Billing Provider: DELMA DOMINIQUE Common Visit Codes: [id number] INP/OBS CARE(HIGH) DELMA DOMINIQUE Sep 21, 2024 14:51
--- NOTE | 2024-09-21 15:52 | DVHPN2 ---
Progress Note Date Seen: Sep 21, 2024 Resident Creating Document: ALLI SILVA RESIDENT Medical Necessity Reason Pt with a Central, PICC or Fol: No Subjective Review of Systems Patient seen and examined at bedside, patient is poor historian and unable to provide information. We recommend continue diuresis and give Lokelma once daily for hyperkalemia management. Objective vital signs Vital Sign Date Time Temp Pulse Resp B/P (MAP) Pulse Ox O2 Delivery O2 Flow Rate FiO2 09/21/24 13:30 98 18 115/82 (93) 99 09/21/24 11:31 Nasal Cannula 3.0 09/21/24 11:31 32 09/21/24 05:00 97.3 97.3 Total Intake and Output 09/20/24 09/20/24 09/21/24 15:00 23:00 07:00 Intake Total 615.5 ml 392.5 ml Output Total 400 ml 300 ml Balance 215.5 ml 92.5 ml medications Current Medications Medications Dose Ordered Sig/Lisa Route Start Time Stop Time Status Last Admin Dose Admin Ipratropium [place] 0.5 mg Q6HR NEB 09/19/24 00:00 09/20/24 23:30 0.5 MG Acetaminophen 500 mg Q4HPRN PRN PO 09/18/24 21:15 Acetaminophen/ Hydrocodone Bitart 1 tab Q4HPRN PRN PO 09/18/24 21:15 09/21/24 06:31 1 TAB Morphine Sulfate 1 mg Q4HPRN PRN IV 09/18/24 21:15 Enoxaparin Sodium 30 mg DAILY SC 09/19/24 10:00 Clopidogrel Bisulfate 75 mg DAILY PO 09/19/24 10:00 Famotidine 10 mg DAILY PO 09/19/24 10:00 09/21/24 09:53 10 MG Tamsulosin HCl 0.4 mg DAILY PO 09/19/24 10:00 09/21/24 09:52 0.4 MG Atorvastatin Calcium 40 mg HS PO 09/19/24 22:00 09/19/24 21:29 40 MG Bumetanide 2.5 mg BIDD IV 09/19/24 09:00 09/21/24 07:38 2.5 MG Carvedilol 3.125 mg Q12HR PO 09/19/24 10:00 09/21/24 09:53 3.125 MG Sevelamer HCl 800 mg TIDWM PO 09/19/24 18:00 09/21/24 09:51 800 MG Examination: GENERAL:Abnormal, HEENT:Normal, NECK:Normal, LUNGS:Normal, CVS:Normal, ABDOMEN:Normal, MSK:Normal, SKIN:Normal, NEURO:Normal, :Normal laboratory and microbiology Laboratory Tests 09/21/24 06:55 09/20/24 05:07 Test 09/21/24 06:55 Range/Units Serum Glucose 47 *L 74-106 mg/dL Microbiology Date/Time Source Procedure Growth Status 09/19/24 14:30 Nose MRSA Screen - Final Complete 09/19/24 01:45 Blood Blood Culture - Preliminary NO GROWTH AFTER 48 HOURS OF INCUBATION. Resulted Problem List/Assessment/Plan Problem List/Assessment/Plan Assessment: Acute kidney injury likely due to secondary to cardiorenal syndrome in the setting of heart failure exacerbation Acute respiratory failure due to systolic CHF exacerbation Hyperkalemia Hypoglycemia ??Renal mass vs artefact on mrcp however none reported on kidney us Pulmonary hypertension History of drug abuse History of hepatitis c infection Non compliant to medications NSTEMI type 2 Hyperphosphatemia Plan Continue with Bumex 2.[address] abdomen without contrast pending Renal diet , low-potassium diet k2 Monitor potassium levels closely Cardiology on board. phosphate binder ( Sevelamer 800 mg TID with meals). Daily weights. Strict intake and output monitoring. case discussed with code status: full code Addendum Patient seen and examined, plan discussed with resident. Agree with above, we will follow closely Plan discussed with: Patient ALLI SILVA RESIDENT Sep 21, 2024 15:52 LUIZ ALVARADO MD Sep 21, 2024 17:03
--- NOTE | 2024-09-21 15:58 | DVH ---
Exam: CT CT AB PEL WO CON-NO ORAL OR IV History: left renal mass Comparison Study: MRCP 09/20/2024 and ultrasound liver 09/18/[address] chest 04/09/2024 TECHNIQUE: Multidetector CT of the abdomen and pelvis without IV contrast. Axial, coronal and sagitta l multiplanar reformats were obtained from the axial data set by the technologist. Radiation Dose Information: CT Dose: CTDI volume is 6.2 mGy. Dose-length product is 371.96 mGy*cm FINDINGS: Moderate left with trace right-sided pleural effusion and associated atelectasis. There are few cysts involving the visualized right lung. Moderate cardiomegaly. Significant mesenteric edema /mild ascites limiting evaluation for adjacent inflammatory reaction. Liver, spleen, and adrenal glands unremarkable. Sludge/gallstones within the gallbladder without sign ificant gallbladder wall thickening. Significant mesenteric edema limits evaluation for pericholecyst ic edema. Mesenteric edema limits evaluation for peripancreatic edema. 1.6 cm right with 1.1 cm left renal upper pole cysts. No hydronephrosis or renal calculi. The remaind er of the visualized bilateral renal small cysts not well evaluated on noncontrast CT. No obvious greer al soft tissue density masses are noted within the limitations of noncontrast CT. Urinary bladder is unremarkable. Prostate measures 4.9 x 5.2 x 5.4 cm. Stomach is unremarkable. Small bowel loops unremarkable. Appendix is not definitely visualized. Wit hout visualization of the appendix, can not exclude acute appendicitis. Hyperdense material within th e large bowel which may represent ingested material. Colonic diverticulosis with limited evaluation f or diverticulitis given mesenteric edema. Limited evaluation for colonic wall thickening. No evidence of intraperitoneal free air. No evidence of aortic aneurysm. Mild atherosclerotic calcification of the aorta and bilateral iliacs . No significant lymphadenopathy. Significant diffuse anasarca. Sclerotic focus over the right sacral ala which may represent a bone is land. Lytic lesions involving the left iliac bone. Chronic Sclerosis of the left posterior lateral 7 th rib may represent sequela of prior injury. IMPRESSION: Study is significantly limited due to noncontrast imaging. No obvious left renal soft tissue density mass is noted. Consider contrast-enhanced imaging for further evaluation. Moderate cardiomegaly with moderate left and trace right-sided pleural effusion, significant mesenter ic edema/mild ascites and significant body wall edema . Bilateral renal cysts with the additional renal cysts noted on MRCP not well delineated. Sludge/gallstones within the gallbladder with limited evaluation of acute cholecystitis given signifi cant mesenteric edema. Significant mesenteric edema limits evaluation for pancreatitis. If there is concern for acute pancr eatitis correlation with lipase should be considered. Additional findings as above.
[2024-09-21] MEDS: MORPHINE SULFATE INJ 2 MG/ml SYRG IV PRN (17:54)
[2024-09-22] VITALS (12 sets, daily range): BP systolic 112–121; BP diastolic 73–96; PULSE 82–97; RESP 15–19; TEMP 97.2–97.7; O2SAT 95–99
[2024-09-22] MEDS: SODIUM ZIRCONIUM CYCL 10 GM PAK PO ONE (09:48)
[2024-09-22] MEDS: metOLazone 5 MG TAB PO ONE (13:24)
--- NOTE | 2024-09-22 14:20 | DVHPN2 ---
Consult Progress Note Subjective Other Systems: Patient in normal sinus rhythm with PVCs on rn cardiac cath Objective vital signs Vital Sign Date Time Temp Pulse Resp B/P (MAP) Pulse Ox O2 Delivery O2 Flow Rate FiO2 09/22/24 13:24 122/62 09/22/24 12:02 84 18 96 09/22/24 11:55 Nasal Cannula 1.0 09/22/24 11:55 24 09/22/24 09:11 97.7 97.7 Total Intake and Output 09/21/24 09/21/24 09/22/24 15:00 23:00 07:00 Intake Total 300 ml 500 ml Output Total 250 ml 1550 ml Balance 50 ml -1050 ml medications Current Medications Medications Dose Ordered Sig/Lisa Route Start Time Stop Time Status Last Admin Dose Admin Ipratropium [place] 0.5 mg Q6HR NEB 09/19/24 00:00 09/22/24 11:55 0.5 MG Acetaminophen 500 mg Q4HPRN PRN PO 09/18/24 21:15 Acetaminophen/ Hydrocodone Bitart 1 tab Q4HPRN PRN PO 09/18/24 21:15 09/21/24 20:49 1 TAB Morphine Sulfate 1 mg Q4HPRN PRN IV 09/18/24 21:15 09/21/24 17:54 1 MG Enoxaparin Sodium 30 mg DAILY SC 09/19/24 10:00 Clopidogrel Bisulfate 75 mg DAILY PO 09/19/24 10:00 09/22/24 09:49 75 MG Famotidine 10 mg DAILY PO 09/19/24 10:00 09/22/24 09:48 10 MG Tamsulosin HCl 0.4 mg DAILY PO 09/19/24 10:00 09/22/24 09:49 0.4 MG Atorvastatin Calcium 40 mg HS PO 09/19/24 22:00 09/21/24 23:19 40 MG Bumetanide 2.5 mg BIDD IV 09/19/24 09:00 09/22/24 06:18 2.5 MG Carvedilol 3.125 mg Q12HR PO 09/19/24 10:00 09/21/24 23:21 3.125 MG Sevelamer HCl 800 mg TIDWM PO 09/19/24 18:00 09/22/24 13:23 800 MG Metolazone 10 mg DAILY PO 09/23/24 10:00 Examination: GENERAL:Abnormal (Generalized weakness), LUNGS:Normal, CVS:Normal, NEURO:Normal laboratory and microbiology Laboratory Tests 09/21/24 06:55 09/20/24 05:07 Test 09/21/24 06:55 Range/Units Serum Glucose 47 *L 74-106 mg/dL Problem List/Assessment/Plan Problem List/Assessment/Plan Non ST-elevation myocardial infarction Acute on chronic decompensated HFrEF, NYHA class IV End-stage/dilated cardiomyopathy, ?ischemic Pulmonary hypertension, severe PORTIA on CKD with associated hyperkalemia Acute cholecystitis History of lung cancer status post lobectomy History of tobacco use Medical noncompliance Plan/Recommendation (Dr. Baca) * Transthoracic echocardiogram revealed LVEF 12% * Preload and afterload reduction * Initiate Guideline directed medical therapy for CHF as renal function permits * Unable to initiate full GDMT (ACEi/ARB/ARNI, MRA, SGLT2i) given poor renal function * Strict intake and output, daily weights, maintain fluid restriction * DVT/VTE prophylaxis * Close Cardiac surveillance * Follow Nephrology recommendations * Risk factor modifications, counseled * Adherence to medication regimen and outpatient cardiology follow-ups Given poor renal function, we will continue medical management at this time. He can benefit from an eventual coronary angiogram with cardiac catheterization as outpatient. In the meantime, maximize medical therapy. There is no further inpatient cardiac workup indicated at this time. 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 Thank you for allowing us to care for this patient. Please call with any questions or concerns. This medical document was created using an electronic medical record system with voice recognition software and computerized dictation system. Although this document has been carefully reviewed, there might still be some phonetic and typographical errors. Occasional wrong-word or ``sound-alike substitutions may have occurred due to the inherent limitations of voice recognition software. These areas are purely typographical due to imperfections of the software programs and do not reflect any compromise in the patient's medical care. Please read the chart carefully and recognize, using context, where these substitutions have occurred. Plan discussed with: Patient Date of Service: September 22, 2024 Billing Provider: DELMA DOMINIQUE Common Visit Codes: [id number] INP/OBS CARE(HIGH) DELMA DOMINIQUE September 22, 2024 14:20
--- NOTE | 2024-09-22 14:36 | DVHPN2 ---
Progress Note Date Seen: September 22, 2024 Medical Necessity Reason Pt with a Central, PICC or Fol: No Subjective Patient reports: No new complaints Review of Systems: HEENT:Normal, CVS:Normal, RESPIRATORY:Normal, GI:Normal, :Normal, MSK:Normal, NEURO:Normal Objective vital signs Vital Sign Date Time Temp Pulse Resp B/P (MAP) Pulse Ox O2 Delivery O2 Flow Rate FiO2 09/22/24 13:24 122/62 09/22/24 12:02 84 18 96 09/22/24 11:55 Nasal Cannula 1.0 09/22/24 11:55 24 09/22/24 09:11 97.7 97.7 Total Intake and Output 09/21/24 09/21/24 09/22/24 15:00 23:00 07:00 Intake Total 300 ml 500 ml Output Total 250 ml 1550 ml Balance 50 ml -1050 ml medications Current Medications Medications Dose Ordered Sig/Lisa Route Start Time Stop Time Status Last Admin Dose Admin Ipratropium [place] 0.5 mg Q6HR NEB 09/19/24 00:00 09/22/24 11:55 0.5 MG Acetaminophen 500 mg Q4HPRN PRN PO 09/18/24 21:15 Acetaminophen/ Hydrocodone Bitart 1 tab Q4HPRN PRN PO 09/18/24 21:15 09/21/24 20:49 1 TAB Morphine Sulfate 1 mg Q4HPRN PRN IV 09/18/24 21:15 09/21/24 17:54 1 MG Enoxaparin Sodium 30 mg DAILY SC 09/19/24 10:00 Clopidogrel Bisulfate 75 mg DAILY PO 09/19/24 10:00 09/22/24 09:49 75 MG Famotidine 10 mg DAILY PO 09/19/24 10:00 09/22/24 09:48 10 MG Tamsulosin HCl 0.4 mg DAILY PO 09/19/24 10:00 09/22/24 09:49 0.4 MG Atorvastatin Calcium 40 mg HS PO 09/19/24 22:00 09/21/24 23:19 40 MG Bumetanide 2.5 mg BIDD IV 09/19/24 09:00 09/22/24 06:18 2.5 MG Carvedilol 3.125 mg Q12HR PO 09/19/24 10:00 09/21/24 23:21 3.125 MG Sevelamer HCl 800 mg TIDWM PO 09/19/24 18:00 09/22/24 13:23 800 MG Metolazone 10 mg DAILY PO 09/23/24 10:00 Examination: GENERAL:Normal, HEENT:Normal, NECK:Normal, LUNGS:Normal, LUNGS:Abnormal (on oxygen), CVS:Normal, ABDOMEN:Normal, MSK:Normal, MSK:Abnormal (edema+), SKIN:Normal, NEURO:Normal, :Normal laboratory and microbiology Laboratory Tests 09/21/24 06:55 09/20/24 05:07 Test 09/21/24 06:55 Range/Units Serum Glucose 47 *L 74-106 mg/dL Microbiology Date/Time Source Procedure Growth Status 09/19/24 14:30 Nose MRSA Screen - Final Complete 09/19/24 01:45 Blood Blood Culture - Preliminary NO GROWTH AFTER 72 HOURS OF INCUBATION. Resulted Problem List/Assessment/Plan Problem List/Assessment/Plan #1 acute resp failure: cont oxygen #2 acute on chronic systolic heart failure: bumex #3 acute on chronic renal failure ?vasomotor nephropathy #4 pulm htn #5 h/o lung cancer s/p surgery #6 copd #7 h/o drug abuse #8 h/o hep c #9 non compliance- refusing meds #10 hyperkalemia: treat #11 ? left renal mass: ct abdomen advance care planning: full code- time spent 19 mins Plan discussed with: Patient, Other (sister) My Orders My Orders Orders - MICHAEL GORDILLO MD Procedure Category Date Status Time * Title 1 Tutor CONS 09/22/24 Verified Consult Date of Service: September 22, 2024 Billing Provider: MICHAEL GORDILLO MD Common Visit Codes: [id number] INP/OBS CARE(HIGH) MICHAEL GORDILLO MD September 22, 2024 14:36
--- NOTE | 2024-09-22 15:56 | DVHPN2 ---
Progress Note Date Seen: September 22, 2024 Resident Creating Document: ALLI SILVA RESIDENT Medical Necessity Reason Pt with a Central, PICC or Fol: No Reason for jeffries catheter: Strict I&O Subjective Review of Systems Patient is seen and examined at bedside, currently on Bumex 2.5 b.i.d., we are going to add metolazone 10 mg p.o. daily. Hyperkalemia episode this morning was managed with Lokelma 10 mg p.o. we will continue monitoring electrolytes closely. Patient reports: No new complaints Objective vital signs Vital Sign Date Time Temp Pulse Resp B/P (MAP) Pulse Ox O2 Delivery O2 Flow Rate FiO2 09/22/24 14:00 95 Room Air 0.0 09/22/24 13:24 122/62 09/22/24 12:02 84 18 09/22/24 11:55 24 09/22/24 09:11 97.7 97.7 Total Intake and Output 09/21/24 09/21/24 09/22/24 14:59 22:59 06:59 Intake Total 300 ml 500 ml Output Total 250 ml 1550 ml Balance 50 ml -1050 ml medications Current Medications Medications Dose Ordered Sig/Lisa Route Start Time Stop Time Status Last Admin Dose Admin Ipratropium [place] 0.5 mg Q6HR NEB 09/19/24 00:00 09/22/24 11:55 0.5 MG Acetaminophen 500 mg Q4HPRN PRN PO 09/18/24 21:15 Acetaminophen/ Hydrocodone Bitart 1 tab Q4HPRN PRN PO 09/18/24 21:15 09/21/24 20:49 1 TAB Morphine Sulfate 1 mg Q4HPRN PRN IV 09/18/24 21:15 09/21/24 17:54 1 MG Clopidogrel Bisulfate 75 mg DAILY PO 09/19/24 10:00 09/22/24 09:49 75 MG Famotidine 10 mg DAILY PO 09/19/24 10:00 09/22/24 09:48 10 MG Tamsulosin HCl 0.4 mg DAILY PO 09/19/24 10:00 09/22/24 09:49 0.4 MG Atorvastatin Calcium 40 mg HS PO 09/19/24 22:00 09/21/24 23:19 40 MG Bumetanide 2.5 mg BIDD IV 09/19/24 09:00 09/22/24 06:18 2.5 MG Carvedilol 3.125 mg Q12HR PO 09/19/24 10:00 09/21/24 23:21 3.125 MG Sevelamer HCl 800 mg TIDWM PO 09/19/24 18:00 09/22/24 13:23 800 MG Metolazone 10 mg DAILY PO 09/23/24 10:00 Examination: GENERAL:Abnormal, HEENT:Normal, NECK:Normal, LUNGS:Normal, CVS:Normal, ABDOMEN:Normal, MSK:Normal, SKIN:Abnormal, NEURO:Abnormal, :Normal laboratory and microbiology Laboratory Tests 09/21/24 06:55 09/20/24 05:07 Test 09/21/24 06:55 Range/Units Serum Glucose 47 *L 74-106 mg/dL Microbiology Date/Time Source Procedure Growth Status 09/19/24 14:30 Nose MRSA Screen - Final Complete 09/19/24 01:45 Blood Blood Culture - Preliminary NO GROWTH AFTER 72 HOURS OF INCUBATION. Resulted Problem List/Assessment/Plan Problem List/Assessment/Plan Assessment: Acute kidney injury likely due to secondary to cardiorenal syndrome in the setting of heart failure exacerbation Hyperkalemia Hypoglycemia Acute respiratory failure due to systolic CHF exacerbation, ejection fraction 12% NYHA IV Pulmonary hypertension History of drug abuse History of hepatitis c infection Non compliant to medications NSTEMI type 2 Hyperphosphatemia Plan Continue with Bumex 2.5 mg IV BID , and metolazone 10 mg p.o. daily Monitor renal function (daily BMP, urine output, GFR trend, electrolytes) Renal diet , low-potassium diet k2 Monitor potassium levels closely Cardiology on board. Daily weights. Strict intake and output monitoring. case discussed with code status: full code Addendum Patient seen and examined, plan discussed with resident. Agree with above, we will follow closely poor prognosis Plan discussed with: Patient My Orders My Orders Orders - ALLI SILVA Procedure Category Date Status Time Metolazone (Zaroxolyn) PHA 09/23/24 In Process 10:00 ALLI SILVA September 22, 2024 15:56 LUIZ ALVARADO MD September 22, 2024 19:38
--- NOTE | 2024-09-22 21:40 | ECG ---
[facility] Test Date: 2024-09-22 Test Time: 21:12:35 Pat Name: XIN ADAMS Department: Room: 0281T A Gender: M Reference Librarian: MARILYN : 1955 Requested By: IRINA POWELL Order Number: [id number] Reading MD: Ld Baca Measurements Intervals [place] Rate: 103 P: 98 SC: 197 QRS: 133 QRSD: 118 T: -58 QT: 363 QTc: 475 Interpretive Statements Sinus tachycardia Multiform ventricular premature complexes Biatrial enlargement Consider left ventricular hypertrophy Anterior Q waves, possibly due to LVH Nonspecific T abnormalities, inferior leads Electronically Signed On 09-23-2024 9:08:56 PDT by Ld Baca Please click the below link to view image of tracing.
[2024-09-23] VITALS (11 sets, daily range): BP systolic 97–115; BP diastolic 64–75; PULSE 60–95; RESP 15–20; TEMP 97.2–98; O2SAT 91–99
[2024-09-23] MEDS: metOLazone 5 MG TAB PO SCH (10:00)
--- NOTE | 2024-09-23 11:04 | DVHPN2 ---
Reviewed: Care Plan, H&P, Labs, Medications, Previous Orders, Radiology Changes from previous H/P or p: No Changes Cardiovascular: Chest Pain, Paroxysmal Noc. Dyspnea, Edema Respiratory: Cough Gastrointestinal: Abdominal Pain Objective Vitals Vital Signs Date Time Temp Pulse Resp B/P (MAP) Pulse Ox O2 Delivery O2 Flow Rate FiO2 09/23/24 10:00 115/74 09/23/24 10:00 89 09/23/24 09:00 97.5 16 98 97.5 09/23/24 05:51 Nasal Cannula* 1 24 Intake/Output Intake and Output 09/23/24 07:00 Intake Total 700 ml Output Total 500 ml Balance 200 ml Intake Oral 700 ml Output Urine Total 500 ml # Voids 3 Medications Current Medications Medications Dose Ordered Sig/Lisa Route Start Time Stop Time Status Last Admin Dose Admin Ipratropium [place] 0.5 mg Q6HR NEB 09/19/24 00:00 09/23/24 05:51 0.5 MG Acetaminophen 500 mg Q4HPRN PRN PO 09/18/24 21:15 Acetaminophen/ Hydrocodone Bitart 1 tab Q4HPRN PRN PO 09/18/24 21:15 09/23/24 01:54 1 TAB Morphine Sulfate 1 mg Q4HPRN PRN IV 09/18/24 21:15 09/21/24 17:54 1 MG Clopidogrel Bisulfate 75 mg DAILY PO 09/19/24 10:00 09/22/24 09:49 75 MG Famotidine 10 mg DAILY PO 09/19/24 10:00 09/23/24 10:33 10 MG Tamsulosin HCl 0.4 mg DAILY PO 09/19/24 10:00 09/22/24 09:49 0.4 MG Atorvastatin Calcium 40 mg HS PO 09/19/24 22:00 09/22/24 22:01 40 MG Bumetanide 2.5 mg BIDD IV 09/19/24 09:00 09/22/24 06:18 2.5 MG Carvedilol 3.125 mg Q12HR PO 09/19/24 10:00 09/22/24 22:02 3.125 MG Sevelamer HCl 800 mg TIDWM PO 09/19/24 18:00 09/23/24 10:36 800 MG Metolazone 10 mg DAILY PO 09/23/24 10:00 Laboratory Results Laboratory Tests 09/20/24 05:07 09/21/24 06:55 Urinalysis Test 09/19/24 04:35 Urine Color Yellow (Yellow) Urine Clarity Turbid (Clear) H Urine pH 5.5 (5.0-9.0) Urine Specific [place] 1.014 (1.001-1.035) Urine Protein 2+ (Negative) H Urine Ketones Trace (Negative) Urine Blood 2+ /uL (Negative) H Urine Nitrite Negative (Negative) Urine Bilirubin Negative (Negative) Urine Urobilinogen Normal mg/dL (Negative) Urine Leukocyte Esterase 1+ /uL (Negative) Urine RBC 20 /hpf (0 - 3) Urine Microscopic WBC 22 /HPF (0-3) H Urine Squamous Epithelial Cells Few /hpf (<5) Urine Bacteria Few /hpf (None Seen) H Urine Hyaline Casts Many /lpf (0 - 2) Urine Mucus Few (None Seen) Urine Osmolality 380 mOsm/kg Urine Creatinine 105.63 mg/dL (30.0-125.0) Urine Protein/Creatinine Ratio 2.09 Urine Sodium 43 mmol/L (40-220) Urine Glucose Normal mg/dL (Normal) Urine Total Protein 221.2 mg/dL (1-14) H Microbiology Microbiology Date/Time Source Procedure Growth Status 09/19/24 14:30 Nose MRSA Screen - Final Complete 09/19/24 01:45 Blood Blood Culture - Preliminary NO GROWTH AFTER 72 HOURS OF INCUBATION. Resulted Labs and/or images reviewed: Labs reviewed by me, Image(s) reviewed by me Assessment/Plan Assessment/Plan Covering for Dr. Washburn #1 acute resp failure: cont oxygen #2 acute on chronic systolic heart failure: bumex #3 acute on chronic renal failure ?vasomotor nephropathy #4 pulm htn #5 h/o lung cancer s/p surgery #6 copd #7 h/o drug abuse #8 h/o hep c #9 non compliance- refusing meds #10 hyperkalemia: Treatment per protocol #11 Bilateral renal cysts Time Spent 55 minutes Advanced care planning time 20 minutes Full code Plan discussed with: Patient Date of Service: September 23, 2024 Billing Provider: LUPE SAENZ MD Common Visit Codes: [id number] INP/OBS CARE(HIGH) Secondary Visit Codes: [id number] CARE PLAN 30 MINUTES LUPE SAENZ MD September 23, 2024 11:04
--- NOTE | 2024-09-23 15:28 | DVHPN2 ---
Progress Note Date Seen: September 23, 2024 Resident Creating Document: ALLI SILVA RESIDENT Medical Necessity Reason Pt with a Central, PICC or Fol: No Reason for jeffries catheter: Strict I&O Subjective Review of Systems Patient is seen and examined at bedside, patient was consistently having hyperkalemia episodes, current electrolytes levels are unknown as blood draws has been refused by patient. Patient has a poor prognosis, current nephrology management plan has been refused by patient. Patient reports: No new complaints Changes from previous H/P or p: No Changes Objective vital signs Vital Sign Date Time Temp Pulse Resp B/P (MAP) Pulse Ox O2 Delivery O2 Flow Rate FiO2 09/23/24 13:00 60 15 97/69 (78) 96 09/23/24 11:35 Room Air* 0 21 09/23/24 09:00 97.5 97.5 Total Intake and Output 09/22/24 09/22/24 09/23/24 15:00 23:00 07:00 Intake Total 300 ml 400 ml Output Total 500 ml Balance 300 ml -100 ml medications Current Medications Medications Dose Ordered Sig/Lisa Route Start Time Stop Time Status Last Admin Dose Admin Ipratropium [place] 0.5 mg Q6HR NEB 09/19/24 00:00 09/23/24 11:35 0.5 MG Acetaminophen 500 mg Q4HPRN PRN PO 09/18/24 21:15 Acetaminophen/ Hydrocodone Bitart 1 tab Q4HPRN PRN PO 09/18/24 21:15 09/23/24 01:54 1 TAB Morphine Sulfate 1 mg Q4HPRN PRN IV 09/18/24 21:15 09/21/24 17:54 1 MG Clopidogrel Bisulfate 75 mg DAILY PO 09/19/24 10:00 09/22/24 09:49 75 MG Famotidine 10 mg DAILY PO 09/19/24 10:00 09/23/24 10:33 10 MG Tamsulosin HCl 0.4 mg DAILY PO 09/19/24 10:00 09/22/24 09:49 0.4 MG Atorvastatin Calcium 40 mg HS PO 09/19/24 22:00 09/22/24 22:01 40 MG Bumetanide 2.5 mg BIDD IV 09/19/24 09:00 09/22/24 06:18 2.5 MG Carvedilol 3.125 mg Q12HR PO 09/19/24 10:00 09/22/24 22:02 3.125 MG Sevelamer HCl 800 mg TIDWM PO 09/19/24 18:00 09/23/24 10:36 800 MG Metolazone 10 mg DAILY PO 09/23/24 10:00 Examination: GENERAL:Abnormal, HEENT:Abnormal, LUNGS:Abnormal, CVS:Abnormal, ABDOMEN:Normal, MSK:Abnormal, SKIN:Abnormal, NEURO:Abnormal, :Abnormal laboratory and microbiology Laboratory Tests 09/21/24 06:55 09/20/24 05:07 Test 09/21/24 06:55 Range/Units Serum Glucose 47 *L 74-106 mg/dL Microbiology Date/Time Source Procedure Growth Status 09/19/24 14:30 Nose MRSA Screen - Final Complete 09/19/24 01:45 Blood Blood Culture - Preliminary NO GROWTH AFTER 72 HOURS OF INCUBATION. Resulted Problem List/Assessment/Plan Problem List/Assessment/Plan Assessment: Acute kidney injury likely due to secondary to cardiorenal syndrome in the setting of heart failure exacerbation Hyperkalemia Hypoglycemia Acute respiratory failure due to systolic CHF exacerbation, ejection fraction 12% NYHA IV Pulmonary hypertension History of drug abuse History of hepatitis c infection Non compliant to medications NSTEMI type 2 Hyperphosphatemia Plan Continue with Bumex 2.5 mg IV BID , and metolazone 10 mg p.o. daily, patient has been refusing medication Monitor renal function (daily BMP, urine output, GFR trend, electrolytes), blood draws has been refused by the patient Renal diet , low-potassium diet k2 Cardiology on board. Daily weights. Strict intake and output monitoring. case discussed with code status: full code Addendum Patient seen and examined, plan discussed with resident. Agree with above, refusing care ,labs,meds grave prognosis Plan discussed with: Patient My Orders My Orders Orders - ALLI SILVA RESIDENT Procedure Category Date Status Time Complete Blood Count LAB 09/23/24 Logged 04:00 ALLI SILVA RESIDENT September 23, 2024 15:28 LUIZ ALVARADO MD September 23, 2024 16:13
[2024-09-24] VITALS (15 sets, daily range): BP systolic 101–122; BP diastolic 66–75; PULSE 81–94; RESP 12–17; TEMP 97.3–97.9; O2SAT 94–100
[2024-09-24 06:21] LABS: Basophils # (auto) 0 10 ^3/uL (0-0.2); Basophils % (auto) 0.5 % (0.0-2.0); Eosinophils # (auto) 0 10 ^3/uL (0-0.8); Eosinophils % (auto) 0.4 % (0.0-7.0); Hematocrit 48.8 % (41.0-53.0); Hemoglobin 15.8 g/dL (13.5-17.5); Lymphocytes # (auto) 0.3 10 ^3/uL (0.4-5.4); Lymphocytes % (auto) 4.1 % (10.0-50.0); Mean Corpuscular Hemoglobin 27.4 pg (28.0-32.0); Mean Corpuscular Hgb Conc. 32.4 g/dL (32.0-36.0); Mean Corpuscular Volume 84.6 fL (80.0-100.0); Neutrophils # (auto) 6.7 10 ^3/uL (1.6-8.6); Nucleated Red Blood Cells % 0.4 %; Platelet Count (auto) 93 10^3/uL (140-450); Red Blood Cells 5.77 10^6/uL (4.5-5.90); Red Cell Distribution Width 19.6 % (11.8-14.3); White Blood Cell 8.1 10^3/uL (4.4-10.8)
[2024-09-24 06:38] LABS: Alanine Aminotransferase 37 U/L (7-40); Alkaline Phosphatase 87 U/L (46-116); Anion Gap 14 (5-15); BUN/Creatinine Ratio 26.5 (10.0-20.0); Calcium 9.3 mg/dL (8.7-10.4); Carbon Dioxide 26 mmol/L (20-31); Chloride 100 mmol/L (98-107); Glucose 79 mg/dL (74-106); Sodium 140 mmol/L (136-145)
[2024-09-24 06:44] LABS: Albumin 3.1 g/dL (3.2-4.8); Aspartate Aminotransferase 54 U/L (13-40); Bilirubin, Total 3.5 mg/dL (0.2-1.0); Potassium 3.2 mmol/L (3.5-5.1); Total Protein 5.6 g/dL (5.7-8.2)
[2024-09-24 06:45] LABS: Blood Urea Nitrogen 87 mg/dL (9-23)
[2024-09-24] MEDS: POTASSIUM CHL 20 Meq TABLET PO ONE (09:00)
--- NOTE | 2024-09-24 10:06 | DVHPN2 ---
Reviewed: Care Plan, H&P, Labs, Medications, Previous Orders, Radiology Changes from previous H/P or p: No Changes Cardiovascular: Chest Pain, Paroxysmal Noc. Dyspnea, Edema Respiratory: Cough Gastrointestinal: Abdominal Pain Objective Vitals Vital Signs Date Time Temp Pulse Resp B/P (MAP) Pulse Ox O2 Delivery O2 Flow Rate FiO2 09/24/24 08:41 97.6 90 16 101/69 (80) 95 97.6 09/24/24 07:26 Room Air* 0 21 Intake/Output Intake and Output 09/24/24 07:00 Intake Total 740 ml Output Total 2215 ml Balance -1475 ml Intake Oral 740 ml Output Urine Total 2215 ml # Bowel Movements 2 Medications Current Medications Medications Dose Ordered Sig/Lisa Route Start Time Stop Time Status Last Admin Dose Admin Ipratropium [place] 0.5 mg Q6HR NEB 09/19/24 00:00 09/24/24 07:26 0.5 MG Acetaminophen 500 mg Q4HPRN PRN PO 09/18/24 21:15 Acetaminophen/ Hydrocodone Bitart 1 tab Q4HPRN PRN PO 09/18/24 21:15 09/23/24 21:39 1 TAB Morphine Sulfate 1 mg Q4HPRN PRN IV 09/18/24 21:15 09/21/24 17:54 1 MG Clopidogrel Bisulfate 75 mg DAILY PO 09/19/24 10:00 09/22/24 09:49 75 MG Famotidine 10 mg DAILY PO 09/19/24 10:00 09/23/24 10:33 10 MG Tamsulosin HCl 0.4 mg DAILY PO 09/19/24 10:00 09/22/24 09:49 0.4 MG Atorvastatin Calcium 40 mg HS PO 09/19/24 22:00 09/23/24 21:39 40 MG Bumetanide 2.5 mg BIDD IV 09/19/24 09:00 09/22/24 06:18 2.5 MG Carvedilol 3.125 mg Q12HR PO 09/19/24 10:00 09/23/24 21:39 3.125 MG Sevelamer HCl 800 mg TIDWM PO 09/19/24 18:00 09/23/24 10:36 800 MG Metolazone 10 mg DAILY PO 09/23/24 10:00 Laboratory Results Laboratory Tests 09/24/24 05:51 Chemistry Test 09/24/24 05:51 Albumin 3.1 g/dL (3.2-4.8) L Calcium Level 9.3 mg/dL (8.7-10.4) Total Protein 5.6 g/dL (5.7-8.2) L LFT Test 09/24/24 05:51 Alanine Aminotransferase (ALT) 37 U/L (7-40) Alkaline Phosphatase 87 U/L (46-116) Aspartate Amino Transferase (AST) 54 U/L (13-40) H Total Bilirubin 3.5 mg/dL (0.2-1.0) H Urinalysis Test 09/19/24 04:35 Urine Color Yellow (Yellow) Urine Clarity Turbid (Clear) H Urine pH 5.5 (5.0-9.0) Urine Specific [place] 1.014 (1.001-1.035) Urine Protein 2+ (Negative) H Urine Ketones Trace (Negative) Urine Blood 2+ /uL (Negative) H Urine Nitrite Negative (Negative) Urine Bilirubin Negative (Negative) Urine Urobilinogen Normal mg/dL (Negative) Urine Leukocyte Esterase 1+ /uL (Negative) Urine RBC 20 /hpf (0 - 3) Urine Microscopic WBC 22 /HPF (0-3) H Urine Squamous Epithelial Cells Few /hpf (<5) Urine Bacteria Few /hpf (None Seen) H Urine Hyaline Casts Many /lpf (0 - 2) Urine Mucus Few (None Seen) Urine Osmolality 380 mOsm/kg Urine Creatinine 105.63 mg/dL (30.0-125.0) Urine Protein/Creatinine Ratio 2.09 Urine Sodium 43 mmol/L (40-220) Urine Glucose Normal mg/dL (Normal) Urine Total Protein 221.2 mg/dL (1-14) H Microbiology Microbiology Date/Time Source Procedure Growth Status 09/19/24 14:30 Nose MRSA Screen - Final Complete 09/19/24 01:45 Blood Blood Culture - Final NO GROWTH AFTER 5 DAYS OF INCUBATION. Complete Labs and/or images reviewed: Labs reviewed by me, Image(s) reviewed by me Assessment/Plan Assessment/Plan Covering for Dr. Washburn #1 acute resp failure: cont oxygen #2 acute on chronic systolic heart failure: bumex #3 acute on chronic renal failure ?vasomotor nephropathy #4 pulm htn #5 h/o lung cancer s/p surgery #6 copd #7 h/o drug abuse #8 h/o hep c #9 non compliance- refusing meds #10 hyperkalemia: Treatment per protocol #11 Bilateral renal cysts Time Spent 50 minutes Advanced care planning time 20 minutes Plan discussed with: Patient My Orders Orders - LUPE SAENZ MD Procedure Category Date Status Time Code Status CODE 09/23/24 Transmitted 11:04 *[facility] CONS 09/23/24 Transmitted -[place] 11:08 Complete Blood Count LAB 09/25/24 Verified 05:00 Complete Blood Count LAB 09/26/24 Verified 05:00 Complete Blood Count LAB 09/27/24 Verified 05:00 Comprehensive LAB 09/25/24 Verified Metabolic Panel 05:00 Comprehensive LAB 09/26/24 Verified Metabolic Panel 05:00 Comprehensive LAB 09/27/24 Verified Metabolic Panel 05:00 Date of Service: September 24, 2024 Billing Provider: LUPE SAENZ MD Common Visit Codes: [id number] INP/OBS CARE(HIGH) LUPE SAENZ MD September 24, 2024 10:06
--- NOTE | 2024-09-24 15:38 | DVHPN2 ---
Progress Note Date Seen: September 24, 2024 Medical Necessity Reason Pt with a Central, PICC or Fol: No Reason for jeffries catheter: Strict I&O Subjective Patient reports: No new complaints Review of Systems: Deferred Objective vital signs Vital Sign Date Time Temp Pulse Resp B/P (MAP) Pulse Ox O2 Delivery O2 Flow Rate FiO2 09/24/24 12:26 81 12 94 09/24/24 12:26 Room Air 0.0 09/24/24 12:26 21 09/24/24 08:41 97.6 101/69 (80) 97.6 Total Intake and Output 09/23/24 09/23/24 09/24/24 15:00 23:00 07:00 Intake Total 240 ml 500 ml Output Total 730 ml 660 ml 825 ml Balance -730 ml -420 ml -325 ml medications Current Medications Medications Dose Ordered Sig/Lisa Route Start Time Stop Time Status Last Admin Dose Admin Ipratropium [place] 0.5 mg Q6HR NEB 09/19/24 00:00 09/24/24 12:26 0.5 MG Acetaminophen 500 mg Q4HPRN PRN PO 09/18/24 21:15 Acetaminophen/ Hydrocodone Bitart 1 tab Q4HPRN PRN PO 09/18/24 21:15 09/23/24 21:39 1 TAB Morphine Sulfate 1 mg Q4HPRN PRN IV 09/18/24 21:15 09/21/24 17:54 1 MG Clopidogrel Bisulfate 75 mg DAILY PO 09/19/24 10:00 09/22/24 09:49 75 MG Famotidine 10 mg DAILY PO 09/19/24 10:00 09/23/24 10:33 10 MG Tamsulosin HCl 0.4 mg DAILY PO 09/19/24 10:00 09/22/24 09:49 0.4 MG Atorvastatin Calcium 40 mg HS PO 09/19/24 22:00 09/23/24 21:39 40 MG Bumetanide 2.5 mg BIDD IV 09/19/24 09:00 09/22/24 06:18 2.5 MG Carvedilol 3.125 mg Q12HR PO 09/19/24 10:00 09/23/24 21:39 3.125 MG Sevelamer HCl 800 mg TIDWM PO 09/19/24 18:00 09/23/24 10:36 800 MG Metolazone 10 mg DAILY PO 09/23/24 10:00 laboratory and microbiology Laboratory Tests 09/24/24 05:51 Test 09/24/24 05:51 Range/Units Serum Glucose 79 74-106 mg/dL Microbiology Date/Time Source Procedure Growth Status 09/19/24 14:30 Nose MRSA Screen - Final Complete 09/19/24 01:45 Blood Blood Culture - Final NO GROWTH AFTER 5 DAYS OF INCUBATION. Complete Problem List/Assessment/Plan Problem List/Assessment/Plan Assessment: Acute kidney injury likely due to secondary to cardiorenal syndrome in the setting of heart failure exacerbation Hyperkalemia Hypoglycemia Acute respiratory failure due to systolic CHF exacerbation, ejection fraction 12% NYHA IV Pulmonary hypertension History of drug abuse History of hepatitis c infection Non compliant to medications NSTEMI type 2 Hyperphosphatemia Plan Continue with Bumex IV BID , and metolazone 10 mg p.o. daily, Renal function stable Plan discussed with: Patient Dietary Evaluation Review Recommendations by RD: Increase Calorie Intake, Protein Supplementation Comments: 1) Ensure Enlive 240ml BID 2) Continue current plan of care Expected Outcomes/Goals: Pt will maintain or gain weight oral intake to meet at least 75% estimated needs Fu 3-5 days Food and Nutrition Intake (Mod: <75% est energy req 7days Interpretation of weight loss: >7.5% in 3 months Fluid Accumulation (Non Severe: Mild fluid retention Protein Calorie Malnutrition: Severe Is there a minimum of two crit: Yes LUIZ ALVARADO MD September 24, 2024 15:38
[2024-09-25] VITALS (7 sets, daily range): PULSE 76–82; RESP 16–18; O2SAT 95–99
[2024-09-25 08:41] LABS: Basophils # (auto) 0.1 10 ^3/uL (0-0.2); Basophils % (auto) 1.6 % (0.0-2.0); Eosinophils # (auto) 0.1 10 ^3/uL (0-0.8); Eosinophils % (auto) 0.8 % (0.0-7.0); Hematocrit 46.3 % (41.0-53.0); Hemoglobin 15.5 g/dL (13.5-17.5); Lymphocytes # (auto) 0.4 10 ^3/uL (0.4-5.4); Lymphocytes % (auto) 5.8 % (10.0-50.0); Mean Corpuscular Hemoglobin 27.6 pg (28.0-32.0); Mean Corpuscular Hgb Conc. 33.4 g/dL (32.0-36.0); Mean Corpuscular Volume 82.8 fL (80.0-100.0); Monocytes % (auto) 13.2 % (0.0-12.0); Neutrophils % (auto) 78.6 % (37.0-80.0); Nucleated Red Blood Cells % 0.1 %; Platelet Count (auto) 98 10^3/uL (140-450); Red Cell Distribution Width 19.1 % (11.8-14.3); White Blood Cell 7.7 10^3/uL (4.4-10.8)
[2024-09-25 09:00] LABS: Alkaline Phosphatase 102 U/L (46-116); Anion Gap 10 (5-15); Calcium 8.7 mg/dL (8.7-10.4); Carbon Dioxide 30 mmol/L (20-31); Chloride 101 mmol/L (98-107); Glucose 100 mg/dL (74-106); Sodium 141 mmol/L (136-145)
[2024-09-25 09:01] LABS: Alanine Aminotransferase 43 U/L (7-40); Aspartate Aminotransferase 86 U/L (13-40); Bilirubin, Total 3.6 mg/dL (0.2-1.0); Potassium 3.1 mmol/L (3.5-5.1); Total Protein 5.3 g/dL (5.7-8.2)
[2024-09-25 09:02] LABS: Blood Urea Nitrogen 86 mg/dL (9-23)
--- NOTE | 2024-09-25 11:29 | DVHPN2 ---
Reviewed: Care Plan, H&P, Labs, Medications, Previous Orders, Radiology Changes from previous H/P or p: No Changes Cardiovascular: Chest Pain, Paroxysmal Noc. Dyspnea, Edema Respiratory: Cough Gastrointestinal: Abdominal Pain Objective Vitals Vital Signs Date Time Temp Pulse Resp B/P (MAP) Pulse Ox O2 Delivery O2 Flow Rate FiO2 09/25/24 06:12 76 18 99 09/25/24 06:06 Room Air 0.0 09/25/24 06:06 21 09/24/24 22:00 104/75 09/24/24 21:00 97.3 97.3 Intake/Output Intake and Output 09/25/24 07:00 Intake Total 900 ml Output Total 963 ml Balance -63 ml Intake Oral 900 ml Output Urine Total 963 ml # Bowel Movements 3 Medications Current Medications Medications Dose Ordered Sig/Lisa Route Start Time Stop Time Status Last Admin Dose Admin Ipratropium [place] 0.5 mg Q6HR NEB 09/19/24 00:00 09/25/24 06:06 0.5 MG Acetaminophen 500 mg Q4HPRN PRN PO 09/18/24 21:15 Acetaminophen/ Hydrocodone Bitart 1 tab Q4HPRN PRN PO 09/18/24 21:15 09/25/24 05:06 1 TAB Morphine Sulfate 1 mg Q4HPRN PRN IV 09/18/24 21:15 09/21/24 17:54 1 MG Clopidogrel Bisulfate 75 mg DAILY PO 09/19/24 10:00 09/22/24 09:49 75 MG Famotidine 10 mg DAILY PO 09/19/24 10:00 09/25/24 10:58 10 MG Tamsulosin HCl 0.4 mg DAILY PO 09/19/24 10:00 09/22/24 09:49 0.4 MG Atorvastatin Calcium 40 mg HS PO 09/19/24 22:00 09/23/24 21:39 40 MG Bumetanide 2.5 mg BIDD IV 09/19/24 09:00 09/22/24 06:18 2.5 MG Carvedilol 3.125 mg Q12HR PO 09/19/24 10:00 09/23/24 21:39 3.125 MG Sevelamer HCl 800 mg TIDWM PO 09/19/24 18:00 09/25/24 10:54 800 MG Metolazone 10 mg DAILY PO 09/23/24 10:00 Laboratory Results Laboratory Tests 09/25/24 08:33 Chemistry Test 09/25/24 08:33 Albumin 3.0 g/dL (3.2-4.8) L Calcium Level 8.7 mg/dL (8.7-10.4) Total Protein 5.3 g/dL (5.7-8.2) L LFT Test 09/25/24 08:33 Alanine Aminotransferase (ALT) 43 U/L (7-40) H Alkaline Phosphatase 102 U/L (46-116) Aspartate Amino Transferase (AST) 86 U/L (13-40) H Total Bilirubin 3.6 mg/dL (0.2-1.0) H Urinalysis Test 09/19/24 04:35 Urine Color Yellow (Yellow) Urine Clarity Turbid (Clear) H Urine pH 5.5 (5.0-9.0) Urine Specific [place] 1.014 (1.001-1.035) Urine Protein 2+ (Negative) H Urine Ketones Trace (Negative) Urine Blood 2+ /uL (Negative) H Urine Nitrite Negative (Negative) Urine Bilirubin Negative (Negative) Urine Urobilinogen Normal mg/dL (Negative) Urine Leukocyte Esterase 1+ /uL (Negative) Urine RBC 20 /hpf (0 - 3) Urine Microscopic WBC 22 /HPF (0-3) H Urine Squamous Epithelial Cells Few /hpf (<5) Urine Bacteria Few /hpf (None Seen) H Urine Hyaline Casts Many /lpf (0 - 2) Urine Mucus Few (None Seen) Urine Osmolality 380 mOsm/kg Urine Creatinine 105.63 mg/dL (30.0-125.0) Urine Protein/Creatinine Ratio 2.09 Urine Sodium 43 mmol/L (40-220) Urine Glucose Normal mg/dL (Normal) Urine Total Protein 221.2 mg/dL (1-14) H Microbiology Microbiology Date/Time Source Procedure Growth Status 09/19/24 14:30 Nose MRSA Screen - Final Complete 09/19/24 01:45 Blood Blood Culture - Final NO GROWTH AFTER 5 DAYS OF INCUBATION. Complete Labs and/or images reviewed: Labs reviewed by me, Image(s) reviewed by me Assessment/Plan Assessment/Plan Covering for Dr. Washburn #1 acute resp failure: cont oxygen #2 acute on chronic systolic heart failure: bumex #3 acute on chronic renal failure ?vasomotor nephropathy #4 pulm htn #5 h/o lung cancer s/p surgery #6 copd #7 h/o drug abuse #8 h/o hep c #9 non compliance- refusing meds #10 hyperkalemia: Treatment per protocol #11 Bilateral renal cysts Time Spent 50 minutes Patient is noncompliant refusing medications and blood draws Plan discussed with: Patient Date of Service: September 25, 2024 Billing Provider: LUPE SAENZ MD Common Visit Codes: [id number] INP/OBS CARE(HIGH) LUPE SAENZ MD September 25, 2024 11:29
--- NOTE | 2024-09-25 12:42 | DVHPN2 ---
Progress Note Date Seen: September 25, 2024 Medical Necessity Reason Pt with a Central, PICC or Fol: No Reason for jeffries catheter: Strict I&O Subjective Patient reports: No new complaints Review of Systems: Deferred Objective vital signs Vital Sign Date Time Temp Pulse Resp B/P (MAP) Pulse Ox O2 Delivery O2 Flow Rate FiO2 09/25/24 10:00 96 Room Air 0.0 09/25/24 10:00 21 09/25/24 08:00 16 09/25/24 06:12 76 09/24/24 22:00 104/75 09/24/24 21:00 97.3 97.3 Total Intake and Output 09/24/24 09/24/24 09/25/24 14:59 22:59 06:59 Intake Total 600 ml 300 ml Output Total 960 ml 3 ml Balance -360 ml 297 ml medications Current Medications Medications Dose Ordered Sig/Lisa Route Start Time Stop Time Status Last Admin Dose Admin Ipratropium [place] 0.5 mg Q6HR NEB 09/19/24 00:00 09/25/24 06:06 0.5 MG Acetaminophen 500 mg Q4HPRN PRN PO 09/18/24 21:15 Acetaminophen/ Hydrocodone Bitart 1 tab Q4HPRN PRN PO 09/18/24 21:15 09/25/24 05:06 1 TAB Morphine Sulfate 1 mg Q4HPRN PRN IV 09/18/24 21:15 09/21/24 17:54 1 MG Clopidogrel Bisulfate 75 mg DAILY PO 09/19/24 10:00 09/22/24 09:49 75 MG Famotidine 10 mg DAILY PO 09/19/24 10:00 09/25/24 10:58 10 MG Tamsulosin HCl 0.4 mg DAILY PO 09/19/24 10:00 09/22/24 09:49 0.4 MG Atorvastatin Calcium 40 mg HS PO 09/19/24 22:00 09/23/24 21:39 40 MG Bumetanide 2.5 mg BIDD IV 09/19/24 09:00 09/22/24 06:18 2.5 MG Carvedilol 3.125 mg Q12HR PO 09/19/24 10:00 09/23/24 21:39 3.125 MG Sevelamer HCl 800 mg TIDWM PO 09/19/24 18:00 09/25/24 10:54 800 MG Metolazone 10 mg DAILY PO 09/23/24 10:00 Examination: GENERAL:Abnormal, LUNGS:Abnormal, MSK:Abnormal, NEURO:Normal laboratory and microbiology Laboratory Tests 09/25/24 08:33 Test 09/25/24 08:33 Range/Units Serum Glucose 100 74-106 mg/dL Microbiology Date/Time Source Procedure Growth Status 09/19/24 14:30 Nose MRSA Screen - Final Complete 09/19/24 01:45 Blood Blood Culture - Final NO GROWTH AFTER 5 DAYS OF INCUBATION. Complete Problem List/Assessment/Plan Problem List/Assessment/Plan Assessment: Acute kidney injury likely due to secondary to cardiorenal syndrome in the setting of heart failure exacerbation Hyperkalemia Hypoglycemia Acute respiratory failure due to systolic CHF exacerbation, ejection fraction 12% NYHA IV Pulmonary hypertension History of drug abuse History of hepatitis c infection Non compliant to medications NSTEMI type 2 Hyperphosphatemia Plan Continue with Bumex IV BID , and metolazone 10 mg p.o. daily, Renal function stable Plan discussed with: Other Dietary Evaluation Review Recommendations by RD: Increase Calorie Intake, Protein Supplementation Comments: 1) Ensure Enlive 240ml BID 2) Continue current plan of care Expected Outcomes/Goals: Pt will maintain or gain weight oral intake to meet at least 75% estimated needs Fu 3-5 days Food and Nutrition Intake (Mod: <75% est energy req 7days Interpretation of weight loss: >7.5% in 3 months Fluid Accumulation (Non Severe: Mild fluid retention Protein Calorie Malnutrition: Severe Is there a minimum of two crit: Yes LUIZ ALVARADO MD September 25, 2024 12:42
[2024-09-26] VITALS (7 sets, daily range): BP systolic 110; BP diastolic 70; PULSE 80–94; RESP 18; TEMP 98.6; O2SAT 96–99
--- NOTE | 2024-09-26 10:13 | DVHPN2 ---
Progress Note Date Seen: September 26, 2024 Resident Creating Document: RAUL SLAUGHTER RESIDENT Medical Necessity Reason Pt with a Central, PICC or Fol: No Reason for jeffries catheter: Strict I&O Subjective Review of Systems Mr. Calvillo is a 69-year-old male with past medical history of heart failure with a reduced ejection fraction-LVEF 12% 07/2024, end-stage dilated cardiomyopathy, pulmonary hypertension-RVSP 60 mmHg, history of hepatitis-C who presented to the ER with a chief complaint of left-sided chest pain along with shortness of breaths for the past 2 days. Patient is A&O x3 but is unable to give history given the pain. Patient's sister Ambar was called, reported that the patient has a had some stomach pain for the past 2 days but does not know the details. Patient lives with a female friend Monica, [phone] go directly went to [facility]. Per sister, patient quit smoking alcohol long time back. Does not do any illicit drugs. He has been compliant with medications. On arrival to the ER, patient was afebrile, tachycardic, normotensive, H&H 17/53. BNP was greater than 5000. Patient had anion gap metabolic acidosis. Anion gap was 19. Creatinine was 3.7, baseline is 3.08. Troponin were downtrending, 157, 155. D-dimer was 4. past medical history of heart failure with a reduced ejection fraction-LVEF 12% 07/2024, end-stage dilated cardiomyopathy, pulmonary hypertension-RVSP 60 mmHg, history of hepatitis-C Social history: Per sister, patient quit smoking alcohol long time back During the hospitalization, patient was diagnosed with cholecystitis. MRCP showed pancreatic edema, moderate ascites. CT abdomen showed bilateral renal cyst along with mesenteric edema likely pancreatitis. Nephrology was consulted for PORTIA on CKD, likely cardiorenal patient was started on IV Bumex IV dobutamine drip. And was discontinued 09/21. Patient was started on metolazone 10 mg 09/22, phosphate binder TIDWM which he has been refusing. Patient has been refusing morning labs along with medications. Patient seen and examined at the bedside. He is refusing IV Bumex, IV Bumex switched to p.o.. Objective vital signs Vital Sign Date Time Temp Pulse Resp B/P (MAP) Pulse Ox O2 Delivery O2 Flow Rate FiO2 5/5/25 06:14 97 Room Air* 0 21 09/25/24 22:00 87 114/77 09/25/24 08:00 16 09/24/24 21:00 97.3 97.3 Total Intake and Output 09/25/24 09/25/24 09/26/24 15:00 23:00 07:00 Intake Total 450 ml 500 ml Output Total 1 ml 1000 ml Balance 449 ml -500 ml medications Current Medications Medications Dose Ordered Sig/Lisa Route Start Time Stop Time Status Last Admin Dose Admin Ipratropium [place] 0.5 mg Q6HR NEB 09/19/24 00:00 09/25/24 06:06 0.5 MG Acetaminophen 500 mg Q4HPRN PRN PO 09/18/24 21:15 Acetaminophen/ Hydrocodone Bitart 1 tab Q4HPRN PRN PO 09/18/24 21:15 09/25/24 05:06 1 TAB Morphine Sulfate 1 mg Q4HPRN PRN IV 09/18/24 21:15 09/21/24 17:54 1 MG Clopidogrel Bisulfate 75 mg DAILY PO 09/19/24 10:00 09/22/24 09:49 75 MG Famotidine 10 mg DAILY PO 09/19/24 10:00 09/25/24 10:58 10 MG Tamsulosin HCl 0.4 mg DAILY PO 09/19/24 10:00 09/22/24 09:49 0.4 MG Atorvastatin Calcium 40 mg HS PO 09/19/24 22:00 09/23/24 21:39 40 MG Bumetanide 2.5 mg BIDD IV 09/19/24 09:00 09/22/24 06:18 2.5 MG Carvedilol 3.125 mg Q12HR PO 09/19/24 10:00 09/23/24 21:39 3.125 MG Sevelamer HCl 800 mg TIDWM PO 09/19/24 18:00 09/25/24 10:54 800 MG Metolazone 10 mg DAILY PO 09/23/24 10:00 Examination Patient lying in bed, in no acute distress General: Afebrile, palor, mucosae are moist Cardiovascular: Tachycardic but Regular S1 and S2. No murmurs, gallops or rubs. JVD raised, positive hepatojugular reflux. Resolving pedal edema Respiratory: Normal B/L air entry on room air. Resolving bibasilar crackles Abdomen: Soft, tender, nondistended, normoactive bowel sounds, no rebound tenderness, no organomegaly, no masses Genitourinary: Deferred MSK/skin: Mobilizes 4 limbs. Skin is dry and warm Neurological: No motor, no sensitive deficits, normal speech. Pupils are isocoric and reactive. Psych/Mental Status: A/Ox3 laboratory and microbiology Laboratory Tests 09/25/24 08:33 Test 09/25/24 08:33 Range/Units Serum Glucose 100 74-106 mg/dL Microbiology Date/Time Source Procedure Growth Status 09/19/24 14:30 Nose MRSA Screen - Final Complete 09/19/24 01:45 Blood Blood Culture - Final NO GROWTH AFTER 5 DAYS OF INCUBATION. Complete Labs and/or images reviewed: Labs reviewed by me, Image(s) reviewed by me Problem List/Assessment/Plan Problem List/Assessment/Plan Acute kidney injury secondary to cardiorenal syndrome Acute on chronic Heart failure with reduced ejection fraction exacerbation-NYHA class 3-last LVEF 12% 07/2024 Acute hypoxic respiratory failure secondary to above Non ST-elevation myocardial infarction Sepsis due to ?Cholecystitis ? Pancreatitis Lactic acidosis-resolved End-stage dilated cardiomyopathy Pulmonary edema Hypertension Hyperkalemia Hypophosphatemia History of hep C infection History of lung cancer status post lobectomy History of tobacco use thrombocytopenia Noncompliance FENA 09/19 - 1.1, indeterminate Plan: Dobutamine drip discontinued 09/21 Patient refusing IV Bumex b.i.d., switch to p.o. Continue metolazone 10 mg p.o. daily Continue sevelamer 800 mg TIDwm Follow up with CMP Strict I&Os, fluid restriction Patient counseled extensively on the importance of medication compliance and morning labs. Plan discussed with patient in which all questions have been answered Goals of care discussed with the patient for more than 20 minutes, full code status Case discussed with Dr. Alvarado Addendum Patient seen and examined, plan discussed with resident. Agree with above, we will follow closely Plan discussed with: Patient My Orders My Orders Orders - RAUL SLAUGHTER RESIDENT Procedure Category Date Status Time Communication Order ORDERS 09/26/24 Transmitted 10:09 Lipase LAB 09/26/24 Verified 10:12 Dietary Evaluation Review Recommendations by RD: Increase Calorie Intake, Protein Supplementation Comments: 1) Ensure Enlive 240ml BID 2) Continue current plan of care Expected Outcomes/Goals: Pt will maintain or gain weight oral intake to meet at least 75% estimated needs Fu 3-5 days Food and Nutrition Intake (Mod: <75% est energy req 7days Interpretation of weight loss: >7.5% in 3 months Fluid Accumulation (Non Severe: Mild fluid retention Protein Calorie Malnutrition: Severe Is there a minimum of two crit: Yes RAUL SLAUGHTER RESIDENT September 26, 2024 10:13 LUIZ ALVARADO MD September 26, 2024 15:25
[2024-09-26 10:51] LABS: Basophils # (auto) 0 10 ^3/uL (0-0.2); Basophils % (auto) 0.2 % (0.0-2.0); Eosinophils # (auto) 0.1 10 ^3/uL (0-0.8); Hematocrit 52.1 % (41.0-53.0); Hemoglobin 16.7 g/dL (13.5-17.5); Monocytes # (auto) 1.2 10 ^3/uL (0-1.3); Nucleated Red Blood Cells % 0.1 %
[2024-09-26 10:53] LABS: Eosinophils % (auto) 1.1 % (0.0-7.0); Lymphocytes # (auto) 0.5 10 ^3/uL (0.4-5.4); Lymphocytes % (auto) 6.4 % (10.0-50.0); Mean Corpuscular Volume 84.4 fL (80.0-100.0); Monocytes % (auto) 14.3 % (0.0-12.0); Neutrophils # (auto) 6.6 10 ^3/uL (1.6-8.6); Platelet Count (auto) 114 10^3/uL (140-450); Red Blood Cells 6.18 10^6/uL (4.5-5.90); Red Cell Distribution Width 19.8 % (11.8-14.3); White Blood Cell 8.5 10^3/uL (4.4-10.8)
[2024-09-26 11:15] LABS: Alanine Aminotransferase 52 U/L (7-40); Albumin 3.1 g/dL (3.2-4.8); Alkaline Phosphatase 114 U/L (46-116); Anion Gap 10 (5-15); Aspartate Aminotransferase 91 U/L (13-40); BUN/Creatinine Ratio 27.8 (10.0-20.0); Blood Urea Nitrogen 71 mg/dL (9-23); Calcium 8.8 mg/dL (8.7-10.4); Carbon Dioxide 29 mmol/L (20-31); Chloride 102 mmol/L (98-107); Glucose 137 mg/dL (74-106); Potassium 3.2 mmol/L (3.5-5.1); Sodium 141 mmol/L (136-145); Total Protein 5.8 g/dL (5.7-8.2)
[2024-09-26 11:16] LABS: Bilirubin, Total 3.5 mg/dL (0.2-1.0)
[2024-09-26] MEDS: BUMETANIDE 1 MG TAB PO ONE (11:17)
--- NOTE | 2024-09-26 11:32 | DVHPN2 ---
Progress Note Date Seen: September 26, 2024 Medical Necessity Reason Pt with a Central, PICC or Fol: No Reason for jeffries catheter: Strict I&O Subjective Patient reports: No new complaints Review of Systems: HEENT:Normal, CVS:Normal, RESPIRATORY:Normal, GI:Normal, :Normal, MSK:Normal, NEURO:Normal Objective vital signs Vital Sign Date Time Temp Pulse Resp B/P (MAP) Pulse Ox O2 Delivery O2 Flow Rate FiO2 09/26/24 11:17 130/85 09/26/24 06:14 97 Room Air* 0 21 09/25/24 22:00 87 09/25/24 08:00 16 09/24/24 21:00 97.3 97.3 Total Intake and Output 09/25/24 09/25/24 09/26/24 15:00 23:00 07:00 Intake Total 450 ml 500 ml Output Total 1 ml 1000 ml Balance 449 ml -500 ml medications Current Medications Medications Dose Ordered Sig/Lisa Route Start Time Stop Time Status Last Admin Dose Admin Ipratropium [place] 0.5 mg Q6HR NEB 09/19/24 00:00 09/25/24 06:06 0.5 MG Acetaminophen 500 mg Q4HPRN PRN PO 09/18/24 21:15 Acetaminophen/ Hydrocodone Bitart 1 tab Q4HPRN PRN PO 09/18/24 21:15 09/25/24 05:06 1 TAB Morphine Sulfate 1 mg Q4HPRN PRN IV 09/18/24 21:15 09/21/24 17:54 1 MG Clopidogrel Bisulfate 75 mg DAILY PO 09/19/24 10:00 09/22/24 09:49 75 MG Famotidine 10 mg DAILY PO 09/19/24 10:00 09/25/24 10:58 10 MG Tamsulosin HCl 0.4 mg DAILY PO 09/19/24 10:00 09/22/24 09:49 0.4 MG Atorvastatin Calcium 40 mg HS PO 09/19/24 22:00 09/23/24 21:39 40 MG Carvedilol 3.125 mg Q12HR PO 09/19/24 10:00 09/23/24 21:39 3.125 MG Sevelamer HCl 800 mg TIDWM PO 09/19/24 18:00 09/26/24 11:17 800 MG Metolazone 10 mg DAILY PO 09/23/24 10:00 Bumetanide 2 mg BIDD PO 09/26/24 18:00 Examination: GENERAL:Normal, HEENT:Normal, NECK:Normal, LUNGS:Normal, CVS:Normal, ABDOMEN:Normal, MSK:Normal, SKIN:Normal, NEURO:Normal, :Normal laboratory and microbiology Laboratory Tests 09/26/24 10:23 Test 09/26/24 10:23 Range/Units Serum Glucose 137 H 74-106 mg/dL Microbiology Date/Time Source Procedure Growth Status 09/19/24 14:30 Nose MRSA Screen - Final Complete 09/19/24 01:45 Blood Blood Culture - Final NO GROWTH AFTER 5 DAYS OF INCUBATION. Complete Problem List/Assessment/Plan Problem List/Assessment/Plan #1 acute resp failure: cont oxygen #2 acute on chronic systolic heart failure: bumex #3 acute on chronic renal failure ?vasomotor nephropathy #4 pulm htn #5 h/o lung cancer s/p surgery #6 copd #7 h/o drug abuse #8 h/o hep c #9 non compliance- refusing meds #10 hyperkalemia: treat #11 ? left renal mass: ct abdomen advance care planning: full code- time spent 19 mins Plan discussed with: Patient Dietary Evaluation Review Recommendations by RD: Increase Calorie Intake, Protein Supplementation Comments: 1) Ensure Enlive 240ml BID 2) Continue current plan of care Expected Outcomes/Goals: Pt will maintain or gain weight oral intake to meet at least 75% estimated needs Fu 3-5 days Food and Nutrition Intake (Mod: <75% est energy req 7days Interpretation of weight loss: >7.5% in 3 months Fluid Accumulation (Non Severe: Mild fluid retention Protein Calorie Malnutrition: Severe Is there a minimum of two crit: Yes Date of Service: September 26, 2024 Billing Provider: MICHAEL GORDILLO MD Common Visit Codes: [id number] INP/OBS CARE(HIGH) MICHAEL GORDILLO MD September 26, 2024 11:32
[2024-09-26] MEDS: POTASSIUM CHL 20 Meq TABLET PO ONE (15:29)
[2024-09-26] MEDS: BUMETANIDE 1 MG TAB PO SCH (17:55)
[2024-09-27] VITALS (9 sets, daily range): BP systolic 102–151; BP diastolic 56–82; PULSE 80–92; RESP 16–20; TEMP 97.8–98.4; O2SAT 95–100
--- NOTE | 2024-09-27 10:51 | DVHDS2 ---
Discharge Summary Date of Admission Sep 18, 2024 at 20:53 Date of Discharge: September 27, 2024 Labs/Diagnostic Data: Laboratory Results Test 09/26/24 10:23 09/21/24 08:35 09/21/24 06:55 09/19/24 10:14 White Blood Count 8.5 10^3/uL (4.4-10.8) Red Blood Count 6.18 10^6/uL (4.5-5.90) Hemoglobin 16.7 g/dL (13.5-17.5) Hematocrit 52.1 % (41.0-53.0) Mean Corpuscular Volume 84.4 fL (80.0-100.0) Mean Corpuscular Hemoglobin 27.0 pg (28.0-32.0) Mean Corpuscular Hemoglobin Concent 32.0 g/dL (32.0-36.0) Red Cell Distribution Width 19.8 % (11.8-14.3) Platelet Count 114 10^3/uL (140-450) Mean Platelet Volume 8.6 fL (6.9-10.8) Neutrophils (%) (Auto) 78.0 % (37.0-80.0) Lymphocytes (%) (Auto) 6.4 % (10.0-50.0) Monocytes (%) (Auto) 14.3 % (0.0-12.0) Eosinophils (%) (Auto) 1.1 % (0.0-7.0) Basophils (%) (Auto) 0.2 % (0.0-2.0) Neutrophils # (Auto) 6.6 10 ^3/uL (1.6-8.6) Lymphocytes # (Auto) 0.5 10 ^3/uL (0.4-5.4) Monocytes # (Auto) 1.2 10 ^3/uL (0-1.3) Eosinophils # (Auto) 0.1 10 ^3/uL (0-0.8) Basophils # (Auto) 0 10 ^3/uL (0-0.2) Nucleated Red Blood Cells 0.1 % Sodium Level 141 mmol/L (136-145) Potassium Level 3.2 mmol/L (3.5-5.1) Chloride Level 102 mmol/L (98-107) Carbon Dioxide Level 29 mmol/L (20-31) Anion Gap 10 (5-15) Blood Urea Nitrogen 71 mg/dL (9-23) Creatinine 2.55 mg/dL (0.700-1.30) Glomerular Filtration Rate Calc 26 mL/min (>90) BUN/Creatinine Ratio 27.8 (10.0-20.0) Serum Glucose 137 mg/dL (74-106) Calcium Level 8.8 mg/dL (8.7-10.4) Total Bilirubin 3.5 mg/dL (0.2-1.0) Aspartate Amino Transferase (AST) 91 U/L (13-40) Alanine Aminotransferase (ALT) 52 U/L (7-40) Alkaline Phosphatase 114 U/L (46-116) Total Protein 5.8 g/dL (5.7-8.2) Albumin 3.1 g/dL (3.2-4.8) Lipase 685 U/L (12-53) POC Glucose 75 mg/dl (70-106) B-Type Natriuretic Peptide 236.26 pg/mL (0-100) Lactic Acid Level 1.6 mmol/L (0.4-2.0) Phosphorus Level 5.7 mg/dL (2.4-5.1) Test 09/19/24 04:35 09/19/24 01:45 09/18/24 23:30 09/18/24 20:43 Urine Color Yellow (Yellow) Urine Clarity Turbid (Clear) Urine pH 5.5 (5.0-9.0) Urine Specific [place] 1.014 (1.001-1.035) Urine Protein 2+ (Negative) Urine Ketones Trace (Negative) Urine Blood 2+ /uL (Negative) Urine Nitrite Negative (Negative) Urine Bilirubin Negative (Negative) Urine Urobilinogen Normal mg/dL (Negative) Urine Leukocyte Esterase 1+ /uL (Negative) Urine RBC 20 /hpf (0 - 3) Urine Microscopic WBC 22 /HPF (0-3) Urine Squamous Epithelial Cells Few /hpf (<5) Urine Bacteria Few /hpf (None Seen) Urine Hyaline Casts Many /lpf (0 - 2) Urine Mucus Few (None Seen) Urine Osmolality 380 mOsm/kg Urine Creatinine 105.63 mg/dL (30.0-125.0) Urine Protein/Creatinine Ratio 2.09 Urine Sodium 43 mmol/L (40-220) Urine Glucose Normal mg/dL (Normal) Urine Total Protein 221.2 mg/dL (1-14) Urine Opiates Screen Neg (NEGATIVE) Urine Fentanyl Screen Neg (NEGATIVE) Urine Barbiturates Screen Neg (NEGATIVE) Urine Phencyclidine Screen Neg (NEGATIVE) Urine Amphetamines Screen Neg (NEGATIVE) Urine Benzodiazepines Screen Neg (NEGATIVE) Urine Cocaine Screen Neg (NEGATIVE) Urine Cannabinoids Screen Neg (NEGATIVE) Ammonia < 10 umol/L (11-32) Tumor Marker Alpha Fetoprotein 4.4 ng/mL (0.0-8.4) Parathyroid Hormone (Intact) 127.6 pg/mL (18.4-80.1) Influenza Type A Antigen Negative (Negative) Influenza Type B Antigen Negative (Negative) SARS-CoV-2 Antigen (Rapid) Negative (NEGATIVE) Troponin I High Sensitivity 145 ng/L (</=54) Vitamin B12 Level 2392 pg/mL (211-911) Vitamin D 25-Hydroxy 67.6 ng/mL (30.0-100) Test 09/18/24 17:33 Prothrombin Time 19.2 sec (9.3-11.8) Prothrombin Time INR 1.93 (0.9-1.15) Activated Partial Thromboplast Time 33.6 SEC (24.5-34.5) D-Dimer, Quantitative 4.06 mg/L FEU (0.0-0.49) Hemoglobin A1c 5.7 % A1C (<5.7) Magnesium Level 2.4 mg/dL (1.6-2.6) Thyroid Stimulating Hormone (TSH) 2.74 uIU/mL (0.55-4.78) Other Laboratory Tests 09/26/24 10:23 Brief Hx & Hospital Course: SEE DICTATED NOTE Condition at Discharge: Fair Final Diagnosis/Problems List CHF Discharge Disposition: Home Discharge Instruct/Medications Diet: Cardiac 2g Na,low cholest Diet comment: FLUID RESTRICTION TO 1100 CC/DAY Activity: No Restrictions, As Tolerated Follow Up/Referral: FU WITH PCP/CARDIOLOGY Medications: RESUME HOME MEDS Discharge Statement: "Patient was advised to return to the ER or call 911 if any headaches, dizziness, shortness of breath, chest pain, abdominal pain, bleeding, fevers, or worsening of medical condition. Patient was counseled about treatment plan, medications, possible side effects, patientverbalized understanding. All questions were answered to the best of my ability. This discharge took greater then 30 minutes in planning, reviewing documentation, counseling the patient, and discussing with other team members." ASSESSMENT ASSESSMENT Assessment CHF Date of Service: September 27, 2024 Billing Provider: MICHAEL GORDILLO MD Common Visit Codes: 09332-TIG/OBS DISCH DAY >30min MICHAEL GORDILLO MD September 27, 2024 10:51
--- NOTE | 2024-09-27 11:01 | DVHDS ---
DATE OF DISCHARGE: 09/27/2024 HISTORY OF PRESENT ILLNESS: The patient is a 69-year-old gentleman who was admitted with history of increasing shortness of breath and lower extremity edema. The patient has a history of congestive heart failure, pulmonary hypertension, hepatitis C, and noncompliance. HOSPITAL COURSE: The patient had chest x-ray that showed evidence of congestive heart failure. The patient had an MRCP that showed possible left renal hilar mass. The patient had abdomen CT that showed moderate cardiomegaly, with bilateral renal cysts. The patient was noncompliant with his medication during his hospitalization. He had evidence of renal failure as well as liver failure. The patient will now be discharged home. He was seen in Cardiology consult by Dr. Baca as well as by Dr. Galloway. The patient will be discharged to resume his home medications and follow up with his primary in 1 week and Cardiology in 1 week. The patient's pulse ox on room air was normal. FINAL DIAGNOSES: * Acute respiratory failure. * [id number] systolic heart failure. * Pmoij-bz-[id number] renal failure, questionable vasomotor nephropathy. * Pulmonary hypertension. * History of lung cancer, with previous surgery. * COPD. * History of drug abuse. * History of hepatitis C. * Hypokalemia, status post. * Noncompliance. * Liver failure with hep C. Time spent in discharge planning, review of plan with the patient and nursing was 38 minutes. MD TRESA Zhang/JAYNE TID: [id number] RECEIPT: [id number]
--- NOTE | 2024-09-27 15:23 | DVHPN2 ---
Progress Note Date Seen: September 27, 2024 Resident Creating Document: RAUL SLAUGHTER RESIDENT Medical Necessity Reason Pt with a Central, PICC or Fol: No Reason for jeffries catheter: Strict I&O Subjective Review of Systems Mr. Calvillo is a 69-year-old male with past medical history of heart failure with a reduced ejection fraction-LVEF 12% 07/2024, end-stage dilated cardiomyopathy, pulmonary hypertension-RVSP 60 mmHg, history of hepatitis-C who presented to the ER with a chief complaint of left-sided chest pain along with shortness of breaths for the past 2 days. Patient is A&O x3 but is unable to give history given the pain. Patient's sister Ambar was called, reported that the patient has a had some stomach pain for the past 2 days but does not know the details. Patient lives with a female friend Monica, [phone] go directly went to [facility]. Per sister, patient quit smoking alcohol long time back. Does not do any illicit drugs. He has been compliant with medications. On arrival to the ER, patient was afebrile, tachycardic, normotensive, H&H 17/53. BNP was greater than 5000. Patient had anion gap metabolic acidosis. Anion gap was 19. Creatinine was 3.7, baseline is 3.08. Troponin were downtrending, 157, 155. D-dimer was 4. past medical history of heart failure with a reduced ejection fraction-LVEF 12% 07/2024, end-stage dilated cardiomyopathy, pulmonary hypertension-RVSP 60 mmHg, history of hepatitis-C Social history: Per sister, patient quit smoking alcohol long time back During the hospitalization, patient was diagnosed with cholecystitis. MRCP showed pancreatic edema, moderate ascites. CT abdomen showed bilateral renal cyst along with mesenteric edema likely pancreatitis. Nephrology was consulted for PORTIA on CKD, likely cardiorenal patient was started on IV Bumex IV dobutamine drip. And was discontinued 09/21. Patient was started on metolazone 10 mg 09/22, phosphate binder TIDWM which he has been refusing. Patient has been refusing morning labs along with medications. 09/26- Patient seen and examined at the bedside. He is refusing IV Bumex, IV Bumex switched to p.o.. 09/27 - patient seen and examined at bedside. Patient took Bumex, refusing other medications. Counseled regarding the importance of medication compliance Objective vital signs Vital Sign Date Time Temp Pulse Resp B/P (MAP) Pulse Ox O2 Delivery O2 Flow Rate FiO2 09/27/24 12:32 98.4 80 20 102/56 (71) 95 98.4 09/27/24 07:30 Room Air* 0 21 Total Intake and Output 09/26/24 09/26/24 09/27/24 15:00 23:00 07:00 Intake Total 1080 ml Balance 1080 ml medications Current Medications Medications Dose Ordered Sig/Lisa Route Start Time Stop Time Status Last Admin Dose Admin Ipratropium [place] 0.5 mg Q6HR NEB 09/19/24 00:00 09/27/24 05:48 0.5 MG Acetaminophen 500 mg Q4HPRN PRN PO 09/18/24 21:15 Acetaminophen/ Hydrocodone Bitart 1 tab Q4HPRN PRN PO 09/18/24 21:15 09/25/24 05:06 1 TAB Morphine Sulfate 1 mg Q4HPRN PRN IV 09/18/24 21:15 09/21/24 17:54 1 MG Clopidogrel Bisulfate 75 mg DAILY PO 09/19/24 10:00 09/22/24 09:49 75 MG Famotidine 10 mg DAILY PO 09/19/24 10:00 09/25/24 10:58 10 MG Tamsulosin HCl 0.4 mg DAILY PO 09/19/24 10:00 09/22/24 09:49 0.4 MG Atorvastatin Calcium 40 mg HS PO 09/19/24 22:00 09/26/24 21:28 40 MG Carvedilol 3.125 mg Q12HR PO 09/19/24 10:00 09/26/24 21:28 3.125 MG Sevelamer HCl 800 mg TIDWM PO 09/19/24 18:00 09/26/24 11:17 800 MG Metolazone 10 mg DAILY PO 09/23/24 10:00 Bumetanide 2 mg BIDD PO 09/26/24 18:00 09/27/24 05:40 2 MG Examination Patient lying in bed, in no acute distress General: Afebrile, palor, mucosae are moist Cardiovascular: Tachycardic but Regular S1 and S2. No murmurs, gallops or rubs. JVD raised, positive hepatojugular reflux. Resolving pedal edema Respiratory: Normal B/L air entry on room air. Resolving bibasilar crackles Abdomen: Soft, tender, nondistended, normoactive bowel sounds, no rebound tenderness, no organomegaly, no masses Genitourinary: Deferred MSK/skin: Mobilizes 4 limbs. Skin is dry and warm Neurological: No motor, no sensitive deficits, normal speech. Pupils are isocoric and reactive. Psych/Mental Status: A/Ox3 laboratory and microbiology Laboratory Tests 09/26/24 10:23 Test 09/26/24 10:23 Range/Units Serum Glucose 137 H 74-106 mg/dL Microbiology Date/Time Source Procedure Growth Status 09/19/24 14:30 Nose MRSA Screen - Final Complete 09/19/24 01:45 Blood Blood Culture - Final NO GROWTH AFTER 5 DAYS OF INCUBATION. Complete Labs and/or images reviewed: Labs reviewed by me, Image(s) reviewed by me Problem List/Assessment/Plan Problem List/Assessment/Plan Acute kidney injury secondary to cardiorenal syndrome Acute on chronic Heart failure with reduced ejection fraction exacerbation-NYHA class 3-last LVEF 12% 07/2024 Acute hypoxic respiratory failure secondary to above Non ST-elevation myocardial infarction Sepsis due to ?Cholecystitis ? Pancreatitis Lactic acidosis-resolved End-stage dilated cardiomyopathy Pulmonary edema Hypertension Hyperkalemia Hypophosphatemia History of hep C infection History of lung cancer status post lobectomy History of tobacco use thrombocytopenia Noncompliance FENA 09/19 - 1.1, indeterminate Plan: Patient has been noncompliant to medication and further workup. No acute nephrology workup indicated at this time. Outpatient Nephrology follow up advised. Patient can be discharged on home dose diuresis. Dobutamine drip discontinued 09/21 Patient refusing IV Bumex b.i.d., switch to p.o. Continue metolazone 10 mg p.o. daily Continue sevelamer 800 mg TIDwm Follow up with CMP Strict I&Os, fluid restriction Patient counseled extensively on the importance of medication compliance and morning labs. Plan discussed with patient in which all questions have been answered Goals of care discussed with the patient for more than 20 minutes, full code status Case discussed with Dr. Alvarado Addendum Patient seen and examined, plan discussed with resident. Agree with above, Plan discussed with: Patient My Orders My Orders Orders - RAUL SLAUGHTER Procedure Category Date Status Time Soft Diet DIET 09/27/24 Transmitted Lunch Dietary Evaluation Review Recommendations by RD: Increase Calorie Intake, Protein Supplementation Comments: 1) Ensure Enlive 240ml BID 2) Continue current plan of care Expected Outcomes/Goals: Pt will maintain or gain weight oral intake to meet at least 75% estimated needs Fu 3-5 days Food and Nutrition Intake (Mod: <75% est energy req 7days Interpretation of weight loss: >7.5% in 3 months Fluid Accumulation (Non Severe: Mild fluid retention Protein Calorie Malnutrition: Severe Is there a minimum of two crit: Yes RAUL SLAUGHTER September 27, 2024 15:23 LUIZ ALVARADO MD September 27, 2024 16:46
== END 2024-09-27 15:40 | disposition home or self-care (01) | DRG 280 ==
LOC: ER 17:03 → OVERFLOW 20:53 → TELE-WESTW 09-19 12:33 → WEST WING 09-26 11:39
PROVIDERS: ADMIT Internal Medicine; ATTEND Internal Medicine
DX: I13.0 Hypertensive heart and chronic kidney disease with heart failure and stage 1 through stage 4 chronic kidney disease, or unspecified chronic kidney disease (principal); I50.23 Acute on chronic systolic (congestive) heart failure; I21.A1 Myocardial infarction type 2; J96.01 Acute respiratory failure with hypoxia; N17.0 Acute kidney failure with tubular necrosis; I47.20 Ventricular tachycardia, unspecified; R18.8 Other ascites; E87.20 Acidosis, unspecified; I42.0 Dilated cardiomyopathy; E87.6 Hypokalemia; K72.90 Hepatic failure, unspecified without coma; I27.20 Pulmonary hypertension, unspecified; E87.5 Hyperkalemia; N18.9 Chronic kidney disease, unspecified; E83.52 Hypercalcemia; R74.01 Elevation of levels of liver transaminase levels; I49.3 Ventricular premature depolarization; Z20.822 Contact with and (suspected) exposure to COVID-19; B19.20 Unspecified viral hepatitis C without hepatic coma; N28.1 Cyst of kidney, acquired; Z53.20 Procedure and treatment not carried out because of patient's decision for unspecified reasons; D69.6 Thrombocytopenia, unspecified; K86.89 Other specified diseases of pancreas; E11.22 Type 2 diabetes mellitus with diabetic chronic kidney disease; E83.39 Other disorders of phosphorus metabolism; Z85.118 Personal history of other malignant neoplasm of bronchus and lung; Z79.899 Other long term (current) drug therapy; Z79.891 Long term (current) use of opiate analgesic; Z79.1 Long term (current) use of non-steroidal anti-inflammatories (NSAID); Z83.3 Family history of diabetes mellitus; Z87.891 Personal history of nicotine dependence; Z91.148 Patient's other noncompliance with medication regimen for other reason
CPT/HCPCS: 36415; 71045; 74176; 74181; 76705; 80048; 80053; 80307; 81001; 82105; 82140; 82306; 82570; 82607; 82962; 83036; 83605; 83690; 83735; 83880; 83935; 83970; 84100; 84132; 84156; 84300; 84443; 84484; 85025; 85379; 85610; 85730; 87040; 87081; 87426; 87804; 93005; 94640; 94644; 94645; 96365; 96375; 99291; G0378; J1815

== ENCOUNTER 2024-11-07 07:29 | Inpatient (IN) | payer MEDICARE, MEDICAID ==
[~2024-11-07] VITALS: Ht 182.9 cm; Wt 75.5 kg
--- NOTE | 2024-11-07 07:43 | ED.PDOC ---
History of Present Illness HPI Comments 69-year-old male presents with a chief complaint of chest pain x onset yesterday. Patient states that his pain is localized to his left chest, radiates to his right chest, describes as sharp, and rates his pain a 7/10. Patient mentions that his pain has been intermittent and is currently not present at time of evaluation. Chief Complaint: Chest Pain Time Seen by MD: 07:33 Primary Care Provider: CHUCHO Rdz Notes: Medications, Allergies Allergies: Coded Allergies: NO KNOWN ALLERGIES (Unverified , 07/08/18) Home Meds Active Scripts Isosorbide Mononitrate (ISMO TABLET) 20 Mg Tb, 10 MG PO DAILY for 30 Days, #15 TAB Prov:THIAGO LIZ RESIDENT 04/12/24 Hydralazine Hcl (Hydralazine Hcl) 10 Mg Tab, 10 MG PO Q8HR for 30 Days, #90 TAB Prov:THIAGO LIZ RESIDENT 04/12/24 Famotidine (PEPCID TABLET) 20 Mg Tb, 1 TAB PO BID, #60 TAB 3 Refills Prov:ARAVIND HARPER MD 03/10/24 Metoprolol Succinate (Toprol Xl) 50 Mg Tab, 25 MG PO DAILY for 60 Days, #30 TAB Prov:ARAVIND HARPER MD 03/10/24 Clopidogrel Bisulfate (CLOPIDOGREL) 75 Mg Tab, 75 MG PO DAILY for 60 Days, #60 TAB Prov:ARAVIND HARPER MD 03/10/24 Reported Medications Bumetanide (Bumetanide) 1 Mg Tab, 2 TAB PO DAILY 08/04/24 Tamsulosin Hcl (Tamsulosin Hcl) 0.4 Mg Cap, 1 CAP PO DAILY 08/04/24 Hydrocodone-Acetaminophen (Hydrocodone/Acetaminophen 10-325 mg) 1 Tab Tab, 1 TAB PO DAILY PRN for PAIN SCALE 7 THRU 10 08/04/24 Benzonatate (Benzonatate) 200 Mg Cap, 1 CAP PO TID 08/04/24 Atorvastatin Calcium (Lipitor) 40 Mg Tab, 1 TAB PO DAILY for 90 Days, #90 03/07/24 Fluticasone Furoate-Vilanterol (BREO ELLIPTA) 1 Inh Inh, 1-2 PUFF INH DAILY for 30 Days, #60 03/07/24 Albuterol Sulfate (Albuterol Sulfate Hfa) 108 Mcg/Act Aer, 1 PUFF INH Q6HR PRN for WHEEZING for 50 Days, #18 03/07/24 Information Source: Patient Mode of Arrival: Ambulatory Severity: Moderate Timing: Hours Duration: Intermittent Prehospital treatment: None Past Medical History PAST MEDICAL HISTORY: Asthma, Cancer, CHF, CKF, COPD, High Lipids, HTN, [place] Surgical History: Hernia Repair Family History Family History: Family hx of DM Social History Smoker: Non-Smoker Alcohol: Occasionally Drugs: Denies Drug Use Lives In: Home Constitutional: denies: chills, diaphoresis, fatigue, fever, malaise, sweats, weakness, others EENTM: denies: blurred vision, double vision, ear bleeding, ear discharge, ear drainage, ear pain, ear ringing, eye pain, eye redness, hearing loss, mouth pain, mouth swelling, nasal discharge, nose bleeding, nose congestion, nose pain, photophobia, tearing, throat pain, throat swelling, voice changes, others Respiratory: denies: cough, hemoptysis, orthopnea, SOB at rest, shortness of breath, SOB with excertion, stridor, wheezing, others Cardiovascular: reports: chest pain; denies: dizzy spells, diaphoresis, Dyspnea on exertion, edema, irregular heart beat, left arm pain, lightheadedness, palpitations, PND, syncope, others Gastrointestinal: denies: abdomen distended, abdominal pain, blood streaked bowels, constipated, diarrhea, dysphagia, difficulty swallowing, hematemesis, melena, nausea, poor appetite, poor fluid intake, rectal bleeding, rectal pain, vomiting, others Genitourinary: denies: burning, dysuria, flank pain, frequency, hematuria, incontinence, penile discharge, penile sore, pain, testicle pain, testicle swelling, urgency, others Neurological: denies: dizziness, fainting, headache, left sided numbness, left sided weakness, numbness, paresthesia, pre-existing deficit, right sided numbness, right sided weakness, seizure, speech problems, tingling, tremors, weakness, others Musculoskeletal: denies: back pain, gout, joint pain, joint swelling, muscle pain, muscle stiffness, neck pain, others Integumetry: denies: bruises, change in color, change in hair/nails, dryness, laceration, lesions, lumps, rash, wounds, others Allergic/Immunocompromised: denies: Difficulty Healing, Frequent Infections, Hives, Itching, others Hematologic/Lymphatic: denies: anemia, blood clots, easy bleeding, easy bruising, swollen glands, others Endocrine: denies: excessive hunger, excessive sweating, excessive thirst, excessive urination, flushing, intolerance to cold, intolerance to heat, unexplained weight gain, unexplained weight loss, others Psychiatric: denies: anxiety, bipolar disorder, depression, hopeless, panic disorder, schizophrenia, sleepless, suicidal, others All Other Systems: Reviewed and Negative Physical Exam General Appearance: No Apparent Distress, Normal HEENT: Normal ENT Inspection, Pharynx Normal, TMs Normal Neck: Full Range of Motion, Non-Tender, Normal, Normal Inspection Respiratory: Chest Non-Tender, Lungs Clear, No Accessory Muscle Use, No Respiratory Distress, Normal Breath Sounds Cardiovascular: No Edema, No JVD, No Murmur, No Gallop, Normal Peripheral Pulses, Regular Rate/Rhythm Breast Exam: Deferred Gastrointestinal: No Organomegaly, Non Tender, No Pulsatile Mass, Normal Bowel Sounds, Soft Genitalia: Deferred Pelvic: Deferred Rectal: Deferred Extremities: No calf tenderness, Normal capillary refill, Normal inspection, Normal range of motion, Non-tender, No pedal edema Musculoskeletal : Apperance: Normal Neurologic: Alert, stem mounter II-XII nml as Tested, No Motor Deficits, Normal Affect, Normal Mood, No Sensory Deficits Cerebellar Function: Normal Reflexes: Normal Skin: Dry, Normal Color, Warm Lymphatic: No Adenopathy Was a procedure done? Was a procedure done?: No Differential Dx Considerations may include: ACS, CVA, electrolyte abnormality, infectious etiology, metabolic disarray X-Ray, Labs, Meds, VS Vital Signs Date Time Temp Pulse Resp B/P (MAP) Pulse Ox O2 Delivery O2 Flow Rate FiO2 11/07/24 09:25 98.0 111 21 105/65 (78) 96 98.0 11/07/24 08:39 106 11/07/24 07:38 97.2 116 16 128/86 (100) 98 97.2 11/07/24 07:35 110 Lab Test 11/07/24 07:51 Range/Units White Blood Count 8.2 4.4-10.8 10^3/uL Red Blood Count 5.79 4.5-5.90 10^6/uL Hemoglobin 16.6 13.5-17.5 g/dL Hematocrit 51.5 41.0-53.0 % Mean Corpuscular Volume 88.9 80.0-100.0 fL Mean Corpuscular Hemoglobin 28.7 28.0-32.0 pg Mean Corpuscular Hemoglobin Concent 32.3 32.0-36.0 g/dL Red Cell Distribution Width 23.4 H 11.8-14.3 % Platelet Count 168 140-450 10^3/uL Mean Platelet Volume 7.4 6.9-10.8 fL Neutrophils (%) (Auto) 89.8 H 37.0-80.0 % Lymphocytes (%) (Auto) 4.9 L 10.0-50.0 % Monocytes (%) (Auto) 5.0 0.0-12.0 % Eosinophils (%) (Auto) 0.0 0.0-7.0 % Basophils (%) (Auto) 0.3 0.0-2.0 % Neutrophils # (Auto) 7.4 1.6-8.6 10 ^3/uL Lymphocytes # (Auto) 0.4 0.4-5.4 10 ^3/uL Monocytes # (Auto) 0.4 0-1.3 10 ^3/uL Eosinophils # (Auto) 0 0-0.8 10 ^3/uL Basophils # (Auto) 0 0-0.2 10 ^3/uL Nucleated Red Blood Cells 0.1 % Platelet Estimate Adequate Poikilocytosis (manual) Slight Anisocytosis (manual) Slight Ovalocytes Few Schistocytes Few Sodium Level 140 136-145 mmol/L Potassium Level 6.1 *H 3.5-5.1 mmol/L Chloride Level 106 98-107 mmol/L Carbon Dioxide Level 15 L 20-31 mmol/L Anion Gap 19 H 5-15 Blood Urea Nitrogen 50 H 9-23 mg/dL Creatinine 2.70 H 0.700-1.30 mg/dL Glomerular Filtration Rate Calc 25 >90 mL/min BUN/Creatinine Ratio 18.5 10.0-20.0 Serum Glucose 58 L 74-106 mg/dL Calcium Level 11.1 H 8.7-10.4 mg/dL Troponin I High Sensitivity 131 *H </=54 ng/L Time of 1ST Reevaluation: 08:03 Reevaluation 1ST: Unchanged Patient Education/Counseling: Diagnosis, Treatment, Need For Follow Up Family Education/Counseling: No Family Present Departure 1 Departure Time of Disposition: 09:36 (Patient presented with chest pain that was concerning for possible STEMI, ACS, PE, Pneumonia, Muscle Strain, COPD, Dissection. Data: 1. I ordered and reviewed the result of at least 3 labs including a CBC, BMP, and Troponin. 2. I independently interpreted the following tests: EKG which shows sinus arrhythmia and Chest X-ray which shows benign chest.Risk:This patient has a high risk of morbidity due to further diagnostic testing or treatment and may suffer from an acute cardiac or respiratory disorder. Workup reveals concern for ACS and hyperkalemia and patient should be admitted for further workup and possible expert consultation. ) Impression: Primary Impression: Acute chest pain Additional Impression: Hyperkalemia Disposition: 09 ADMITTED INPATIENT Admit to: Med Surg Condition: Guarded Critical Care Note Critical Care Time?: Yes Critical care comment: Acute chest pain Authorized and Performed by: Chaitanya Marrero MD Total critical care time: Approximately 44 minutes Due to a high probability of clinically significant, life threatening deterioration, the patient required my highest level of preparedness to intervene emergently and I personally spent this critical care time directly and personally managing the patient. This critical care time included obtaining a history; examining the patient; pulse oximetry; ordering and review of studies; arranging urgent treatment with development of a management plan; evaluation of patient's response to treatment; frequent reassessment; and, discussions with other providers. This critical care time was performed to assess and manage the high probability of imminent, life-threatening deterioration that could result in multi-organ failure. It was exclusive of separately billable procedures and treating other patients and teaching time. Please see my other sections and the rest of the note for further information on patient assessment and treatment. Stability Stability form required: No I personally scribed for CHAITANYA MARRERO MD ([email or web address]) on 11/07/24 at 07:43. Electronically submitted by Dev Govea ([email or web address]). CHAITANYA MARRERO MD Nov 07, 2024 07:43
--- NOTE | 2024-11-07 08:13 | DVH ---
CHEST RADIOGRAPH Indication: chest pain Technique: Single frontal view of the chest was obtained COMPARISON: XY CHEST PORTABLE on DOS: 09/18/24, XY CHEST XRAY 1 VIEW on DOS: 08/03/24, XY CHEST PORTABL E on DOS: 04/08/24, XY CHEST XRAY 1 VIEW on DOS: 03/10/24, XY CHEST XRAY 1 VIEW on DOS: 03/07/24 FINDINGS: Lines and Tubes: None Lungs: Left upper lobe airspace disease Pleura: No effusion. No pneumothorax. Cardiomediastinal contours: Cardiomegaly Bones: Unremarkable IMPRESSION: Left upper lobe airspace disease
[2024-11-07 08:16] LABS: Basophils # (auto) 0 10 ^3/uL (0-0.2); Basophils % (auto) 0.3 % (0.0-2.0); Eosinophils # (auto) 0 10 ^3/uL (0-0.8); Hematocrit 51.5 % (41.0-53.0); Hemoglobin 16.6 g/dL (13.5-17.5); Lymphocytes # (auto) 0.4 10 ^3/uL (0.4-5.4); Lymphocytes % (auto) 4.9 % (10.0-50.0); Mean Corpuscular Hemoglobin 28.7 pg (28.0-32.0); Mean Corpuscular Hgb Conc. 32.3 g/dL (32.0-36.0); Mean Corpuscular Volume 88.9 fL (80.0-100.0); Monocytes # (auto) 0.4 10 ^3/uL (0-1.3); Neutrophils # (auto) 7.4 10 ^3/uL (1.6-8.6); Neutrophils % (auto) 89.8 % (37.0-80.0); Nucleated Red Blood Cells % 0.1 %; Platelet Count (auto) 168 10^3/uL (140-450); Red Blood Cells 5.79 10^6/uL (4.5-5.90); White Blood Cell 8.2 10^3/uL (4.4-10.8)
[2024-11-07 08:20] LABS: Red Cell Distribution Width 23.4 % (11.8-14.3)
[2024-11-07 08:26] LABS: Chloride 106 mmol/L (98-107); Sodium 140 mmol/L (136-145)
[2024-11-07 08:27] LABS: Anion Gap 19 (5-15)
[2024-11-07 08:32] LABS: BUN/Creatinine Ratio 18.5 (10.0-20.0)
[2024-11-07 08:36] LABS: Blood Urea Nitrogen 50 mg/dL (9-23); Calcium 11.1 mg/dL (8.7-10.4); Carbon Dioxide 15 mmol/L (20-31); Glucose 58 mg/dL (74-106); Potassium 6.1 mmol/L (3.5-5.1)
--- NOTE | 2024-11-07 08:42 | ECG ---
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
[2024-11-07 09:05] LABS: Anisocytosis Slight; Ovalocytes FEW; Platelet Estimate Adequate
[2024-11-07] MEDS: SODIUM BICARB 8.4% 50Meq/50ml SYR Vial IV ONE (10:47)
[2024-11-07] MEDS: DEXTROSE (50%) 50ML SYRG IV ONE ×2 (10:49)
[2024-11-07] MEDS: CALCIUM GLUC 1,000mg/50ml-NS 50 ML IV SCH (11:08)
[2024-11-07] MEDS ORDERED: DULO1CAP5 PO (11:13)
[2024-11-07] MEDS ORDERED: DOCUSATE SOD 100 MG CAP PO PRN (11:15)
[2024-11-07] MEDS: InsuLIN REG 1unit/0.01ml Soln (100units/ml) IV ONE (11:22)
[2024-11-07] MEDS: FUROSEMIDE 20 MG/2 ML VIAL IV SCH (12:04)
[2024-11-07] MEDS: FUROSEMIDE 40 MG/4 ML VIAL IV ONE (12:08)
--- NOTE | 2024-11-07 12:21 | DVHHP2 ---
History of Present Illness Reason for Visit: Chest pain, Nausea and vomiting History of Present Illness Malick Calvillo is a 69-year-old male with past medical history of CHF, hypertension, hyperlipidemia, COPD, asthma, and chronic renal insufficiency, who came to the hospital for chest pain. Patient is a poor hist orian. He had told the ER he was being seen for chest pain, and on my assessment he denied chest pain and complained of nausea and vomiting. He states he has not been able to eat and hold anything down since yesterday. Patient does have bilateral lower extremity edema, he can not tell me how long his legs have been edematous. He is not able to tell me what medications he takes. He does state that he is noncompliant, and does not take them all the time. Cardiovascular: CHF, HTN, hyperipidemia Pulmonary: Asthma, COPD Heme/Onc: Cancer (lung) Renal/: Chronic renal insuff Past Surgical History: Other (Back surgery) Smoke: No ALCOHOL: none Drugs: None Lives: with Family Domestic Violence: Neg Review of Systems Constitutional: No: Fever, Chills, Sweats, Weakness, Malaise, Other Eyes: No: Pain, Vision change, Conjunctivae inflammation, Eyelid inflammation, Other, Redness ENT: No: Ear pain, Ear discharge, Nose pain, Nose discharge, Nose congestion, Mouth pain, Mouth swelling, Throat pain, Throat swelling, Other Respiratory: No: Cough, Dry, Shortness of breath, SOB with excertion, Wheezing, Hemoptysis, Pleuritic Pain, Sputum, Wheezing, Other Cardiovascular: Chest Pain; No: Palpitations, Orthopnea, Paroxysmal Noc. Dyspnea, Edema, Lt Headedness, Other Gastrointestinal: Nausea, Vomiting; No: Abdominal Pain, Diarrhea, Constipation, Melena, Hematochezia, Other Genitourinary: No Dysuria, No Frequency, No Incontinence, No Hematuria, No Retention, No Other Musculoskeletal: No: other, neck pain, shoulder pain, arm pain, back pain, hand pain, leg pain, foot pain Skin: No: Rash, Lesions, Jaundice, Bruising, Other Neurological: No: Weakness, Numbness, Incoordination, Change in speech, Confusion, Seizures, Other Allergies: Coded Allergies: NO KNOWN ALLERGIES (Unverified , 07/08/18) Medications Current Medications Medications Dose Ordered Sig/Lisa Route Start Time Stop Time Status Last Admin Dose Admin Acetaminophen/ Hydrocodone Bitart 1 tab Q4HP PRN PO 11/07/24 11:15 UNV Ondansetron HCl 4 mg Q4HP PRN IV 11/07/24 11:15 UNV Docusate Sodium 100 mg BIDPRN PRN PO 11/07/24 11:15 UNV Acetaminophen 650 mg Q6HP PRN PO 11/07/24 11:15 UNV Morphine Sulfate 2 mg Q4HPRN PRN IV 11/07/24 11:15 UNV Furosemide 20 mg BIDD IV 11/07/24 18:00 UNV Tamsulosin HCl 0.4 mg DAILY PO 11/08/24 10:00 UNV Duloxetine HCl 30 mg HS PO 11/07/24 22:00 UNV Exam Vital Signs Vital Signs Date Time Temp Pulse Resp B/P (MAP) Pulse Ox O2 Delivery O2 Flow Rate FiO2 11/07/24 09:25 98.0 111 21 105/65 (78) 96 98.0 General Appearance: Alert, Oriented X3, mild distress HEENT: Atraumatic, PERRLA Cardiovascular: Normal S1, Normal S2, Other (CHF, EF 12%) Abdominal: Normal bowel sounds, Soft, No tenderness Extremities: No clubbing, No cyanosis, Other (bilateral lower extemity edema) Skin: No rashes, No breakdown, No significant lesion Psych/Mental Status: Mental status NL Labs/Xrays Labs Test 11/07/24 10:40 11/07/24 10:28 11/07/24 07:51 Range/Units POC Glucose 57 L 70-106 mg/dl White Blood Count 8.2 4.4-10.8 10^3/uL Red Blood Count 5.79 4.5-5.90 10^6/uL Hemoglobin 16.6 13.5-17.5 g/dL Hematocrit 51.5 41.0-53.0 % Mean Corpuscular Volume 88.9 80.0-100.0 fL Mean Corpuscular Hemoglobin 28.7 28.0-32.0 pg Mean Corpuscular Hemoglobin Concent 32.3 32.0-36.0 g/dL Red Cell Distribution Width 23.4 H 11.8-14.3 % Platelet Count 168 140-450 10^3/uL Mean Platelet Volume 7.4 6.9-10.8 fL Neutrophils (%) (Auto) 89.8 H 37.0-80.0 % Lymphocytes (%) (Auto) 4.9 L 10.0-50.0 % Monocytes (%) (Auto) 5.0 0.0-12.0 % Eosinophils (%) (Auto) 0.0 0.0-7.0 % Basophils (%) (Auto) 0.3 0.0-2.0 % Neutrophils # (Auto) 7.4 1.6-8.6 10 ^3/uL Lymphocytes # (Auto) 0.4 0.4-5.4 10 ^3/uL Monocytes # (Auto) 0.4 0-1.3 10 ^3/uL Eosinophils # (Auto) 0 0-0.8 10 ^3/uL Basophils # (Auto) 0 0-0.2 10 ^3/uL Nucleated Red Blood Cells 0.1 % Platelet Estimate Adequate Poikilocytosis (manual) Slight Anisocytosis (manual) Slight Ovalocytes Few Schistocytes Few Sodium Level 140 136-145 mmol/L Potassium Level 6.1 *H 3.5-5.1 mmol/L Chloride Level 106 98-107 mmol/L Carbon Dioxide Level 15 L 20-31 mmol/L Anion Gap 19 H 5-15 Blood Urea Nitrogen 50 H 9-23 mg/dL Creatinine 2.70 H 0.700-1.30 mg/dL Glomerular Filtration Rate Calc 25 >90 mL/min BUN/Creatinine Ratio 18.5 10.0-20.0 Serum Glucose 58 L 74-106 mg/dL Calcium Level 11.1 H 8.7-10.4 mg/dL CHEST RADIOGRAPH FINDINGS: Lines and Tubes: None Lungs: Left upper lobe airspace disease Pleura: No effusion. No pneumothorax. Cardiomediastinal contours: Cardiomegaly Bones: Unremarkable IMPRESSION: Left upper lobe airspace disease Assessment/Plan Assessment/Plan Assessment: Hyperkalemia, Hypoglycemia, Elevated troponin, Acute on chronic kidney failure, Hypercalcemia, CHF with EF 12%, COPD, Hypertension, Plan: Admit to Med-Surg, Hyperkalemia protocol, Consider cardiology consult, Consider nephrology consult, Fluid restriction, IV Lasix, Antiemetics, Home medications reconciled, Plan discussed with: Patient My Orders Orders - CHELITA AMNE Procedure Category Date Status Time Admit ADMIT 11/07/24 Transmitted 11:09 Code Status CODE 11/07/24 Transmitted 11:09 2 Gm Sodium Diet DIET 11/07/24 Transmitted Lunch Hydrocodone-Acet PHA 11/07/24 Logged 5/325mg Tab (Parker 11:15 Ondansetron Hcl PHA 11/07/24 Logged (Zofran) 11:15 Docusate Sodium PHA 11/07/24 Logged Capsule (Colace 11:15 Fall Risk Precautions LEE 11/07/[address] 11:09 Complete Blood Count LAB 11/08/24 Verified 04:00 Comprehensive LAB 11/08/24 Verified Metabolic Panel 04:00 Pt Request For Service PT 11/07/24 Logged 11:09 Condition: Serious LEE 11/07/24 In Process 11:09 Acetaminophen Tablet PHA 11/07/24 Logged (Tylenol Tablet) 11:15 Morphine Sulfate PHA 11/07/24 Logged Injection 11:15 Furosemide Injection PHA 11/07/24 Logged (Lasix Injection) 11:15 Furosemide Injection PHA 11/07/24 Logged (Lasix Injection) 18:00 Tamsulosin PHA 11/08/24 Logged Hydrochloride (Flomax) 10:00 Comprehensive LAB 11/07/24 Logged Metabolic Panel 11:13 Duloxetine Hcl PHA 11/07/24 Logged Capsule (Cymbalta 22:00 Date of Service: Nov 07, 2024 Billing Provider: CHELITA MANE Common Visit Codes: [id number] INP/OBS CARE (MOD) CHELITA MANE Nov 07, 2024 12:21
[2024-11-07] MEDS: ONDANSETRON HCL 4 MG/2 ML VIAL IV PRN (12:45)
[2024-11-07] MEDS: MORPHINE SULFATE INJ 2 MG/ml SYRG IV PRN (12:46)
[2024-11-07 13:53] LABS: Albumin 4.7 g/dL (3.2-4.8); Alkaline Phosphatase 103 U/L (46-116); Anion Gap 16 (5-15); BUN/Creatinine Ratio 18.2 (10.0-20.0); Chloride 105 mmol/L (98-107); Sodium 139 mmol/L (136-145); Total Protein 8.1 g/dL (5.7-8.2)
[2024-11-07 14:02] LABS: Alanine Aminotransferase 56 U/L (7-40); Aspartate Aminotransferase 55 U/L (<34); Bilirubin, Total 3.5 mg/dL (0.2-1.0); Blood Urea Nitrogen 50 mg/dL (9-23); Calcium 10.6 mg/dL (8.7-10.4); Carbon Dioxide 18 mmol/L (20-31); Glucose 134 mg/dL (74-106)
[2024-11-07 14:03] LABS: Potassium 6.1 mmol/L (3.5-5.1)
[2024-11-07] MEDS: SODIUM ZIRCONIUM CYCL 10 GM PAK PO ONE (15:17)
[2024-11-07 19:54] VITALS: PULSE 94; RESP 18; O2SAT 96
[2024-11-07] MEDS: HYDROcodone-ACET 5/325MG TAB PO PRN (20:59)
[2024-11-07] MEDS: DULoxetine HCL 30 MG CAP PO SCH (20:59)
[2024-11-07 22:15] VITALS: BP 107/83; PULSE 111; RESP 16; TEMP 96.6; O2SAT 95
[2024-11-07 22:30] VITALS: BP 107/83; PULSE 111; RESP 18; TEMP 96.6; O2SAT 95
[2024-11-08 05:00] VITALS: BP 117/87; PULSE 101; RESP 18; TEMP 97.2; O2SAT 92
--- NOTE | 2024-11-08 07:07 | ECG ---
[facility] Test Date: 2024-11-07 Test Time: 07:35:59 Pat Name: XIN ADAMS Department: ER Room: 0220T A Gender: M Head Packager: BENJY : 1955 Requested By: CHAITANYA QUEZADA Order Number: [id number] Reading MD: Ld Baca Measurements Intervals Otto Rate: 110 P: 150 TX: 194 QRS: 151 QRSD: 105 T: -24 QT: 367 QTc: 497 Interpretive Statements Sinus tachycardia with irregular rate Anterior infarct, old Borderline repolarization abnormality Borderline ST elevation, lateral leads Electronically Signed On 11-08-2024 17:36:06 PDT by Ld Baca Please click the below link to view image of tracing.
[2024-11-08 07:55] VITALS: PULSE 81; RESP 18; O2SAT 97
[2024-11-08 08:00] VITALS: PULSE 84
[2024-11-08 09:00] VITALS: BP 98/62; PULSE 81; RESP 18; TEMP 97.4; O2SAT 97
[2024-11-08] MEDS: TAMSULOSIN HYDROCHLORIDE 0.4 MG CAP PO SCH (10:41)
[2024-11-08 12:13] LABS: Basophils # (auto) 0 10 ^3/uL (0-0.2); Basophils % (auto) 0.5 % (0.0-2.0); Eosinophils # (auto) 0.1 10 ^3/uL (0-0.8); Hematocrit 46.3 % (41.0-53.0); Hemoglobin 14.9 g/dL (13.5-17.5); Lymphocytes # (auto) 0.5 10 ^3/uL (0.4-5.4); Lymphocytes % (auto) 6.9 % (10.0-50.0); Mean Corpuscular Hemoglobin 28.3 pg (28.0-32.0); Mean Corpuscular Hgb Conc. 32.2 g/dL (32.0-36.0); Mean Corpuscular Volume 87.7 fL (80.0-100.0); Monocytes # (auto) 0.7 10 ^3/uL (0-1.3); Monocytes % (auto) 9.4 % (0.0-12.0); Neutrophils # (auto) 6.4 10 ^3/uL (1.6-8.6); Neutrophils % (auto) 82.2 % (37.0-80.0); Nucleated Red Blood Cells % 0.2 %; Platelet Count (auto) 184 10^3/uL (140-450); Red Blood Cells 5.28 10^6/uL (4.5-5.90); White Blood Cell 7.8 10^3/uL (4.4-10.8)
[2024-11-08 12:14] LABS: Red Cell Distribution Width 22.2 % (11.8-14.3)
[2024-11-08 12:30] LABS: Albumin 3.5 g/dL (3.2-4.8); Alkaline Phosphatase 79 U/L (46-116); Anion Gap 11 (5-15); BUN/Creatinine Ratio 18.2 (10.0-20.0); Calcium 10.1 mg/dL (8.7-10.4); Carbon Dioxide 24 mmol/L (20-31); Chloride 106 mmol/L (98-107); Glucose 78 mg/dL (74-106); Sodium 141 mmol/L (136-145); Total Protein 6.1 g/dL (5.7-8.2)
[2024-11-08 12:32] LABS: Alanine Aminotransferase 49 U/L (7-40); Aspartate Aminotransferase 46 U/L (<34); Bilirubin, Total 1.8 mg/dL (0.2-1.0); Blood Urea Nitrogen 60 mg/dL (9-23)
[2024-11-08 12:36] LABS: Potassium 5.6 mmol/L (3.5-5.1)
[2024-11-08 13:00] VITALS: BP 98/60; PULSE 89; RESP 18; TEMP 98.7; O2SAT 98
--- NOTE | 2024-11-08 15:13 | DVHPN2 ---
Progress Note Date Seen: Nov 08, 2024 Medical Necessity Reason Pt with a Central, PICC or Fol: No Subjective Patient reports: No new complaints Review of Systems: HEENT:Normal, CVS:Normal, RESPIRATORY:Normal, GI:Normal, :Normal, MSK:Normal, NEURO:Normal Objective vital signs Vital Sign Date Time Temp Pulse Resp B/P (MAP) Pulse Ox O2 Delivery O2 Flow Rate FiO2 11/08/24 13:00 98.7 89 18 98/60 (73) 98 98.7 11/08/24 07:55 Room Air* 0 21 Total Intake and Output 11/07/24 11/07/24 11/08/24 15:00 23:00 07:00 Intake Total 400 ml Output Total 480 ml Balance -80 ml medications Current Medications Medications Dose Ordered Sig/Lisa Route Start Time Stop Time Status Last Admin Dose Admin Acetaminophen/ Hydrocodone Bitart 1 tab Q4HP PRN PO 11/07/24 11:15 11/08/24 10:47 1 TAB Ondansetron HCl 4 mg Q4HP PRN IV 11/07/24 11:15 Docusate Sodium 100 mg BIDPRN PRN PO 11/07/24 11:15 Acetaminophen 650 mg Q6HP PRN PO 11/07/24 11:15 Morphine Sulfate 2 mg Q4HPRN PRN IV 11/07/24 11:15 Furosemide 20 mg BIDD IV 11/07/24 18:00 Tamsulosin HCl 0.4 mg DAILY PO 11/08/24 10:00 11/08/24 10:41 0.4 MG Duloxetine HCl 30 mg HS PO 11/07/24 22:00 11/07/24 20:59 30 MG Zirconium Oxide 10 gm Q8HR PO 11/08/24 15:00 11/10/24 06:01 Examination: GENERAL:Normal, HEENT:Normal, NECK:Normal, LUNGS:Normal, CVS:Normal, ABDOMEN:Normal, MSK:Normal, MSK:Abnormal (edema++), SKIN:Normal, NEURO:Normal, :Normal laboratory and microbiology Laboratory Tests 11/08/24 11:53 Test 11/08/24 11:53 Range/Units Serum Glucose 78 74-106 mg/dL Problem List/Assessment/Plan Problem List/Assessment/Plan * Hbosp-rb-auvptyv systolic heart failure: lasix iv * Iicqu-ce-mtqqhmc renal failure, questionable vasomotor nephropathy: per nephrology * Pulmonary hypertension. * History of lung cancer, with previous surgery. * COPD. * History of drug abuse. * History of hepatitis C. * hyperkalemia: lokelma * Noncompliance. * Liver failure with hep C. advance care planning- full code- time spent 18 mins Plan discussed with: Patient Date of Service: Nov 08, 2024 Billing Provider: MICHAEL GORDILLO MD Common Visit Codes: [id number] INP/OBS CARE(HIGH) Secondary Visit Codes: [id number] CARE PLAN 30 MINUTES MICHAEL GORDILLO MD Nov 08, 2024 15:13
[2024-11-08] MEDS: SODIUM ZIRCONIUM CYCL 10 GM PAK PO SCH (15:35)
[2024-11-08] MEDS: LACTULOSE 20Gm/30ML SOLN PO ONE (15:35)
[2024-11-08] MEDS: FUROSEMIDE 40 MG/4 ML VIAL IV ONE (15:46)
[2024-11-08] MEDS ORDERED: SODIUM ZIRCONIUM CYCL 10 GM PAK PO SCH (17:45)
--- NOTE | 2024-11-08 17:52 | DVHINCON2 ---
Date of service: Nov 08, 2024 Reason for Consultation PORTIA History of Present Illness 69 years old male with past medical history of Chronic kidney disease, creatinine 2.5 to 3.5 recently in September, hepatitis-C, history of drug abuse, history of lung cancer, COPD, pulmonary hypertension, congestive heart failure, presented with chief complaints of chest pain lower extremity edema HPI obtained from the chart as patient poor historian not answering questions seen with RN bedside found to be hyperkalemic Past Medical History As per HPI Past Surgical History Unknown exactly Allergies: Coded Allergies: NO KNOWN ALLERGIES (Unverified , 07/08/18) Home Meds Active Scripts Isosorbide Mononitrate (ISMO TABLET) 20 Mg Tb, 10 MG PO DAILY for 30 Days, #15 TAB Prov:THIAGO LIZ RESIDENT 04/12/24 Hydralazine Hcl (Hydralazine Hcl) 10 Mg Tab, 10 MG PO Q8HR for 30 Days, #90 TAB Prov:THIAGO LIZ RESIDENT 04/12/24 Famotidine (PEPCID TABLET) 20 Mg Tb, 1 TAB PO BID, #60 TAB 3 Refills Prov:ARAVIND HARPER MD 03/10/24 Metoprolol Succinate (Toprol Xl) 50 Mg Tab, 25 MG PO DAILY for 60 Days, #30 TAB Prov:ARAVIND HARPER MD 03/10/24 Clopidogrel Bisulfate (CLOPIDOGREL) 75 Mg Tab, 75 MG PO DAILY for 60 Days, #60 TAB Prov:ARAVIND HARPER MD 03/10/24 Reported Medications Duloxetine HCl (Duloxetine HCl) 30 Mg Cap, 1 CAP PO HS 11/07/24 Bumetanide (Bumetanide) 1 Mg Tab, 2 TAB PO DAILY 08/04/24 Tamsulosin Hcl (Tamsulosin Hcl) 0.4 Mg Cap, 1 CAP PO DAILY 08/04/24 Hydrocodone-Acetaminophen (Hydrocodone/Acetaminophen 10-325 mg) 1 Tab Tab, 1 TAB PO DAILY PRN for PAIN SCALE 7 THRU 10 08/04/24 Benzonatate (Benzonatate) 200 Mg Cap, 1 CAP PO TID 08/04/24 Atorvastatin Calcium (Lipitor) 40 Mg Tab, 1 TAB PO DAILY for 90 Days, #90 03/07/24 Fluticasone Furoate-Vilanterol (BREO ELLIPTA) 1 Inh Inh, 1-2 PUFF INH DAILY for 30 Days, #60 03/07/24 Albuterol Sulfate (Albuterol Sulfate Hfa) 108 Mcg/Act Aer, 1 PUFF INH Q6HR PRN for WHEEZING for 50 Days, #18 03/07/24 Current Medications Current Medications Medications (Trade) Dose Ordered Sig/Lisa Route PRN Reason Start Time Stop Time Status Last Admin Furosemide (Lasix Injection) 20 mg BIDD IV 11/07/24 18:00 Tamsulosin HCl (Flomax) 0.4 mg DAILY PO 11/08/24 10:00 11/08/24 10:41 Duloxetine HCl (Cymbalta Capsule) 30 mg HS PO 11/07/24 22:00 11/07/24 20:59 Zirconium Oxide (Lokelma) 10 gm Q8HR PO 11/08/24 15:00 11/10/24 06:01 11/08/24 15:35 Lactulose 30 ml BID PO 11/08/24 22:00 Zirconium Oxide (Lokelma) 10 gm TID PO 11/08/24 17:45 11/10/24 06:01 UNV Family History: Diabetes mellitus G8 MOTHER Social History Unknown exactly Review of Systems Poor historian H&P Exam Vital Signs/I&O Vital Sign Date Time Temp Pulse Resp B/P (MAP) Pulse Ox O2 Delivery O2 Flow Rate FiO2 11/08/24 15:46 105/65 11/08/24 13:00 98.7 89 18 98 98.7 11/08/24 07:55 Room Air* 0 21 Intake and Output 11/07/24 11/08/24 19:00 07:00 Intake Total 400 ml Output Total 480 ml Balance -80 ml Intake Oral 400 ml Output Urine Total 480 ml # Bowel Movements 1 Physical Exam Non cooperative Labs/Diagnostic Data Labs/Diagnostic Data Laboratory Tests Test 11/08/24 11:53 11/07/24 13:00 11/07/24 10:40 11/07/24 10:28 Range/Units White Blood Count 7.8 4.4-10.8 10^3/uL Red Blood Count 5.28 4.5-5.90 10^6/uL Hemoglobin 14.9 13.5-17.5 g/dL Hematocrit 46.3 # 41.0-53.0 % Mean Corpuscular Volume 87.7 80.0-100.0 fL Mean Corpuscular Hemoglobin 28.3 28.0-32.0 pg Mean Corpuscular Hemoglobin Concent 32.2 32.0-36.0 g/dL Red Cell Distribution Width 22.2 H 11.8-14.3 % Platelet Count 184 140-450 10^3/uL Mean Platelet Volume 7.0 6.9-10.8 fL Neutrophils (%) (Auto) 82.2 H 37.0-80.0 % Lymphocytes (%) (Auto) 6.9 L 10.0-50.0 % Monocytes (%) (Auto) 9.4 0.0-12.0 % Eosinophils (%) (Auto) 1.0 0.0-7.0 % Basophils (%) (Auto) 0.5 0.0-2.0 % Neutrophils # (Auto) 6.4 1.6-8.6 10 ^3/uL Lymphocytes # (Auto) 0.5 0.4-5.4 10 ^3/uL Monocytes # (Auto) 0.7 0-1.3 10 ^3/uL Eosinophils # (Auto) 0.1 0-0.8 10 ^3/uL Basophils # (Auto) 0 0-0.2 10 ^3/uL Nucleated Red Blood Cells 0.2 % Sodium Level 141 139 136-145 mmol/L Potassium Level 5.6 *H 6.1 *H 3.5-5.1 mmol/L Chloride Level 106 105 98-107 mmol/L Carbon Dioxide Level 24 18 L 20-31 mmol/L Anion Gap 11 16 H 5-15 Blood Urea Nitrogen 60 #H 50 H 9-23 mg/dL Creatinine 3.29 H 2.75 H 0.700-1.30 mg/dL Glomerular Filtration Rate Calc 20 24 >90 mL/min BUN/Creatinine Ratio 18.2 18.2 10.0-20.0 Serum Glucose 78 134 H 74-106 mg/dL Calcium Level 10.1 10.6 H 8.7-10.4 mg/dL Total Bilirubin 1.8 H 3.5 H 0.2-1.0 mg/dL Aspartate Amino Transferase (AST) 46 H 55 H <34 U/L Alanine Aminotransferase (ALT) 49 H 56 H 7-40 U/L Alkaline Phosphatase 79 103 46-116 U/L Total Protein 6.1 8.1 5.7-8.2 g/dL Albumin 3.5 4.7 3.2-4.8 g/dL Troponin I High Sensitivity 157 *H 133 *H </=54 ng/L POC Glucose 57 L 70-106 mg/dl Test 11/07/24 07:51 Range/Units White Blood Count 8.2 4.4-10.8 10^3/uL Red Blood Count 5.79 4.5-5.90 10^6/uL Hemoglobin 16.6 13.5-17.5 g/dL Hematocrit 51.5 41.0-53.0 % Mean Corpuscular Volume 88.9 80.0-100.0 fL Mean Corpuscular Hemoglobin 28.7 28.0-32.0 pg Mean Corpuscular Hemoglobin Concent 32.3 32.0-36.0 g/dL Red Cell Distribution Width 23.4 H 11.8-14.3 % Platelet Count 168 140-450 10^3/uL Mean Platelet Volume 7.4 6.9-10.8 fL Neutrophils (%) (Auto) 89.8 H 37.0-80.0 % Lymphocytes (%) (Auto) 4.9 L 10.0-50.0 % Monocytes (%) (Auto) 5.0 0.0-12.0 % Eosinophils (%) (Auto) 0.0 0.0-7.0 % Basophils (%) (Auto) 0.3 0.0-2.0 % Neutrophils # (Auto) 7.4 1.6-8.6 10 ^3/uL Lymphocytes # (Auto) 0.4 0.4-5.4 10 ^3/uL Monocytes # (Auto) 0.4 0-1.3 10 ^3/uL Eosinophils # (Auto) 0 0-0.8 10 ^3/uL Basophils # (Auto) 0 0-0.2 10 ^3/uL Nucleated Red Blood Cells 0.1 % Platelet Estimate Adequate Poikilocytosis (manual) Slight Anisocytosis (manual) Slight Ovalocytes Few Schistocytes Few Sodium Level 140 136-145 mmol/L Potassium Level 6.1 *H 3.5-5.1 mmol/L Chloride Level 106 98-107 mmol/L Carbon Dioxide Level 15 L 20-31 mmol/L Anion Gap 19 H 5-15 Blood Urea Nitrogen 50 H 9-23 mg/dL Creatinine 2.70 H 0.700-1.30 mg/dL Glomerular Filtration Rate Calc 25 >90 mL/min BUN/Creatinine Ratio 18.5 10.0-20.0 Serum Glucose 58 L 74-106 mg/dL Calcium Level 11.1 H 8.7-10.4 mg/dL Troponin I High Sensitivity 131 *H </=54 ng/L Assessment Acute kidney injury on Chronic kidney disease four hemodynamic mediated cardiorenal Etiology hyperkalemia Congestive heart failure reduced ejection fraction Pulmonary hypertension Recommendations Continue IV diuretics Lokelma as ordered Low-potassium diet We will monitor renal function closely Plan discussed with: Other LUIZ ALVARADO MD Nov 08, 2024 17:52
[2024-11-08 19:38] LABS: Urine Bacteria FEW /hpf (None Seen); Urine Blood Negative /uL (Negative); Urine Clarity Clear (Clear); Urine Color Light-Yellow (Yellow); Urine Hyaline Cast FEW /lpf (0 - 2); Urine Protein, UAD Negative (Negative); Urine Specific Gravity 1.007 (1.001-1.035); Urine Squamous Epithelial Cell FEW /hpf (<5); Urine Urobilinogen Normal (Negative); Urine WBC 4 /HPF (0-3); Urine pH 5.5 (5.0-9.0)
[2024-11-08 20:00] VITALS: PULSE 81; PULSE 99; RESP 18; O2SAT 96
[2024-11-08] MEDS: LACTULOSE 20Gm/30ML SOLN PO SCH (22:00)
[2024-11-09] VITALS (7 sets, daily range): BP systolic 106–140; BP diastolic 59–89; PULSE 67–101; RESP 17–18; TEMP 97–98.6; O2SAT 94–99
[2024-11-09] MEDS: DIGOXIN (250MCG/ML) 2 ML AMPULE IV ONE (10:07)
--- NOTE | 2024-11-09 10:15 | DVHPN2 ---
Progress Note Date Seen: Nov 09, 2024 Medical Necessity Reason Pt with a Central, PICC or Fol: No Subjective Patient reports: No new complaints Review of Systems: HEENT:Normal, CVS:Normal, RESPIRATORY:Normal, GI:Normal, :Normal, MSK:Normal, NEURO:Normal Objective vital signs Vital Sign Date Time Temp Pulse Resp B/P (MAP) Pulse Ox O2 Delivery O2 Flow Rate FiO2 11/09/24 10:07 150 11/09/24 09:00 98.6 17 119/89 (99) 97 98.6 11/08/24 20:00 Room Air* 0 21 Total Intake and Output 11/08/24 11/08/24 11/09/24 15:00 23:00 07:00 Intake Total 800 ml 400 ml Output Total 3 ml 450 ml Balance 797 ml -50 ml medications Current Medications Medications Dose Ordered Sig/Lisa Route Start Time Stop Time Status Last Admin Dose Admin Acetaminophen/ Hydrocodone Bitart 1 tab Q4HP PRN PO 11/07/24 11:15 11/09/24 08:53 1 TAB Ondansetron HCl 4 mg Q4HP PRN IV 11/07/24 11:15 Docusate Sodium 100 mg BIDPRN PRN PO 11/07/24 11:15 Acetaminophen 650 mg Q6HP PRN PO 11/07/24 11:15 Morphine Sulfate 2 mg Q4HPRN PRN IV 11/07/24 11:15 Furosemide 20 mg BIDD IV 11/07/24 18:00 11/09/24 06:07 20 MG Tamsulosin HCl 0.4 mg DAILY PO 11/08/24 10:00 11/09/24 08:52 0.4 MG Duloxetine HCl 30 mg HS PO 11/07/24 22:00 11/07/24 20:59 30 MG Zirconium Oxide 10 gm Q8HR PO 11/08/24 15:00 11/10/24 06:01 11/09/24 06:00 10 GM Lactulose 30 ml BID PO 11/08/24 22:00 Zirconium Oxide 10 gm TID PO 11/08/24 17:45 11/10/24 06:01 UNV Metoprolol Succinate 50 mg DAILY PO 11/10/24 10:00 UNV Examination: GENERAL:Normal, HEENT:Normal, NECK:Normal, LUNGS:Normal, CVS:Normal, CVS:Abnormal (irregular), ABDOMEN:Normal, MSK:Normal, SKIN:Normal, NEURO:Normal, :Normal laboratory and microbiology Laboratory Tests 11/08/24 11:53 Test 11/08/24 11:53 Range/Units Serum Glucose 78 74-106 mg/dL Problem List/Assessment/Plan Problem List/Assessment/Plan * Jkpyz-ji-bfxnjoi systolic heart failure: lasix iv * Bhzby-fk-flkbldj renal failure, questionable vasomotor nephropathy: per nephrology * Pulmonary hypertension. * History of lung cancer, with previous surgery. * COPD. * History of drug abuse. * History of hepatitis C. * hyperkalemia: lokelma * Noncompliance. * Liver failure with hep C. * a fib with rvr: dig, lopressor, ekg refusing meds advance care planning- full code- time spent 18 mins Plan discussed with: Patient My Orders My Orders Orders - MICHAEL GORDILLO MD Procedure Category Date Status Time Lactulose Oral PHA 11/08/24 In Process 22:00 Metoprolol Xl PHA 11/09/24 Logged Succinate (Toprol Xl) 10:15 Metoprolol Xl PHA 11/10/24 Logged Succinate (Toprol Xl) 10:00 Date of Service: Nov 09, 2024 Billing Provider: MICHAEL GORDILLO MD Common Visit Codes: [id number] INP/OBS CARE(HIGH) MICHAEL GORDILLO MD Nov 09, 2024 10:15
[2024-11-09] MEDS: METOPROLOL SUCCINATE XL 50 MG TAB PO ONE (10:32)
[2024-11-09 10:54] LABS: Chloride 105 mmol/L (98-107); Potassium 4.9 mmol/L (3.5-5.1); Sodium 142 mmol/L (136-145)
[2024-11-09 10:55] LABS: Anion Gap 11 (5-15); Calcium 10.1 mg/dL (8.7-10.4); Carbon Dioxide 26 mmol/L (20-31)
[2024-11-09 11:00] LABS: BUN/Creatinine Ratio 23.3 (10.0-20.0)
[2024-11-09 11:06] LABS: Blood Urea Nitrogen 71 mg/dL (9-23); Glucose 70 mg/dL (74-106)
--- NOTE | 2024-11-09 17:39 | DVHPN2 ---
Progress Note Date Seen: Nov 09, 2024 Medical Necessity Reason Pt with a Central, PICC or Fol: No Subjective Patient reports: Other (Complaints of weakness) Review of Systems: Deferred Objective vital signs Vital Sign Date Time Temp Pulse Resp B/P (MAP) Pulse Ox O2 Delivery O2 Flow Rate FiO2 11/09/24 16:30 97.0 88 17 120/78 (92) 99 97.0 11/09/24 07:30 Room Air* 0 21 Total Intake and Output 11/08/24 11/08/24 11/09/24 15:00 23:00 07:00 Intake Total 800 ml 400 ml Output Total 3 ml 450 ml Balance 797 ml -50 ml medications Current Medications Medications Dose Ordered Sig/Lisa Route Start Time Stop Time Status Last Admin Dose Admin Acetaminophen/ Hydrocodone Bitart 1 tab Q4HP PRN PO 11/07/24 11:15 11/09/24 08:53 1 TAB Ondansetron HCl 4 mg Q4HP PRN IV 11/07/24 11:15 Docusate Sodium 100 mg BIDPRN PRN PO 11/07/24 11:15 Acetaminophen 650 mg Q6HP PRN PO 11/07/24 11:15 Morphine Sulfate 2 mg Q4HPRN PRN IV 11/07/24 11:15 Furosemide 20 mg BIDD IV 11/07/24 18:00 11/09/24 06:07 20 MG Tamsulosin HCl 0.4 mg DAILY PO 11/08/24 10:00 11/09/24 08:52 0.4 MG Duloxetine HCl 30 mg HS PO 11/07/24 22:00 11/07/24 20:59 30 MG Zirconium Oxide 10 gm Q8HR PO 11/08/24 15:00 11/10/24 06:01 11/09/24 14:07 10 GM Lactulose 30 ml BID PO 11/08/24 22:00 Zirconium Oxide 10 gm TID PO 11/08/24 17:45 11/10/24 06:01 UNV Metoprolol Succinate 50 mg DAILY PO 11/10/24 10:00 Examination: GENERAL:Abnormal, MSK:Abnormal, SKIN:Abnormal, NEURO:Normal laboratory and microbiology Laboratory Tests 11/09/24 10:30 11/08/24 11:53 Test 11/09/24 10:30 Range/Units Serum Glucose 70 L 74-106 mg/dL Problem List/Assessment/Plan Problem List/Assessment/Plan Acute kidney injury on Chronic kidney disease four hemodynamic mediated cardiorenal Etiology hyperkalemia Congestive heart failure reduced ejection fraction ef 12 End-stage dilated cardiomyopathy Pulmonary hypertension Recommendations Continue IV diuretics Lokelma as ordered Low-potassium diet We will monitor renal function closely Plan discussed with: Patient LUIZ ALVARADO MD Nov 09, 2024 17:39
[2024-11-10] VITALS (7 sets, daily range): BP systolic 106–130; BP diastolic 68–91; PULSE 77–90; RESP 16–19; TEMP 97.4–98.4; O2SAT 95–100
[2024-11-10 07:43] LABS: Anion Gap 11 (5-15); Calcium 9.9 mg/dL (8.7-10.4); Carbon Dioxide 26 mmol/L (20-31); Chloride 105 mmol/L (98-107); Potassium 4.7 mmol/L (3.5-5.1); Sodium 142 mmol/L (136-145)
[2024-11-10 07:49] LABS: BUN/Creatinine Ratio 21.8 (10.0-20.0)
[2024-11-10 07:50] LABS: Blood Urea Nitrogen 60 mg/dL (9-23); Glucose 73 mg/dL (74-106)
[2024-11-10] MEDS: METOPROLOL SUCCINATE XL 50 MG TAB PO SCH (09:44)
--- NOTE | 2024-11-10 10:39 | DVHPN2 ---
Progress Note Date Seen: Nov 10, 2024 Medical Necessity Reason Pt with a Central, PICC or Fol: No Subjective Patient reports: No new complaints Objective vital signs Vital Sign Date Time Temp Pulse Resp B/P (MAP) Pulse Ox O2 Delivery O2 Flow Rate FiO2 11/10/24 09:44 83 106/75 11/10/24 08:50 98.4 16 97 98.4 11/09/24 20:00 Room Air* 0 21 Total Intake and Output 11/09/24 11/09/24 11/10/24 15:00 23:00 07:00 Intake Total 900 ml 500 ml Output Total 600 ml 725 ml Balance 300 ml -225 ml medications Current Medications Medications Dose Ordered Sig/Lisa Route Start Time Stop Time Status Last Admin Dose Admin Acetaminophen/ Hydrocodone Bitart 1 tab Q4HP PRN PO 11/07/24 11:15 11/09/24 23:30 1 TAB Ondansetron HCl 4 mg Q4HP PRN IV 11/07/24 11:15 Docusate Sodium 100 mg BIDPRN PRN PO 11/07/24 11:15 Acetaminophen 650 mg Q6HP PRN PO 11/07/24 11:15 Morphine Sulfate 2 mg Q4HPRN PRN IV 11/07/24 11:15 Furosemide 20 mg BIDD IV 11/07/24 18:00 11/10/24 06:37 20 MG Tamsulosin HCl 0.4 mg DAILY PO 11/08/24 10:00 11/10/24 09:43 0.4 MG Duloxetine HCl 30 mg HS PO 11/07/24 22:00 11/07/24 20:59 30 MG Lactulose 30 ml BID PO 11/08/24 22:00 Zirconium Oxide 10 gm TID PO 11/08/24 17:45 11/10/24 06:01 UNV Metoprolol Succinate 50 mg DAILY PO 11/10/24 10:00 11/10/24 09:44 50 MG laboratory and microbiology Laboratory Tests 11/10/24 06:13 11/08/24 11:53 Test 11/10/24 06:13 Range/Units Serum Glucose 73 L 74-106 mg/dL Problem List/Assessment/Plan Problem List/Assessment/Plan Acute kidney injury on Chronic kidney disease four hemodynamic mediated cardiorenal Etiology hyperkalemia Congestive heart failure reduced ejection fraction ef 12 End-stage dilated cardiomyopathy Pulmonary hypertension Recommendations Continue IV diuretics dc Lokelma Low-potassium diet We will monitor renal function closely Plan discussed with: Patient LUIZ ALVARADO MD Nov 10, 2024 10:39
--- NOTE | 2024-11-10 10:44 | DVHPN2 ---
Progress Note Date Seen: Nov 10, 2024 Medical Necessity Reason Pt with a Central, PICC or Fol: No Subjective Patient reports: No new complaints Review of Systems: HEENT:Normal, CVS:Normal, RESPIRATORY:Normal, GI:Normal, :Normal, MSK:Normal, NEURO:Normal Objective vital signs Vital Sign Date Time Temp Pulse Resp B/P (MAP) Pulse Ox O2 Delivery O2 Flow Rate FiO2 11/10/24 09:44 83 106/75 11/10/24 08:50 98.4 16 97 98.4 11/09/24 20:00 Room Air* 0 21 Total Intake and Output 11/09/24 11/09/24 11/10/24 14:59 22:59 06:59 Intake Total 900 ml 500 ml Output Total 600 ml 725 ml Balance 300 ml -225 ml medications Current Medications Medications Dose Ordered Sig/Lisa Route Start Time Stop Time Status Last Admin Dose Admin Acetaminophen/ Hydrocodone Bitart 1 tab Q4HP PRN PO 11/07/24 11:15 11/09/24 23:30 1 TAB Ondansetron HCl 4 mg Q4HP PRN IV 11/07/24 11:15 Docusate Sodium 100 mg BIDPRN PRN PO 11/07/24 11:15 Acetaminophen 650 mg Q6HP PRN PO 11/07/24 11:15 Morphine Sulfate 2 mg Q4HPRN PRN IV 11/07/24 11:15 Furosemide 20 mg BIDD IV 11/07/24 18:00 11/10/24 06:37 20 MG Tamsulosin HCl 0.4 mg DAILY PO 11/08/24 10:00 11/10/24 09:43 0.4 MG Duloxetine HCl 30 mg HS PO 11/07/24 22:00 11/07/24 20:59 30 MG Lactulose 30 ml BID PO 11/08/24 22:00 Zirconium Oxide 10 gm TID PO 11/08/24 17:45 11/10/24 06:01 UNV Metoprolol Succinate 50 mg DAILY PO 11/10/24 10:00 11/10/24 09:44 50 MG Examination: GENERAL:Normal, HEENT:Normal, NECK:Normal, LUNGS:Normal, CVS:Normal, ABDOMEN:Normal, MSK:Normal, MSK:Abnormal (edema++), SKIN:Normal, NEURO:Normal, :Normal laboratory and microbiology Laboratory Tests 11/10/24 06:13 11/08/24 11:53 Test 11/10/24 06:13 Range/Units Serum Glucose 73 L 74-106 mg/dL Problem List/Assessment/Plan Problem List/Assessment/Plan * Pvezf-fe-giahfcu systolic heart failure: lasix iv * Firgk-ke-vmjkfen renal failure, questionable vasomotor nephropathy: per nephrology * Pulmonary hypertension. * History of lung cancer, with previous surgery. * COPD. * History of drug abuse. * History of hepatitis C. * hyperkalemia: lokelma * Noncompliance. * Liver failure with hep C. refusing meds advance care planning- full code- time spent 18 mins Plan discussed with: Patient Date of Service: Nov 10, 2024 Billing Provider: MICHAEL GORDILLO MD Common Visit Codes: [id number] INP/OBS CARE(HIGH) MICHAEL GORDILLO MD Nov 10, 2024 10:44
[2024-11-11] VITALS (8 sets, daily range): BP systolic 115–128; BP diastolic 75–86; PULSE 79–95; RESP 16–20; TEMP 97.1–98.1; O2SAT 93–99
--- NOTE | 2024-11-11 07:44 | ECG ---
[facility] Test Date: 2024-11-09 Test Time: 10:24:45 Pat Name: XIN ADAMS Department: Respiratoy Room: 0220T A Gender: M Clinic Supervisor: Pippa : 1955 Requested By: MICHAEL GORDILLO Order Number: [id number] Reading MD: Ld Baca Measurements Intervals [place] Rate: 142 P: 0 MN: 45 QRS: 56 QRSD: 109 T: 71 QT: 345 QTc: 530 Interpretive Statements Sinus tachycardia LVH with secondary repolarization abnormality Anterior infarct, old Prolonged QT interval Electronically Signed On 11-11-2024 21:11:42 PDT by Ld Baca Please click the below link to view image of tracing.
--- NOTE | 2024-11-11 10:00 | DVHPN2 ---
Progress Note Date Seen: Nov 11, 2024 Medical Necessity Reason Pt with a Central, PICC or Fol: No Subjective Patient reports: No new complaints Other Systems: Patient seen and examined by myself today in follow-up Objective vital signs Vital Sign Date Time Temp Pulse Resp B/P (MAP) Pulse Ox O2 Delivery O2 Flow Rate FiO2 11/11/24 09:00 97.7 79 17 122/75 (91) 94 97.7 11/10/24 20:00 Room Air* 0 21 Total Intake and Output 11/10/24 11/10/24 11/11/24 15:00 23:00 07:00 Intake Total 500 ml 500 ml Output Total 700 ml Balance 500 ml -200 ml medications Current Medications Medications Dose Ordered Sig/Lisa Route Start Time Stop Time Status Last Admin Dose Admin Acetaminophen/ Hydrocodone Bitart 1 tab Q4HP PRN PO 11/07/24 11:15 11/11/24 01:01 1 TAB Ondansetron HCl 4 mg Q4HP PRN IV 11/07/24 11:15 Docusate Sodium 100 mg BIDPRN PRN PO 11/07/24 11:15 Acetaminophen 650 mg Q6HP PRN PO 11/07/24 11:15 Morphine Sulfate 2 mg Q4HPRN PRN IV 11/07/24 11:15 Furosemide 20 mg BIDD IV 11/07/24 18:00 11/11/24 05:51 20 MG Tamsulosin HCl 0.4 mg DAILY PO 11/08/24 10:00 11/10/24 09:43 0.4 MG Duloxetine HCl 30 mg HS PO 11/07/24 22:00 11/07/24 20:59 30 MG Lactulose 30 ml BID PO 11/08/24 22:00 Zirconium Oxide 10 gm TID PO 11/08/24 17:45 11/10/24 06:01 UNV Metoprolol Succinate 50 mg DAILY PO 11/10/24 10:00 11/10/24 09:44 50 MG Examination: LUNGS:Normal, CVS:Normal, MSK:Normal laboratory and microbiology Laboratory Tests 11/10/24 06:13 11/08/24 11:53 Test 11/10/24 06:13 Range/Units Serum Glucose 73 L 74-106 mg/dL Problem List/Assessment/Plan Problem List/Assessment/Plan Acute kidney injury superimposed Chronic Kidney Disease secondary hemodynamic mediated hyperkalemia Congestive heart failure, ejection fraction 10% End-stage dilated cardiomyopathy NSTEMI Pulmonary hypertension Recommendations Kidney function slightly improving Increased urine output Hyperkalemia resolved Strict I&Os Renal diet Cardiology consult We will continue to follow up Plan discussed with: Patient JUAN DIEGO VILLAR MD Nov 11, 2024 10:00
[2024-11-11 10:54] LABS: Magnesium 1.7 mg/dL (1.6-2.6)
[2024-11-11 10:55] LABS: Phosphorus 3.5 mg/dL (2.4-5.1)
--- NOTE | 2024-11-11 12:27 | DVHPN2 ---
Subjective pt denies any pain/asking if can go home on pulse ox is 98-100 % on room air Changes from previous H/P or p: No Changes Eyes: No Pain, No Vision change, No Conjunctivae inflammation, No Eyelid inflammation, No Other, No Redness ENT: No Ear pain, No Ear discharge, No Nose pain, No Nose discharge, No Nose congestion, No Mouth pain, No Mouth swelling, No Throat pain, No Throat swelling, No Other Cardiovascular: Chest Pain; No Palpitations, No Orthopnea, No Paroxysmal Noc. Dyspnea, No Edema, No Lt Headedness, No Other Respiratory: No Cough, No Dry, No Shortness of breath, No SOB with excertion, No Wheezing, No Hemoptysis, No Pleuritic Pain, No Sputum, No Other Gastrointestinal: Nausea, Vomiting; No Abdominal Pain, No Diarrhea, No Constipation, No Melena, No Hematochezia, No Other Genitourinary: No Dysuria, No Frequency, No Incontinence, No Hematuria, No Retention, No Other Musculoskeletal: No other, No neck pain, No shoulder pain, No arm pain, No back pain, No hand pain, No leg pain, No foot pain Skin: No Rash, No Lesions, No Jaundice, No Bruising, No Other Objective Vitals Vital Signs Date Time Temp Pulse Resp B/P (MAP) Pulse Ox O2 Delivery O2 Flow Rate FiO2 11/11/24 10:34 79 122/75 11/11/24 09:00 97.7 17 94 97.7 11/10/24 20:00 Room Air* 0 21 Intake/Output Intake and Output 11/11/24 07:00 Intake Total 1000 ml Output Total 700 ml Balance 300 ml Intake Oral 1000 ml Output Urine Total 700 ml # Voids 8 # Bowel Movements 2 General Appearance: Alert, Oriented X3, Cooperative, No acute distress Lungs: Clear to auscultation Cardiovascular: Regular rate, Normal S1, Normal S2 Abdomen: Normal bowel sounds, Soft, No tenderness, No hepatospenomegaly Musculoskeletal: Normal sensory function, Normal motor function Neuro: Normal gait, Normal speech, Strength at 5/5 X4 ext Psych/Mental Status: Mental status NL, Mood NL Medications Current Medications Medications Dose Ordered Sig/Lisa Route Start Time Stop Time Status Last Admin Dose Admin Acetaminophen/ Hydrocodone Bitart 1 tab Q4HP PRN PO 11/07/24 11:15 11/11/24 01:01 1 TAB Ondansetron HCl 4 mg Q4HP PRN IV 11/07/24 11:15 Docusate Sodium 100 mg BIDPRN PRN PO 11/07/24 11:15 Acetaminophen 650 mg Q6HP PRN PO 11/07/24 11:15 Morphine Sulfate 2 mg Q4HPRN PRN IV 11/07/24 11:15 Furosemide 20 mg BIDD IV 11/07/24 18:00 11/11/24 05:51 20 MG Tamsulosin HCl 0.4 mg DAILY PO 11/08/24 10:00 11/11/24 10:34 0.4 MG Duloxetine HCl 30 mg HS PO 11/07/24 22:00 11/07/24 20:59 30 MG Lactulose 30 ml BID PO 11/08/24 22:00 Zirconium Oxide 10 gm TID PO 11/08/24 17:45 11/10/24 06:01 UNV Metoprolol Succinate 50 mg DAILY PO 11/10/24 10:00 11/11/24 10:34 50 MG Laboratory Results Laboratory Tests 11/08/24 11:53 11/10/24 06:13 Chemistry Test 11/11/24 10:29 Magnesium Level 1.7 mg/dL (1.6-2.6) Phosphorus Level 3.5 mg/dL (2.4-5.1) Urinalysis Test 11/08/24 19:25 Urine Color Light-yellow (Yellow) Urine Clarity Clear (Clear) Urine pH 5.5 (5.0-9.0) Urine Specific [place] 1.007 (1.001-1.035) Urine Protein Negative (Negative) Urine Ketones Negative (Negative) Urine Blood Negative /uL (Negative) Urine Nitrite Negative (Negative) Urine Bilirubin Negative (Negative) Urine Urobilinogen Normal mg/dL (Negative) Urine Leukocyte Esterase 2+ /uL (Negative) Urine RBC 1 /hpf (0 - 3) Urine Microscopic WBC 4 /HPF (0-3) H Urine Squamous Epithelial Cells Few /hpf (<5) Urine Bacteria Few /hpf (None Seen) H Urine Hyaline Casts Few /lpf (0 - 2) Urine Glucose Normal mg/dL (Normal) Assessment/Plan Assessment/Plan end stage cardiomyopathy- ef 10- 12% secondary pulmonary htn 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
[2024-11-11] MEDS: LACTULOSE 20Gm/30ML SOLN PO ONE (16:46)
[2024-11-11] MEDS: traMADol HCL 50 MG TAB PO ONE (16:47)
[2024-11-11] MEDS: HYDROcodone-ACET 5/325MG TAB PO ONE (18:53)
[2024-11-12] VITALS (8 sets, daily range): BP systolic 101–135; BP diastolic 63–88; PULSE 83–95; RESP 17–19; TEMP 97.4–98.1; O2SAT 95–100
[2024-11-12] MEDS: ACETAMINOPHEN 325 MG TAB PO PRN (09:44)
[2024-11-12] MEDS: traMADol HCL 50 MG TAB PO ONE (10:00)
--- NOTE | 2024-11-12 10:16 | DVHPN2 ---
Progress Note Date Seen: Nov 12, 2024 Medical Necessity Reason Pt with a Central, PICC or Fol: No Subjective Patient reports: No new complaints Other Systems: Patient seen and examined by myself today in follow-up Objective vital signs Vital Sign Date Time Temp Pulse Resp B/P (MAP) Pulse Ox O2 Delivery O2 Flow Rate FiO2 11/12/24 09:45 84 116/81 11/12/24 08:36 98.1 19 96 98.1 11/11/24 20:00 Room Air* 0 21 Total Intake and Output 11/11/24 11/11/24 11/12/24 15:00 23:00 07:00 Intake Total 300 ml 400 ml Output Total 985 ml 200 ml Balance -685 ml 200 ml medications Current Medications Medications Dose Ordered Sig/Lisa Route Start Time Stop Time Status Last Admin Dose Admin Docusate Sodium 100 mg BIDPRN PRN PO 11/07/24 11:15 Acetaminophen 650 mg Q6HP PRN PO 11/07/24 11:15 11/12/24 09:44 650 MG Furosemide 20 mg BIDD IV 11/07/24 18:00 11/12/24 05:50 20 MG Tamsulosin HCl 0.4 mg DAILY PO 11/08/24 10:00 11/12/24 09:44 0.4 MG Duloxetine HCl 30 mg HS PO 11/07/24 22:00 11/07/24 20:59 30 MG Lactulose 30 ml BID PO 11/08/24 22:00 Zirconium Oxide 10 gm TID PO 11/08/24 17:45 11/10/24 06:01 UNV Metoprolol Succinate 50 mg DAILY PO 11/10/24 10:00 11/12/24 09:45 50 MG Tramadol HCl 50 mg Q8HP PRN PO 11/12/24 14:00 Examination: LUNGS:Normal, CVS:Normal, MSK:Normal laboratory and microbiology Laboratory Tests 11/10/24 06:13 11/08/24 11:53 Test 11/10/24 06:13 Range/Units Serum Glucose 73 L 74-106 mg/dL Problem List/Assessment/Plan Problem List/Assessment/Plan Acute kidney injury superimposed Chronic Kidney Disease secondary hemodynamic mediated hyperkalemia Congestive heart failure, ejection fraction 10% End-stage dilated cardiomyopathy NSTEMI Pulmonary hypertension Recommendations Kidney function slightly improving Increased urine output Hyperkalemia resolved Strict I&Os I agree with diuresis Renal diet Kidney ultrasound earlier reported bilateral simple cysts Cardiology consult We will continue to follow up Plan discussed with: Patient JUAN DIEGO VILLAR MD Nov 12, 2024 10:16
--- NOTE | 2024-11-12 13:24 | DVHPN2 ---
Subjective pt denies any pain/resting pulse ox is 98-100 % on room air/ leaving room often to go out- states does not smoke- goes to parking lot to talk to sister Changes from previous H/P or p: No Changes Eyes: No Pain, No Vision change, No Conjunctivae inflammation, No Eyelid inflammation, No Other, No Redness ENT: No Ear pain, No Ear discharge, No Nose pain, No Nose discharge, No Nose congestion, No Mouth pain, No Mouth swelling, No Throat pain, No Throat swelling, No Other Cardiovascular: Chest Pain; No Palpitations, No Orthopnea, No Paroxysmal Noc. Dyspnea, No Edema, No Lt Headedness, No Other Respiratory: No Cough, No Dry, No Shortness of breath, No SOB with excertion, No Wheezing, No Hemoptysis, No Pleuritic Pain, No Sputum, No Other Gastrointestinal: Nausea, Vomiting; No Abdominal Pain, No Diarrhea, No Constipation, No Melena, No Hematochezia, No Other Genitourinary: No Dysuria, No Frequency, No Incontinence, No Hematuria, No Retention, No Other Musculoskeletal: No other, No neck pain, No shoulder pain, No arm pain, No back pain, No hand pain, No leg pain, No foot pain Skin: No Rash, No Lesions, No Jaundice, No Bruising, No Other Objective Vitals Vital Signs Date Time Temp Pulse Resp B/P (MAP) Pulse Ox O2 Delivery O2 Flow Rate FiO2 11/12/24 12:53 97.9 86 19 129/70 (89) 99 97.9 11/11/24 20:00 Room Air* 0 21 Intake/Output Intake and Output 11/12/24 07:00 Intake Total 700 ml Output Total 1185 ml Balance -485 ml Intake Oral 700 ml Output Urine Total 1185 ml # Bowel Movements 1 General Appearance: Alert, Oriented X3, Cooperative, No acute distress Lungs: Clear to auscultation Cardiovascular: Regular rate, Normal S1, Normal S2 Abdomen: Normal bowel sounds, Soft, No tenderness, No hepatospenomegaly Musculoskeletal: Normal sensory function, Normal motor function Neuro: Normal gait, Normal speech, Strength at 5/5 X4 ext Psych/Mental Status: Mental status NL, Mood NL Medications Current Medications Medications Dose Ordered Sig/Lisa Route Start Time Stop Time Status Last Admin Dose Admin Docusate Sodium 100 mg BIDPRN PRN PO 11/07/24 11:15 Acetaminophen 650 mg Q6HP PRN PO 11/07/24 11:15 11/12/24 09:44 650 MG Furosemide 20 mg BIDD IV 11/07/24 18:00 11/12/24 05:50 20 MG Tamsulosin HCl 0.4 mg DAILY PO 11/08/24 10:00 11/12/24 09:44 0.4 MG Duloxetine HCl 30 mg HS PO 11/07/24 22:00 11/07/24 20:59 30 MG Lactulose 30 ml BID PO 11/08/24 22:00 Zirconium Oxide 10 gm TID PO 11/08/24 17:45 11/10/24 06:01 UNV Metoprolol Succinate 50 mg DAILY PO 11/10/24 10:00 11/12/24 09:45 50 MG Tramadol HCl 50 mg Q8HP PRN PO 11/12/24 14:00 Laboratory Results Laboratory Tests 11/08/24 11:53 11/10/24 06:13 Urinalysis Test 11/08/24 19:25 Urine Color Light-yellow (Yellow) Urine Clarity Clear (Clear) Urine pH 5.5 (5.0-9.0) Urine Specific [place] 1.007 (1.001-1.035) Urine Protein Negative (Negative) Urine Ketones Negative (Negative) Urine Blood Negative /uL (Negative) Urine Nitrite Negative (Negative) Urine Bilirubin Negative (Negative) Urine Urobilinogen Normal mg/dL (Negative) Urine Leukocyte Esterase 2+ /uL (Negative) Urine RBC 1 /hpf (0 - 3) Urine Microscopic WBC 4 /HPF (0-3) H Urine Squamous Epithelial Cells Few /hpf (<5) Urine Bacteria Few /hpf (None Seen) H Urine Hyaline Casts Few /lpf (0 - 2) Urine Glucose Normal mg/dL (Normal) Labs and/or images reviewed: Labs reviewed by me, Image(s) reviewed by me Assessment/Plan Assessment/Plan end stage cardiomyopathy- ef 10- 12% secondary pulmonary htn 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 on prognosis/hospice -consult cardio- NOT CANDIDATE FOR JARDIANCE DUE TO LOW SUGARS/.NOT CANDIDATE FOR KENDELL/ARB/ENTRESTO DUE TO HYPERKALEMIA ON ADMISSION-DOUBT WILL BENEFIT MUCH possible dc in am if stable and cleared by specialist also ambulatory status Plan discussed with: Patient, Other My Orders Orders - CAIO NOWAK MD Procedure Category Date Status Time Basic Metabolic Panel LAB 11/12/24 Logged 08:40 Prothrombin Time W/ LAB 11/12/24 Logged INR 08:40 B-Type Natriuretic LAB 11/12/24 Logged Peptide 08:40 Tramadol Hcl (Ultram) PHA 11/12/24 In Process 14:00 Chest Two Views XY 11/12/24 Logged Routine 13:14 * Cardiology Consult CONS 11/12/24 Transmitted 13:14 *[facility]. [facility] CONS 11/12/24 Transmitted -[place] 13:16 Date of Service: Nov 12, 2024 Billing Provider: CAIO NOWAK MD Common Visit Codes: [id number] INP/OBS CARE(HIGH) CAIO NOWAK MD Nov 12, 2024 13:24
[2024-11-12 14:24] LABS: Anion Gap 10 (5-15); Carbon Dioxide 31 mmol/L (20-31); Chloride 102 mmol/L (98-107); Potassium 3.9 mmol/L (3.5-5.1); Sodium 143 mmol/L (136-145)
[2024-11-12 14:25] LABS: Calcium 8.7 mg/dL (8.7-10.4)
[2024-11-12 14:30] LABS: BUN/Creatinine Ratio 32.8 (10.0-20.0)
[2024-11-12 14:31] LABS: Blood Urea Nitrogen 61 mg/dL (9-23); Glucose 140 mg/dL (74-106)
[2024-11-12 14:34] LABS: INR 1.21 (0.9-1.15); Prothrombin Time 12.6 sec (9.3-11.8)
[2024-11-12] MEDS: traMADol HCL 50 MG TAB PO PRN (23:12)
--- NOTE | 2024-11-13 00:02 | DVHINCON2 ---
Date of service: Nov 12, 2024 Referring Physician Cata Reason for Consultation Cardiomyopathy History of Present Illness This is a 69-year-old male with a PMH of Asthma, Cancer, CHF, CKF, COPD, High Lipids, HTN, NE who presented to the ED on 11/07 with complaint of chest pain. Patient states that his pain was localized to his left chest, radiates to his right chest, describes as sharp, and rates his pain a 7/10. Patient mentions that his pain has been intermittent and is currently not present at time of evaluation. Troponin 131 > 133 > 157. EKG showed sinus arrhythmia. Patient was admitted to the hospital. I am asked to consult on this patient. Family History: Diabetes mellitus G8 MOTHER Allergies: Coded Allergies: NO KNOWN ALLERGIES (Unverified , 07/08/18) Home Meds Active Scripts Isosorbide Mononitrate (ISMO TABLET) 20 Mg Tb, 10 MG PO DAILY for 30 Days, #15 TAB Prov:THIAGO LIZ RESIDENT 04/12/24 Hydralazine Hcl (Hydralazine Hcl) 10 Mg Tab, 10 MG PO Q8HR for 30 Days, #90 TAB Prov:THIAGO LIZ RESIDENT 04/12/24 Famotidine (PEPCID TABLET) 20 Mg Tb, 1 TAB PO BID, #60 TAB 3 Refills Prov:ARAVIND HARPER MD 03/10/24 Metoprolol Succinate (Toprol Xl) 50 Mg Tab, 25 MG PO DAILY for 60 Days, #30 TAB Prov:ARAVIND HARPER MD 03/10/24 Clopidogrel Bisulfate (CLOPIDOGREL) 75 Mg Tab, 75 MG PO DAILY for 60 Days, #60 TAB Prov:ARAVIND HARPER MD 03/10/24 Reported Medications Duloxetine HCl (Duloxetine HCl) 30 Mg Cap, 1 CAP PO HS 11/07/24 Bumetanide (Bumetanide) 1 Mg Tab, 2 TAB PO DAILY 08/04/24 Tamsulosin Hcl (Tamsulosin Hcl) 0.4 Mg Cap, 1 CAP PO DAILY 08/04/24 Hydrocodone-Acetaminophen (Hydrocodone/Acetaminophen 10-325 mg) 1 Tab Tab, 1 TAB PO DAILY PRN for PAIN SCALE 7 THRU 10 08/04/24 Benzonatate (Benzonatate) 200 Mg Cap, 1 CAP PO TID 08/04/24 Atorvastatin Calcium (Lipitor) 40 Mg Tab, 1 TAB PO DAILY for 90 Days, #90 03/07/24 Fluticasone Furoate-Vilanterol (BREO ELLIPTA) 1 Inh Inh, 1-2 PUFF INH DAILY for 30 Days, #60 03/07/24 Albuterol Sulfate (Albuterol Sulfate Hfa) 108 Mcg/Act Aer, 1 PUFF INH Q6HR PRN for WHEEZING for 50 Days, #18 03/07/24 Current Medications Current Medications Medications (Trade) Dose Ordered Sig/Lisa Route PRN Reason Start Time Stop Time Status Last Admin Tramadol HCl (Ultram) 50 mg Q8HP PRN PO MODERATE PAIN (4-6 PAIN SCALE) 11/12/24 14:00 Review of Systems Constitutional: denies: chills, diaphoresis, fatigue, fever, malaise, sweats, weakness, others EENTM: denies: blurred vision, double vision, ear bleeding, ear discharge, ear drainage, ear pain, ear ringing, eye pain, eye redness, hearing loss, mouth pain, mouth swelling, nasal discharge, nose bleeding, nose congestion, nose pain, photophobia, tearing, throat pain, throat swelling, voice changes, others Respiratory: denies: cough, hemoptysis, orthopnea, SOB at rest, shortness of breath, SOB with excertion, stridor, wheezing, others Cardiovascular: reports: chest pain; denies: dizzy spells, diaphoresis, Dyspnea on exertion, edema, irregular heart beat, left arm pain, lightheadedness, palpitations, PND, syncope, others Gastrointestinal: denies: abdomen distended, abdominal pain, blood streaked bowels, constipated, diarrhea, dysphagia, difficulty swallowing, hematemesis, melena, nausea, poor appetite, poor fluid intake, rectal bleeding, rectal pain, vomiting, others Genitourinary: denies: burning, dysuria, flank pain, frequency, hematuria, incontinence, penile discharge, penile sore, pain, testicle pain, testicle swelling, urgency, others Neurological: denies: dizziness, fainting, headache, left sided numbness, left sided weakness, numbness, paresthesia, pre-existing deficit, right sided numbness, right sided weakness, seizure, speech problems, tingling, tremors, weakness, others Musculoskeletal: denies: back pain, gout, joint pain, joint swelling, muscle pain, muscle stiffness, neck pain, others Integumetry: denies: bruises, change in color, change in hair/nails, dryness, laceration, lesions, lumps, rash, wounds, others Allergic/Immunocompromised: denies: Difficulty Healing, Frequent Infections, Hives, Itching, others Hematologic/Lymphatic: denies: anemia, blood clots, easy bleeding, easy bruising, swollen glands, others Endocrine: denies: excessive hunger, excessive sweating, excessive thirst, excessive urination, flushing, intolerance to cold, intolerance to heat, unex plained weight gain, unexplained weight loss, others Psychiatric: denies: anxiety, bipolar disorder, depression, hopeless, panic disorder, schizophrenia, sleepless, suicidal, others All Other Systems: Reviewed and Negative Vital Signs Vital Signs Date Time Temp Pulse Resp B/P (MAP) Pulse Ox O2 Delivery O2 Flow Rate FiO2 11/12/24 21:00 88 17 101/63 (76) 95 11/12/24 17:00 98.0 98.0 11/12/24 08:00 Room Air* 0 21 Physical Exam GENERAL: Alert and oriented x 3. No acute distress. EYES: PERRL, EOMI. Anicteric. HENT: Moist mucous membranes. LUNGS: Clear to auscultation bilaterally. CARDIOVASCULAR: Regular rate and rhythm. ABDOMEN: Soft, nontender and nondistended. EXTREMITIES: No edema. NEUROLOGIC: No focal neurological deficits. SKIN: Warm, dry. Labs/Diagnostic Data Labs Test 11/12/24 14:03 11/11/24 10:29 11/08/24 19:25 11/08/24 11:53 Range/Units Prothrombin Time 12.6 H 9.3-11.8 sec Prothrombin Time INR 1.21 H 0.9-1.15 Sodium Level 143 136-145 mmol/L Potassium Level 3.9 3.5-5.1 mmol/L Chloride Level 102 98-107 mmol/L Carbon Dioxide Level 31 20-31 mmol/L Anion Gap 10 5-15 Blood Urea Nitrogen 61 H 9-23 mg/dL Creatinine 1.86 H 0.700-1.30 mg/dL Glomerular Filtration Rate Calc 39 >90 mL/min BUN/Creatinine Ratio 32.8 H 10.0-20.0 Serum Glucose 140 H 74-106 mg/dL Calcium Level 8.7 8.7-10.4 mg/dL B-Type Natriuretic Peptide 2650.12 0-100 pg/mL Phosphorus Level 3.5 2.4-5.1 mg/dL Magnesium Level 1.7 1.6-2.6 mg/dL Vitamin D 25-Hydroxy 41.3 30.0-100 ng/mL Parathyroid Hormone (Intact) 83.6 H 18.4-80.1 pg/mL Urine Color Light-yellow Yellow Urine Clarity Clear Clear Urine pH 5.5 5.0-9.0 Urine Specific [place] 1.007 1.001-1.035 Urine Protein Negative Negative Urine Ketones Negative Negative Urine Blood Negative Negative /uL Urine Nitrite Negative Negative Urine Bilirubin Negative Negative Urine Urobilinogen Normal Negative mg/dL Urine Leukocyte Esterase 2+ Negative /uL Urine RBC 1 0 - 3 /hpf Urine Microscopic WBC 4 H 0-3 /HPF Urine Squamous Epithelial Cells Few <5 /hpf Urine Bacteria Few H None Seen /hpf Urine Hyaline Casts Few 0 - 2 /lpf Urine Glucose Normal Normal mg/dL White Blood Count 7.8 4.4-10.8 10^3/uL Red Blood Count 5.28 4.5-5.90 10^6/uL Hemoglobin 14.9 13.5-17.5 g/dL Hematocrit 46.3 # 41.0-53.0 % Mean Corpuscular Volume 87.7 80.0-100.0 fL Mean Corpuscular Hemoglobin 28.3 28.0-32.0 pg Mean Corpuscular Hemoglobin Concent 32.2 32.0-36.0 g/dL Red Cell Distribution Width 22.2 H 11.8-14.3 % Platelet Count 184 140-450 10^3/uL Mean Platelet Volume 7.0 6.9-10.8 fL Neutrophils (%) (Auto) 82.2 H 37.0-80.0 % Lymphocytes (%) (Auto) 6.9 L 10.0-50.0 % Monocytes (%) (Auto) 9.4 0.0-12.0 % Eosinophils (%) (Auto) 1.0 0.0-7.0 % Basophils (%) (Auto) 0.5 0.0-2.0 % Neutrophils # (Auto) 6.4 1.6-8.6 10 ^3/uL Lymphocytes # (Auto) 0.5 0.4-5.4 10 ^3/uL Monocytes # (Auto) 0.7 0-1.3 10 ^3/uL Eosinophils # (Auto) 0.1 0-0.8 10 ^3/uL Basophils # (Auto) 0 0-0.2 10 ^3/uL Nucleated Red Blood Cells 0.2 % Total Bilirubin 1.8 H 0.2-1.0 mg/dL Aspartate Amino Transferase (AST) 46 H <34 U/L Alanine Aminotransferase (ALT) 49 H 7-40 U/L Alkaline Phosphatase 79 46-116 U/L Total Protein 6.1 5.7-8.2 g/dL Albumin 3.5 3.2-4.8 g/dL Test 11/07/24 13:00 11/07/24 10:28 11/07/24 07:51 Range/Units Troponin I High Sensitivity 157 *H </=54 ng/L POC Glucose 57 L 70-106 mg/dl Platelet Estimate Adequate Poikilocytosis (manual) Slight Anisocytosis (manual) Slight Ovalocytes Few Schistocytes Few Assessment [id number] systolic heart failure. End stage cardiomyopathy, EF 10- 12%. Pulmonary hypertension. CKD 4. BPH. Hepatic failure. History oflung cancer and pneumonectomy COPD. History of drug abuse. Hepatitis C. Hyperkalemia. Noncompliance. Plan/Recommendation I agree with your ongoing assessment and care of plan. Telemetry reviewed. Diuretics with Lasix. Metoprolol. Additional plan as per the hospital course. A total of 45 minutes was spent reviewing the patient record, examining the patient, making a diagnostic and therapeutic plan, discussing this plan with medical personnel, following up on diagnostic studies and following the patient for clinical stability excluding any and all procedures. At least 50% of this time was spent in direct, [id number] contact. Plan discussed with: Patient JAYME PEDRAZA MD Nov 12, 2024 22:27
[2024-11-13 05:00] VITALS: BP 111/71; PULSE 87; RESP 17; TEMP 97.6; O2SAT 99
[2024-11-13 09:00] VITALS: BP 101/58; PULSE 85; RESP 18; TEMP 98; O2SAT 96
[2024-11-13 10:37] VITALS: BP 110/73; PULSE 87; TEMP 36.4
--- NOTE | 2024-11-13 10:57 | DVHPN2 ---
Progress Note Date Seen: Nov 13, 2024 Medical Necessity Reason Pt with a Central, PICC or Fol: No Subjective Patient reports: No new complaints Other Systems: Patient seen and examined by myself today in follow-up Objective vital signs Vital Sign Date Time Temp Pulse Resp B/P (MAP) Pulse Ox O2 Delivery O2 Flow Rate FiO2 11/13/24 10:37 36.4 87 11/13/24 10:27 110/73 11/13/24 05:00 17 99 11/12/24 20:00 Room Air* 0 21 Total Intake and Output 11/12/24 11/12/24 11/13/24 15:00 23:00 07:00 Intake Total 740 ml 360 ml Output Total 500 ml 601 ml 200 ml Balance -500 ml 139 ml 160 ml medications Current Medications Medications Dose Ordered Sig/Lisa Route Start Time Stop Time Status Last Admin Dose Admin Docusate Sodium 100 mg BIDPRN PRN PO 11/07/24 11:15 Acetaminophen 650 mg Q6HP PRN PO 11/07/24 11:15 11/13/24 04:10 650 MG Furosemide 20 mg BIDD IV 11/07/24 18:00 11/13/24 06:21 20 MG Tamsulosin HCl 0.4 mg DAILY PO 11/08/24 10:00 11/13/24 10:26 0.4 MG Duloxetine HCl 30 mg HS PO 11/07/24 22:00 11/07/24 20:59 30 MG Lactulose 30 ml BID PO 11/08/24 22:00 11/12/24 23:12 30 ML Zirconium Oxide 10 gm TID PO 11/08/24 17:45 11/10/24 06:01 UNV Metoprolol Succinate 50 mg DAILY PO 11/10/24 10:00 11/13/24 10:27 50 MG Tramadol HCl 50 mg Q8HP PRN PO 11/12/24 14:00 11/12/24 23:12 50 MG Examination: LUNGS:Normal, CVS:Normal, MSK:Normal laboratory and microbiology Laboratory Tests 11/12/24 14:03 11/08/24 11:53 Test 11/12/24 14:03 Range/Units Serum Glucose 140 H 74-106 mg/dL Problem List/Assessment/Plan Problem List/Assessment/Plan Acute kidney injury superimposed Chronic Kidney Disease secondary hemodynamic mediated hyperkalemia Congestive heart failure, ejection fraction 10% End-stage dilated cardiomyopathy NSTEMI Pulmonary hypertension Recommendations Kidney function continues to improve Increased urine output Hyperkalemia resolved Strict I&Os I agree with diuresis Renal diet Kidney ultrasound earlier reported bilateral simple cysts Cardiology consult We will continue to follow up Plan discussed with: Patient JUAN DIEGO VILLAR MD Nov 13, 2024 10:57
[2024-11-13 12:15] VITALS: BP 109/89; PULSE 71; RESP 19; TEMP 97.6; O2SAT 94
--- NOTE | 2024-11-13 13:34 | DVHPN2 ---
Subjective pt denies any pain/resting pulse ox is 98-100 % on room air/ insists on going home today/sister is on the way requesting hospice on dc Changes from previous H/P or p: No Changes Eyes: No Pain, No Vision change, No Conjunctivae inflammation, No Eyelid inflammation, No Other, No Redness ENT: No Ear pain, No Ear discharge, No Nose pain, No Nose discharge, No Nose congestion, No Mouth pain, No Mouth swelling, No Throat pain, No Throat swelling, No Other Cardiovascular: Chest Pain; No Palpitations, No Orthopnea, No Paroxysmal Noc. Dyspnea, No Edema, No Lt Headedness, No Other Respiratory: No Cough, No Dry, No Shortness of breath, No SOB with excertion, No Wheezing, No Hemoptysis, No Pleuritic Pain, No Sputum, No Other Gastrointestinal: Nausea, Vomiting; No Abdominal Pain, No Diarrhea, No Constipation, No Melena, No Hematochezia, No Other Genitourinary: No Dysuria, No Frequency, No Incontinence, No Hematuria, No Retention, No Other Musculoskeletal: No other, No neck pain, No shoulder pain, No arm pain, No back pain, No hand pain, No leg pain, No foot pain Skin: No Rash, No Lesions, No Jaundice, No Bruising, No Other Objective Vitals Vital Signs Date Time Temp Pulse Resp B/P (MAP) Pulse Ox O2 Delivery O2 Flow Rate FiO2 11/13/24 12:15 97.6 71 19 109/89 (96) 94 97.6 11/13/24 08:00 Room Air* 0 21 Intake/Output Intake and Output 11/13/24 07:00 Intake Total 1100 ml Output Total 1301 ml Balance -201 ml Intake Oral 1100 ml Output Urine Total 1300 ml Stool Total 1 ml # Voids 1 # Bowel Movements 1 General Appearance: Alert, Oriented X3, Cooperative, No acute distress Lungs: Clear to auscultation Cardiovascular: Regular rate, Normal S1, Normal S2 Abdomen: Normal bowel sounds, Soft, No tenderness, No hepatospenomegaly Musculoskeletal: Normal sensory function, Normal motor function Neuro: Normal gait, Normal speech, Strength at 5/5 X4 ext Psych/Mental Status: Mental status NL, Mood NL Medications Current Medications Medications Dose Ordered Sig/Lisa Route Start Time Stop Time Status Last Admin Dose Admin Docusate Sodium 100 mg BIDPRN PRN PO 11/07/24 11:15 Acetaminophen 650 mg Q6HP PRN PO 11/07/24 11:15 11/13/24 04:10 650 MG Furosemide 20 mg BIDD IV 11/07/24 18:00 11/13/24 06:21 20 MG Tamsulosin HCl 0.4 mg DAILY PO 11/08/24 10:00 11/13/24 10:26 0.4 MG Duloxetine HCl 30 mg HS PO 11/07/24 22:00 11/07/24 20:59 30 MG Lactulose 30 ml BID PO 11/08/24 22:00 11/12/24 23:12 30 ML Zirconium Oxide 10 gm TID PO 11/08/24 17:45 11/10/24 06:01 UNV Metoprolol Succinate 50 mg DAILY PO 11/10/24 10:00 11/13/24 10:27 50 MG Tramadol HCl 50 mg Q8HP PRN PO 11/12/24 14:00 11/12/24 23:12 50 MG Laboratory Results Laboratory Tests 11/08/24 11:53 11/12/24 14:03 Chemistry Test 11/12/24 14:03 Calcium Level 8.7 mg/dL (8.7-10.4) Coagulation Test 11/12/24 14:03 Prothrombin Time 12.6 sec (9.3-11.8) H Prothrombin Time INR 1.21 (0.9-1.15) H Cardiac Markers Test 11/12/24 14:03 B-Type Natriuretic Peptide 2650.12 pg/mL (0-100) Urinalysis Test 11/08/24 19:25 Urine Color Light-yellow (Yellow) Urine Clarity Clear (Clear) Urine pH 5.5 (5.0-9.0) Urine Specific [place] 1.007 (1.001-1.035) Urine Protein Negative (Negative) Urine Ketones Negative (Negative) Urine Blood Negative /uL (Negative) Urine Nitrite Negative (Negative) Urine Bilirubin Negative (Negative) Urine Urobilinogen Normal mg/dL (Negative) Urine Leukocyte Esterase 2+ /uL (Negative) Urine RBC 1 /hpf (0 - 3) Urine Microscopic WBC 4 /HPF (0-3) H Urine Squamous Epithelial Cells Few /hpf (<5) Urine Bacteria Few /hpf (None Seen) H Urine Hyaline Casts Few /lpf (0 - 2) Urine Glucose Normal mg/dL (Normal) Assessment/Plan Assessment/Plan end stage cardiomyopathy- ef 10- 12% secondary pulmonary htn 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 on prognosis/hospice -consult cardio- NOT CANDIDATE FOR [facility]IANCE DUE TO LOW SUGARS/.NOT CANDIDATE FOR KENDELL/ARB/ENTRESTO DUE TO HYPERKALEMIA ON ADMISSION-DOUBT WILL BENEFIT MUCH possible dc today if can arrange for hospice ambulatory status Plan discussed with: Patient, Other My Orders Orders - CAIO NOWAK MD Procedure Category Date Status Time * Servicing Manager CONS 11/12/24 Transmitted Consult Refer To Hospice [facility] 11/13/24 In Process 09:40 Discharge DISCHARGE 11/13/24 Transmitted 09:55 Date of Service: Nov 13, 2024 Billing Provider: CAIO NOWAK MD Common Visit Codes: [id number] INP/OBS CARE(MOD) CAIO NOWAK MD Nov 13, 2024 13:33
--- NOTE | 2024-11-13 22:54 | DVHPN2 ---
Progress Note - Dictate Date Seen: Nov 13, 2024 Medical Necessity Reason Pt with a Central, PICC or Fol: No Subjective Patient was seen and evaluated in follow up. Patient has no new complaints at this time. Patient denies any cardiac symptoms. Patient is cardiac stable for discharge. Telemetry reviewed. vital signs Vital Sign Date Time Temp Pulse Resp B/P (MAP) Pulse Ox O2 Delivery O2 Flow Rate FiO2 11/13/24 12:15 97.6 71 19 109/89 (96) 94 97.6 11/13/24 08:00 Room Air* 0 21 Total Intake and Output 11/12/24 11/12/24 11/13/24 15:00 23:00 07:00 Intake Total 740 ml 360 ml Output Total 500 ml 601 ml 200 ml Balance -500 ml 139 ml 160 ml medications Current Medications Medications Dose Ordered Sig/Lisa Route Start Time Stop Time Status Last Admin Dose Admin Docusate Sodium 100 mg BIDPRN PRN PO 11/07/24 11:15 Acetaminophen 650 mg Q6HP PRN PO 11/07/24 11:15 11/13/24 04:10 650 MG Furosemide 20 mg BIDD IV 11/07/24 18:00 11/13/24 06:21 20 MG Tamsulosin HCl 0.4 mg DAILY PO 11/08/24 10:00 11/13/24 10:26 0.4 MG Duloxetine HCl 30 mg HS PO 11/07/24 22:00 11/07/24 20:59 30 MG Lactulose 30 ml BID PO 11/08/24 22:00 11/12/24 23:12 30 ML Zirconium Oxide 10 gm TID PO 11/08/24 17:45 11/10/24 06:01 UNV Metoprolol Succinate 50 mg DAILY PO 11/10/24 10:00 11/13/24 10:27 50 MG Tramadol HCl 50 mg Q8HP PRN PO 11/12/24 14:00 11/12/24 23:12 50 MG objective GENERAL: Alert and oriented x 3. No acute distress. EYES: PERRL, EOMI. Anicteric. HENT: Moist mucous membranes. LUNGS: Clear to auscultation bilaterally. CARDIOVASCULAR: Regular rate and rhythm. ABDOMEN: Soft, nontender and nondistended. EXTREMITIES: No edema. NEUROLOGIC: No focal neurological deficits. SKIN: Warm, dry. laboratory and microbiology Laboratory Tests 11/12/24 14:03 11/08/24 11:53 Test 11/12/24 14:03 Range/Units Serum Glucose 140 H 74-106 mg/dL Problem List [id number] systolic heart failure. End stage cardiomyopathy, EF 10- 12%. Pulmonary hypertension. CKD 4. BPH. Hepatic failure. History oflung cancer and pneumonectomy COPD. History of drug abuse. Hepatitis C. Hyperkalemia. Noncompliance. Assessment/Plan Continued all current supportive medical care. Diuretics with Lasix. Metoprolol. Additional plan as per the hospital course. Plan discussed with: Patient JAYME PEDRAZA MD Nov 13, 2024 14:50
== END 2024-11-13 15:34 | disposition hospice, home (50) | DRG 640 ==
LOC: ER 07:29 → OVERFLOW 11:09 → TELE-CENTR 22:08
PROVIDERS: ADMIT Internal Medicine; ATTEND Internal Medicine
DX: E87.5 Hyperkalemia (principal); I50.23 Acute on chronic systolic (congestive) heart failure; N17.0 Acute kidney failure with tubular necrosis; I13.0 Hypertensive heart and chronic kidney disease with heart failure and stage 1 through stage 4 chronic kidney disease, or unspecified chronic kidney disease; N18.4 Chronic kidney disease, stage 4 (severe); I42.0 Dilated cardiomyopathy; E78.5 Hyperlipidemia, unspecified; J44.89 Other specified chronic obstructive pulmonary disease; I48.91 Unspecified atrial fibrillation; E83.52 Hypercalcemia; I27.20 Pulmonary hypertension, unspecified; K72.90 Hepatic failure, unspecified without coma; N40.0 Benign prostatic hyperplasia without lower urinary tract symptoms; K74.60 Unspecified cirrhosis of liver; B19.20 Unspecified viral hepatitis C without hepatic coma; E16.2 Hypoglycemia, unspecified; Z83.3 Family history of diabetes mellitus; Z85.118 Personal history of other malignant neoplasm of bronchus and lung; Z91.199 Patient's noncompliance with other medical treatment and regimen due to unspecified reason; Z79.02 Long term (current) use of antithrombotics/antiplatelets; Z79.899 Other long term (current) drug therapy
CPT/HCPCS: 36415; 71045; 80048; 80053; 81001; 82306; 82962; 83735; 83880; 83970; 84100; 84484; 85025; 85610; 93005; 96374; 96375; 97163; 99291; G0378; J1815; J2405